=== PATIENT | female | born 1955 | race Caucasian/White ===

== ENCOUNTER 2018-05-06 01:22 | Emergency (ER) | payer OTHER ==
[~2018-05-06] VITALS: Ht 152.4 cm; Wt 68.0 kg
[~2018-05-06 01:22] MED LIST: AMOXICILLIN500 M2 PO
--- NOTE | 2018-05-06 01:34 | ED SKIN/ALLERGY COMPLAINT ---
History of Present Illness General Chief Complaint: Nausea, Vomiting, Diarrhea Stated Complaint: N/V/D Source: patient, family, old records, EMS Exam Limitations: no limitations Vital Signs & Intake/Output Vital Signs & Intake/Output Vital Signs Date Time Temp Pulse Resp B/P B/P Pulse O2 O2 Flow FiO2 Mean Ox Delivery Rate 05/06 0351 98.3 89 18 102/59 97 Room Air 05/06 0125 95 Room Air 05/06 0124 98.2 105 18 108/58 95 Room Air Allergies Coded Allergies: No Known Drug Allergies (Intermediate, NONE 02/01/18) Reconcile Medications Amoxicillin 500 MG CAPSULE 1 CAP PO TID INFECTION (Reported) Triage Note: PT TO ED BY AMBULANCE WITH C/O UPSET STOMACH AND "PROJECTILE DIARRHEA" X 1 AFTER EATING A "BAD BATCH OF SHRIMP TONIGHT." STATES ALSO DEVELOPED WHOLE BODY HIVES AFTER EATING THE SHRIMP. PT THEN TOOK HER TRAZODONE AND TRIED TO GO TO SLEEP. NO SOB OR AIRWAY COMPROMISE. PT ALSO REPORTS CHEST DISCOMFORT WHILE EN ROUTE TO ED. Triage Nurses Notes Reviewed? yes HPI: Patient H tonight which she has done in the past however she states that this patch did not taste well. Shortly thereafter she noticed that her eyes and her face started to swell up. Patient did have one episode of diarrhea. Patient denies any nausea or vomiting. She denies any shortness of breath or any involvement of her throat. Patient called 911 and came in for evaluation. Patient states that she feels itchy all over. Past History Travel History Traveled to [place] past 21 day No Medical History Any Pertinent Medical History? see below for history Endocrine: diabetes Surgical History Surgical History: non-contributory Psychosocial History What is your primary language Moroccan Tobacco Use: Quit >30 days ago ETOH Use: denies use Illicit Drug Use: denies illicit drug use Family History Hx Contributory? No Review of Systems Review of Systems Constitutional: Reports: no symptoms. EENTM: Reports: see HPI. Respiratory: Reports: no symptoms. Cardiovascular: Reports: no symptoms. GI: Reports: no symptoms. Genitourinary: Reports: no symptoms. Musculoskeletal: Reports: no symptoms. Skin: Reports: see HPI, rash. Neurological/Psychological: Reports: no symptoms. Hematologic/Endocrine: Reports: no symptoms. Immunologic/Allergic: Reports: no symptoms. All Other Systems: Reviewed and Negative Physical Exam Physical Exam General Appearance: well developed/nourished, alert, awake, anxious, mild distress Head: atraumatic Eyes: Bilateral: PERRL, EOMI, other (EDEMA). Ears, Nose, Throat: normal pharynx, hearing grossly normal, NO OROPHARYNGEAL EDEMA Neck: normal inspection, supple, NOSTRIDOR Respiratory: normal breath sounds, chest non-tender, no respiratory distress, lungs clear Cardiovascular: regular rate/rhythm, normal peripheral pulses Gastrointestinal: normal bowel sounds, soft, non-tender Back: normal inspection Extremities: normal inspection, normal range of motion, no edema Neurologic/Psych: awake, alert, oriented x 3, normal mood/affect Skin: rash Skin Problem Location: generalized Skin Problem Character: urticarial Lymphatic: no anterior cervical lorenzo Progress Differential Diagnosis: allergic reaction, anaphylaxis, angioedema Plan of Care: Orders Procedure Date/time Status COMPREHENSIVE METABOLIC PANEL 05/06 353 Complete CBC WITHOUT DIFFERENTIAL 05/06 353 Complete Laboratory Tests 05/06/18 0400: Anion Gap 13, Estimated GFR > 60, BUN/Creatinine Ratio 20.0, Glucose 339 H, Calcium 8.1 L, Total Bilirubin 0.6, AST 26, ALT 23, Alkaline Phosphatase 80, Total Protein 5.8 L, Albumin 3.3 L, Globulin 2.5, Albumin/Globulin Ratio 1.3, CBC w Diff MAN DIFF ORDERED, RBC 4.75, MCV 81.4, MCH 26.7 L, MCHC 32.8 L, RDW 15.1 H, MPV 10.5 H, Gran % 93.8 H, Lymphocytes % 3.8 L, Monocytes % 2.1, Eosinophils % 0.3, Basophils % 0, Absolute Granulocytes 7.1 H, Segmented Neutrophils 75, Band Neutrophils 17 H, Absolute Lymphocytes 0.3 L, Lymphocytes 6 L, Monocytes 2, Absolute Monocytes 0.2, Absolute Eosinophils 0, Absolute Basophils 0, Platelet Estimate ADEQUATE, Anisocytosis 1+, Fld Total RBCs Counted 100 Comments: Patient got up to go to the bathroom and she states her legs just gave out on her and she fell to the ground. Patient denies hitting her head and there was no loss consciousness. Patient states she did not injure herself in the fall. Patient was able to get back up with assistance and was able to ambulate. Patient is feeling much better. Patient has ambulated in the emergency department with supervision. Departure Departure Disposition: HOME OR SELF CARE Condition: Stable Clinical Impression Primary Impression: Allergic reaction Secondary Impressions: Diarrhea Referrals: Buddy MORGAN,John Holguin (PCP/Family) Additional Instructions: Drink plenty of fluids. Take Benadryl as needed for the itching. Take prednisone as prescribed. The prednisone will raise her blood sugar so make sure he followed closely. Return if symptoms worsen or for any concerns. Departure Forms: Customer Survey General Discharge Information Prescriptions: Current Visit Scripts Prednisone 1 TAB PO DAILY #18 TAB TAKE 3 TABS FOR 3 DAYS THEN TAKE 2 TABS FOR 3 DAYS THEN TAKE 1 TAB FOR 3 DAYS
[2018-05-06 04:17] LABS: ABSOLUTE BASOPHIL COUNT 0 /CUMM (0.0-0.2); ABSOLUTE EOSINOPHIL COUNT 0 /CUMM (0.0-0.7); ABSOLUTE GRANULOCYTE CT 7.1 /CUMM (1.4-6.5); ABSOLUTE LYMPH COUNT 0.3 /CUMM (1.2-3.4); ABSOLUTE MONOCYTE COUNT 0.2 /CUMM (0.10-0.60); BASOPHIL % 0 % (0.0-2.0); EOSINOPHIL % 0.3 % (0-5); HEMATOCRIT 38.7 % (37-47); MEAN CORPUSCULAR HGB 26.7 PG (27.0-31.0); MEAN CORPUSCULAR HGB CONC 32.8 G/DL (33.0-37.0); MEAN CORPUSCULAR VOLUME 81.4 FL (81.0-99.0); MEAN PLATELET VOLUME 10.5 FL (7.4-10.4); PLATELET COUNT 282 /CUMM (130-400); RBC DISTRIBUTION WIDTH 15.1 % (11.5-14.5); RED BLOOD CELL CT 4.75 /CUMM (4.20-5.40); WHITE BLOOD CELL COUNT 7.6 /CUMM (4.8-10.8)
[2018-05-06 04:39] LABS: GRANULOCYTE % 93.8 % (42.2-75.2)
[2018-05-06] MEDS ORDERED: PREDNISONE10 M2 PO (05:47)
[2018-05-06 09:25] VITALS: BP 118/64
== END 2018-05-06 09:42 ==
LOC: ERH 01:22
PROVIDERS: Emergency Medicine
DX: T78.1XXA Other adverse food reactions, not elsewhere classified, initial encounter (principal); R19.7 Diarrhea, unspecified; R07.89 Other chest pain
CPT/HCPCS: 96374; 96375; J1200; J2930

== ENCOUNTER 2018-05-09 16:31 | Inpatient (IN) | payer OTHER ==
[~2018-05-09] VITALS: Ht 165.1 cm; Wt 91.2 kg
[~2018-05-09 16:31] MED LIST changes: +PREDNISONE10 M2 PO
--- NOTE | 2018-05-09 16:58 | ED AMS/SEIZURE/WEAK/DIZZY ---
See Addendum History of Present Illness General Chief Complaint: General Adult Stated Complaint: BIBA LETHARGIC Source: patient, old records, EMS Exam Limitations: clinical condition Vital Signs & Intake/Output Vital Signs & Intake/Output Vital Signs Date Time Temp Pulse Resp B/P B/P Pulse O2 O2 Flow FiO2 Mean Ox Delivery Rate 05/09 1940 99.0 105 18 95/51 98 / 1930 99.6 05/09 1927 99.1 161 18 105/60 97 Room Air 05/09 1920 189 18 100/58 / 1915 124 18 109/51 / 1914 108 / 1914 145 / 1911 182 18 110/62 05/09 1907 182 18 100/58 96 Room Air 05/09 1819 100.6 172 18 90/58 97 Room Air 05/09 1806 100.6 182 18 111/58 05/09 1757 100.4 200 18 111/58 96 Room Air 05/09 1753 100.4 196 18 128/62 96 Room Air 05/09 1747 114/58 05/09 1744 100.4 181 18 96 Room Air / 1740 198 18 100/70 96 Room Air 05/09 1716 100.4 168 18 161/70 98 Room Air 05/09 1645 115/70 05/09 1644 163 /11 1638 200 18 108/62 96 Room Air Allergies Coded Allergies: No Known Drug Allergies (Intermediate, NONE 02/01/18) Reconcile Medications Amoxicillin 500 MG CAPSULE 1 CAP PO TID INFECTION (Reported) Bupropion HCl (Wellbutrin XL) 150 MG TAB.ER.24H 1 TAB PO DAILY UNKNOWN ( Reported) Carvedilol 3.125 MG TABLET 1 TAB PO DAILY HEART/BP (Reported) Ketoconazole 2 % CREAM..G. 1 EDWARD TOP DAILY AFFECTED AREA(S) (Reported) apply to affected area(s) Memantine HCl (Namenda XR) 28 MG CAP.SPR.24 1 CAP PO DAILY MEMORY (Reported) Metformin HCl (Metformin HCl ER) 500 MG TAB.ER.24H 1 TAB PO DAILY DM ( Reported) Oxycodone HCl 15 MG TABLET 1 TAB PO Q8H PAIN (Reported) Prednisone 10 MG TABLET 1 TAB PO DAILY Allergic Reaction TAKE 3 TABS FOR 3 DAYS THEN TAKE 2 TABS FOR 3 DAYS THEN TAKE 1 TAB FOR 3 DAYS Pregabalin (Lyrica) 150 MG CAPSULE 1 CAP PO BID UNKNOWN (Reported) Sertraline HCl (Zoloft) 100 MG TABLET 2 TAB PO DAILY MENTAL HEALTH (Reported) Trazodone HCl 100 MG TABLET 2 TAB PO QHS SLEEP/MENTAL HEALTH (Reported) Triage Note: PT COMING IN LETHARGIC SINCE MONDAY. WAS IN HOSPITAL MONDAY FOR FOOD POISONING. PT HAS NOT HAD URINE OUTPUT SINCE MONDAY. PT HAS NOT BEEN DRINKING AND HAS HAD DIARRHEA X1 WEEK. HR WAS OVER 200 B/P 105/60. NEG CINIC. ALERT BUT NOT SPEAKING. Triage Nurses Notes Reviewed? yes HPI: Patient presents for evaluation of lethargy and elevated heart rate. Patient is unable to provide history secondary to clinical condition. IV fluids were given prehospital (patient's heart rate peaked at 220 bpm). The paramedics feel the patient is likely septic. She was recently seen in the [facility] emergency department and diagnosed with food poisoning. She has had a very poor pedal intake since with decreased urine output. Past History Travel History Traveled to [place] past 21 day No Medical History Any Pertinent Medical History? see below for history Endocrine: diabetes Surgical History Surgical History: non-contributory Psychosocial History What is your primary language Cymraes Tobacco Use: Cognitive Impairment ETOH Use: 6 Family History Hx Contributory? No Review of Systems Review of Systems Constitutional: Reports: see HPI. EENTM: Reports: no symptoms. Respiratory: Reports: no symptoms. Cardiovascular: Reports: no symptoms. GI: Reports: no symptoms. Genitourinary: Reports: no symptoms. Musculoskeletal: Reports: no symptoms. Skin: Reports: no symptoms. Neurological/Psychological: Reports: see HPI. Hematologic/Endocrine: Reports: no symptoms. Immunologic/Allergic: Reports: no symptoms. All Other Systems: Reviewed and Negative Comments Given patient's overall clinical condition her review of systems was inconsistent Physical Exam Physical Exam General Appearance: SEE BELOW Comments: Gen.: Well-nourished, well-developed, no acute respiratory distress. Head: Normocephalic, atraumatic. Eyes: Normal inspection bilaterally Ears: Normal inspection bilaterally Nose: Normal inspection Throat/mouth : Dry mucosa, breathless voice Neck: Supple, full range of motion, no goiter Heart: Rapid irregular rate and rhythm Lungs: Clear to auscultation bilaterally with normal air entry Chest: Nontender Back: Normal range of motion Abdomen: Soft, nontender, nondistended, normal bowel sounds Extremities: Normal range of motion grossly, equal radial pulses, no cyanosis clubbing or edema Neurologic: Cranial nerves grossly intact, speech is clear Skin: warm and dry Psychiatric: Calm, cooperative, unable to assess further secondary to extremely dry mucosa and decreased ability to speak Core Measures ACS in differential dx? No CVA/TIA Diagnosis No Sepsis Present: Yes Sepsis Focused Exam Completed? Yes Progress Differential Diagnosis: SEE NOTES Plan of Care: Orders Procedure Date/time Status LACTIC ACID 05/09 1957 Active Patient Data 05/09 1927 Active Admit to inpatient 05/09 1918 Active LACTIC ACID 05/09 1839 Active Add-on Test (ER Only) 05/[address] CHEST W IV CONTRAST 05/09 181 Active Add-on Test (ER Only) 05/09 1750 Active BLOOD CULTURE 05/09 170 Active TSH REFLEX 05/09 1700 Complete SERUM OSMOLALITY 05/09 1700 Complete ACETONE 05/09 1700 Complete TROPONIN LEVEL 05/09 1657 Complete PROTHROMBIN TIME 05/09 1657 Complete MAGNESIUM 05/09 1657 Complete LACTIC ACID 05/09 1657 Complete ETHANOL 05/09 1657 Complete COMPREHENSIVE METABOLIC PANEL 05/09 1657 Complete CBC WITHOUT DIFFERENTIAL 05/09 1657 Complete URINALYSIS 05/09 1655 Complete EKG 05/09 1634 Active Current Medications Sig/Bayron Start time Last Medication Dose Stop Time Status Admin Ampicillin Sodium/ 1,500 MG Q6 05/09 2359 UNVr 05/09 Sulbactam Sodium 1941 (Unasyn) Sodium Chloride 250 ML (Normal Saline 0.9%) Diltiazem HCl 10 MG ONCE ONE 05/09 1930 UNVr 05/09 (Cardizem) 05/09 193 1920 Diltiazem HCl 125 MG Q12H 05/09 1730 UNVr 05/09 (Cardizem DRIP) 1756 Sodium Chloride 100 ML (Normal Saline 0.9%) Laboratory Tests 05/09/18 1746: Acetone Level Cancelled 05/09/18 1700: Anion Gap 19 H, Estimated GFR 56 L, BUN/Creatinine Ratio 41.0 H, Glucose 255 H, Serum Osmolality 294, Lactic Acid 4.0 H, Calcium 8.7, Magnesium 2.2, Total Bilirubin 1.7 H, AST 21, ALT 25, Alkaline Phosphatase 38, Troponin I 0.03, Total Protein 4.8 L, Albumin 2.4 L, Globulin 2.4, Albumin/Globulin Ratio 1.0 L, TSH &T3 &Free T4 Intrp 1.010, PT 16.1 H, INR 1.47 H, CBC w Diff MAN DIFF ORDERED, RBC 4.38, MCV 78.5 L, MCH 26.1 L, MCHC 33.3, RDW 15.8 H, MPV 10.1, Gran % 96.0 H, Lymphocytes % 2.3 L, Monocytes % 1.5 L, Eosinophils % 0.2, Basophils % 0, Absolute Granulocytes 10.3 H, Segmented Neutrophils 46, Band Neutrophils 20 H, Absolute Lymphocytes 0.2 L, Lymphocytes 6 L, Monocytes 24 H, Absolute Monocytes 0.2, Absolute Eosinophils 0, Absolute Basophils 0, Metamyelocytes 3 H, Myelocytes 1 H, Polychromasia 1+, Hypochromic-Microcytic 1 +, Anisocytosis 1+, Serum Alcohol < 10.0, Acetone Level POSITIVE AT 1:8 DIL 05/09/18 1651: Urinalysis MOD H, Urine Color YEL, Urine Clarity CLDY H, Urine pH 6.0, Ur Specific [place] >= 1.030, Urine Protein 100 H, Urine Ketones TRACE H, Urine Nitrite NEG, Urine Bilirubin NEG@ICTO, Urine Urobilinogen 2.0 H, Ur Leukocyte Esterase NEG, Ur Microscopic SEDIMENT EXAMINED, Urine RBC RARE, Urine WBC 3-5 H , Ur Epithelial Cells MOD H, Urine Bacteria MOD H, Hyaline Casts 3-5 H, Granular Casts 5-10 H, Urine Mucus FEW, Urine Hemoglobin MOD H, Urine Glucose 100 H Microbiology 05/09 1741 BLOOD: Blood Culture - RECD 05/09 1734 BLOOD: Blood Culture - RECD Initial ED EKG: RAPID IRREGULAR HEART RATE WITH NO ACUTE ISCHEMIC CHANGES Comments: 05/09/2018 6:06:20 PM I suspect this patient's presentation is due to profound volume depletion secondary to a combination of food poisoning, decreased oral intake and poorly controlled diabetes. She is improving clinically although her heart rate remains elevated and a monitor appears to be rapid atrial fibrillation (initially was unclear if this patient was in an SVT but her heart rate did respond to fluid boluses and appeared irregular). A Cardizem drip has been ordered for rapid atrial fibrillation. Patient is being bolused with fluids for dehydration. It is unclear if the patient is in DKA and this will be monitored for possible treatment (patient's blood glucose is only 255). 05/09/2018 6:15:10 PM Jeanie has improved considerably clinically and is much more awake and interactive. She is answering questions readily. She still appears to be confused at times. Her mucosa appears much more moist and her eyes brighter. Her daughter has brought to to our attention a complaint the patient had 1 week ago of a cyst in her left axilla that subsequently ruptured. Reevaluation reveals mild induration and erythema over the left chest consistent with cellulitis. Given this sepsis is now a good possibility it addition to the above. Hospitalist paged for admission. 05/09/2018 6:31:15 PM patient's case discussed with Dr. Payne. ED Sepsis Exam Date of Focused Sepsis Exam: 05/09/18 Time of Focused Sepsis Exam: 1814 Sepsis Cardiac Exam: Tachycardia Sepsis Resp Exam: CTA Sepsis Cap Refill Exam: <2 Sec Sepsis Peripheral Pulse Exam: Normal Sepsis Peripheral Pulse Location: Radial Sepsis Skin Color Exam: Normal for Ethnicity Skin Temp/Moisture Exam: Warm/Dry Departure Departure Disposition: STILL A PATIENT Condition: Stable Clinical Impression Primary Impression: Sepsis Qualifiers: Sepsis type: sepsis due to unspecified organism Qualified Code: A41.9 - Sepsis, unspecified organism Secondary Impressions: Cellulitis Qualifiers: Site of cellulitis: trunk Site of cellulitis of trunk: chest wall Qualified Code: L03.313 - Cellulitis of chest wall Rapid atrial fibrillation Referrals: John Goodwin MD (PCP/Family) Departure Forms: Customer Survey General Discharge Information Admission Note Spoke With: Kerry MORGANVer[facility] Centerem Documentation of Exam: Documentation of any treatments & extenuating circumstances including Concerns Regarding Discharge (functional status, medication knowledge or non-compliance, living conditions, etc.) that warrant an admission rather than observation: Patient presents with profound clinical dehydration altered mental status and rapid atrial fibrillation. This patient is critically ill inquires ICU level care with continuous cardiac monitoring and a Cardizem drip to control ventricular rate. In addition the patient requires aggressive management of the cellulitis with IV antibiotics to prevent worsening sepsis. This patient is at risk of mortality. If patient does not respond to initial management then cardiology consultation should be considered given the atrial fibrillation and infectious disease consultation considered given the cellulitis/sepsis. Given the patient's history of diabetes I suspect that her treatment and recovery will be prolonged and somewhat complicated. I feel she will require a multiple day hospitalization. Critical Care Note Critical Care Note Critical Care Time: 75-104 min
[2018-05-09 17:09] LABS: ABSOLUTE BASOPHIL COUNT 0 /CUMM (0.0-0.2); ABSOLUTE EOSINOPHIL COUNT 0 /CUMM (0.0-0.7); ABSOLUTE GRANULOCYTE CT 10.3 /CUMM (1.4-6.5); ABSOLUTE LYMPH COUNT 0.2 /CUMM (1.2-3.4); ABSOLUTE MONOCYTE COUNT 0.2 /CUMM (0.10-0.60); BASOPHIL % 0 % (0.0-2.0); EOSINOPHIL % 0.2 % (0-5); HEMATOCRIT 34.4 % (37-47); MEAN CORPUSCULAR HGB 26.1 PG (27.0-31.0); MEAN CORPUSCULAR HGB CONC 33.3 G/DL (33.0-37.0); MEAN CORPUSCULAR VOLUME 78.5 FL (81.0-99.0); MEAN PLATELET VOLUME 10.1 FL (7.4-10.4); PLATELET COUNT 278 /CUMM (130-400); RBC DISTRIBUTION WIDTH 15.8 % (11.5-14.5); RED BLOOD CELL CT 4.38 /CUMM (4.20-5.40); WHITE BLOOD CELL COUNT 10.8 /CUMM (4.8-10.8)
[2018-05-09 17:21] LABS: PT 16.1 SEC (9.4-12.5)
[2018-05-09] MEDS ORDERED: LYRICA150 M1 PO (17:38)
[2018-05-09] MEDS ORDERED: NAMENDA XR28 M1 PO (17:38)
[2018-05-09] MEDS ORDERED: TRAZODONE HCL100 M1 PO (17:39)
[2018-05-09] MEDS ORDERED: ZOLOFT100 M1 PO (17:39)
[2018-05-09] MEDS ORDERED: WELLBUTRIN XL150 M2 PO (17:41)
[2018-05-09] MEDS ORDERED: OXYCODONE HCL15 M1 PO (17:41)
[2018-05-09] MEDS ORDERED: KETOCONAZOLE15 GM TOP (17:41)
[2018-05-09] MEDS ORDERED: CARVEDILOL3.125 M1 PO (17:41)
[2018-05-09] MEDS ORDERED: METFORMIN HCL500 M4 PO (17:42)
--- NOTE | 2018-05-09 18:24 | RADIOLOGY REPORT ---
EXAMINATION: XR PORTABLE CHEST CLINICAL INFORMATION: Pneumonia. Tachycardia COMPARISON: None. TECHNIQUE: AP portable upright view of the chest FINDINGS: Sternal wires and surgical clips overlie the cardiac silhouette. Cardiac and mediastinal contours are otherwise normal. Blunting of the left lateral costophrenic sulcus is likely due to trace pleural effusion or pleural parenchymal scarring. The latter is favored. No focal consolidation. No pneumothorax. Degenerative disc disease is present in the thoracic spine. IMPRESSION: Subtle blunting of the left lateral costophrenic sulcus, likely due to pleural parenchymal scarring. Trace left pleural effusion is less likely. Otherwise, no acute pulmonary findings.
--- NOTE | 2018-05-09 19:33 | History & Physical ---
Anyi MORGAN,[facility] 05/09/181931: General Information and HPI MD Statement: I have seen and personally examined RUSSELL ZHAO and documented this H&P. The patient is a 62 year old F who presented with a patient stated chief complaint of [dehydration, lethargy]. Source of Information: family, ER data Exam Limitations: no limitations History of Present Illness: 62 yo F with PMH of diabetes, CHF and hepatitis C was brought to the ED for evaluation of increased lethargy, dehydration and confusion. Most of the history has been obtained from the daughter present at bedside. The patient was seen in the ED 3 days ago for an allergic reaction to shrimp. She was discharged on Prednisone and Benadryl at the time. The daughter states that since being discharged, the patient has been lethargic, mostly slept at home with poor oral intake and had urinary incontinence. She has not taken any of her medications since Monday. The patient lives with her brother and is fairly independent in ADLs at baseline. This afternoon, the daughter came back from work and had difficulty arousing her mother. She was barely coherent and was confused. Her lips and mouth were dry. This prompted the daughter to bring her mother to the ED for further evaluation. The daughter reports that last week the patient had a cyst in her left underarm which was painful. She did not see a doctor for that or received any treatment. Of note, the brother reports that on Monday the patient fell down and hit her head on the bed. She did not lose consciousness at the time though. At the time of interview, the patient was much more awake and able to make conversation. However, the daughter stated that her mother was 'still off' and not back to her baseline. Allergies/Medications Allergies: Coded Allergies: shrimp (Intermediate, HIVES AND DIARRHEA 05/09/18) Home Med list Bupropion HCl (Wellbutrin XL) 150 MG TAB.ER.24H 1 TAB PO DAILY UNKNOWN ( Reported) Carvedilol 3.125 MG TABLET 1 TAB PO DAILY HEART/BP (Reported) Ketoconazole 2 % CREAM..G. 1 EDWARD TOP DAILY AFFECTED AREA(S) (Reported) apply to affected area(s) Memantine HCl (Namenda XR) 28 MG CAP.SPR.24 1 CAP PO DAILY MEMORY (Reported) Metformin HCl (Metformin HCl ER) 500 MG TAB.ER.24H 1 TAB PO DAILY DM ( Reported) Oxycodone HCl 15 MG TABLET 1 TAB PO Q8H PAIN (Reported) Pregabalin (Lyrica) 150 MG CAPSULE 1 CAP PO BID UNKNOWN (Reported) Sertraline HCl (Zoloft) 100 MG TABLET 2 TAB PO DAILY MENTAL HEALTH (Reported) Trazodone HCl 100 MG TABLET 2 TAB PO QHS SLEEP/MENTAL HEALTH (Reported) Past History Travel History Traveled to [place] past 21 day No Medical History Cardiovascular: CHF Endocrine: diabetes Blood Disorders: Hepatitis C Surgical History Surgical History: CABG, cholecystectomy Past Family/Social History Psychosocial History ETOH Use: 6 Review of Systems Review of Systems Constitutional: Denies: chills, fever. EENTM: Reports: no symptoms. Cardiovascular: Reports: chest pain. Respiratory: Denies: short of breath. GI: Reports: no symptoms. Genitourinary: Reports: no symptoms. Musculoskeletal: Reports: no symptoms. Skin: Reports: cysts, change in skin color. Neurological/Psychological: Reports: no symptoms. Hematologic/Endocrine: Reports: no symptoms. Exam & Diagnostic Data Last 24 Hrs of Vital Signs/I&O Vital Signs Date Time Temp Pulse Resp B/P B/P Pulse O2 O2 Flow FiO2 Mean Ox Delivery Rate 05/09 2004 101 18 95/58 99 Room Air 05/09 2003 98.8 102 18 94/50 97 Room Air 05/09 1940 99.0 105 18 95/51 98 05/090 99.6 05/09 1927 99.1 161 18 105/60 97 Room Air 05/09 1920 189 18 100/58 05/09 1915 124 18 109/51 05/09 1914 108 05/09 1914 145 05/09 1911 182 18 110/62 05/09 1907 182 18 100/58 96 Room Air 05/09 1819 100.6 172 18 90/58 97 Room Air 05/09 1806 100.6 182 18 111/58 05/09 1757 100.4 200 18 111/58 96 Room Air 05/09 1753 100.4 196 18 128/62 96 Room Air 05/09 1747 114/58 05/09 1744 100.4 181 18 96 Room Air 05/09 1740 198 18 100/70 96 Room Air 05/09 1716 100.4 168 18 161/70 98 Room Air 07/11 1645 115/70 05/09 1644 163 05/09 1638 200 18 108/62 96 Room Air Physical Exam General Appearance Alert, Mild Distress, awake, oriented x 2 Skin erythema involving left anterior chest wall with mild edema Skin Temp/Moisture Exam: Warm/Dry Sepsis Skin Exam (color): Normal for Ethnicity HEENT Atraumatic Lymphatic cyst in axilla Cardiovascular Normal S1, Normal S2, No Murmurs, irregular Lungs Normal Air Movement Abdomen Soft, No Tenderness Neurological Normal Speech Extremities No Edema Last 24 Hrs of Labs/Ramón: Laboratory Tests 05/09/18 1746: Acetone Level Cancelled 05/09/18 1700: Anion Gap 19 H, Estimated GFR 56 L, BUN/Creatinine Ratio 41.0 H, Glucose 255 H, Serum Osmolality 294, Lactic Acid 4.0 H, Calcium 8.7, Magnesium 2.2, Total Bilirubin 1.7 H, AST 21, ALT 25, Alkaline Phosphatase 38, Troponin I 0.03, Total Protein 4.8 L, Albumin 2.4 L, Globulin 2.4, Albumin/Globulin Ratio 1.0 L, TSH &T3 &Free T4 Intrp 1.010, PT 16.1 H, INR 1.47 H, CBC w Diff MAN DIFF ORDERED, RBC 4.38, MCV 78.5 L, MCH 26.1 L, MCHC 33.3, RDW 15.8 H, MPV 10.1, Gran % 96.0 H, Lymphocytes % 2.3 L, Monocytes % 1.5 L, Eosinophils % 0.2, Basophils % 0, Absolute Granulocytes 10.3 H, Segmented Neutrophils 46, Band Neutrophils 20 H, Absolute Lymphocytes 0.2 L, Lymphocytes 6 L, Monocytes 24 H, Absolute Monocytes 0.2, Absolute Eosinophils 0, Absolute Basophils 0, Metamyelocytes 3 H, Myelocytes 1 H, Polychromasia 1+, Hypochromic-Microcytic 1 +, Anisocytosis 1+, Serum Alcohol < 10.0, Acetone Level POSITIVE AT 1:8 DIL 05/09/18 1651: Urinalysis MOD H, Urine Color YEL, Urine Clarity CLDY H, Urine pH 6.0, Ur Specific Qulin >= 1.030, Urine Protein 100 H, Urine Ketones TRACE H, Urine Nitrite NEG, Urine Bilirubin NEG@ICTO, Urine Urobilinogen 2.0 H, Ur Leukocyte Esterase NEG, Ur Microscopic SEDIMENT EXAMINED, Urine RBC RARE, Urine WBC 3-5 H , Ur Epithelial Cells MOD H, Urine Bacteria MOD H, Hyaline Casts 3-5 H, Granular Casts 5-10 H, Urine Mucus FEW, Urine Hemoglobin MOD H, Urine Glucose 100 H Microbiology 05/09 1741 BLOOD: Blood Culture - RECD 05/09 1734 BLOOD: Blood Culture - RECD 05/09 1651 URINE ROUT: Urine Culture - RECD Assessment/Plan Assessment: 62 yo F with PMH of diabetes, CHF and hepatitis C was brought to the ED for evaluation of increased lethargy, dehydration and confusion. On presentation to the ED the patient was found to have AMS and lethargic. Her heart rate was in 200 and in rapid atrial fibrilliation with RVR. She was hydrated with 5L of NS and started on IV Cardizem drip. Assessment: 1. Sepsis - Fever, tachycardia with left chest wall cellulitis 2. Left Chest Wall Cellulitis 3. New Onset Atrial Fibrilliation with RVR - converted back to NSR 4. Anion Gap Metabolic Acidosis likely secondary to lactic acidosis and starvation ketosis 5. Elevated total bilirubin 6. History of Diabetes 7. History of CHF Plan: * Admit patient to ICU * Her CT Chest showed extensive soft tissue infiltration and edema involving the left anterior and lateral chest wall in the left breast consistent with deep tissue space infection. * Start IV Unasyn 3g q6. * Follow blood and urine cultures * Trend Lactic Acid. * Her blood is positive for Acetone which is likely secondary to poor oral intake in the past 2-3 days. * Continue IV Cardizem for rate control for now. She can likely be transitioned to an oral agent in the morning. * Start IV Heparin for AC. She can be switched to an oral agent NOAC vs Coumadin after discussing with cardiology and family in am. * Cardiology consult. Patient follows Dr Jesus Thompson ([facility] * Would obtain CT head to r/o SDH. She did have a fall 3 days ago. * Insulin SS with Accucheks * Will hold her psych medications for now as the patient came in with AMS and lethargy. These can likely be restarted from tomorrow if the patient is more awake and alert. * Diet: Diabetic * DVT Prophylaxis: SC Lovenox * Code: Full Code As Ranked By This Provider Problem List: 1. Rapid atrial fibrillation 2. Cellulitis Qualifiers Site of cellulitis: trunk Site of cellulitis of trunk: chest wall Qualified Code: L03.313 - Cellulitis of chest wall Core Measures/Misc (07/16) Acute Coronary Syndrome ACS Diagnosis: No Congestive Heart Failure Congestive Heart Failure Diagnosis No Cerebrovascular Accident CVA/TIA Diagnosis: No VTE (View Protocol) VTE Risk Factors Age>40 No Mechanical VTE Prophylaxis d/t N/A MechProphylax Ordered No VTE Pharm Prophylaxis d/t NA PharmProphylax ordered Sepsis (View protocol) Sepsis Present: Yes If YES complete Sepsis Event Note If YES complete Sepsis Event Note Richelle Payne MD 05/09/18 2046: Core Measures/Misc (07/16) Sepsis (View protocol) If YES complete Sepsis Event Note If YES complete Sepsis Event Note Attending MD Review Statement Attending Statement Attending MD Statement: examined this patient, discuss w/resident/PA/SEXOLOGIST, agreed w/resident/PA/SEXOLOGIST, reviewed EMR data (avail) Attending Assessment/Plan: 62F PMH T2DM, HTN presenting with 3-4 days of nausea, vomiting, and diarrhea, for the past 2 days has been more lethargic, not eating, and febrile. She was lethargic and appeared ill and dehydrated in the ER, febrile 100.6, in new onset rapid atrial fibrillation initially with rate 200, normal BP. Her exam revealed erythema and tenderness of the left chest wall/axilla consistent with cellulitis , without any discharge or fluctuance. She was found to have a lactate of 4.0, WBC 10.8 with 20% bands, normal renal function. She received IV fluids in the ER and improved clinically, became more awake and alert. Fingerstick is 255, UA shows no infection but some ketosis. Received 5L NS in ER. 1. Sepsis secondary to left chest wall cellulitis 2. New onset rapid atrial fibrillation with RVR 3. Lactic acidosis 4. Dehydration 5. Starvation ketosis Plan - Admit to ICU - Unasyn for cellulitis - Blood cultures - Cardizem drip - Long and short acting insulin - Monitor fingersticks - Trend lactate to normal - Cardiology consult - DVT PPx - Cardiology consult - DVT PPx
--- NOTE | 2018-05-09 19:56 | CT SCAN REPORT ---
EXAMINATION: CT CHEST WITH CONTRAST CLINICAL INFORMATION: Erythema and induration. Fever, tachycardia. Presumptive diagnosis of deep tissue space infection of left chest laterally. COMPARISON: Portable chest x-ray dated 05/09/2018. TECHNIQUE: Multidetector volumetric CT imaging of the chest was obtained after the administration of 95 mL of intravenous Omnipaque 300. Sagittal and coronal reformations were obtained. DLP: 530.40 mGy-cm. FINDINGS: CHEST WALL: There is extensive soft tissue infiltration and edema seen involving the left anterior and lateral chest wall in the left breast, consistent with given history of deep tissue space infection. No evidence of subcutaneous emphysema is seen, and no focal drainable fluid collection is noted. There are several left axillary lymph nodes, predominantly all less than 1 cm in short axis. One enlarged left axillary lymph node measures up to 1.6 cm in short axis (series 2, image 12), but is morphologically normal. Findings are most likely related to reactive adenopathy. LUNGS: There is a 4 mm solid noncalcified nodule in the lingula (series 4, image 215). No other significant pulmonary nodule or mass is seen. There are dependent atelectatic changes seen in both lower lobes, left greater than right, as well as in the lingula. No dense consolidation is seen. Central airways remain patent. PLEURA: There is a trace left-sided pleural effusion. No right-sided pleural effusion. No pleural mass or thickening. LYMPHATIC STRUCTURES: Please refer to chest wall section as well. No mediastinal or hilar adenopathy or free fluid collection. CARDIOVASCULAR STRUCTURES: The main pulmonary artery is enlarged, measuring 3.4 cm transversely compared to 3.3 cm of the ascending aorta. Findings are suspicious for pulmonary arterial hypertension. Aortic size normal. Mild atherosclerotic calcifications of the aorta and branch vessels, including the coronary arteries is seen. No pericardial effusion. The left heart chambers are enlarged. UPPER ABDOMEN: Postcholecystectomy kizzy are seen in place. Included portions of pancreas are atrophic. There is a approximately 2.1 x 2.3 cm left adrenal mass with mean attenuation values of 45.2 Hounsfield units, indeterminate in etiology. There is also diffuse hypertrophy of the right adrenal gland. In the upper pole of the left kidney, a 1.0 cm diameter low-attenuation masses seen, too small to further characterize. Included portions of liver and spleen are unremarkable. OSSEOUS STRUCTURES: The patient is status post median sternotomy. Prominent vertebral spondylosis seen throughout the thoracic spine with relative sparing of the upper thoracic spine. Prominent posterior disc osteophyte complexes seen at the T6-T7 level projecting into the spinal canal and causing moderate spinal stenosis. There is also prominent posterior disc osteophyte complex seen at the C6-C7 level, projecting into the spinal canal and causing moderate spinal stenosis mild convex right thoracic scoliosis is seen. No suspicious focal findings. IMPRESSION: 1. Extensive soft tissue infiltration and edema is seen involving the left anterior lateral chest wall, consistent with clinical history of the patient space infection. No evidence of necrotizing fasciitis or focal drainable abscess collection is seen. 2. Trace left-sided pleural effusion and dependent atelectasis in the lungs bilaterally. No focal pneumonia. 3. Incidental finding of a 4 mm solid noncalcified nodule in the lingula. If the patient has no underlying risk factors, no routine follow-up is recommended as per the Fleischner criteria. If the patient is at high risk, optional CT scan follow-up at 12 months can be performed. 4. Enlarged pulmonary artery, suspicious for pulmonary arterial hypertension. Left heart chambers are also enlarged. 5. Indeterminate left adrenal mass. Further evaluation with dedicated adrenal CT scan is recommended. Right adrenal gland appears hypertrophied. 6. Incompletely characterized mass in the upper pole of the left kidney. This can also be reassessed at the time of the above suggested follow-up CT scan. 7. Multiple degenerative changes in the spine.
--- NOTE | 2018-05-09 20:47 | Admission Certification ---
Admission Certification Certification Statement - As attending physician, I certify that at the time of - admission, based on clinical presentation, severity of - symptoms, need for further diagnostic testing and - therapeutic interventions, and risk of adverse outcomes - without in-hospital treatment, in my clinical assessment, - this patient requires an acute hospital stay for a minimum - of two nights or longer. I have also considered psychsocial - factors such as support system, advanced age, financial - issues, cognitive issues, and failed out-patient treatments, - past re-admission history, safety of patient, and lack of - compliance as applicable. Specific rationale supporting this admission is: Sepsis secondary to cellulitis
--- NOTE | 2018-05-09 21:20 | Sepsis Event Note ---
Sepsis Event Note Severe Sepsis Severe Sepsis Present: No Septic Shock Septic Shock Present: No Event Note Event Note: On presentation to the ED the patient was found to have AMS and lethargic. Her heart rate was in 200 and in rapid atrial fibrilliation with RVR. She was hydrated with 5L of NS and started on IV Cardizem drip. Heart rate was improved after being started on CCB. Will trend Lactic acid until normalizes. Sepsis Focused Exam Sepsis Cardiac Exam: Tachycardia Sepsis Resp Exam: CTA Sepsis Cap Refill Exam: <2 Sec Sepsis Peripheral Pulse Exam: Normal Sepsis Peripheral Pulse Location: Dorsalis Pedis Sepsis Skin Exam (color): Normal for Ethnicity Skin Temp/Moisture Exam: Warm/Dry
--- NOTE | 2018-05-09 22:15 | CT SCAN REPORT ---
EXAMINATION: CT HEAD WITHOUT CONTRAST CLINICAL INFORMATION: Headache status post fall COMPARISON: None TECHNIQUE: Contiguous axial imaging was performed from the skull base to vertex without intravenous administration of contrast. DLP: 616 mGy-cm FINDINGS: There is no evidence of acute intracranial hemorrhage or territorial infarction. No abnormal mass effect or midline shift is seen. Mondragon to white matter differentiation is well preserved. No extra-axial fluid collections are identified. The ventricles are normal in size. Symmetrical white matter changes most consistent with terminal supply white matter chronic lacunar ischemic/infarct involving the claros radiata and centrum semiovale. The osseous structures and soft tissues are normal. The mastoid air cells and visualized portions of the paranasal sinuses are well aerated. IMPRESSION: No acute intracranial pathology.
[2018-05-09 22:55] VITALS: BP 110/54
[2018-05-10] VITALS: BP 99/56
[2018-05-10 01:02] LABS: PTT 28 SEC (25-37)
[2018-05-10 06:31] LABS: ABSOLUTE BASOPHIL COUNT 0 /CUMM (0.0-0.2); ABSOLUTE EOSINOPHIL COUNT 0.1 /CUMM (0.0-0.7); ABSOLUTE GRANULOCYTE CT 11.2 /CUMM (1.4-6.5); ABSOLUTE LYMPH COUNT 0.2 /CUMM (1.2-3.4); ABSOLUTE MONOCYTE COUNT 0 /CUMM (0.10-0.60); BASOPHIL % 0 % (0.0-2.0); EOSINOPHIL % 0.5 % (0-5); GRANULOCYTE % 97.1 % (42.2-75.2); MEAN CORPUSCULAR HGB 25.9 PG (27.0-31.0); MEAN CORPUSCULAR HGB CONC 32.3 G/DL (33.0-37.0); MEAN CORPUSCULAR VOLUME 80.2 FL (81.0-99.0); MEAN PLATELET VOLUME 9.8 FL (7.4-10.4); PLATELET COUNT 215 /CUMM (130-400); RBC DISTRIBUTION WIDTH 16.1 % (11.5-14.5); RED BLOOD CELL CT 3.59 /CUMM (4.20-5.40); WHITE BLOOD CELL COUNT 11.5 /CUMM (4.8-10.8)
[2018-05-10 06:48] LABS: PTT 36 SEC (25-37)
[2018-05-10 06:50] LABS: HEMATOCRIT 28.8 % (37-47)
--- NOTE | 2018-05-10 07:28 | Cons- CRCU ---
John Maurice MD 05/10/18 0727: General Information and HPI Consulting Request Date of Consult: 05/10/18 Requested By: Richelle Payne MD Reason for Consult: sepsis, afib with RVR Source of Information: patient, family, old records Exam Limitations: poor historian History of Present Illness: 62 year old female with PMH significant for DM on metformin, CAD s/p CABG, CHF and HCV was brought to the ED for evaluation of increased lethargy, dehydration and confusion. The patient is a poor historian and collateral information was obtained from her daughter. She was evaluated in the ED four days prior with complaints of diarrhea, lightheadedness and fall, she was treated for an allergic reaction to shrimp and was discharged on Prednisone and Benadryl at the time. After discharge, she had just been sleeping excessively, had urinary incontinence, poor appetite, worsening mental status, inability to perform her ADLs, and complained of pain when her daughter came home to help her get dressed. Last week, she told her daughter that she had a left axillary area cyst that recently ruptured. She had also been treated for dental infections twice this year. She had a fever at home although unmeasured, was hot and diaphoretic. She didn't have any other complaints to her daughter. The patient reports this morning that she had a negative mammogram about four months ago. In the ED, she was febrile to 100.4, afib with RVR HR > 200, her lowest blood pressure recorded was 90s systolic. She was given 5L of crystalloid resuscitation and started on heparin and cardizem gtts for her rapid atrial fibrillation. Labs were notable for left shift with 20 bands, lactic acid of 4, bicarbonate of 15, anion gap of 19, bun 41, creatinine 1.0, bilirubin 1.7, INR of 1.47, and positive acetone. She was started on Unasyn and blood cultures were drawn. CT Chest with IV contrast showed extensive soft tissue infiltration and edema is seen in the left anterior lateral chest wall without evidence of necrotizing fasciitis or focal drainable abscess. It also showed 4mm solid lingular nodule, enlarged PAs and left heart chambers, and left adrenal mass. She was admitted to critical care for further management. PCP: Dr. Lemon in [facility] Cardiology: Dr. Jesus Thompson in [facility] [place] PSH: CABG 22 years ago, Gastric bypass 3 years ago, Cholecystectomy PMH: HCV, DM, CAD s/p CABG (2007), AR s/p PCI (2006), HTN, HLD, morbid obesity and STERLING s/p reagan en y gastric bypass, Anxiety/Depression Therapist: Alysha in [place] Cath 04/2015 LVEF 65%, ramus 60% prox, LAD prox, distal, D1 moderate disease; LAD 100% mid, CX 50% prox, OM1 100% ostial, prior stent, CX mid, prox, OM2 mild disease; RCA prox, distal, mid mild disease; RPDA 100% prox Echo LVEF 60%, mild , mild LVH, AV peak 14mmhg, AV mean 7mmhg, AV area 1.7cm2 Stress 2013-LVEF 73%, small apical inferior wall defect, lexiscan Allergies/Medications Allergies: Coded Allergies: shrimp (Intermediate, HIVES AND DIARRHEA 05/09/18) Home Med List: Bupropion HCl (Wellbutrin XL) 150 MG TAB.ER.24H 1 TAB PO DAILY UNKNOWN ( Reported) Carvedilol 3.125 MG TABLET 1 TAB PO DAILY HEART/BP (Reported) Ketoconazole 2 % CREAM..G. 1 EDWARD TOP DAILY AFFECTED AREA(S) (Reported) apply to affected area(s) Memantine HCl (Namenda XR) 28 MG CAP.SPR.24 1 CAP PO DAILY MEMORY (Reported) Metformin HCl (Metformin HCl ER) 500 MG TAB.ER.24H 1 TAB PO DAILY DM ( Reported) Oxycodone HCl 15 MG TABLET 1 TAB PO Q8H PAIN (Reported) Pregabalin (Lyrica) 150 MG CAPSULE 1 CAP PO BID UNKNOWN (Reported) Sertraline HCl (Zoloft) 100 MG TABLET 2 TAB PO DAILY MENTAL HEALTH (Reported) Trazodone HCl 100 MG TABLET 2 TAB PO QHS SLEEP/MENTAL HEALTH (Reported) Current Medications: Current Medications Sig/Bayron Start time Last Medication Dose Route Stop Time Status Admin Acetaminophen 650 MG Q6P PRN 05/095 AC 05/10 PO 1158 Acetaminophen 1,000 MG ONCE ONE 05/09 1730 DC 05/09 N/A 1 UNIT IV 05/09 1744 1753 Acetaminophen 0 .STK-MED ONE 05/09 1729 DC IV Adenosine 0 .STK-MED ONE 07/11 1642 DC IV Ampicillin Sodium/ 1,500 MG Q6 05/09 2359 DC 05/09 Sulbactam Sodium IV 1941 Sodium Chloride 250 ML Ampicillin Sodium/ 3,000 MG Q6 05/09 2359 DC 05/10 Sulbactam Sodium IV 0119 Sodium Chloride 250 ML Ampicillin Sodium/ 3,000 MG Q6 05/09 2359 DC 05/10 Sulbactam Sodium IV 1118 Sodium Chloride 100 ML Ampicillin Sodium/ 0 .STK-MED ONE 05/09 1932 DC Sulbactam Sodium .ROUTE Carvedilol 3.125 MG DAILY 05/10 0900 AC 05/10 PO 0856 Ceftriaxone Sodium 1,000 MG DAILY 05/10 1330 UNVr IV Diltiazem HCl 125 MG Q24H 05/11 0630 CAN Sodium Chloride 100 ML IV Diltiazem HCl 125 MG Q12H 05/10 0815 DC 05/10 Sodium Chloride 100 ML IV 0813 Diltiazem HCl 10 MG ONCE ONE 05/09 1930 DC 05/09 IV PUSH 05/09 193 1920 Diltiazem HCl 0 .STK-MED ONE 05/09 1819 DC .ROUTE Diltiazem HCl 125 MG Q12H 05/09 1730 DC 05/10 Sodium Chloride 100 ML IV 0626 Enoxaparin Sodium 40 MG DAILY 05/10 0900 CAN SC Heparin Sodium 5,000 UNIT .STK-MED ONE 05/10 0008 DC (Porcine) IV 05/10 0009 Heparin Sodium 5,000 UNIT ONCE ONE 05/09 2345 DC 05/10 (Porcine) IV 05/09 2346 0045 Heparin Sodium 25,000 UNIT Q24H 05/09 2330 AC 05/10 (Porcine) IV 0020 Sodium Chloride 500 ML Insulin Aspart 0 TIDAC 05/10 0800 AC 05/10 SC 1152 Morphine Sulfate 2 MG ONCE ONE 05/10 0815 DC 05/10 IV 05/10 0816 0813 Nystatin 1 EDWARD BID 05/10 1202 AC TOP Oxycodone HCl 10 MG Q8 05/10 1400 AC 05/10 PO 1315 Phosphate 250 MG PC AND AT BEDTIME 05/10 1300 AC 07/ PO 05/11 0901 1152 Potassium Chloride 60 MEQ ONCE ONE 05/10 0930 DC 07/ PO 05/10 0931 1005 Potassium Chloride 10 MEQ ONCE ONE 07/12 0930 CAN IV 05/10 0931 Potassium Phosphate 15 mMol ONE ONE / 0930 AC 07/12 Sodium Chloride 250 ML IV 07/ 1334 1008 Sodium Chloride 1,000 ML ONCE ONE 05/10 0930 AC 07/12 IV 07/ 1609 1006 Sodium Chloride 1,000 ML Q6H / 0130 DC 07/12 IV 07/ 0729 0257 Sodium Chloride 1,000 ML BOLUS ONE / 1830 DC 07/ IV 07/ 1929 1908 Sodium Chloride 1,000 ML BOLUS ONE / 1700 DC 07/11 IV 07/11 1759 1722 Sodium Chloride 1,000 ML BOLUS ONE / 1700 DC 07/11 IV 07/ 1759 1700 Sodium Chloride 1,000 ML BOLUS ONE / 1700 DC 07/ IV 07/ 1759 1701 Sodium Chloride 1,000 ML BOLUS ONE / 1700 DC 07/ IV 07/ 1859 1700 Vancomycin HCl 1,250 MG 1400 / 1400 AC Sodium Chloride 250 ML IV Review of Systems Review of Systems Constitutional: Reports: chills, diaphoresis, fever, malaise, weakness. EENTM: Reports: no symptoms. Cardiovascular: Reports: chest pain, syncope. Denies: palpitations. Respiratory: Denies: cough, short of breath, sputum production. GI: Reports: diarrhea. Denies: abdominal pain, nausea, vomiting. Genitourinary: Denies: dysuria, frequency. Musculoskeletal: Reports: see HPI. Skin: Reports: cysts, erythema. Neurological/Psychological: Reports: depressed. Hematologic/Endocrine: Reports: no symptoms. Immunologic/Allergic: Reports: no symptoms. All Other Systems: Reviewed and Negative Past History Travel History Traveled to [place] past 21 day No Medical History Blood Transfusion Hx: No Neurological: peripheral neuropathy EENT: NONE Cardiovascular: AFIB, CAD, CHF, hypertension, myocardial infarction Respiratory: COPD Gastrointestinal: NONE Hepatic: hepatitis C Renal: NONE Musculoskeletal: falls, osteoarthritis Psychiatric: NONE Endocrine: diabetes Blood Disorders: NONE Cancer(s): NONE INVESTIGATIVE ANALYST/Reproductive: NONE Surgical History Surgical History: CABG, cholecystectomy, gastric bypass Psychosocial History Where Do You Live? Home Smoking Status: Former Smoker ETOH Use: 6 Functional Ability ADLs Independent: dressing, eating, toileting, bathing. Ambulation: independent IADLs Independent: shopping, housework, finances, food prep, telephone, transportation , medication admin. Exam & Diagnostic Data Last 24 Hrs of Vital Signs/I&O Vital Signs Date Time Temp Pulse Resp B/P B/P Pulse O2 O2 Flow FiO2 Mean Ox Delivery Rate 05/10 0856 87 108/64 07/12 0800 Room Air 05/10 0400 97 Room Air 05/10 0000 98 Room Air 05/10 0000 96 20 99/56 98 Room Air 05/09 2255 97.1 98 28 110/54 95 Room Air 05/09 2250 98 Room Air 05/09 2215 Room Air 05/09 2158 37.1 97 18 113/60 94 Room Air 05/09 2101 98.6 100 18 95/61 98 Room Air 05/09 2004 101 18 95/58 99 Room Air 05/09 2003 98.8 102 18 94/50 97 Room Air 05/09 1940 99.0 105 18 95/51 98 07/ 1930 99.6 07/ 1927 99.1 161 18 105/60 97 Room Air 07/ 1920 189 18 100/58 07/11 1915 124 18 109/51 07/11 1914 108 07/11 1914 145 07/11 1911 182 18 110/62 07/11 1907 182 18 100/58 96 Room Air 07/ 1830 Room Air / 1819 100.6 172 18 90/58 97 Room Air 07/11 1806 100.6 182 18 111/58 07/11 1757 100.4 200 18 111/58 96 Room Air / 1753 100.4 196 18 128/62 96 Room Air 05/09 1747 114/58 07/11 1744 100.4 181 18 96 Room Air 07/11 1740 198 18 100/70 96 Room Air 07/11 1716 100.4 168 18 161/70 98 Room Air 05/09 1645 115/70 07/11 1644 163 07/11 1638 200 18 108/62 96 Room Air Intake & Output 05/10 1600 07/12 0800 07/12 0000 Intake Total 2448 160 Output Total 252 325 Balance 2196 -165 Intake, IV 848 40 Intake, Oral 1600 120 Number 0 Bowel Movements Output, Urine 252 325 Patient 72.745 kg Weight Weight Bed scale Measurement Method Physical Exam General Appearance: well developed/nourished, no apparent distress, awake, mucous membranes dry, lips chapped swollen Neck: normal inspection, supple Respiratory: normal breath sounds, no respiratory distress, quiet respiration, lungs clear Cardiovascular: regular rate/rhythm, normal peripheral pulses Breasts left breast erythema and fluctuance laterally extending up to the axilla but axilla spared Gastrointestinal: normal bowel sounds, soft, tenderness, RUQ tenderness on palpation Extremities: normal inspection, normal capillary refill, normal range of motion, no edema Last 48 Hrs of Labs/Ramón: Laboratory Tests 05/10/18 0805: Lactic Acid 2.0 05/10/18 0615: Anion Gap 15, Estimated GFR 56 L, Glucose 223 H, Calcium 7.9 L, Phosphorus 2.3 L, Magnesium 1.9, Total Bilirubin 1.0, AST 18, ALT 29, Albumin 2.0 L, APTT 36, CBC w Diff MAN DIFF ORDERED, RBC 3.59 L, MCV 80.2 L, MCH 25.9 L, MCHC 32.3 L, RDW 16.1 H, MPV 9.8, Gran % 97.1 H, Lymphocytes % 2.0 L, Monocytes % 0.4 L, Eosinophils % 0.5, Basophils % 0, Absolute Granulocytes 11.2 H, Segmented Neutrophils 65, Band Neutrophils 19 H, Absolute Lymphocytes 0.2 L, Lymphocytes 6 L, Monocytes 5, Absolute Monocytes 0 L, Absolute Eosinophils 0.1 , Absolute Basophils 0, Metamyelocytes 3 H, Myelocytes 2 H, Platelet Estimate ADEQUATE, Hypochromic-Microcytic 1+, Anisocytosis 1+, Fld Total RBCs Counted 100 05/10/18 0431: Lactic Acid Cancelled 05/10/18 0415: Lactic Acid 2.5 H 05/10/18 0030: Lactic Acid 2.4 H, Troponin I 0.02, APTT 28 05/10/18 0023: APTT Cancelled 05/09/18 2128: Lactic Acid 2.1 05/09/18 1957: Lactic Acid Cancelled 05/09/18 1746: Acetone Level Cancelled 05/09/18 1700: Anion Gap 19 H, Estimated GFR 56 L, BUN/Creatinine Ratio 41.0 H, Glucose 255 H, Serum Osmolality 294, Lactic Acid 4.0 H, Calcium 8.7, Magnesium 2.2, Total Bilirubin 1.7 H, AST 21, ALT 25, Alkaline Phosphatase 38, Troponin I 0.03, Total Protein 4.8 L, Albumin 2.4 L, Globulin 2.4, Albumin/Globulin Ratio 1.0 L, TSH &T3 &Free T4 Intrp 1.010, PT 16.1 H, INR 1.47 H, CBC w Diff MAN DIFF ORDERED, RBC 4.38, MCV 78.5 L, MCH 26.1 L, MCHC 33.3, RDW 15.8 H, MPV 10.1, Gran % 96.0 H, Lymphocytes % 2.3 L, Monocytes % 1.5 L, Eosinophils % 0.2, Basophils % 0, Absolute Granulocytes 10.3 H, Segmented Neutrophils 46, Band Neutrophils 20 H, Absolute Lymphocytes 0.2 L, Lymphocytes 6 L, Monocytes 24 H, Absolute Monocytes 0.2, Absolute Eosinophils 0, Absolute Basophils 0, Metamyelocytes 3 H, Myelocytes 1 H, Polychromasia 1+, Hypochromic-Microcytic 1 +, Anisocytosis 1+, Serum Alcohol < 10.0, Acetone Level POSITIVE AT 1:8 DIL 05/09/18 1651: Urinalysis MOD H, Urine Color YEL, Urine Clarity CLDY H, Urine pH 6.0, Ur Specific [place] >= 1.030, Urine Protein 100 H, Urine Ketones TRACE H, Urine Nitrite NEG, Urine Bilirubin NEG@ICTO, Urine Urobilinogen 2.0 H, Ur Leukocyte Esterase NEG, Ur Microscopic SEDIMENT EXAMINED, Urine RBC RARE, Urine WBC 3-5 H , Ur Epithelial Cells MOD H, Urine Bacteria MOD H, Hyaline Casts 3-5 H, Granular Casts 5-10 H, Urine Mucus FEW, Urine Hemoglobin MOD H, Urine Glucose 100 H Diagnostic Data EKG Results sinus rhythm CXR Results Subtle blunting of the left lateral costophrenic sulcus, likely due to pleural parenchymal scarring. Trace left pleural effusion is less likely. Otherwise, no acute pulmonary findings. Other Results IMPRESSION: 1. Extensive soft tissue infiltration and edema is seen involving the left anterior lateral chest wall, consistent with clinical history of the patient space infection. No evidence of necrotizing fasciitis or focal drainable abscess collection is seen. 2. Trace left-sided pleural effusion and dependent atelectasis in the lungs bilaterally. No focal pneumonia. 3. Incidental finding of a 4 mm solid noncalcified nodule in the lingula. If the patient has no underlying risk factors, no routine follow-up is recommended as per the Fleischner criteria. If the patient is at high risk, optional CT scan follow-up at 12 months can be performed. 4. Enlarged pulmonary artery, suspicious for pulmonary arterial hypertension. Left heart chambers are also enlarged. 5. Indeterminate left adrenal mass. Further evaluation with dedicated adrenal CT scan is recommended. Right adrenal gland appears hypertrophied. 6. Incompletely characterized mass in the upper pole of the left kidney. This can also be reassessed at the time of the above suggested follow-up CT scan. 7. Multiple degenerative changes in the spine. Assessment/Plan CRCU Impression/Plan: 62 year old female with past medical history significant for morbid obesity, DM, STERLING s/p laparoscopic Reagan-en-Y gastric bypass (2015), HTN, CAD/AR s/p PCI and CABG presented with several days of poor oral intake, diarrhea, urinary incontinence, lethargy, and confusion. In the ED, she met sepsis criteria with fever to 100.6, tachycardia, bandemia, and lactic acidemia. She was found to be in new onset rapid atrial fibrillation, and a heart rate of 200. Her lethargy, confusion, and atrial fibrillation were likely precipitated by infection, from a left breast cellulitis. She has improved with aggressive crystalloid resuscitation and administration of Unasyn. Severe sepsis secondary to left chest wall cellulitis Fever, tachycardia, lactic acidemia, WBC 10.8 with 20 bands, and left breast cellulitis Received 5L NS Started on Unasyn for left breast cellulitis Blood cultures GNR/GPC, awaiting speciation and sensitivites Infectious disease consultation, appreciate recommendations CT shows extensive soft tissue infiltration and edema of the left anterior lateral chest wall No evidence of necrotizing fasciitis or focal drainable abscess collection Erythema and tenderness of the left chest wall/axilla Surgery consultation for possible debridement or drainage Awaiting left breast ultrasound New onset rapid atrial fibrillation with RVR Cardizem drip discontinued, currently in sinus rhythm Resumed home dose of carvedilol Heparin drip for anticoagulation Cardiology consulted Elevated anion gap metabolic acidosis Secondary to lactic acidemia, sepsis, dehydration, and starvation ketosis Bicarbonate 15 and anion gap of 19 on presentation, will trend on daily labs Given 5L of crystalloid Continue to trend lactic acid Expected to improve with intravascular volume resuscitation Hypokalemia/Hypophosphatemia: Repleting orally, will repeat on AM labs CAD/AR s/p PCI/CABG Obtain records from [facility], last visit 2014 Aspirin, statin, beta marlene DM: Accuchecks TIDAC, 240s-250s Novolog sliding scale insulin Diabetic diet DVT ppx-heparin gtt Full code Consult Acknowledgment - Thank you for your consult request. Zeke MORGAN,[place] [facility] 05/10/18 1005: Assessment/Plan CRCU Other Findings/Comments: Seen and examined independently History as above Examination as noted above Significant induration noted in the left upper arm and significant swelling of the arm and chest. Patient is alert awake and oriented 3 but at times lethargic Erythema in the left anterior chest wall Heart S1-S2 was heard Lungs clear No cyanosis clubbing Skin lesions noted around the mouth SIGNIFICANT DATA potassium low lactic acid initially 4 down to 2.5 electrolytes were abnormal as noted above white count 11.5 this morning with anemia with hemoglobin of 9.3 with significant left shift with 19% bands INR was elevated at 1.4. Cultures are positive for gram-negative rods and gram-positive cocci CT of the head reviewed which showed no significant intracranial pathology CT of the chest showed extensive soft tissue infiltration edema in the left anterior lateral chest wall trace left pleural effusion 4 mm lung nodule which needs follow-up clinical evidence suggestive of significant pulmonary hypertension with left heart enlargement and indeterminate adrenal nodule which needs follow-up as an outpatient. Patient also seems to have an incompletely characterized mass in the upper pole of the left kidney which needs follow-up IMPRESSION Pt with Diabetes, recent memory loss, on and off evaluation, previous history of ischemic heart disease CABG, previous hepatitis C infection or chart, came into the hospital with severe sepsis secondary to left upper extremity and chest wall cellulitis. No clinical evidence suggestive of significant necrotizing fasciitis but needs to be followed by infectious disease and the surgery New onset rapid A. fib with rapid ventricular response initially Lactic acidosis Recent lethargy and memory loss needs follow-up Starvation ketosis RECOMMENDATION Intravenous antibiotics to continue Infectious disease to evaluate patient may need to have change of antibiotics Surgery to see Doppler ultrasound of the left upper extremity and subclavian vein to rule out DVT Check HIV, hepatitis B antibody and hep C viral load Continue diltiazem drip Cardiology to see Continue heparin drip Gentle IV fluids with D5 normal saline Replace potassium aggressively Pt is critically ill tts 40 mins Consult Acknowledgment - Thank you for your consult request.
[2018-05-10 08:00] VITALS: BP 110/50
--- NOTE | 2018-05-10 12:35 | Cons- General Surgery ---
General Information and HPI Consulting Request Date of Consult: 05/10/18 Requested By: Zeke MORGAN,Igor Holguin Reason for Consult: CELLULITIS History of Present Illness: Patient admitted to medical service/ICU with sepsis. There was noted cellulitis to chest/breast. Patient confused but related 2 weeks of "cyst under arm" that drained purluence. Daughter unaware of anything but noted severe pain at site when she was brougt to ER. No prior infections. Allergies/Medications Allergies: Coded Allergies: shrimp (Intermediate, HIVES AND DIARRHEA 05/09/18) Home Med List: Amoxicillin 500 MG CAPSULE 1 CAP PO TID INFECTION (Reported) Bupropion HCl (Wellbutrin XL) 150 MG TAB.ER.24H 1 TAB PO DAILY UNKNOWN ( Reported) Carvedilol 3.125 MG TABLET 1 TAB PO DAILY HEART/BP (Reported) Ketoconazole 2 % CREAM..G. 1 EDWARD TOP DAILY AFFECTED AREA(S) (Reported) apply to affected area(s) Memantine HCl (Namenda XR) 28 MG CAP.SPR.24 1 CAP PO DAILY MEMORY (Reported) Metformin HCl (Metformin HCl ER) 500 MG TAB.ER.24H 1 TAB PO DAILY DM ( Reported) Oxycodone HCl 15 MG TABLET 1 TAB PO Q8H PAIN (Reported) Prednisone 10 MG TABLET 1 TAB PO DAILY Allergic Reaction TAKE 3 TABS FOR 3 DAYS THEN TAKE 2 TABS FOR 3 DAYS THEN TAKE 1 TAB FOR 3 DAYS Pregabalin (Lyrica) 150 MG CAPSULE 1 CAP PO BID UNKNOWN (Reported) Sertraline HCl (Zoloft) 100 MG TABLET 2 TAB PO DAILY MENTAL HEALTH (Reported) Trazodone HCl 100 MG TABLET 2 TAB PO QHS SLEEP/MENTAL HEALTH (Reported) Current Medications: Current Medications Sig/Bayron Start time Last Medication Dose Route Stop Time Status Admin Acetaminophen 650 MG Q6P PRN 05/09 2045 AC 05/10 PO 1158 Acetaminophen 1,000 MG ONCE ONE 05/09 1730 DC 05/09 N/A 1 UNIT IV 05/09 1744 1753 Acetaminophen 0 .STK-MED ONE 05/09 1729 DC IV Adenosine 0 .STK-MED ONE 05/09 1642 DC IV Ampicillin Sodium/ 1,500 MG Q6 05/09 2359 DC 05/09 Sulbactam Sodium IV 1941 Sodium Chloride 250 ML Ampicillin Sodium/ 3,000 MG Q6 05/09 2359 DC 05/10 Sulbactam Sodium IV 0119 Sodium Chloride 250 ML Ampicillin Sodium/ 3,000 MG Q6 05/09 2359 AC 05/10 Sulbactam Sodium IV 1118 Sodium Chloride 100 ML Ampicillin Sodium/ 0 .STK-MED ONE 05/09 1932 DC Sulbactam Sodium .ROUTE Carvedilol 3.125 MG DAILY 05/10 0900 AC 05/10 PO 0856 Diltiazem HCl 125 MG Q24H 05/11 0630 CAN Sodium Chloride 100 ML IV Diltiazem HCl 125 MG Q12H 05/10 0815 DC 05/10 Sodium Chloride 100 ML IV 0813 Diltiazem HCl 10 MG ONCE ONE 05/09 1930 DC 05/09 IV PUSH 05/09 193 1920 Diltiazem HCl 0 .STK-MED ONE 05/09 1819 DC .ROUTE Diltiazem HCl 125 MG Q12H 05/09 1730 DC 05/10 Sodium Chloride 100 ML IV 0626 Enoxaparin Sodium 40 MG DAILY 05/10 0900 CAN SC Heparin Sodium 5,000 UNIT .STK-MED ONE 05/10 0008 DC (Porcine) IV 05/10 0009 Heparin Sodium 5,000 UNIT ONCE ONE 05/09 2345 DC 05/10 (Porcine) IV 05/09 2346 0045 Heparin Sodium 25,000 UNIT Q24H 05/09 2330 AC 05/10 (Porcine) IV 0020 Sodium Chloride 500 ML Insulin Aspart 0 TIDAC 05/10 0800 AC 05/10 SC 1152 Morphine Sulfate 2 MG ONCE ONE 05/10 0815 DC 05/10 IV 05/10 0816 0813 Nystatin 1 EDWARD BID 05/10 1202 AC TOP Oxycodone HCl 10 MG Q8 05/10 1400 AC PO Phosphate 250 MG PC AND AT BEDTIME 05/10 1300 AC 05/10 PO 05/11 0901 1152 Potassium Chloride 60 MEQ ONCE ONE 05/10 0930 DC 05/10 PO 05/10 0931 1005 Potassium Chloride 10 MEQ ONCE ONE 05/10 0930 CAN IV 05/10 0931 Potassium Phosphate 15 mMol ONE ONE 05/10 0930 AC 05/10 Sodium Chloride 250 ML IV 07 1334 1008 Sodium Chloride 1,000 ML ONCE ONE 05/10 0930 AC 05/10 IV 05/10 1609 1006 Sodium Chloride 1,000 ML Q6H / 0130 DC 07/12 IV 07/12 0729 0257 Sodium Chloride 1,000 ML BOLUS ONE / 1830 DC 07/11 IV 07/ 1929 1908 Sodium Chloride 1,000 ML BOLUS ONE 07/11 1700 DC 07/11 IV 07/11 1759 1722 Sodium Chloride 1,000 ML BOLUS ONE 07/ 1700 DC 07/11 IV 07/ 1759 1700 Sodium Chloride 1,000 ML BOLUS ONE 07/ 1700 DC 07/11 IV 07/ 1759 1701 Sodium Chloride 1,000 ML BOLUS ONE 07/ 1700 DC 07/11 IV 07/ 1859 1700 Past History Medical History Blood Transfusion Hx: No Neurological: peripheral neuropathy EENT: NONE Cardiovascular: AFIB, CHF, hypertension, myocardial infarction Respiratory: COPD Gastrointestinal: NONE Hepatic: hepatitis C Renal: NONE Musculoskeletal: falls, osteoarthritis Psychiatric: NONE Endocrine: diabetes Blood Disorders: NONE Cancer(s): NONE [employer]/Reproductive: NONE Surgical History Pertinent Surgical History: CABG, cholecystectomy Psychosocial History Where Do You Live? Home Smoking Status: Former Smoker ETOH Use: 6 Review of Systems Review of Systems: unobtainable Exam & Diagnostic Data Vital Signs and I&O Vital Signs Date Time Temp Pulse Resp B/P B/P Pulse O2 O2 Flow FiO2 Mean Ox Delivery Rate 05/10 0856 87 108/64 05/10 0800 Room Air 05/10 0800 97.9 87 22 110/50 97 Room Air 05/10 0400 97 Room Air 05/10 0000 98 Room Air 05/10 0000 96 20 99/56 98 Room Air 05/09 2255 97.1 98 28 110/54 95 Room Air 05/09 2250 98 Room Air 05/09 2215 Room Air 05/09 2158 37.1 97 18 113/60 94 Room Air 05/09 2101 98.6 100 18 95/61 98 Room Air 05/09 2004 101 18 95/58 99 Room Air 05/09 2003 98.8 102 18 94/50 97 Room Air 05/09 1940 99.0 105 18 95/51 98 05/09 1930 99.6 05/09 1927 99.1 161 18 105/60 97 Room Air 05/09 1920 189 18 100/58 05/09 1915 124 18 109/51 05/09 1914 108 07/11 1914 145 / 1911 182 18 110/62 / 1907 182 18 100/58 96 Room Air 05/09 1830 Room Air 05/09 1819 100.6 172 18 90/58 97 Room Air 05/09 1806 100.6 182 18 111/58 / 1757 100.4 200 18 111/58 96 Room Air 05/09 1753 100.4 196 18 128/62 96 Room Air 05/09 1747 114/58 11 1744 100.4 181 18 96 Room Air 05/09 1740 198 18 100/70 96 Room Air 05/09 1716 100.4 168 18 161/70 98 Room Air 05/09 1645 115/70 05/09 1644 163 /11 1638 200 18 108/62 96 Room Air Intake & Output 05/10 1600 05/10 0800 05/10 0000 05/09 1600 05/09 0800 05/09 0000 Intake Total 2448 160 Output Total 252 325 Balance 2196 -165 Intake, IV 848 40 Intake, Oral 1600 120 Number 0 Bowel Movements Output, Urine 252 325 Patient 160 lb 160 lb Weight Weight Bed scale Measurement Method Physical Exam: Gen; obese, disheveled. nad, confused but alert. HEENT; anicteric, perrl. sores on face chest; induration left flank. axilla spared. uninflamed cyst in axillary crease. induration over lateral pectoralis major. breast. indurated and swollen. no mass. no nipple d/c Last 24 Hours of Labs: Laboratory Tests 05/10 05/10 05/10 0805 0615 0431 Chemistry Sodium (137 - 145 mmol/L) 131 L Potassium (3.5 - 5.1 mmol/L) 3.2 L Chloride (98 - 107 mmol/L) 99 Carbon Dioxide (22 - 30 mmol/L) 17 L Anion Gap (5 - 16) 15 BUN (7 - 17 mg/dL) 39 H Creatinine (0.5 - 1.0 mg/dL) 1.0 Estimated GFR (>60 ml/min) 56 L Glucose (65 - 99 mg/dL) 223 H Lactic Acid (0.7 - 2.1 mmol/L) 2.0 Cancelled Calcium (8.4 - 10.2 mg/dL) 7.9 L Phosphorus (2.5 - 4.5 mg/dL) 2.3 L Magnesium (1.6 - 2.3 mg/dL) 1.9 Total Bilirubin (0.2 - 1.3 mg/dL) 1.0 AST (14 - 36 U/L) 18 ALT (9 - 52 U/L) 29 Albumin (3.5 - 5.0 g/dL) 2.0 L Coagulation APTT (25 - 37 SEC) 36 Hematology CBC w Diff MAN DIFF ORDERED WBC (4.8 - 10.8 /CUMM) 11.5 H RBC (4.20 - 5.40 /CUMM) 3.59 L Hgb (12.0 - 16.0 G/DL) 9.3 L Hct (37 - 47 %) 28.8 L MCV (81.0 - 99.0 FL) 80.2 L MCH (27.0 - 31.0 PG) 25.9 L MCHC (33.0 - 37.0 G/DL) 32.3 L RDW (11.5 - 14.5 %) 16.1 H Plt Count (130 - 400 /CUMM) 215 MPV (7.4 - 10.4 FL) 9.8 Gran % (42.2 - 75.2 %) 97.1 H Lymphocytes % (20.5 - 51.1 %) 2.0 L Monocytes % (1.7 - 9.3 %) 0.4 L Eosinophils % (0 - 5 %) 0.5 Basophils % (0.0 - 2.0 %) 0 Absolute Granulocytes (1.4 - 6.5 /CUMM) 11.2 H Segmented Neutrophils (42.2 - 75.2 %) 65 Band Neutrophils (0.0 - 5.0 %) 19 H Absolute Lymphocytes (1.2 - 3.4 /CUMM) 0.2 L Lymphocytes (20.5 - 51.1 %) 6 L Monocytes (1.7 - 9.3 %) 5 Absolute Monocytes (0.10 - 0.60 /CUMM) 0 L Absolute Eosinophils (0.0 - 0.7 /CUMM) 0.1 Absolute Basophils (0.0 - 0.2 /CUMM) 0 Metamyelocytes (0.0 - 1.0 %) 3 H Myelocytes (0 - 0 %) 2 H Platelet Estimate (ADEQUATE) ADEQUATE Hypochromic-Microcytic 1+ Anisocytosis 1+ Other Body Source Fld Total RBCs Counted (%) 100 05/10 05/10 05/10 05/09 05/09 0415 0030 0023 6 1956 Chemistry Lactic Acid (0.7 - 2.1 mmol/L) 2.5 H 2.4 H 2.1 Cancelled Troponin I (< 0.11 ng/ml) 0.02 Coagulation APTT (25 - 37 SEC) 28 Cancelled 05/09 05/09 1746 1700 Chemistry Sodium (137 - 145 mmol/L) 132 L Potassium (3.5 - 5.1 mmol/L) 3.5 Chloride (98 - 107 mmol/L) 98 Carbon Dioxide (22 - 30 mmol/L) 15 L Anion Gap (5 - 16) 19 H BUN (7 - 17 mg/dL) 41 H Creatinine (0.5 - 1.0 mg/dL) 1.0 Estimated GFR (>60 ml/min) 56 L BUN/Creatinine Ratio (7 - 25 %) 41.0 H Glucose (65 - 99 mg/dL) 255 H Serum Osmolality (285 - 295 MOSM/KG) 294 Lactic Acid (0.7 - 2.1 mmol/L) 4.0 H Calcium (8.4 - 10.2 mg/dL) 8.7 Magnesium (1.6 - 2.3 mg/dL) 2.2 Total Bilirubin (0.2 - 1.3 mg/dL) 1.7 H AST (14 - 36 U/L) 21 ALT (9 - 52 U/L) 25 Alkaline Phosphatase (<127 U/L) 38 Troponin I (< 0.11 ng/ml) 0.03 Total Protein (6.3 - 8.2 g/dL) 4.8 L Albumin (3.5 - 5.0 g/dL) 2.4 L Globulin (1.9 - 4.2 gm/dL) 2.4 Albumin/Globulin Ratio (1.1 - 2.2 %) 1.0 L TSH &T3 &Free T4 Intrp (0.270 - 4.20 uIU/mL) 1.010 Coagulation PT (9.4 - 12.5 SEC) 16.1 H INR (0.90 - 1.19) 1.47 H Hematology CBC w Diff MAN DIFF ORDERED WBC (4.8 - 10.8 /CUMM) 10.8 RBC (4.20 - 5.40 /CUMM) 4.38 Hgb (12.0 - 16.0 G/DL) 11.4 L Hct (37 - 47 %) 34.4 L MCV (81.0 - 99.0 FL) 78.5 L MCH (27.0 - 31.0 PG) 26.1 L MCHC (33.0 - 37.0 G/DL) 33.3 RDW (11.5 - 14.5 %) 15.8 H Plt Count (130 - 400 /CUMM) 278 MPV (7.4 - 10.4 FL) 10.1 Gran % (42.2 - 75.2 %) 96.0 H Lymphocytes % (20.5 - 51.1 %) 2.3 L Monocytes % (1.7 - 9.3 %) 1.5 L Eosinophils % (0 - 5 %) 0.2 Basophils % (0.0 - 2.0 %) 0 Absolute Granulocytes (1.4 - 6.5 /CUMM) 10.3 H Segmented Neutrophils (42.2 - 75.2 %) 46 Band Neutrophils (0.0 - 5.0 %) 20 H Absolute Lymphocytes (1.2 - 3.4 /CUMM) 0.2 L Lymphocytes (20.5 - 51.1 %) 6 L Monocytes (1.7 - 9.3 %) 24 H Absolute Monocytes (0.10 - 0.60 /CUMM) 0.2 Absolute Eosinophils (0.0 - 0.7 /CUMM) 0 Absolute Basophils (0.0 - 0.2 /CUMM) 0 Metamyelocytes (0.0 - 1.0 %) 3 H Myelocytes (0 - 0 %) 1 H Polychromasia 1+ Hypochromic-Microcytic 1+ Anisocytosis 1+ Toxicology Serum Alcohol (<10 MG/DL) < 10.0 Acetone Level (NEGATIVE) Cancelled POSITIVE AT 1:8 DIL 05/09 1651 Urines Urinalysis MOD H Urine Color (YEL,AMB,STR) YEL Urine Clarity (CLEAR) CLDY H Urine pH (5.0 - 8.0) 6.0 Ur Specific [place] (1.001 - 1.035) >= 1.030 Urine Protein (NEG,<30 MG/DL) 100 H Urine Ketones (NEG) TRACE H Urine Nitrite (NEG) NEG Urine Bilirubin (NEG) NEG@ICTO Urine Urobilinogen (0.1 - 1.0 EU/dl) 2.0 H Ur Leukocyte Esterase (NEG) NEG Ur Microscopic SEDIMENT EXAMINED Urine RBC (0 - 5 /HPF) RARE Urine WBC (0 - 2 /HPF) 3-5 H Ur Epithelial Cells (NONE,FEW) MOD H Urine Bacteria (NEG/NONE) MOD H Hyaline Casts (0/LPF) 3-5 H Granular Casts (NONE /LPF) 5-10 H Urine Mucus (FEW,NONE) FEW Urine Hemoglobin (NEG) MOD H Urine Glucose (N MG/DL) 100 H Imaging Results: CT personally viewed. inflammation of soft tissued left chest. no abscess Assessment/Plan Assessment/Plan Unusual location for severe cellulits. Interestingly there is no skin defect, despite patient stating "cyst that drained". There is a small sebaceous cyst in axillary crease that is completely unaffected by inflammatory changes. I don't feel it is the source. By imaging (CT) no abscess. However there area of concern was incompletely evaluated due to the size of murphy breast and flank tissues. Recommend left breast ultrasound. Continue IV abx. F/U blood cultures (gram + cocci and gram -rods). Copies To: Buddy MORGAN,John Holguin Consult Acknowledgment - Thank you for your consult request.
--- NOTE | 2018-05-10 13:36 | Cons- Infect Disease ---
General Information and HPI Consulting Request Date of Consult: 05/10/18 Requested By: Zeke MORGAN,Igor Holguin Reason for Consult: Positive blood cultures for gram-positive cocci in clusters and gram-negative rods Source of Information: patient, old records Exam Limitations: clinical condition, poor historian History of Present Illness: This is a 62-year-old woman with a history of diabetes, coronary artery disease, status post CABG, CHF and Hepatitis C, seen in the emergency room 3 days prior to admission with vomiting, diarrhea and diffuse hives after eating shrimp, found to be afebrile with a normal white blood cell count but with a significant bandemia, discharged on prednisone with the diagnosis of food poisoning, admitted on May 09 with a 2 day history of increasing lethargy, confusion, decreased p.o. intake, persistent diarrhea and decreased urine output. There was also a history of a recent fall without loss of consciousness 3 days prior to admission and a painful "cyst" in her left axilla over the past 1-2 weeks. On admission she was febrile to 100.4, with a blood pressure of 108/62 and a heart rate of 200. Her EKG revealed atrial fibrillation. Laboratory data revealed a white blood cell count of 11,000, with 46 segs and 20 bands, BUN/ creatinine 41 and 1.0, lactic acid 4.0, bilirubin 1.7, INR 1.47. Urinalysis rare RBC/3-5 WBCs. Chest x-ray revealed subtle blunting of the left costophrenic angle. CT of the chest revealed extensive soft tissue infiltration and edema involving the left anterior lateral chest wall, with no evidence of necrotizing fasciitis or focal drainable abscess collection. CT of the head was negative for any acute process. She was given Cardizem and 5 L of fluid in the emergency room and was begun on Unasyn. This morning blood cultures were reported positive for gram-positive cocci in clusters and gram negative rods. She appears to have defervesced and her blood pressure has been stable. At present she complains of pain in her left side but is unable to provide a complete or reliable history. Allergies/Medications Allergies: Coded Allergies: shrimp (Intermediate, HIVES AND DIARRHEA 05/09/18) Home Med List: Amoxicillin 500 MG CAPSULE 1 CAP PO TID INFECTION (Reported) Bupropion HCl (Wellbutrin XL) 150 MG TAB.ER.24H 1 TAB PO DAILY UNKNOWN ( Reported) Carvedilol 3.125 MG TABLET 1 TAB PO DAILY HEART/BP (Reported) Ketoconazole 2 % CREAM..G. 1 EDWARD TOP DAILY AFFECTED AREA(S) (Reported) apply to affected area(s) Memantine HCl (Namenda XR) 28 MG CAP.SPR.24 1 CAP PO DAILY MEMORY (Reported) Metformin HCl (Metformin HCl ER) 500 MG TAB.ER.24H 1 TAB PO DAILY DM ( Reported) Oxycodone HCl 15 MG TABLET 1 TAB PO Q8H PAIN (Reported) Prednisone 10 MG TABLET 1 TAB PO DAILY Allergic Reaction TAKE 3 TABS FOR 3 DAYS THEN TAKE 2 TABS FOR 3 DAYS THEN TAKE 1 TAB FOR 3 DAYS Pregabalin (Lyrica) 150 MG CAPSULE 1 CAP PO BID UNKNOWN (Reported) Sertraline HCl (Zoloft) 100 MG TABLET 2 TAB PO DAILY MENTAL HEALTH (Reported) Trazodone HCl 100 MG TABLET 2 TAB PO QHS SLEEP/MENTAL HEALTH (Reported) Past History Travel History Traveled to [place] past 21 day No Medical History Blood Transfusion Hx: No Neurological: peripheral neuropathy EENT: NONE Cardiovascular: CHF, hypertension, myocardial infarction Respiratory: COPD Gastrointestinal: NONE Hepatic: hepatitis C Renal: NONE Musculoskeletal: osteoarthritis Psychiatric: NONE Endocrine: diabetes Blood Disorders: NONE Cancer(s): 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 Home Smoking Status: Former Smoker ETOH Use: 6 Review of Systems Comments Not obtainable Exam & Diagnostic Data Last 24 Hrs of Vital Signs/I&O Vital Signs Date Time Temp Pulse Resp B/P B/P Pulse O2 O2 Flow FiO2 Mean Ox Delivery Rate 05/10 1200 Room Air 05/10 0856 87 108/64 05/10 0800 Room Air 05/10 0800 97.9 87 22 110/50 97 Room Air 05/10 0400 97 Room Air 05/10 0000 98 Room Air 05/10 0000 96 20 99/56 98 Room Air 05/09 2255 97.1 98 28 110/54 95 Room Air 05/09 2250 98 Room Air 05/09 2215 Room Air 05/098 37.1 97 18 113/60 94 Room Air 05/09 2101 98.6 100 18 95/61 98 Room Air 05/09 2004 101 18 95/58 99 Room Air 05/09 2003 98.8 102 18 94/50 97 Room Air 05/09 1940 99.0 105 18 95/51 98 / 1930 99.6 /1926 99.1 161 18 105/60 97 Room Air / 1920 189 18 100/58 07/ 1915 124 18 109/51 /11 1914 108 / 1914 145 07/11 1911 182 18 110/62 07/11 1907 182 18 100/58 96 Room Air 07/ 1830 Room Air 07/ 1819 100.6 172 18 90/58 97 Room Air / 1806 100.6 182 18 111/58 07/11 1757 100.4 200 18 111/58 96 Room Air / 1753 100.4 196 18 128/62 96 Room Air 05/09 1747 114/58 07/11 1744 100.4 181 18 96 Room Air / 1740 198 18 100/70 96 Room Air 05/09 1716 100.4 168 18 161/70 98 Room Air 05/09 1645 115/70 /11 1644 163 07/11 1638 200 18 108/62 96 Room Air Intake & Output 05/10 1600 / 0800 05/10 0000 Intake Total 2448 160 Output Total 252 325 Balance 2196 -165 Intake, IV 848 40 Intake, Oral 1600 120 Number 0 Bowel Movements Output, Urine 252 325 Patient 160 lb 160 lb Weight Weight Bed scale Measurement Method Physical Exam Other Physical Findings: She is lethargic and somewhat confused, in no respiratory distress. T-max 100.6. Blood pressure is 108/64. Skin reveals excoriations over the posterior thighs. HEENT exam poor dentition. Neck is supple with no adenopathy. Chest marked induration, edema, erythema and tenderness over the left chest wall from the axilla extending to the left breast, with no open wounds or drainage. Lungs are clear. Heart irregular rhythm with no murmur. Abdomen is soft, nontender with positive bowel sounds. Back no CVA tenderness. Extremities no cyanosis, clubbing or edema. Neuro is without focality. Samaniego catheter is in place. Last 24 Hours of Lab Results: Laboratory Tests 05/10 05/10 05/10 0805 0615 0431 Chemistry Sodium (137 - 145 mmol/L) 131 L Potassium (3.5 - 5.1 mmol/L) 3.2 L Chloride (98 - 107 mmol/L) 99 Carbon Dioxide (22 - 30 mmol/L) 17 L Anion Gap (5 - 16) 15 BUN (7 - 17 mg/dL) 39 H Creatinine (0.5 - 1.0 mg/dL) 1.0 Estimated GFR (>60 ml/min) 56 L Glucose (65 - 99 mg/dL) 223 H Lactic Acid (0.7 - 2.1 mmol/L) 2.0 Cancelled Calcium (8.4 - 10.2 mg/dL) 7.9 L Phosphorus (2.5 - 4.5 mg/dL) 2.3 L Magnesium (1.6 - 2.3 mg/dL) 1.9 Total Bilirubin (0.2 - 1.3 mg/dL) 1.0 AST (14 - 36 U/L) 18 ALT (9 - 52 U/L) 29 Albumin (3.5 - 5.0 g/dL) 2.0 L Coagulation APTT (25 - 37 SEC) 36 Hematology CBC w Diff MAN DIFF ORDERED WBC (4.8 - 10.8 /CUMM) 11.5 H RBC (4.20 - 5.40 /CUMM) 3.59 L Hgb (12.0 - 16.0 G/DL) 9.3 L Hct (37 - 47 %) 28.8 L MCV (81.0 - 99.0 FL) 80.2 L MCH (27.0 - 31.0 PG) 25.9 L MCHC (33.0 - 37.0 G/DL) 32.3 L RDW (11.5 - 14.5 %) 16.1 H Plt Count (130 - 400 /CUMM) 215 MPV (7.4 - 10.4 FL) 9.8 Gran % (42.2 - 75.2 %) 97.1 H Lymphocytes % (20.5 - 51.1 %) 2.0 L Monocytes % (1.7 - 9.3 %) 0.4 L Eosinophils % (0 - 5 %) 0.5 Basophils % (0.0 - 2.0 %) 0 Absolute Granulocytes (1.4 - 6.5 /CUMM) 11.2 H Segmented Neutrophils (42.2 - 75.2 %) 65 Band Neutrophils (0.0 - 5.0 %) 19 H Absolute Lymphocytes (1.2 - 3.4 /CUMM) 0.2 L Lymphocytes (20.5 - 51.1 %) 6 L Monocytes (1.7 - 9.3 %) 5 Absolute Monocytes (0.10 - 0.60 /CUMM) 0 L Absolute Eosinophils (0.0 - 0.7 /CUMM) 0.1 Absolute Basophils (0.0 - 0.2 /CUMM) 0 Metamyelocytes (0.0 - 1.0 %) 3 H Myelocytes (0 - 0 %) 2 H Platelet Estimate (ADEQUATE) ADEQUATE Hypochromic-Microcytic 1+ Anisocytosis 1+ Other Body Source Fld Total RBCs Counted (%) 100 05/10 05/10 05/10 05/09 05/09 0415 0030 0023 8 1956 Chemistry Lactic Acid (0.7 - 2.1 mmol/L) 2.5 H 2.4 H 2.1 Cancelled Troponin I (< 0.11 ng/ml) 0.02 Coagulation APTT (25 - 37 SEC) 28 Cancelled 05/09 05/09 1746 1700 Chemistry Sodium (137 - 145 mmol/L) 132 L Potassium (3.5 - 5.1 mmol/L) 3.5 Chloride (98 - 107 mmol/L) 98 Carbon Dioxide (22 - 30 mmol/L) 15 L Anion Gap (5 - 16) 19 H BUN (7 - 17 mg/dL) 41 H Creatinine (0.5 - 1.0 mg/dL) 1.0 Estimated GFR (>60 ml/min) 56 L BUN/Creatinine Ratio (7 - 25 %) 41.0 H Glucose (65 - 99 mg/dL) 255 H Serum Osmolality (285 - 295 MOSM/KG) 294 Lactic Acid (0.7 - 2.1 mmol/L) 4.0 H Calcium (8.4 - 10.2 mg/dL) 8.7 Magnesium (1.6 - 2.3 mg/dL) 2.2 Total Bilirubin (0.2 - 1.3 mg/dL) 1.7 H AST (14 - 36 U/L) 21 ALT (9 - 52 U/L) 25 Alkaline Phosphatase (<127 U/L) 38 Troponin I (< 0.11 ng/ml) 0.03 Total Protein (6.3 - 8.2 g/dL) 4.8 L Albumin (3.5 - 5.0 g/dL) 2.4 L Globulin (1.9 - 4.2 gm/dL) 2.4 Albumin/Globulin Ratio (1.1 - 2.2 %) 1.0 L TSH &T3 &Free T4 Intrp (0.270 - 4.20 uIU/mL) 1.010 Coagulation PT (9.4 - 12.5 SEC) 16.1 H INR (0.90 - 1.19) 1.47 H Hematology CBC w Diff MAN DIFF ORDERED WBC (4.8 - 10.8 /CUMM) 10.8 RBC (4.20 - 5.40 /CUMM) 4.38 Hgb (12.0 - 16.0 G/DL) 11.4 L Hct (37 - 47 %) 34.4 L MCV (81.0 - 99.0 FL) 78.5 L MCH (27.0 - 31.0 PG) 26.1 L MCHC (33.0 - 37.0 G/DL) 33.3 RDW (11.5 - 14.5 %) 15.8 H Plt Count (130 - 400 /CUMM) 278 MPV (7.4 - 10.4 FL) 10.1 Gran % (42.2 - 75.2 %) 96.0 H Lymphocytes % (20.5 - 51.1 %) 2.3 L Monocytes % (1.7 - 9.3 %) 1.5 L Eosinophils % (0 - 5 %) 0.2 Basophils % (0.0 - 2.0 %) 0 Absolute Granulocytes (1.4 - 6.5 /CUMM) 10.3 H Segmented Neutrophils (42.2 - 75.2 %) 46 Band Neutrophils (0.0 - 5.0 %) 20 H Absolute Lymphocytes (1.2 - 3.4 /CUMM) 0.2 L Lymphocytes (20.5 - 51.1 %) 6 L Monocytes (1.7 - 9.3 %) 24 H Absolute Monocytes (0.10 - 0.60 /CUMM) 0.2 Absolute Eosinophils (0.0 - 0.7 /CUMM) 0 Absolute Basophils (0.0 - 0.2 /CUMM) 0 Metamyelocytes (0.0 - 1.0 %) 3 H Myelocytes (0 - 0 %) 1 H Polychromasia 1+ Hypochromic-Microcytic 1+ Anisocytosis 1+ Toxicology Serum Alcohol (<10 MG/DL) < 10.0 Acetone Level (NEGATIVE) Cancelled POSITIVE AT 1:8 DIL 05/09 1651 Urines Urinalysis MOD H Urine Color (YEL,AMB,STR) YEL Urine Clarity (CLEAR) CLDY H Urine pH (5.0 - 8.0) 6.0 Ur Specific [place] (1.001 - 1.035) >= 1.030 Urine Protein (NEG,<30 MG/DL) 100 H Urine Ketones (NEG) TRACE H Urine Nitrite (NEG) NEG Urine Bilirubin (NEG) NEG@ICTO Urine Urobilinogen (0.1 - 1.0 EU/dl) 2.0 H Ur Leukocyte Esterase (NEG) NEG Ur Microscopic SEDIMENT EXAMINED Urine RBC (0 - 5 /HPF) RARE Urine WBC (0 - 2 /HPF) 3-5 H Ur Epithelial Cells (NONE,FEW) MOD H Urine Bacteria (NEG/NONE) MOD H Hyaline Casts (0/LPF) 3-5 H Granular Casts (NONE /LPF) 5-10 H Urine Mucus (FEW,NONE) FEW Urine Hemoglobin (NEG) MOD H Urine Glucose (N MG/DL) 100 H Last 24 Hours of Ramón Results: Blood cultures May 09 1 bottle positive for gram-positive cocci in clusters and 1 bottle positive for gram negative rods Urine culture May 09 negative Diagnostic Data Recent Imaging Findings: Chest x-ray revealed subtle blunting of the left costophrenic angle. CT of the chest revealed extensive soft tissue infiltration and edema involving the left anterior lateral chest wall, with no evidence of necrotizing fasciitis or focal drainable abscess collection. CT of the head was negative for any acute process. Assessment/Plan Assessment/Plan Impression: This is a 62-year-old woman with a history of diabetes, seen in the emergency room 3 days prior to admission with vomiting, diarrhea and diffuse hives, found to be afebrile with a bandemia, and discharged home on prednisone with the diagnosis of food poisoning, admitted on May 09 with a 2 day history of increasing lethargy, confusion, decreased p.o. intake, persistent diarrhea and decreased urine output, with the additional history of a painful "cyst" in her left axilla over the past 1-2 weeks, found to be febrile, tachycardic and in atrial fibrillation, with bandemia, elevated lactic acid and with a CT of the chest revealing extensive soft tissue infiltration and edema involving the left anterior lateral chest wall, with blood cultures reported positive for gram- positive cocci and gram-negative rods. Her clinical picture is consistent with sepsis, with the source presumably the skin and soft tissues of the left chest wall, given the significant amount of inflammation noted. The etiology of this is unclear but suspect a skin source, beginning in the axilla, particularly with the gram-positive cocci in clusters, suggestive of Staph aureus, though the gram-negative rods are somewhat unusual. Though her CT scan does not reveal any discrete abscess suspect that she will ultimately require drainage, though this may need to be delayed until it coalesces into a drainable collection. The status of her Hepatitis C is unclear , but she does not have any stigmata of chronic liver disease to suggest cirrhosis or its complications (for example spontaneous bacterial peritonitis). Her recent episode of vomiting and diarrhea might suggest an intra-abdominal process, though her abdominal exam appears benign. The relation of this episode to her current infection is not clear, though she did have a significant bandemia on that ER visit. Suggestion: 1. Ultrasound of the left chest (and extend to the abdomen to rule out ascites) 2. Surgical evaluation regarding possible need for open drainage 3. Discontinue Unasyn 4. Begin Vancomycin 1 g IV every 24 hours and Ceftriaxone 1 g IV every 24 hours pending above Consult Acknowledgment - Thank you for your consult request.
--- NOTE | 2018-05-10 15:12 | ULTRASOUND REPORT ---
EXAMINATION: ULTRASOUND SOFT TISSUE LEFT BREAST/AXILLA CLINICAL INFORMATION: 62-year-old female with erythema and induration of the left anterior lateral chest wall. Concern for localized abscess. COMPARISON: CT chest 05/09/2018 TECHNIQUE: Grayscale and color Doppler imaging was obtained of the left breast and left axilla. FINDINGS: Diffuse edema is present throughout the subcutaneous tissues of the left breast and left axilla, most prominent superior and lateral to the left breast. 12 cm from the nipple at the 12/1:00 position of the left breast is a fairly localized fluid collection which measures approximately 4.7 x 1.3 x 2.4 cm. There are no well-defined borders or enhancing rim to suggest a true abscess, however, this fluid appears more localized than surrounding diffuse edema. IMPRESSION: 4.7 x 1.3 x 2.4 cm fairly localized fluid collection within the superior lateral left breast approximately 12 cm from the nipple. There is no ultrasound evidence to suggest a true abscess, however, this fluid appears more localized than the surrounding diffuse edema. This finding was discussed with Dr. Tiburcio Gold at 3:02 PM on 05/10/2018
[2018-05-10 16:00] VITALS: BP 100/50
[2018-05-10 16:42] LABS: PTT 43 SEC (25-37)
--- NOTE | 2018-05-10 17:38 | PN- General Surgery ---
See Addendum Surgical Brief Attending Note Brief Attending Note: Ultrasound findings reviewed. Recommend ultrasound guided aspiration/evacuation.
--- NOTE | 2018-05-10 17:41 | Cons- Cardiology ---
General Information and HPI Consulting Request Date of Consult: 05/10/18 Requested By: Zeke MORGAN,Igor Holguin Reason for Consult: Sepsis with blood cultures growing gram-positive cocci in clusters and gram- negative rods. Source of Information: patient, old records Exam Limitations: clinical condition, poor historian History of Present Illness: Mrs. Jeanie Alcocer is a 62 year old female with a history of former tobacco use, COPD, hepatitis C, hypertension, dyslipidemia diabetes mellitus with neuropathy, coronary artery disease/heart failure (myocardial infarction s/ p PCI ~2006; s/p CABG ~2007, s/p cardiac cath 04/27/2015 w/o PCI) who presented to the ED on 05/09/2018 with altered mental status, lethargy, poor by mouth intake, continued diarrhea, and decreased urine output after being seen in the ED on 05/06/2018 for "food poisoning" and an "allergic reaction" after eating shrimp with hives, nausea, vomiting, and diarrhea and was discharged on prednisone and Benadryl. Last week, she reportedly told her daughter that she had a "cyst" in her left axillary region that had "ruptured" with purulent appearing material observed. In the ED, she was found to be confused, febrile (100.6 degrees), transiently hypotensive (90/58 mmHg), mildly tachypneic (18 rpm) and in "new onset" atrial fibrillation with a rapid ventricular response (188 bpm) with improved hemodynamics following volume resuscitation (crystalloid), IV diltiazem, empiric IV antimicrobial therapy following blood cultures, etc. with spontaneous conversion back to sinus rhythm. Her chest CT with IV contrast revealed extensive soft tissue infiltration and edema in the left anterior lateral chest wall without evidence of necrotizing fasciitis or focal drainable abscess, and incidental finding of a 4 mm solid noncalcified nodule in the lingula, and enlarged pulmonary artery suspicious for pulmonary arterial hypertension, enlarged left heart chambers, and indeterminate left adrenal mass, a hypertrophied right adrenal gland, and an incompletely characterized mass in the left kidney. Allergies/Medications Allergies: Coded Allergies: shrimp (Intermediate, HIVES AND DIARRHEA 05/09/18) Home Med List: Bupropion HCl (Wellbutrin XL) 150 MG TAB.ER.24H 1 TAB PO DAILY UNKNOWN ( Reported) Carvedilol 3.125 MG TABLET 1 TAB PO BID HEART (Reported) Ketoconazole 2 % CREAM..G. 1 EDWARD TOP DAILY AFFECTED AREA(S) (Reported) apply to affected area(s) Memantine HCl (Namenda XR) 28 MG CAP.SPR.24 1 CAP PO DAILY MEMORY (Reported) Metformin HCl (Metformin HCl ER) 500 MG TAB.ER.24H 1 TAB PO DAILY DM ( Reported) Oxycodone HCl 15 MG TABLET 1 TAB PO Q8H PAIN (Reported) Pregabalin (Lyrica) 150 MG CAPSULE 1 CAP PO BID UNKNOWN (Reported) Sertraline HCl (Zoloft) 100 MG TABLET 2 TAB PO DAILY MENTAL HEALTH (Reported) Trazodone HCl 100 MG TABLET 2 TAB PO QHS SLEEP/MENTAL HEALTH (Reported) Past History Travel History Traveled to [place] past 21 day No Medical History Blood Transfusion Hx: No Neurological: peripheral neuropathy EENT: NONE Cardiovascular: AFIB, CAD, CHF, hypertension, myocardial infarction Respiratory: COPD Gastrointestinal: NONE Hepatic: hepatitis C Renal: NONE Musculoskeletal: osteoarthritis Psychiatric: NONE Endocrine: diabetes Blood Disorders: NONE Cancer(s): NONE 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 Home Smoking Status: Former Smoker ETOH Use: 6 Functional Ability ADLs Independent: dressing, eating, toileting, bathing. Ambulation: independent IADLs Independent: shopping, housework, finances, food prep, telephone, transportation , medication admin. Exam & Diagnostic Data Vital Signs and I&O Vital Signs Date Time Temp Pulse Resp B/P B/P Pulse O2 O2 Flow FiO2 Mean Ox Delivery Rate 05/10 1600 95 Room Air 05/10 1600 98.3 78 17 100/50 95 Nasal 2.0L Cannula 05/10 1200 Room Air 05/10 0856 87 108/64 05/10 0800 Room Air 05/10 0800 97.9 87 22 110/50 97 Room Air 05/10 0400 97 Room Air 05/10 0000 98 Room Air 05/10 0000 96 20 99/56 98 Room Air 05/09 2255 97.1 98 28 110/54 95 Room Air 05/09 2250 98 Room Air 05/09 2215 Room Air 05/09 2158 37.1 97 18 113/60 94 Room Air 05/09 2101 98.6 100 18 95/61 98 Room Air 05/09 2004 101 18 95/58 99 Room Air 05/09 2003 98.8 102 18 94/50 97 Room Air 05/09 1940 99.0 105 18 95/51 98 05/09 1930 99.6 05/09 1927 99.1 161 18 105/60 97 Room Air 05/09 1920 189 18 100/58 / 1915 124 18 109/51 05/09 1914 108 / 1914 145 /11 1911 182 18 110/62 / 1907 182 18 100/58 96 Room Air 05/09 1830 Room Air 05/09 1819 100.6 172 18 90/58 97 Room Air 05/09 1806 100.6 182 18 111/58 /11 1757 100.4 200 18 111/58 96 Room Air 05/09 1753 100.4 196 18 128/62 96 Room Air 05/09 1747 114/58 05/09 1744 100.4 181 18 96 Room Air 05/09 1740 198 18 100/70 96 Room Air 05/09 1716 100.4 168 18 161/70 98 Room Air Intake & Output 05/10 1600 05/10 0800 05/10 0000 05/09 1600 05/09 0800 05/09 0000 Intake Total 3023 2448 160 Output Total 320 252 325 Balance 2703 2196 -165 Intake, IV 1823 848 40 Intake, Oral 1200 1600 120 Number 0 Bowel Movements Output, Urine 320 252 325 Patient 160 lb 160 lb Weight Weight Bed scale Measurement Method Physical Exam: Well-developed, overweight female who is confused/ lethargic, but in no acute distress with oxygen in place. Vital signs: See above. HEENT: Normocephalic, atraumatic, EOMI, moist mucous membranes, poor dentition. Neck: No JVD, no bruits. Lungs: Clear to auscultation. Heart: S1, S2 (regular) with grade 1/6 systolic murmur. No gallop or rub. PMI not well felt. Abdomen: Soft, nontender, positive bowel sounds. Extremities: No LE edema. Diagnostic Data EKG Results 05/09/2018 at 23:13: Sinus rhythm, ventricular premature contraction, small inferior Q waves, cannot exclude an old inferior wall myocardial infarction, and nondiagnostic low amplitude lateral T waves. Slower rate and improved rhythm compared to previous tracing from 05/09/2018 at 16:42, which revealed atrial fibrillation with a rapid ventricular response, inferior Q waves, and nonspecific lateral T-wave abnormalities. CXR Results 05/09/2018: 1. Subtle blunting of the left lateral costophrenic sulcus, likely due to pleural parenchymal scarring. 2. Trace left pleural effusion is less likely. Other Results Ultrasound left breast 05/10/2018: 1. A 4.7 x 1.3 x 2.4 cm fairly localized fluid collection within the superior lateral left breast approximately 12 cm from the nipple. There is no ultrasound evidence to suggest a true abscess, however, this fluid appears more localized than the surrounding diffuse edema. Chest CT with IV contrast 05/09/2018: 1. Extensive soft tissue infiltration and edema is seen involving the left anterior lateral chest wall, consistent with clinical history of the patient space infection. No evidence of necrotizing fasciitis or focal drainable abscess collection is seen. 2. Trace left-sided pleural effusion and dependent atelectasis in the lungs bilaterally. No focal pneumonia. 3. Incidental finding of a 4 mm solid noncalcified nodule in the lingula. If the patient has no underlying risk factors, no routine follow-up is recommended as per the Fleischner criteria. If the patient is at high risk, optional CT scan follow-up at 12 months can be performed. 4. Enlarged pulmonary artery, suspicious for pulmonary arterial hypertension. Left heart chambers are also enlarged. 5. Indeterminate left adrenal mass. Further evaluation with dedicated adrenal CT scan is recommended. Right adrenal gland appears hypertrophied. 6. Incompletely characterized mass in the upper pole of the left kidney. This can also be reassessed at the time of the above suggested follow-up CT scan. 7. Multiple degenerative changes in the spine. Head CT 05/09/2018: No acute intracranial process. Assessment/Plan Assessment/Plan [id number] w/ hx fmr tob use, COPD, hep C, HTN, HLD, DM w/ neuropathy, CAD/HF ( vide supra) who presented on 05/09/2018 w/ AMS, lethargy, poor by mouth intake, continued diarrhea, & decreased urine output after evaluation/management on 05/2018 for "food poisoning" & an "allergic reaction" after eating shrimp w/ hives, N/V/D w/ d/c on prednisone & Benadryl who also described a "cyst" in her L axillary region that had "ruptured" w/ purulent drainage a week prior and who was found to be confused, febrile (100.6 degrees), transiently hypotensive (90/ 58 mmHg), mildly tachypneic (18 rpm) & in "new onset" AF w/ RVR (188 bpm) w/ improved hemodynamics following volume resuscitation (crystalloid), IV diltiazem , empiric IV Abx Rx, etc. w/ spontaneous conversion back to SR. The source for her septic shock is likely the skin/soft tissues of the left chest wall and, fortunately, she has hemodynamically improved with standard therapy and has been maintaining sinus rhythm. Her [id number] Score is 4 (female = 1, HF = 1, HTN = 1, DM = 1) giving her an unadjusted stroke rate of 4.8%/year, however, her potassium was also in the low normal range on admission at 3.5 mEq/L. Recommendations: * Continue ICU management with antimicrobial therapy and critical care, infectious disease follow-up. * Repeat ECG and follow-up troponins. * Echocardiogram to assess left ventricular systolic/diastolic function, right ventricular function, atrial size, estimated PA pressure, etc. * Replete potassium and aim to maintain between 4.0-4.5 mEq/L. * Replete magnesium and aim to maintain at or above 2.0 mg/dl. * Continue anticoagulation given high [id number] Score. * Continue statin and antiplatelet therapy. * Continue to reintroduce outpatient cardiac regimen as blood pressure tolerates. * DVT prophylaxis. Further recommendations will follow, Thank you. Consult Acknowledgment - Thank you for your consult request.
[2018-05-10 23:59] VITALS: BP 100/50
[2018-05-11 00:09] LABS: PTT 58 SEC (25-37)
[2018-05-11 02:29] LABS: PT 14.8 SEC (9.4-12.5)
[2018-05-11 04:19] LABS: ABSOLUTE BASOPHIL COUNT 0 /CUMM (0.0-0.2); ABSOLUTE EOSINOPHIL COUNT 0.1 /CUMM (0.0-0.7); ABSOLUTE GRANULOCYTE CT 14.5 /CUMM (1.4-6.5); ABSOLUTE LYMPH COUNT 0.3 /CUMM (1.2-3.4); ABSOLUTE MONOCYTE COUNT 0.1 /CUMM (0.10-0.60); BASOPHIL % 0 % (0.0-2.0); EOSINOPHIL % 0.6 % (0-5); GRANULOCYTE % 96.8 % (42.2-75.2); HEMATOCRIT 24.1 % (37-47); MEAN CORPUSCULAR HGB CONC 32.5 G/DL (33.0-37.0); MEAN CORPUSCULAR VOLUME 80.1 FL (81.0-99.0); MEAN PLATELET VOLUME 9.5 FL (7.4-10.4); PLATELET COUNT 183 /CUMM (130-400); RBC DISTRIBUTION WIDTH 16.5 % (11.5-14.5); RED BLOOD CELL CT 3.01 /CUMM (4.20-5.40)
[2018-05-11 04:20] LABS: PT 14.1 SEC (9.4-12.5)
[2018-05-11 06:26] LABS: PTT 58 SEC (25-37)
--- NOTE | 2018-05-11 07:31 | PN- Resident CRCU ---
Subjective HPI/CRCU Issues: severe sepsis afib with rvr hyponatremia hypokalemia 24 Hour Events: Patient has a 12 liter positive fluid balance from admission and is now requiring some supplement oxygen. Very lethargic. Beta blockade held because of persistent systolic blood pressure in the 90s. Her urine output has improved. NPO for possible abscess drainage with IR Objective Vital Signs & I&O Last 8 Hrs of Vitals and I&O: Intake & Output 05/11 0800 Intake Total 1127 Output Total 480 Balance 647 Intake, IV 1127 Intake, Oral 0 Output, Urine 480 Afebrile, HR 72 RR 22 BP 90/42 SpO2 94 on 2L NC Exam General Appearance: well developed/nourished, no apparent distress, alert, awake , 2L NC Cardiovascular: regular rate/rhythm, normal peripheral pulses Gastrointestinal: normal bowel sounds, soft, non-tender Extremities: upper extremity pitting edema L>R Current Medications: Current Medications Sig/Bayron Start time Last Medication Dose Route Stop Time Status Admin Acetaminophen 650 MG .STK-MED ONE 05/10 1155 DC PO 05/10 1156 Acetaminophen 650 MG Q6P PRN 05/09 2045 AC 05/10 PO 1158 Ampicillin Sodium/ 3,000 MG Q6 05/09 2359 DC 05/10 Sulbactam Sodium IV 1118 Sodium Chloride 100 ML Aspirin 81 MG DAILY 05/11 0900 CAN PO Atorvastatin Calcium 40 MG 1700 05/10 1700 AC 05/10 PO 1704 Bupropion HCl 150 MG DAILY 05/10 1403 AC 05/10 PO 1703 Carvedilol 3.125 MG BID 05/11 0900 AC PO Carvedilol 3.125 MG DAILY 05/10 0900 DC 05/10 PO 0856 Ceftriaxone Sodium 1,000 MG DAILY 05/10 1330 AC 05/10 IV 1443 Diltiazem HCl 125 MG Q24H 05/11 0630 CAN Sodium Chloride 100 ML IV Diltiazem HCl 125 MG Q12H 05/10 0815 DC 05/10 Sodium Chloride 100 ML IV 0813 Diltiazem HCl 125 MG Q12H 05/09 1730 DC 05/10 Sodium Chloride 100 ML IV 0626 Heparin Sodium 2,920 UNIT 0030 05/11 0030 DC 05/11 (Porcine) IV 05/11 0031 0045 Heparin Sodium 5,500 UNIT ONCE ONE 05/10 1715 DC 07 (Porcine) IV 07/ 1716 1715 Heparin Sodium 10,000 UNIT .STK-MED ONE 05/10 1701 DC (Porcine) IV 05/10 1702 Heparin Sodium 10,000 UNIT .STK-MED ONE 05/10 0748 DC (Porcine) IV 07/ 0749 Heparin Sodium 25,000 UNIT Q24H 07/ 2330 AC 07 (Porcine) IV 2100 Sodium Chloride 500 ML Insulin Aspart 0 TIDAC 07 0800 AC 07 SC 1725 Memantine 10 MG BID 05/10 2100 AC 05/10 PO 2050 Morphine Sulfate 2 MG ONCE ONE 05/10 0815 DC 07/ IV 05/10 0816 0813 Nystatin 1 EDWARD BID 05/10 1202 AC 05/10 TOP 2054 Oxycodone HCl 10 MG Q8P PRN 05/10 1750 AC PO Oxycodone HCl 10 MG Q8 / 1400 DC 07 PO 1315 Oxycodone HCl 10 MG .STK-MED ONE 05/10 1314 DC PO 05/10 1315 Phosphate 250 MG PC AND AT BEDTIME 05/10 1300 AC 07 PO 07 0901 2033 Potassium Chloride 40 MEQ ONCE ONE 05/11 0745 UNVr PO 05/11 0746 Potassium Chloride 60 MEQ ONCE ONE 05/10 0930 DC 07/ PO 05/10 0931 1005 Potassium Chloride 10 MEQ ONCE ONE 05/10 0930 CAN IV 05/10 0931 Potassium Phosphate 15 mMol ONE ONE 05/11 0745 UNVr Sodium Chloride 250 ML IV / 1149 Potassium Phosphate 15 mMol ONE ONE 05/10 0930 DC 05/10 Sodium Chloride 250 ML IV 05/10 1334 1008 Pregabalin 150 MG BID 05/10 2100 DC PO Pregabalin 150 MG BID 07/ 2100 AC 05/10 PO 2045 Sertraline HCl 200 MG AT BEDTIME 07 2100 AC 05/10 PO 2034 Sertraline HCl 200 MG DAILY 05/10 1402 DC PO Sodium Chloride 1,000 ML Q13H 05/11 0645 AC 07 IV 07 1944 0651 Sodium Chloride 1,000 ML ONCE ONE / 1800 DC 07/ IV 07 0359 1813 Sodium Chloride 1,000 ML ONCE ONE 05/10 0930 DC 07/ IV 05/10 1609 1006 Trazodone HCl 200 MG AT BEDTIME 05/10 2100 AC 05/10 PO 2043 Vancomycin HCl 1,250 MG 1400 05/10 1400 AC 05/10 Sodium Chloride 250 ML IV 1443 Impression/Plan Impression/Problem List Impression: 62 year old female with past medical history significant for morbid obesity, DM, STERLING s/p laparoscopic Bindu-en-Y gastric bypass (2015), HTN, CAD/VT s/p PCI and CABG presented with several days of poor oral intake, diarrhea, urinary incontinence, lethargy, and confusion. In the ED, she met sepsis criteria with fever to 100.6, tachycardia, bandemia, and lactic acidemia. She was found to be in new onset rapid atrial fibrillation, and a heart rate of 200. Her lethargy, confusion, and atrial fibrillation were likely precipitated by infection, from a left breast cellulitis. She has improved with aggressive crystalloid resuscitation and administration of Unasyn. Severe sepsis secondary to left chest wall cellulitis Fever, tachycardia, lactic acidemia, WBC 10.8 with 20 bands, and left breast cellulitis Aggressive fluid resuscitation with clearance of lactic acidemia Was started on Unasyn for left breast cellulitis Blood cultures GNR/GPC, awaiting speciation and sensitivites Changed antibiotics to vancomycin/ceftriaxone in consultation with infectious disease CT shows extensive soft tissue infiltration and edema of the left anterior lateral chest wall No evidence of necrotizing fasciitis or focal drainable abscess collection Surgery consultation for possible debridement or drainage Breast ultrasound showed 4.7 x 1.3 x 2.4 cm fairly localized fluid collection Plan for drainage today with IR Leukocytosis trending up from 11,000->15,000 with improved bandemia 20->7, on abx New onset rapid atrial fibrillation with RVR Cardizem drip discontinued, currently in sinus rhythm Resumed home dose of carvedilol Heparin drip for anticoagulation Cardiology consulted Elevated anion gap metabolic acidosis Secondary to lactic acidemia, sepsis, dehydration, and starvation ketosis Bicarbonate 15 and anion gap of 19 on presentation, will trend on daily labs +12L fluid balance from crystalloid resuscitation Anion gap closed, bicarbonate 18 on todays labs Hypokalemia/Hypophosphatemia: Repleting PO and IV, will repeat on AM labs Hyponatremia: Check urine osmoles/lytes, serum osmoles Off IVFs right now, +12L fluid balance CAD/VT s/p PCI/CABG Cath 04/2015 LVEF 65%, ramus 60% prox, LAD prox, distal, D1 moderate disease; LAD 100% mid, CX 50% prox, OM1 100% ostial, prior stent, CX mid, prox, OM2 mild disease; RCA prox, distal, mid mild disease; RPDA 100% prox Echo LVEF 60%, mild , mild LVH, AV peak 14mmhg, AV mean 7mmhg, AV area 1.7cm2 Stress 2013-LVEF 73%, small apical inferior wall defect, lexiscan Aspirin, statin, beta marlene Consider ACEi if she becomes hypertensive Chest x-ray DM: Accuchecks TIDAC, 220s-280s Novolog sliding scale insulin increased yesterday Will start high dose scale after procedure today Check hemoglobin a1c Microcytic anemia: Type and screen Guiaic stool Check iron studies Hemoglobin 11.4 on presentation, now 7.8, likely dilutional NPO for ultrasound guided abscess drainage then resume diabetic diet DVT ppx-heparin gtt Full code Problem List: 1. Rapid atrial fibrillation 2. Cellulitis 3. Sepsis Pain Ratin Pain Location: left breast/axilla Tomorrow's Labs & Rationales: cbc, icu Plan DVT/Prophylaxis: mechanical, pharmacological
[2018-05-11 08:00] VITALS: BP 108/56
--- NOTE | 2018-05-11 10:04 | PN- Infect Dx ---
Subjective Subjective: Afebrile. She still complains of pain in the left chest. Objective Last 24 Hrs of Vital Signs/I&O Vital Signs Date Time Temp Pulse Resp B/P B/P Pulse O2 O2 Flow FiO2 Mean Ox Delivery Rate 05/11 0835 72 30 90/42 05/11 0400 94 Nasal 2.0L Cannula 05/11 0000 92 Nasal 2.0L Cannula 05/10 2359 97.5 91 28 100/50 92 Nasal 2.0L Cannula 05/10 2000 98 Nasal 2.0L Cannula 05/10 1600 95 Room Air 05/10 1600 98.3 78 17 100/50 95 Nasal 2.0L Cannula 05/10 1200 Room Air Intake & Output 05/11 1600 05/11 0800 05/11 0000 Intake Total 1127 1619 Output Total 480 300 Balance 647 1319 Intake, IV 1127 1179 Intake, Oral 0 440 Output, Urine 480 300 Physical Exam Other Physical Findings: She is more alert and responsive, appearing in no acute distress HEENT moist mucosa Lungs are clear Chest continued erythema and induration over the left chest and left breast, though decreased from yesterday, [employer] to palpation, with a more localized area of induration in the left upper outer quadrant of the breast Heart regular rhythm with no murmur Abdomen is soft, nontender with positive bowel sounds Extremities edema, erythema and tenderness over the medial aspect of her left upper extremity Samaniego catheter remains in place Results Last 24 Hours of Lab Results: Laboratory Tests 05/11 05/11 05/10 05/10 0600 0400 2330 1450 Chemistry Sodium (137 - 145 mmol/L) 131 L Potassium (3.5 - 5.1 mmol/L) 3.3 L Chloride (98 - 107 mmol/L) 104 Carbon Dioxide (22 - 30 mmol/L) 18 L Anion Gap (5 - 16) 10 BUN (7 - 17 mg/dL) 40 H Creatinine (0.5 - 1.0 mg/dL) 0.8 Estimated GFR (>60 ml/min) > 60 Glucose (65 - 99 mg/dL) 198 H Hemoglobin A1c (4.2 - 5.8 %) 7.3 H Serum Osmolality (285 - 295 MOSM/KG) 287 Calcium (8.4 - 10.2 mg/dL) 7.5 L Phosphorus (2.5 - 4.5 mg/dL) 2.3 L Magnesium (1.6 - 2.3 mg/dL) 1.9 Iron (37 - 170 ug/dL) 15 L TIBC (265 - 497 ug/dL) 193 L Ferritin (11.1 - 264 ng/mL) Pending Total Bilirubin (0.2 - 1.3 mg/dL) 0.3 AST (14 - 36 U/L) 22 ALT (9 - 52 U/L) 33 Albumin (3.5 - 5.0 g/dL) 1.7 L Coagulation PT (9.4 - 12.5 SEC) 14.1 H 14.8 H INR (0.90 - 1.19) 1.29 H 1.35 H APTT (25 - 37 SEC) 58 H 58 H 43 H Hematology CBC w Diff MAN DIFF ORDERED WBC (4.8 - 10.8 /CUMM) 15.0 H RBC (4.20 - 5.40 /CUMM) 3.01 L Hgb (12.0 - 16.0 G/DL) 7.8 L Hct (37 - 47 %) 24.1 L MCV (81.0 - 99.0 FL) 80.1 L MCH (27.0 - 31.0 PG) 26.0 L MCHC (33.0 - 37.0 G/DL) 32.5 L RDW (11.5 - 14.5 %) 16.5 H Plt Count (130 - 400 /CUMM) 183 MPV (7.4 - 10.4 FL) 9.5 Gran % (42.2 - 75.2 %) 96.8 H Lymphocytes % (20.5 - 51.1 %) 1.8 L Monocytes % (1.7 - 9.3 %) 0.8 L Eosinophils % (0 - 5 %) 0.6 Basophils % (0.0 - 2.0 %) 0 Absolute Granulocytes (1.4 - 6.5 /CUMM) 14.5 H Segmented Neutrophils (42.2 - 75.2 %) 82 H Band Neutrophils (0.0 - 5.0 %) 7 H Absolute Lymphocytes (1.2 - 3.4 /CUMM) 0.3 L Lymphocytes (20.5 - 51.1 %) 2 L Monocytes (1.7 - 9.3 %) 6 Absolute Monocytes (0.10 - 0.60 /CUMM) 0.1 Eosinophils (0 - 5.0 %) 1 Absolute Eosinophils (0.0 - 0.7 /CUMM) 0.1 Absolute Basophils (0.0 - 0.2 /CUMM) 0 Metamyelocytes (0.0 - 1.0 %) 2 H Platelet Estimate (ADEQUATE) ADEQUATE Polychromasia 1+ Hypochromic-Microcytic 1+ Poikilocytosis 1+ Basophilic Stippling SLIGHT Anisocytosis 1+ Microcytic Cells 1+ Ovalocytes 1+ Other Body Source Fld Total RBCs Counted (%) 100 Serology Hepatitis A IgM Ab (NONREACTIVE) NONREACTIVE Hep Bs Antigen (NONREACTIVE) NONREACTIVE Hep B Core IgM Ab Conf (NONREACTIVE) NONREACTIVE Hepatitis C Antibody (NONREACTIVE) REACTIVE H HIV 1&2 Ab Western Blot (NONREACTIVE) NONREACTIVE Last 24 Hours of Ramón Results: Blood cultures May 09 positive for Staph aureus and a probable anaerobic gram variable michael Urine culture May 09 negative Recent Imaging Studies: Ultrasound of the left breast and chest wall reveals a 4.7 x 1.3 x 2.4 cm fairly localized fluid collection within the superior lateral left breast Assessment/Plan ID Impression: Somewhat improved, though her blood pressure remains borderline, remaining in normal sinus rhythm after a transient episode of atrial fibrillation, for which she remains on Heparin. She remains afebrile with her white blood cell count increased, though with decreased bands, on Vancomycin and Ceftriaxone for polymicrobial sepsis secondary to an infection of the left chest wall and breast , with the source unclear. Her blood cultures are growing Staph aureus and a gram variable michael, which appears to be anaerobic, possibly Clostridium, though this would be unusual in this area. Based on this preliminary culture her antibiotics will need to be adjusted. The ultrasound does reveal what appears to be a localized fluid collection, which is scheduled to be drained by IR later today, though suspect that she may ultimately require open drainage to resolve this process. The CT scan did not suggest necrotizing fasciitis and she has no crepitus to suggest this. Suggestion: 1. Await IR drainage of the localized fluid collection in her left breast later today 2. Follow-up final cultures 3. Add Flagyl 500 mg IV every 8 hours pending above 4. Continue Vancomycin and Ceftriaxone pending above
--- NOTE | 2018-05-11 10:13 | PN- Pulmonary ---
Subjective HPI/Critical Care Issues: Patient has a 12 liter positive fluid balance from admission and is now requiring some supplement oxygen. Very lethargic. Beta blockade held because of persistent systolic blood pressure in the 90s. Her urine output has improved. NPO for possible abscess drainage with IR Objective Current Medications: Current Medications Sig/Bayron Start time Last Medication Dose Route Stop Time Status Admin Acetaminophen 650 MG .STK-MED ONE 05/10 1155 DC PO 05/10 1156 Acetaminophen 650 MG Q6P PRN 05/09 2045 AC 05/10 PO 1158 Ampicillin Sodium/ 3,000 MG Q6 05/09 2359 DC 05/10 Sulbactam Sodium IV 1118 Sodium Chloride 100 ML Aspirin 81 MG DAILY 05/11 0900 CAN PO Aspirin Buffered 81 MG DAILY 05/12 0900 AC PO Atorvastatin Calcium 40 MG 1700 05/10 1700 AC 05/10 PO 1704 Bupropion HCl 150 MG DAILY 05/10 1403 AC 05/10 PO 1703 Carvedilol 3.125 MG BID 05/11 0900 AC PO Carvedilol 3.125 MG DAILY 05/10 0900 DC 05/10 PO 0856 Ceftriaxone Sodium 1,000 MG DAILY 05/10 1330 AC 05/11 IV 0814 Diltiazem HCl 125 MG Q24H 05/11 0630 CAN Sodium Chloride 100 ML IV Heparin Sodium 5,000 UNIT .STK-MED ONE 05/11 0046 DC (Porcine) IV 05/11 0047 Heparin Sodium 2,920 UNIT 0030 05/11 0030 DC 05/11 (Porcine) IV 05/11 0031 0045 Heparin Sodium 5,500 UNIT ONCE ONE 05/10 1715 DC 05/10 (Porcine) IV 05/10 1716 1715 Heparin Sodium 10,000 UNIT .STK-MED ONE 05/10 1701 DC (Porcine) IV 05/10 1702 Heparin Sodium 25,000 UNIT Q24H 05/09 2330 AC 05/10 (Porcine) IV 2100 Sodium Chloride 500 ML Insulin Aspart 0 TIDAC 05/10 0800 AC 05/11 SC 0813 Memantine 10 MG BID 05/10 2100 AC 05/10 PO 2050 Metronidazole 500 MG IQ8 05/11 1600 AC N/A 1 UNIT IV Nystatin 1 EDWARD BID 05/10 1202 AC 05/10 TOP 2054 Oxycodone HCl 10 MG Q8P PRN 05/10 1750 AC PO Oxycodone HCl 10 MG Q8 07 1400 DC 07 PO 1315 Oxycodone HCl 10 MG .STK-MED ONE 05/10 1314 DC PO 05/10 1315 Phosphate 250 MG PC AND AT BEDTIME 05/10 1300 DC 07/ PO 05/11 0901 2033 Potassium Chloride 40 MEQ ONCE ONE 05/11 0745 DC PO 05/11 0746 Potassium Phosphate 15 mMol ONE ONE 05/11 0745 AC 05/11 Sodium Chloride 250 ML IV 05/11 1149 0833 Potassium Phosphate 15 mMol ONE ONE 05/10 0930 DC 07/ Sodium Chloride 250 ML IV 07/ 1334 1008 Pregabalin 150 MG BID 05/10 2100 DC PO Pregabalin 150 MG BID 05/10 2100 AC 05/10 PO 2045 Sertraline HCl 200 MG AT BEDTIME 05/10 2100 AC 05/10 PO 2034 Sertraline HCl 200 MG DAILY 05/10 1402 DC PO Sodium Chloride 1,000 ML Q13H 05/11 0645 AC 05/11 IV 05/11 1944 0651 Sodium Chloride 1,000 ML ONCE ONE 05/10 1800 DC 07/ IV 05/11 0359 1813 Sodium Chloride 1,000 ML ONCE ONE 05/10 0930 DC 07/ IV 05/10 1609 1006 Trazodone HCl 200 MG AT BEDTIME 05/10 2100 AC 05/10 PO 2043 Vancomycin HCl 1,250 MG 1400 05/10 1400 AC 05/10 Sodium Chloride 250 ML IV 1443 Vital Signs & I&O Last 24 Hrs of Vitals and I&O: Vital Signs Date Time Temp Pulse Resp B/P B/P Pulse O2 O2 Flow FiO2 Mean Ox Delivery Rate 05/11 0835 72 30 90/42 05/11 0800 94 Nasal 2.0L Cannula 05/11 0800 99.0 92 26 108/56 94 Nasal 2.0L Cannula 05/11 0400 94 Nasal 2.0L Cannula 05/11 0000 92 Nasal 2.0L Cannula 05/10 2359 97.5 91 28 100/50 92 Nasal 2.0L Cannula 05/10 2000 98 Nasal 2.0L Cannula 05/10 1600 95 Room Air 05/10 1600 98.3 78 17 100/50 95 Nasal 2.0L Cannula 05/10 1200 Room Air Intake & Output 05/11 1600 05/11 0800 05/11 0000 Intake Total 1127 1619 Output Total 480 300 Balance 647 1319 Intake, IV 1127 1179 Intake, Oral 0 440 Output, Urine 480 300 Patient 178 lb Weight Impression/Plan Impression/Plan Impression/Plan: Awake and alert wants to eat Skin reveals excoriations over the posterior thighs. HEENT exam poor dentition. Neck is supple with no adenopathy. Chest marked induration, edema, erythema and tenderness over the left chest wall from the axilla extending to the left breast, with no open wounds or drainage. Lungs mild crackles. Heart irregular rhythm with no murmur. Abdomen is soft, nontender with positive bowel sounds. Back no CVA tenderness. Extremities no cyanosis, clubbing or edema. Neuro is without focality. Samaniego catheter is in place. IMPRESSION Pt with Diabetes, recent memory loss, on and off evaluation, previous history of ischemic heart disease CABG, previous hepatitis C infection per chart seen in the emergency room few days prior to admission with vomiting, diarrhea and diffuse hives, found to be afebrile with a bandemia, and discharged home on prednisone with the diagnosis of food poisoning, admitted on May 09 with a 2 day history of increasing lethargy, confusion, decreased p.o. intake, persistent diarrhea and decreased urine output, with the additional history of a painful "cyst" in her left axilla over the past 1-2 weeks, found to be febrile, tachycardic and in atrial fibrillation then converted to sinus, with bandemia, elevated lactic acid and with a CT of the chest revealing extensive soft tissue infiltration and edema involving the left anterior lateral chest wall, with blood cultures reported positive for gram-positive cocci and gram-negative rods. Issues * Sig sepsis due to skin and soft tissue infection of the skin and left chest wall, initial source not clear. No clinical evidence suggestive of significant necrotizing fasciitis followed by infectious disease and the surgery- may require drainage * Staph and gram neg sepsis with bacteremia * New onset rapid A. 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
--- NOTE | 2018-05-11 10:17 | RADIOLOGY REPORT ---
EXAMINATION: XR PORTABLE CHEST CLINICAL INFORMATION: Congestive heart failure. COMPARISON: Chest x-ray and CT scan of the chest 05/09/2018. TECHNIQUE: Portable frontal 80 degrees semiupright view of the chest was obtained. FINDINGS: The lung gale are hypoexpanded bilaterally. There is bronchovascular crowding in the lower zones bilaterally. There is no focal consolidation. The cardiac silhouette is at the upper limits of normal in size. The aortic arch is unfolded. There appears to be a small left-sided pleural effusion. The central pulmonary vasculature is slightly prominent. There are sequelae of median sternotomy and CABG. The hilar regions appear normal. There are no acute osseous findings. IMPRESSION: 1. The lung gale are hypoexpanded bilaterally. There is no focal consolidation. 2. The cardiac silhouette is at the upper limits of normal in size. There is a small left-sided pleural effusion.
--- NOTE | 2018-05-11 10:24 | PN- General Surgery ---
Subjective Subjective: Patient feels somewhat better. There is less pain. No fevers chills or sweats Objective Vital Signs and I&Os Vital Signs Date Time Temp Pulse Resp B/P B/P Pulse O2 O2 Flow FiO2 Mean Ox Delivery Rate 05/11 0835 72 30 90/42 05/11 0800 94 Nasal 2.0L Cannula 05/11 08 99.0 92 26 108/56 94 Nasal 2.0L Cannula 05/11 0400 94 Nasal 2.0L Cannula 05/11 0000 92 Nasal 2.0L Cannula 05/10 2359 97.5 91 28 100/50 92 Nasal 2.0L Cannula 05/10 2000 98 Nasal 2.0L Cannula 05/10 1600 95 Room Air 05/10 1600 98.3 78 17 100/50 95 Nasal 2.0L Cannula 05/10 1200 Room Air Intake & Output 05/11 1600 05/11 0800 05/11 0000 05/10 1600 05/10 0800 05/10 0000 Intake Total 1127 1619 3023 2448 160 Output Total 480 300 320 252 325 Balance 647 1319 2703 2196 -165 Intake, IV 1127 1179 1823 848 40 Intake, Oral 0 440 1200 1600 120 Number 0 Bowel Movements Output, Urine 480 300 320 252 325 Patient 178 lb 160 lb 160 lb Weight Weight Bed scale Measurement Method Physical Exam: General: She is tired obese no distress Chest: Right breast remains indurated but there is less erythema that seems to be more localized to the pectoralis margin. There is edema and induration of the low axillary region. No fluctuance. Current Medications: Current Medications Sig/Bayron Start time Last Medication Dose Route Stop Time Status Admin Acetaminophen 650 MG .STK-MED ONE 05/10 1155 DC PO 05/10 1156 Acetaminophen 650 MG Q6P PRN 05/09 2045 AC 05/10 PO 1158 Ampicillin Sodium/ 3,000 MG Q6 05/09 2359 DC 05/10 Sulbactam Sodium IV 1118 Sodium Chloride 100 ML Aspirin 81 MG DAILY 05/11 09 CAN PO Aspirin Buffered 81 MG DAILY 05/12 0900 AC PO Atorvastatin Calcium 40 MG 1700 05/10 1700 AC 05/10 PO 1704 Bupropion HCl 150 MG DAILY 05/10 1403 AC 05/10 PO 1703 Carvedilol 3.125 MG BID 05/11 09 AC PO Carvedilol 3.125 MG DAILY 05/10 0900 DC 07 PO 0856 Ceftriaxone Sodium 1,000 MG DAILY 05/10 1330 AC 05/11 IV 0814 Diltiazem HCl 125 MG Q24H 05/11 0630 CAN Sodium Chloride 100 ML IV Heparin Sodium 5,000 UNIT .STK-MED ONE 05/11 0046 DC (Porcine) IV 05/11 0047 Heparin Sodium 2,920 UNIT 0030 05/11 0030 DC 05/11 (Porcine) IV 05/11 0031 0045 Heparin Sodium 5,500 UNIT ONCE ONE 05/10 1715 DC 05/10 (Porcine) IV 05/10 1716 1715 Heparin Sodium 10,000 UNIT .STK-MED ONE 05/10 1701 DC (Porcine) IV 05/10 1702 Heparin Sodium 25,000 UNIT Q24H 05/09 2330 AC 05/10 (Porcine) IV 2100 Sodium Chloride 500 ML Insulin Aspart 0 TIDAC 05/10 0800 AC 05/11 SC 0813 Memantine 10 MG BID 05/10 2100 AC 05/10 PO 2050 Metronidazole 500 MG IQ8 05/11 1600 AC N/A 1 UNIT IV Nystatin 1 EDWARD BID 05/10 1202 AC 05/10 TOP 2054 Oxycodone HCl 10 MG Q8P PRN 05/10 1750 AC PO Oxycodone HCl 10 MG Q8 05/10 1400 DC 05/10 PO 1315 Oxycodone HCl 10 MG .STK-MED ONE 05/10 1314 DC PO 05/10 1315 Phosphate 250 MG PC AND AT BEDTIME 05/10 1300 DC 05/10 PO 05/11 0901 2033 Potassium Chloride 40 MEQ ONCE ONE 05/11 0745 DC PO 05/11 0746 Potassium Phosphate 15 mMol ONE ONE 05/11 0745 AC 05/11 Sodium Chloride 250 ML IV 05/11 1149 0833 Potassium Phosphate 15 mMol ONE ONE 05/10 0930 DC 07 Sodium Chloride 250 ML IV 05/10 1334 1008 Pregabalin 150 MG BID 05/10 2100 DC PO Pregabalin 150 MG BID 05/10 2100 DC 05/10 PO 2045 Sertraline HCl 200 MG AT BEDTIME 05/10 2100 AC 07 PO 2034 Sertraline HCl 200 MG DAILY 05/10 1402 DC PO Sodium Chloride 1,000 ML Q13H 07/13 0645 DC 05/11 IV 05/11 1944 0651 Sodium Chloride 1,000 ML ONCE ONE 05/10 1800 DC 05/10 IV 05/11 0359 1813 Sodium Chloride 1,000 ML ONCE ONE 05/10 0930 DC 05/10 IV 05/10 1609 1006 Trazodone HCl 50 MG AT BEDTIME 05/11 2100 AC PO Trazodone HCl 200 MG AT BEDTIME 05/10 2100 DC 05/10 PO 2043 Vancomycin HCl 1,250 MG 1400 05/10 1400 AC 05/10 Sodium Chloride 250 ML IV 1443 Results Last 48 Hours of Labs: Laboratory Tests 05/11 05/11 05/10 05/10 0600 0400 2330 1450 Chemistry Sodium (137 - 145 mmol/L) 131 L Potassium (3.5 - 5.1 mmol/L) 3.3 L Chloride (98 - 107 mmol/L) 104 Carbon Dioxide (22 - 30 mmol/L) 18 L Anion Gap (5 - 16) 10 BUN (7 - 17 mg/dL) 40 H Creatinine (0.5 - 1.0 mg/dL) 0.8 Estimated GFR (>60 ml/min) > 60 Glucose (65 - 99 mg/dL) 198 H Hemoglobin A1c (4.2 - 5.8 %) 7.3 H Serum Osmolality (285 - 295 MOSM/KG) 287 Calcium (8.4 - 10.2 mg/dL) 7.5 L Phosphorus (2.5 - 4.5 mg/dL) 2.3 L Magnesium (1.6 - 2.3 mg/dL) 1.9 Iron (37 - 170 ug/dL) 15 L TIBC (265 - 497 ug/dL) 193 L Ferritin (11.1 - 264 ng/mL) 438.0 H Total Bilirubin (0.2 - 1.3 mg/dL) 0.3 AST (14 - 36 U/L) 22 ALT (9 - 52 U/L) 33 Albumin (3.5 - 5.0 g/dL) 1.7 L Coagulation PT (9.4 - 12.5 SEC) 14.1 H 14.8 H INR (0.90 - 1.19) 1.29 H 1.35 H APTT (25 - 37 SEC) 58 H 58 H 43 H Hematology CBC w Diff MAN DIFF ORDERED WBC (4.8 - 10.8 /CUMM) 15.0 H RBC (4.20 - 5.40 /CUMM) 3.01 L Hgb (12.0 - 16.0 G/DL) 7.8 L Hct (37 - 47 %) 24.1 L MCV (81.0 - 99.0 FL) 80.1 L MCH (27.0 - 31.0 PG) 26.0 L MCHC (33.0 - 37.0 G/DL) 32.5 L RDW (11.5 - 14.5 %) 16.5 H Plt Count (130 - 400 /CUMM) 183 MPV (7.4 - 10.4 FL) 9.5 Gran % (42.2 - 75.2 %) 96.8 H Lymphocytes % (20.5 - 51.1 %) 1.8 L Monocytes % (1.7 - 9.3 %) 0.8 L Eosinophils % (0 - 5 %) 0.6 Basophils % (0.0 - 2.0 %) 0 Absolute Granulocytes (1.4 - 6.5 /CUMM) 14.5 H Segmented Neutrophils (42.2 - 75.2 %) 82 H Band Neutrophils (0.0 - 5.0 %) 7 H Absolute Lymphocytes (1.2 - 3.4 /CUMM) 0.3 L Lymphocytes (20.5 - 51.1 %) 2 L Monocytes (1.7 - 9.3 %) 6 Absolute Monocytes (0.10 - 0.60 /CUMM) 0.1 Eosinophils (0 - 5.0 %) 1 Absolute Eosinophils (0.0 - 0.7 /CUMM) 0.1 Absolute Basophils (0.0 - 0.2 /CUMM) 0 Metamyelocytes (0.0 - 1.0 %) 2 H Platelet Estimate (ADEQUATE) ADEQUATE Polychromasia 1+ Hypochromic-Microcytic 1+ Poikilocytosis 1+ Basophilic Stippling SLIGHT Anisocytosis 1+ Microcytic Cells 1+ Ovalocytes 1+ Other Body Source Fld Total RBCs Counted (%) 100 Serology Hepatitis A IgM Ab (NONREACTIVE) NONREACTIVE Hep Bs Antigen (NONREACTIVE) NONREACTIVE Hep B Core IgM Ab Conf (NONREACTIVE) NONREACTIVE Hepatitis C Antibody (NONREACTIVE) REACTIVE H HIV 1&2 Ab Western Blot (NONREACTIVE) NONREACTIVE 05/10 05/10 05/10 0805 0615 8551 Chemistry Sodium (137 - 145 mmol/L) 131 L Potassium (3.5 - 5.1 mmol/L) 3.2 L Chloride (98 - 107 mmol/L) 99 Carbon Dioxide (22 - 30 mmol/L) 17 L Anion Gap (5 - 16) 15 BUN (7 - 17 mg/dL) 39 H Creatinine (0.5 - 1.0 mg/dL) 1.0 Estimated GFR (>60 ml/min) 56 L Glucose (65 - 99 mg/dL) 223 H Lactic Acid (0.7 - 2.1 mmol/L) 2.0 Cancelled Calcium (8.4 - 10.2 mg/dL) 7.9 L Phosphorus (2.5 - 4.5 mg/dL) 2.3 L Magnesium (1.6 - 2.3 mg/dL) 1.9 Total Bilirubin (0.2 - 1.3 mg/dL) 1.0 AST (14 - 36 U/L) 18 ALT (9 - 52 U/L) 29 Albumin (3.5 - 5.0 g/dL) 2.0 L Coagulation APTT (25 - 37 SEC) 36 Hematology CBC w Diff MAN DIFF ORDERED WBC (4.8 - 10.8 /CUMM) 11.5 H RBC (4.20 - 5.40 /CUMM) 3.59 L Hgb (12.0 - 16.0 G/DL) 9.3 L Hct (37 - 47 %) 28.8 L MCV (81.0 - 99.0 FL) 80.2 L MCH (27.0 - 31.0 PG) 25.9 L MCHC (33.0 - 37.0 G/DL) 32.3 L RDW (11.5 - 14.5 %) 16.1 H Plt Count (130 - 400 /CUMM) 215 MPV (7.4 - 10.4 FL) 9.8 Gran % (42.2 - 75.2 %) 97.1 H Lymphocytes % (20.5 - 51.1 %) 2.0 L Monocytes % (1.7 - 9.3 %) 0.4 L Eosinophils % (0 - 5 %) 0.5 Basophils % (0.0 - 2.0 %) 0 Absolute Granulocytes (1.4 - 6.5 /CUMM) 11.2 H Segmented Neutrophils (42.2 - 75.2 %) 65 Band Neutrophils (0.0 - 5.0 %) 19 H Absolute Lymphocytes (1.2 - 3.4 /CUMM) 0.2 L Lymphocytes (20.5 - 51.1 %) 6 L Monocytes (1.7 - 9.3 %) 5 Absolute Monocytes (0.10 - 0.60 /CUMM) 0 L Absolute Eosinophils (0.0 - 0.7 /CUMM) 0.1 Absolute Basophils (0.0 - 0.2 /CUMM) 0 Metamyelocytes (0.0 - 1.0 %) 3 H Myelocytes (0 - 0 %) 2 H Platelet Estimate (ADEQUATE) ADEQUATE Hypochromic-Microcytic 1+ Anisocytosis 1+ Other Body Source Fld Total RBCs Counted (%) 100 Serology HCV RNA (PCR) IUs/ml Pending HCV RNA PCR log IUs/ml Pending 05/10 05/10 05/10 05/09 05/09 0415 0030 0023 8 7 Chemistry Lactic Acid (0.7 - 2.1 mmol/L) 2.5 H 2.4 H 2.1 Cancelled Troponin I (< 0.11 ng/ml) 0.02 Coagulation APTT (25 - 37 SEC) 28 Cancelled 05/09 05/09 1746 1700 Chemistry Sodium (137 - 145 mmol/L) 132 L Potassium (3.5 - 5.1 mmol/L) 3.5 Chloride (98 - 107 mmol/L) 98 Carbon Dioxide (22 - 30 mmol/L) 15 L Anion Gap (5 - 16) 19 H BUN (7 - 17 mg/dL) 41 H Creatinine (0.5 - 1.0 mg/dL) 1.0 Estimated GFR (>60 ml/min) 56 L BUN/Creatinine Ratio (7 - 25 %) 41.0 H Glucose (65 - 99 mg/dL) 255 H Serum Osmolality (285 - 295 MOSM/KG) 294 Lactic Acid (0.7 - 2.1 mmol/L) 4.0 H Calcium (8.4 - 10.2 mg/dL) 8.7 Magnesium (1.6 - 2.3 mg/dL) 2.2 Total Bilirubin (0.2 - 1.3 mg/dL) 1.7 H AST (14 - 36 U/L) 21 ALT (9 - 52 U/L) 25 Alkaline Phosphatase (<127 U/L) 38 Troponin I (< 0.11 ng/ml) 0.03 Total Protein (6.3 - 8.2 g/dL) 4.8 L Albumin (3.5 - 5.0 g/dL) 2.4 L Globulin (1.9 - 4.2 gm/dL) 2.4 Albumin/Globulin Ratio (1.1 - 2.2 %) 1.0 L TSH &T3 &Free T4 Intrp (0.270 - 4.20 uIU/mL) 1.010 Coagulation PT (9.4 - 12.5 SEC) 16.1 H INR (0.90 - 1.19) 1.47 H Hematology CBC w Diff MAN DIFF ORDERED WBC (4.8 - 10.8 /CUMM) 10.8 RBC (4.20 - 5.40 /CUMM) 4.38 Hgb (12.0 - 16.0 G/DL) 11.4 L Hct (37 - 47 %) 34.4 L MCV (81.0 - 99.0 FL) 78.5 L MCH (27.0 - 31.0 PG) 26.1 L MCHC (33.0 - 37.0 G/DL) 33.3 RDW (11.5 - 14.5 %) 15.8 H Plt Count (130 - 400 /CUMM) 278 MPV (7.4 - 10.4 FL) 10.1 Gran % (42.2 - 75.2 %) 96.0 H Lymphocytes % (20.5 - 51.1 %) 2.3 L Monocytes % (1.7 - 9.3 %) 1.5 L Eosinophils % (0 - 5 %) 0.2 Basophils % (0.0 - 2.0 %) 0 Absolute Granulocytes (1.4 - 6.5 /CUMM) 10.3 H Segmented Neutrophils (42.2 - 75.2 %) 46 Band Neutrophils (0.0 - 5.0 %) 20 H Absolute Lymphocytes (1.2 - 3.4 /CUMM) 0.2 L Lymphocytes (20.5 - 51.1 %) 6 L Monocytes (1.7 - 9.3 %) 24 H Absolute Monocytes (0.10 - 0.60 /CUMM) 0.2 Absolute Eosinophils (0.0 - 0.7 /CUMM) 0 Absolute Basophils (0.0 - 0.2 /CUMM) 0 Metamyelocytes (0.0 - 1.0 %) 3 H Myelocytes (0 - 0 %) 1 H Polychromasia 1+ Hypochromic-Microcytic 1+ Anisocytosis 1+ Toxicology Serum Alcohol (<10 MG/DL) < 10.0 Acetone Level (NEGATIVE) Cancelled POSITIVE AT 1:8 DIL 05/09 1651 Urines Urinalysis MOD H Urine Color (YEL,AMB,STR) YEL Urine Clarity (CLEAR) CLDY H Urine pH (5.0 - 8.0) 6.0 Ur Specific [place] (1.001 - 1.035) >= 1.030 Urine Protein (NEG,<30 MG/DL) 100 H Urine Ketones (NEG) TRACE H Urine Nitrite (NEG) NEG Urine Bilirubin (NEG) NEG@ICTO Urine Urobilinogen (0.1 - 1.0 EU/dl) 2.0 H Ur Leukocyte Esterase (NEG) NEG Ur Microscopic SEDIMENT EXAMINED Urine RBC (0 - 5 /HPF) RARE Urine WBC (0 - 2 /HPF) 3-5 H Ur Epithelial Cells (NONE,FEW) MOD H Urine Bacteria (NEG/NONE) MOD H Hyaline Casts (0/LPF) 3-5 H Granular Casts (NONE /LPF) 5-10 H Urine Mucus (FEW,NONE) FEW Urine Hemoglobin (NEG) MOD H Urine Glucose (N MG/DL) 100 H Assessment/Plan Assessment/Plan Cellulitis with soft tissue fluid collection. Unclear if this represents an abscess. There is also unclear by the ultrasound findings exactly where the cavity lies. Recommend ultrasound-guided aspiration of the breast abscess. Further surgical intervention will be made pending her clinical course.
--- NOTE | 2018-05-11 12:37 | ULTRASOUND REPORT ---
EXAMINATION: LEFT UPPER EXTREMITY VENOUS ULTRASOUND CLINICAL INFORMATION: Left arm pain and swelling COMPARISON: None. TECHNIQUE: Doppler spectral analysis and color flow Doppler imaging was performed of the left upper extremity. Compression and augmentation maneuvers were performed. FINDINGS: Occlusive thrombus is present in the upper brachial vein extending into the axillary vein and left subclavian vein. Thrombus is also present in the left basilic vein, with areas of occlusion. The cephalic vein is patent. IMPRESSION: 1. There is extensive left upper extremity deep vein thrombosis. 2. This critical result was discussed with John Maurice by telephone on 05/11/2018 at 12:30 PM and it was ascertained that the content and urgency of the report was understood at the time of direct communication.
[2018-05-11 16:00] VITALS: BP 120/66
--- NOTE | 2018-05-11 16:39 | ULTRASOUND REPORT ---
EXAMINATION: 1. Superficial ultrasound of left breast 2. Ultrasound-guided aspiration of small localized fluid collection within the superior lateral left breast. CLINICAL INFORMATION: 62-year-old female with erythema and induration of the left anterior lateral chest wall. The patient also has in the left upper history DVT. The patient has an approximately 4.7 x 1.3 x 2.4 cm fairly localized fluid collection present within the superior lateral left breast. After discussion with surgery and infectious disease, the decision was made for aspiration of the fluid collection. COMPARISON: Breast ultrasound 05/10/2018 INTERVENTIONAL RADIOLOGIST: Lawrence Gardner M.D. TECHNIQUE: Informed consent was obtained from the patient prior to the procedure. During this process, the procedure and potential alternatives were explained along with the intended outcome and benefits. The risks of the procedure including the possibility of an unsuccessful procedure, as well as the risk of not doing the procedure were discussed. The patient was given the opportunity to ask questions regarding the procedure and competent to make decisions. A signed consent form which documents this discussion was placed in the medical record. Following informed consent, the patient was placed supine on the procedure table. Diagnostic imaging was performed of the left breast which redemonstrated a small but fairly localized fluid collection within the superior lateral aspect of the left breast. The skin was marked and then prepped and draped in usual sterile fashion. Under direct sonographic guidance, an 18-gauge spinal needle was advanced into the collection. Approximately 10 mL of thin, serosanguineous, nonclotting fluid was aspirated. There was near complete collapse of this localized fluid region. The needle was removed and pressure held for approximately 5 minutes until hemostasis was achieved. A sterile dressing was placed. The specimen was sent for requested analysis. IMPRESSION: Successful ultrasound-guided aspiration of small localized fluid collection within the superior lateral aspect of the left breast.
--- NOTE | 2018-05-11 19:09 | PN- Cardiology ---
Subjective Subjective: More alert. Left upper extremity DVT discovered. Maintaining sinus rhythm. Objective Vital Signs and I&Os Vital Signs Date Time Temp Pulse Resp B/P B/P Pulse O2 O2 Flow FiO2 Mean Ox Delivery Rate 05/11 1600 95 Nasal 2.0L Cannula 05/11 1600 98.6 94 26 120/66 95 Nasal 2.0L Cannula 05/11 1200 98 Nasal 2.0L Cannula 05/11 0835 72 30 90/42 05/11 0800 94 Nasal 2.0L Cannula 05/11 0800 99.0 92 26 108/56 94 Nasal 2.0L Cannula 05/11 0400 94 Nasal 2.0L Cannula 05/11 0000 92 Nasal 2.0L Cannula 05/10 2359 97.5 91 28 100/50 92 Nasal 2.0L Cannula 05/10 2000 98 Nasal 2.0L Cannula Intake & Output 05/11 1600 05/11 0800 05/11 0000 05/10 1600 05/10 0800 05/10 0000 Intake Total 1647 1127 1619 3023 2448 160 Output Total 460 480 300 320 252 325 Balance 6073 249 8649 2703 2196 -165 Intake, IV 647 1127 1179 1823 848 40 Intake, Oral 1000 0 440 1200 1600 120 Number 0 Bowel Movements Output, Urine 460 480 300 320 252 325 Patient 178 lb 160 lb 160 lb Weight Weight Bed scale Measurement Method Physical Exam: Well-developed, overweight female who is confused/ lethargic, but in no acute distress with oxygen in place. Vital signs: See above. HEENT: Normocephalic, atraumatic, EOMI, moist mucous membranes, poor dentition. Neck: No JVD, no bruits. Lungs: Clear to auscultation. Heart: S1, S2 (regular) with grade 1/6 systolic murmur. No gallop or rub. PMI not well felt. Abdomen: Soft, nontender, positive bowel sounds. Extremities: No LE edema. Current Medications: Current Medications Sig/Bayron Start time Last Medication Dose Route Stop Time Status Admin Acetaminophen 650 MG Q6P PRN 05/09 2045 AC 05/10 PO 1158 Aspirin Buffered 81 MG DAILY 05/12 0900 AC PO Atorvastatin Calcium 40 MG 1700 05/10 1700 AC 05/11 PO 1653 Bupropion HCl 150 MG DAILY 05/10 1403 AC 07/12 PO 1703 Carvedilol 3.125 MG BID 05/11 0900 AC PO Carvedilol 3.125 MG DAILY 05/10 0900 DC 07 PO 0856 Ceftriaxone Sodium 1,000 MG DAILY 05/10 1330 AC 05/11 IV 0814 Heparin Sodium 5,000 UNIT .STK-MED ONE 05/11 0046 DC (Porcine) IV 05/11 0047 Heparin Sodium 2,920 UNIT 0030 05/11 0030 DC 05/11 (Porcine) IV 05/11 0031 0045 Heparin Sodium 25,000 UNIT Q24H 05/09 2330 AC 05/11 (Porcine) IV 1341 Sodium Chloride 500 ML Insulin Aspart 0 TIDAC 05/10 0800 AC 05/11 SC 1652 Lidocaine 1 ML .STK-MED ONE 05/11 1436 DC ID 05/11 1437 Memantine 10 MG BID 05/10 2100 AC 05/10 PO 2050 Metronidazole 500 MG IQ8 05/11 1600 AC 05/11 N/A 1 UNIT IV 1616 Nystatin 1 EDWARD BID 05/10 1202 AC 05/10 TOP 2054 Oxycodone HCl 10 MG Q8P PRN 05/10 1750 AC 05/11 PO 1550 Phosphate 250 MG PC AND AT BEDTIME 05/10 1300 DC 05/10 PO 05/11 0901 2033 Potassium Chloride 40 MEQ ONCE ONE 05/11 0745 DC PO 05/11 0746 Potassium Phosphate 15 mMol ONE ONE 05/11 0745 DC 05/11 Sodium Chloride 250 ML IV 05/11 1149 0833 Pregabalin 150 MG BID 05/10 2100 DC PO Pregabalin 150 MG BID 05/10 2100 DC 05/10 PO 2045 Sertraline HCl 200 MG AT BEDTIME 05/10 2100 AC 05/10 PO 2034 Sodium Chloride 1,000 ML Q13H 05/11 0645 DC 05/11 IV 05/11 1944 0651 Sodium Chloride 1,000 ML ONCE ONE 05/10 1800 DC 05/10 IV 05/11 0359 1813 Trazodone HCl 50 MG AT BEDTIME 05/11 2100 AC PO Trazodone HCl 200 MG AT BEDTIME /12 2100 DC 05/10 PO 2043 Vancomycin HCl 1,250 MG 1400 07/ 1400 AC 05/11 Sodium Chloride 250 ML IV 1426 Results Last 48 Hrs of Labs/Mics: Laboratory Tests 05/11/18 1000: Urinalysis MOD H, Urine Color YEL, Urine Clarity HAZY H, Urine pH 6.0, Ur Specific Preston 1.020, Urine Protein 30 H, Urine Ketones TRACE H, Urine Nitrite NEG, Urine Bilirubin NEG, Urine Urobilinogen 1.0, Ur Leukocyte Esterase NEG, Ur Microscopic SEDIMENT EXAMINED, Urine WBC RARE, Urine Bacteria RARE H, Hyaline Casts RARE H, Granular Casts 1-3 H, Urine Hemoglobin NEG, Urine Glucose NEG 05/11/18 1000: Urine Osmolality 550, Ur Random Creatinine 55.2, Ur Random Sodium < 5 L, Ur Random Potassium 15.9, Fraction Sodium Excret < 0.2 05/11/18 0600: APTT 58 H 05/11/18 0400: Anion Gap 10, Estimated GFR > 60, Glucose 198 H, Hemoglobin A1c 7.3 H, Serum Osmolality 287, Calcium 7.5 L, Phosphorus 2.3 L, Magnesium 1.9, Iron 15 L, TIBC 193 L, Ferritin 438.0 H, Total Bilirubin 0.3, AST 22, ALT 33, Albumin 1.7 L, Prealbumin < 3.0 L, PT 14.1 H, INR 1.29 H, CBC w Diff MAN DIFF ORDERED, RBC 3.01 L, MCV 80.1 L, MCH 26.0 L, MCHC 32.5 L, RDW 16.5 H, MPV 9.5, Gran % 96.8 H, Lymphocytes % 1.8 L, Monocytes % 0.8 L, Eosinophils % 0.6, Basophils % 0, Absolute Granulocytes 14.5 H, Segmented Neutrophils 82 H, Band Neutrophils 7 H, Absolute Lymphocytes 0.3 L, Lymphocytes 2 L, Monocytes 6, Absolute Monocytes 0.1, Eosinophils 1, Absolute Eosinophils 0.1, Absolute Basophils 0, Metamyelocytes 2 H, Platelet Estimate ADEQUATE, Polychromasia 1+, Hypochromic-Microcytic 1+, Poikilocytosis 1+, Basophilic Stippling SLIGHT, Anisocytosis 1+, Microcytic Cells 1+, Ovalocytes 1+, Fld Total RBCs Counted 100, Hepatitis A IgM Ab NONREACTIVE, Hep Bs Antigen NONREACTIVE, Hep B Core IgM Ab Conf NONREACTIVE, Hepatitis C Antibody REACTIVE H, HIV 1&2 Ab Western Blot NONREACTIVE 05/10/18 2330: PT 14.8 H, INR 1.35 H, APTT 58 H 05/10/18 1450: APTT 43 H 05/10/18 0805: Lactic Acid 2.0 05/10/18 0615: Anion Gap 15, Estimated GFR 56 L, Glucose 223 H, Calcium 7.9 L, Phosphorus 2.3 L, Magnesium 1.9, Total Bilirubin 1.0, AST 18, ALT 29, Albumin 2.0 L, APTT 36, CBC w Diff MAN DIFF ORDERED, RBC 3.59 L, MCV 80.2 L, MCH 25.9 L, MCHC 32.3 L, RDW 16.1 H, MPV 9.8, Gran % 97.1 H, Lymphocytes % 2.0 L, Monocytes % 0.4 L, Eosinophils % 0.5, Basophils % 0, Absolute Granulocytes 11.2 H, Segmented Neutrophils 65, Band Neutrophils 19 H, Absolute Lymphocytes 0.2 L, Lymphocytes 6 L, Monocytes 5, Absolute Monocytes 0 L, Absolute Eosinophils 0.1 , Absolute Basophils 0, Metamyelocytes 3 H, Myelocytes 2 H, Platelet Estimate ADEQUATE, Hypochromic-Microcytic 1+, Anisocytosis 1+, Fld Total RBCs Counted 100 , HCV RNA (PCR) IUs/ml Pending, HCV RNA PCR log IUs/ml Pending 05/10/18 0431: Lactic Acid Cancelled 05/10/18 0415: Lactic Acid 2.5 H 05/10/18 0030: Lactic Acid 2.4 H, Troponin I 0.02, APTT 28 05/10/18 0023: APTT Cancelled 05/09/18 2128: Lactic Acid 2.1 05/09/18 1957: Lactic Acid Cancelled Microbiology 05/09 2300 UPPER RESP: Surveillance Culture - COMP 05/09 2300 GI: Surveillance Culture - COMP Recent Imaging Studies: Left upper extremity ultrasound 05/11/2018: 1. There is extensive left upper extremity deep vein thrombosis. 2. This critical result was discussed with John Maurice by telephone on 05/11/2018 at 12:30 PM and it was ascertained that the content and urgency of the report was understood at the time of direct communication. Ultrasound-guided aspiration left breast 05/11/2018: 1. Successful ultrasound-guided aspiration of small localized fluid collection within the superior lateral aspect of the left breast. CXR 05/11/2018: 1. The lung gale are hypoexpanded bilaterally. There is no focal consolidation. 2. The cardiac silhouette is at the upper limits of normal in size. There is a small left-sided pleural effusion. Assessment/Plan Assessment/Plan [id number] w/ hx fmr tob use, COPD, hep C, HTN, HLD, DM w/ neuropathy, CAD/HF ( vide supra) who presented on 05/09/2018 w/ AMS, lethargy, poor by mouth intake, continued diarrhea, & decreased urine output after evaluation/management on 05/2018 for "food poisoning" & an "allergic reaction" after eating shrimp w/ hives, N/V/D w/ d/c on prednisone & Benadryl who also described a "cyst" in her L axillary region that had "ruptured" w/ purulent drainage a week prior and who was found to be confused, febrile (100.6 degrees), transiently hypotensive (90/ 58 mmHg), mildly tachypneic (18 rpm) & in "new onset" AF w/ RVR (188 bpm) w/ improved hemodynamics following volume resuscitation (crystalloid), IV diltiazem , empiric IV Abx Rx, etc. w/ spontaneous conversion back to SR. The source for her septic shock is likely the skin/soft tissues of the left chest wall and, fortunately, she has hemodynamically improved with standard therapy and has been maintaining sinus rhythm. Her [id number] Score is 4 (female = 1, HF = 1, HTN = 1, DM = 1) giving her an unadjusted stroke rate of 4.8%/year, however, her potassium was also in the low normal range on admission at 3.5 mEq/L. Additional indication for full anticoagulation is her left upper extremity DVT. Recommendations: * Continue ICU management with antimicrobial therapy and critical care, infectious disease recommendations. * Replete potassium and aim to maintain between 4.0-4.5 mEq/L. * Replete magnesium and maintain at or above 2.0 mg/dl. * Follow-up echocardiogram. * Continue anticoagulation given high [id number] Score and LUE DVT. * Continue statin and antiplatelet therapy. * Continue to reintroduce outpatient cardiac regimen as blood pressure tolerates. * DVT prophylaxis. Further recommendations will follow, Continue telemetry? Not applicable (In ICU.)
[2018-05-11 19:29] LABS: PTT 45 SEC (25-37)
[2018-05-12] VITALS: BP 110/56
[2018-05-12 03:43] LABS: ABSOLUTE BASOPHIL COUNT 0 /CUMM (0.0-0.2); ABSOLUTE EOSINOPHIL COUNT 0.1 /CUMM (0.0-0.7); ABSOLUTE GRANULOCYTE CT 21.9 /CUMM (1.4-6.5); ABSOLUTE LYMPH COUNT 0.4 /CUMM (1.2-3.4); ABSOLUTE MONOCYTE COUNT 0 /CUMM (0.10-0.60); BASOPHIL % 0 % (0.0-2.0); EOSINOPHIL % 0.4 % (0-5); GRANULOCYTE % 97.7 % (42.2-75.2); HEMATOCRIT 23.9 % (37-47); MEAN CORPUSCULAR HGB CONC 32.6 G/DL (33.0-37.0); MEAN CORPUSCULAR VOLUME 79.6 FL (81.0-99.0); MEAN PLATELET VOLUME 9.3 FL (7.4-10.4); PLATELET COUNT 163 /CUMM (130-400); RBC DISTRIBUTION WIDTH 16.1 % (11.5-14.5); RED BLOOD CELL CT 3.01 /CUMM (4.20-5.40); WHITE BLOOD CELL COUNT 22.4 /CUMM (4.8-10.8)
[2018-05-12 03:52] LABS: PTT 66 SEC (25-37)
--- NOTE | 2018-05-12 07:52 | PN- Pulmonary ---
Subjective HPI/Critical Care Issues: The patient is being seen and examined in the intensive care unit for which she is being monitored for septic shock. Is awake and alert. Is oriented 3. She is moving all extremities independently. She appears less toxic. She complains of ongoing discomfort in her left upper extremity and at the site of I&D. Her left upper extremity swelling has significantly improved over the past 24 hours per staff. She remains on a heparin drip. Her vital signs are stable. Her saturations are in the high 90s on 2 L nasal cannula. Overall she appears to be improving. Objective Current Medications: Current Medications Sig/Bayron Start time Last Medication Dose Route Stop Time Status Admin Acetaminophen 650 MG Q6P PRN 05/09 2045 AC 05/10 PO 1158 Aspirin Buffered 81 MG DAILY 05/12 0900 AC PO Atorvastatin Calcium 40 MG 1700 05/10 1700 AC 05/11 PO 1653 Bupropion HCl 150 MG DAILY 05/10 1403 AC 05/10 PO 1703 Carvedilol 3.125 MG BID 05/11 0900 AC 05/11 PO 2131 Ceftriaxone Sodium 1,000 MG DAILY 05/10 1330 AC 05/11 IV 0814 Heparin Sodium 2,920 UNIT ONE ONE 05/11 2030 DC 05/11 (Porcine) IV 05/11 2031 2030 Heparin Sodium 25,000 UNIT .STK-MED ONE 05/11 1337 DC (Porcine) IV 05/11 1338 Heparin Sodium 25,000 UNIT Q24H 05/09 2330 AC 05/12 (Porcine) IV 0258 Sodium Chloride 500 ML Insulin Aspart 0 TIDAC 05/10 0800 AC 05/11 SC 1652 Lidocaine 1 ML .STK-MED ONE 05/11 1436 DC ID 05/11 1437 Memantine 10 MG BID 05/10 2100 AC 05/11 PO 2134 Metronidazole 500 MG IQ8 05/11 1600 AC 05/12 N/A 1 UNIT IV 0048 Nystatin 1 EDWARD BID 05/10 1202 AC 05/11 TOP 2129 Oxycodone HCl 10 MG .STK-MED ONE 05/11 1546 DC PO 05/11 1547 Oxycodone HCl 10 MG Q8P PRN 05/10 1750 AC 05/12 PO 0542 Phosphate 250 MG PC AND AT BEDTIME 05/10 1300 DC 05/10 PO 05/11 0901 2033 Potassium Chloride 40 MEQ ONCE ONE 05/11 0745 DC PO 05/11 0746 Potassium Phosphate 15 mMol ONE ONE 05/11 0745 DC 05/11 Sodium Chloride 250 ML IV 05/11 1149 0833 Pregabalin 150 MG BID 05/10 2100 DC 05/10 PO 204 Sertraline HCl 200 MG AT BEDTIME 05/10 2100 AC 05/11 PO 213 Sodium Chloride 1,000 ML Q13H 05/11 0645 DC 05/11 IV 05/11 1944 0651 Trazodone HCl 50 MG AT BEDTIME 05/11 2100 AC 05/11 PO 2128 Trazodone HCl 200 MG AT BEDTIME 05/10 2100 DC 05/10 PO 204 Vancomycin HCl 1,250 MG 1400 05/10 1400 AC 05/11 Sodium Chloride 250 ML IV 1426 Vital Signs & I&O Last 24 Hrs of Vitals and I&O: Vital Signs Date Time Temp Pulse Resp B/P B/P Pulse O2 O2 Flow FiO2 Mean Ox Delivery Rate 05/12 0400 95 Nasal 2.0L Cannula 05/12 0000 98.6 88 24 110/56 95 Nasal 2.0L Cannula 05/12 0000 95 Nasal 2.0L Cannula 05/11 2131 98.0 95 24 116/60 05/11 2000 95 Nasal 2.0L Cannula 05/11 1600 95 Nasal 2.0L Cannula 05/11 1600 98.6 94 26 120/66 95 Nasal 2.0L Cannula 05/11 1200 98 Nasal 2.0L Cannula 05/11 0835 72 30 90/42 05/11 0800 94 Nasal 2.0L Cannula 05/11 0800 99.0 92 26 108/56 94 Nasal 2.0L Cannula Intake & Output 05/12 0800 05/12 0000 05/11 1600 Intake Total 548 1432 1647 Output Total 405 540 460 Balance 371 574 0185 Intake, IV 448 752 647 Intake, Oral 692 743 8654 Output, Urine 405 540 460 Patient 178 lb Weight Impression/Plan: Awake and alert Skin reveals excoriations over the posterior thighs. HEENT exam poor dentition. Neck is supple with no adenopathy. Chest marked induration, edema, erythema and tenderness over the left chest wall from the axilla extending to the left breast, with no open wounds or drainage. Lungs mild crackles. Heart irregular rhythm with no murmur. Abdomen is soft, nontender with positive bowel sounds. Back no CVA tenderness. Extremities no cyanosis, clubbing or edema. Neuro is without focality. Samaniego catheter is in place. Results Last 24 Hrs of Lab Results: Laboratory Tests 05/12/18 0300: Anion Gap 10, Estimated GFR > 60, Glucose 166 H, Calcium 7.4 L, Phosphorus 2.2 L, Magnesium 1.9, Total Bilirubin 0.3, AST 25, ALT 32, Albumin 1.8 L, APTT 66 H, CBC w Diff MAN DIFF ORDERED, RBC 3.01 L, MCV 79.6 L, MCH 26.0 L, MCHC 32.6 L, RDW 16.1 H, MPV 9.3, Gran % 97.7 H, Lymphocytes % 1.7 L, Monocytes % 0.2 L, Eosinophils % 0.4, Basophils % 0, Absolute Granulocytes 21.9 H, Segmented Neutrophils 83 H, Band Neutrophils 7 H, Absolute Lymphocytes 0.4 L, Lymphocytes 2 L, Monocytes 1 L, Absolute Monocytes 0 L, Absolute Eosinophils 0.1, Absolute Basophils 0, Metamyelocytes 5 H, Myelocytes 2 H, Platelet Estimate ADEQUATE, Basophilic Stippling 1+ 05/11/18 1810: APTT 45 H Impression/Plan Impression/Plan Impression/Plan: 1. Significant sepsis due to skin and soft tissue infection of the skin and left chest wall, s/p drainage. ID and surgery following. Leukocytosis is increased today noting the patient's white blood cell count is 22,000. 2. Staph aureus and clostridium sepsis. 3. New onset rapid A. fib with rapid ventricular response initially, rate now controlled. 4. Extensive left upper extremity DVT, on heparin. 5. Recent lethargy and memory loss, needs follow-up. 6. Resolving Starvation ketosis. 7. History of IHD with prior CABG with ischemic cardiomyopathy. 8. History of Hep c. 9. Prior gastric bypass with post op bleeding complication few yrs ago. 10. Hyperglycemia and history of diabetes. 11. Progressive anemia without evidence of bleeding. 12. Malnutrition. 13. Mild hyponatremia. Recommendations: * Intravenous antibiotics (vancomycin, ceftriaxone and Flagyl )to continue, will continue to follow ID recommendations. Will need to discuss increasing white blood cell count with ID. * Follow-up culture data. * Continue heparin drip for therapeutic PTT in the setting of DVT/atrial fibrillation. * Guaiac all stools. * Monitor for bleeding. * Check a repeat CBC this afternoon. * Will transfuse if the patient continues to drop her hemoglobin. * Replete potassium to a level of 4.0. * Replete phosphorus levels. * Continue to hold IV fluids. * Monitor blood sugar, insulin sliding scale. * Follow-up echocardiogram results. May need TERESA? * Low threshold for tlc cath and vasopressors if sepsis worsens. * DVT prophylaxis at all times. * Sepsis bundle followed. * Continue to monitor in the critical care unit. * I discussed the plan of care with the house staff and asked them to contact me if the patient's condition changes or if they have any questions. I discussed the case with the patient's family at the bedside.
[2018-05-12 08:00] VITALS: BP 112/60
--- NOTE | 2018-05-12 08:45 | PN- CRCU ---
Subjective HPI/Critical Care Issues: Seen and examined at bedside. She appears more engaging,clinically improved, and with no apparent distress, compared to previous days. She denies any o/n fever/ chills, shortnes of breath ,cp/palpitation. She remains in sinus rythm. Her White count is elevated, however she is afebrile. Objective Current Medications: Current Medications Sig/Bayron Start time Last Medication Dose Route Stop Time Status Admin Acetaminophen 650 MG Q6P PRN 05/09 2045 AC 05/10 PO 1158 Aspirin Buffered 81 MG DAILY 05/12 0900 AC 05/12 PO 0854 Atorvastatin Calcium 40 MG 1700 05/10 1700 AC 05/11 PO 1653 Bupropion HCl 150 MG DAILY 05/10 1403 AC 05/12 PO 0854 Carvedilol 3.125 MG BID 05/11 0900 AC 05/12 PO 0854 Ceftriaxone Sodium 1,000 MG DAILY 05/10 1330 AC 05/12 IV 0852 Heparin Sodium 2,920 UNIT ONE ONE 05/11 2030 DC 05/11 (Porcine) IV 05/11 2031 2030 Heparin Sodium 25,000 UNIT .STK-MED ONE 05/11 1337 DC (Porcine) IV 05/11 1338 Heparin Sodium 25,000 UNIT Q24H 05/09 2330 AC 05/12 (Porcine) IV 0258 Sodium Chloride 500 ML Insulin Aspart 0 TIDAC 05/10 0800 AC 05/12 SC 1157 Lidocaine 1 ML .STK-MED ONE 05/11 1436 DC ID 05/11 1437 Memantine 10 MG BID 05/10 2100 AC 05/12 PO 0854 Metronidazole 500 MG IQ8 05/11 1600 AC 05/12 N/A 1 UNIT IV 0803 Nystatin 1 EDWARD BID 05/10 1202 AC 05/12 TOP 0857 Oxycodone HCl 10 MG Q6 PRN 05/12 1145 AC 05/12 PO 1146 Oxycodone HCl 10 MG .STK-MED ONE 05/11 1546 DC PO 05/11 1547 Oxycodone HCl 10 MG Q8P PRN 05/10 1750 DC 05/12 PO 0542 Sertraline HCl 200 MG AT BEDTIME 05/10 2100 AC 05/11 PO 2134 Trazodone HCl 50 MG AT BEDTIME 05/11 2100 AC 05/11 PO 2129 Vancomycin HCl 1,250 MG 1400 05/10 1400 AC 05/11 Sodium Chloride 250 ML IV 1426 Vital Signs & I&O Last 24 Hrs of Vitals and I&O: Vital Signs Date Time Temp Pulse Resp B/P B/P Pulse O2 O2 Flow FiO2 Mean Ox Delivery Rate 05/12 0854 89 22 112/60 05/12 0800 95 Nasal 2.0L Cannula 05/12 0800 98.2 59 22 112/60 95 Nasal 2.0L Cannula 05/12 0400 95 Nasal 2.0L Cannula 05/12 0000 98.6 88 24 110/56 95 Nasal 2.0L Cannula 05/12 0000 95 Nasal 2.0L Cannula 05/11 2131 98.0 95 24 116/60 05/11 2000 95 Nasal 2.0L Cannula 05/11 1600 95 Nasal 2.0L Cannula 05/11 1600 98.6 94 26 120/66 95 Nasal 2.0L Cannula Intake & Output 05/12 1600 05/12 0800 05/12 0000 Intake Total 548 1432 Output Total 405 540 Balance 143 892 Intake, IV 448 752 Intake, Oral 100 680 Output, Urine 405 540 Patient 80.739 kg Weight Exam General Appearance: no apparent distress, alert, awake Other Physical Findings: Cardiovascular: regular rate/rhythm, normal peripheral pulses Gastrointestinal: normal bowel sounds, soft, non-tender Extremities: upper extremity pitting edema L>R Impression/Plan Impression/Plan Impression/Plan: 62 year old female with past medical history significant for morbid obesity, DM, STERLING s/p laparoscopic Bindu-en-Y gastric bypass (2016), HTN, CAD/NM s/p PCI and CABG presented with several days of poor oral intake, diarrhea, urinary incontinence, lethargy, and confusion. In the ED, she met sepsis criteria with fever to 100.6, tachycardia, bandemia, and lactic acidemia. She was found to be in new onset rapid atrial fibrillation, and a heart rate of 200. Her lethargy, confusion, and atrial fibrillation were likely precipitated by infection, from a left breast cellulitis. She has improved with aggressive crystalloid resuscitation and administration of Unasyn. Impression and Plan #Severe sepsis secondary to left chest wall cellulitis S/p IR drainage of serosanginous fluid, BC X2 positive for stap. aureus and one set clostridium(unusual?), IR culture is now positive for heavy growth of MRSA. Patient already on ceftriaxone,metro and vanc. WBC count elevated however afebrile and clinically appears much improved. For, now we will continue with current ABX regimen (day3 of ceftr and vanco, day 2 of metro), will consider stopping metro if no anerobes growing within 1-2 days, diabetic can have polymicrobial growth. #Extensive left upper Extremity DVT Occlusive thrombus i present in the upper brachial vein extending into theaxillary vein and left subclavian vein. Thrombus is also present in the left basilic vein, with areas of occlusion. Patient is already on heparin for afib, which is the same treatment as in DVT. Normally upper extremity DVT have a lower propensity to embolize, however her DVT is extensive. #Intermittent episodes of Altered Mental Status. Transient intermittent episodes, today patient stated "there are 2 dogs biting a man in the ICU". Differentials include acute encephalopathy from infection vs ICU delirium. However, there is concern that patient might have subacute changes prior to this hospitilazation. Will need to obtain B12, folic, TSH as workup for possible reversible causes in addition to avoiding delirium triggers like constipation, pain. Will also advise ICU nursing staff to cluster interventions. # New onset rapid atrial fibrillation with RVR Paroxysmal afib with conversion to sinus rythm within a few hours after being on cardizem drip. Pt has remained in sinus with controlled ratefor more than 48hrs. Will continue with heparin for now, we will need switch to NOAC eventually. #CAD/NM s/p PCI/CABG Cath 04/2015 LVEF 65%, ramus 60% prox, LAD prox, distal, D1 moderate disease; LAD 100% mid, CX 50% prox, OM1 100% ostial, prior stent, CX mid, prox, OM2 mild disease; RCA prox, distal, mid mild disease; RPDA 100% prox Echo LVEF 60%, mild , mild LVH, AV peak 14mmhg, AV mean 7mmhg, AV area 1.7cm2 Stress 2013-LVEF 73%, small apical inferior wall defect, lexiscan Aspirin, statin, beta marlene Consider ACEi if she becomes hypertensive #DM: Accuchecks TIDAC, Overnight levels average 170s-190s, which is an improvement from previous days (insulin dose was increased yesterday). CONTINUE CURRENT DOSING.Will target BGs of 140-180. Problem List: 1. Sepsis 2. Cellulitis 3. Rapid atrial fibrillation 4. Acute encephalopathy
--- NOTE | 2018-05-12 11:25 | PN- Cardiology ---
Subjective Subjective: The patient is feeling slightly better today. Awake and alert. No specific cardiac complaints. Rhythm stable. Objective Vital Signs and I&Os Vital Signs Date Time Temp Pulse Resp B/P B/P Pulse O2 O2 Flow FiO2 Mean Ox Delivery Rate 05/12 0854 89 22 112/60 05/12 0400 95 Nasal 2.0L Cannula 05/12 0000 98.6 88 24 110/56 95 Nasal 2.0L Cannula 05/12 0000 95 Nasal 2.0L Cannula 05/11 2131 98.0 95 24 116/60 05/11 2000 95 Nasal 2.0L Cannula 05/11 1600 95 Nasal 2.0L Cannula 05/11 1600 98.6 94 26 120/66 95 Nasal 2.0L Cannula 05/11 1200 98 Nasal 2.0L Cannula Intake & Output 05/12 1600 05/12 0800 05/12 0000 05/11 1600 05/11 0800 05/11 0000 Intake Total 548 1432 1647 1127 1619 Output Total 405 540 460 480 300 Balance 134 215 7250 647 1319 Intake, IV 448 922 179 4150 1179 Intake, Oral 074 861 8166 0 440 Output, Urine 405 540 460 480 300 Patient 178 lb Weight Physical Exam: General Appearance: well developed/nourished, alert, awake, oriented Head: normal HEENT: Normal Neck: supple, JVP normal, carotid upstrokes normal bilaterally, no masses or thyromegaly Respiratory: chest non-tender, clear to auscultation and percussion bilaterally Cardiovascular: regular rate/rhythm, normal S1, S2, no audible murmur Abdomen: normal bowel sounds, soft, non-tender Extremities: normal inspection, no edema Vascular: Pulses are 2+ and equal bilaterally Neurologic: Grossly normal/nonfocal Current Medications: Current Medications Sig/Bayron Start time Last Medication Dose Route Stop Time Status Admin Acetaminophen 650 MG Q6P PRN 05/09 2045 AC 05/10 PO 1158 Aspirin Buffered 81 MG DAILY 05/12 0900 AC 05/12 PO 0854 Atorvastatin Calcium 40 MG 1700 05/10 1700 AC 05/11 PO 1653 Bupropion HCl 150 MG DAILY 05/10 1403 AC 05/12 PO 0854 Carvedilol 3.125 MG BID 05/11 0900 AC 05/12 PO 0854 Ceftriaxone Sodium 1,000 MG DAILY 05/10 1330 AC 05/12 IV 0852 Heparin Sodium 2,920 UNIT ONE ONE 05/11 2030 DC 05/11 (Porcine) IV 05/11 Heparin Sodium 25,000 UNIT .STK-MED ONE 05/11 1337 DC (Porcine) IV 05/11 1338 Heparin Sodium 25,000 UNIT Q24H 05/09 2330 AC 05/12 (Porcine) IV 0258 Sodium Chloride 500 ML Insulin Aspart 0 TIDAC 05/10 0800 AC 05/12 SC 0811 Lidocaine 1 ML .STK-MED ONE 05/11 1436 DC ID 05/11 1437 Memantine 10 MG BID 05/10 2100 AC 05/12 PO 0854 Metronidazole 500 MG IQ8 05/11 1600 AC 05/12 N/A 1 UNIT IV 0803 Nystatin 1 EDWARD BID 05/10 1202 AC 05/12 TOP 0857 Oxycodone HCl 10 MG .STK-MED ONE 05/11 1546 DC PO 05/11 1547 Oxycodone HCl 10 MG Q8P PRN 05/10 1750 AC 05/12 PO 0542 Potassium Phosphate 15 mMol ONE ONE 05/11 0745 DC 05/11 Sodium Chloride 250 ML IV 05/11 1149 0833 Sertraline HCl 200 MG AT BEDTIME 05/10 2100 AC 05/11 PO 2134 Trazodone HCl 50 MG AT BEDTIME 05/11 2100 AC 05/11 PO 2129 Vancomycin HCl 1,250 MG 1400 05/10 1400 AC 05/11 Sodium Chloride 250 ML IV 1426 Results Last 48 Hrs of Labs/Mics: Laboratory Tests 05/12/18 0300: Anion Gap 10, Estimated GFR > 60, Glucose 166 H, Calcium 7.4 L, Phosphorus 2.2 L, Magnesium 1.9, Total Bilirubin 0.3, AST 25, ALT 32, Albumin 1.8 L, APTT 66 H, CBC w Diff MAN DIFF ORDERED, RBC 3.01 L, MCV 79.6 L, MCH 26.0 L, MCHC 32.6 L, RDW 16.1 H, MPV 9.3, Gran % 97.7 H, Lymphocytes % 1.7 L, Monocytes % 0.2 L, Eosinophils % 0.4, Basophils % 0, Absolute Granulocytes 21.9 H, Segmented Neutrophils 83 H, Band Neutrophils 7 H, Absolute Lymphocytes 0.4 L, Lymphocytes 2 L, Monocytes 1 L, Absolute Monocytes 0 L, Absolute Eosinophils 0.1, Absolute Basophils 0, Metamyelocytes 5 H, Myelocytes 2 H, Platelet Estimate ADEQUATE, Basophilic Stippling 1+ 05/11/18 1810: APTT 45 H 05/11/18 1000: Urinalysis MOD H, Urine Color YEL, Urine Clarity HAZY H, Urine pH 6.0, Ur Specific [place] 1.020, Urine Protein 30 H, Urine Ketones TRACE H, Urine Nitrite NEG, Urine Bilirubin NEG, Urine Urobilinogen 1.0, Ur Leukocyte Esterase NEG, Ur Microscopic SEDIMENT EXAMINED, Urine WBC RARE, Urine Bacteria RARE H, Hyaline Casts RARE H, Granular Casts 1-3 H, Urine Hemoglobin NEG, Urine Glucose NEG 05/11/18 1000: Urine Osmolality 550, Ur Random Creatinine 55.2, Ur Random Sodium < 5 L, Ur Random Potassium 15.9, Fraction Sodium Excret < 0.2 05/11/18 0600: APTT 58 H 05/11/18 0400: Anion Gap 10, Estimated GFR > 60, Glucose 198 H, Hemoglobin A1c 7.3 H, Serum Osmolality 287, Calcium 7.5 L, Phosphorus 2.3 L, Magnesium 1.9, Iron 15 L, TIBC 193 L, Ferritin 438.0 H, Total Bilirubin 0.3, AST 22, ALT 33, Albumin 1.7 L, Prealbumin < 3.0 L, PT 14.1 H, INR 1.29 H, CBC w Diff MAN DIFF ORDERED, RBC 3.01 L, MCV 80.1 L, MCH 26.0 L, MCHC 32.5 L, RDW 16.5 H, MPV 9.5, Gran % 96.8 H, Lymphocytes % 1.8 L, Monocytes % 0.8 L, Eosinophils % 0.6, Basophils % 0, Absolute Granulocytes 14.5 H, Segmented Neutrophils 82 H, Band Neutrophils 7 H, Absolute Lymphocytes 0.3 L, Lymphocytes 2 L, Monocytes 6, Absolute Monocytes 0.1, Eosinophils 1, Absolute Eosinophils 0.1, Absolute Basophils 0, Metamyelocytes 2 H, Platelet Estimate ADEQUATE, Polychromasia 1+, Hypochromic-Microcytic 1+, Poikilocytosis 1+, Basophilic Stippling SLIGHT, Anisocytosis 1+, Microcytic Cells 1+, Ovalocytes 1+, Fld Total RBCs Counted 100, Hepatitis A IgM Ab NONREACTIVE, Hep Bs Antigen NONREACTIVE, Hep B Core IgM Ab Conf NONREACTIVE, Hepatitis C Antibody REACTIVE H, HIV 1&2 Ab Western Blot NONREACTIVE 05/10/18 2330: PT 14.8 H, INR 1.35 H, APTT 58 H 05/10/18 1450: APTT 43 H Assessment/Plan Assessment/Plan Assessment: 1. Sepsis secondary to soft tissue infection-staph aureus/clostridium 2. Atrial fibrillation with elevated ventricular rate of new onset-currently in sinus rhythm 3. Left upper extremity DVT on IV heparin 4. Hypertension 5. Hyperlipidemia 6. Diabetes 7. COPD 8. History of coronary artery disease, CHF, prior bypass surgery, ischemic cardiomyopathy 9. Anemia 10. Malnutrition Recommendations: -For now, continue as per the ICU and infectious disease teams. -Continue cardiac medications as tolerated -Echocardiogram pending -Parameters and replete potassium, magnesium, etc. as necessary -Further recommend patients after echocardiogram available. Continue telemetry? Yes
[2018-05-12 16:00] VITALS: BP 116/70
[2018-05-12 18:03] LABS: PTT 61 SEC (25-37)
[2018-05-13] VITALS: BP 101/54
[2018-05-13 05:52] LABS: ABSOLUTE BASOPHIL COUNT 0 /CUMM (0.0-0.2); ABSOLUTE EOSINOPHIL COUNT 0.1 /CUMM (0.0-0.7); ABSOLUTE GRANULOCYTE CT 28.3 /CUMM (1.4-6.5); ABSOLUTE LYMPH COUNT 0.7 /CUMM (1.2-3.4); ABSOLUTE MONOCYTE COUNT 0.2 /CUMM (0.10-0.60); BASOPHIL % 0 % (0.0-2.0); EOSINOPHIL % 0.4 % (0-5); GRANULOCYTE % 96.7 % (42.2-75.2); HEMATOCRIT 25.5 % (37-47); MEAN CORPUSCULAR HGB 26.8 PG (27.0-31.0); MEAN CORPUSCULAR HGB CONC 33.7 G/DL (33.0-37.0); MEAN CORPUSCULAR VOLUME 79.4 FL (81.0-99.0); MEAN PLATELET VOLUME 9.8 FL (7.4-10.4); PLATELET COUNT 181 /CUMM (130-400); RBC DISTRIBUTION WIDTH 16.4 % (11.5-14.5); RED BLOOD CELL CT 3.21 /CUMM (4.20-5.40); WHITE BLOOD CELL COUNT 29.2 /CUMM (4.8-10.8)
[2018-05-13 05:56] LABS: PTT 69 SEC (25-37)
[2018-05-13 08:00] VITALS: BP 142/68
--- NOTE | 2018-05-13 08:05 | PN- Resident CRCU ---
Subjective HPI/CRCU Issues: severe sepsis left breast cellulitis LUE DVT afib with rvr hyponatremia hypokalemia 24 Hour Events: IR drainage culture positive for MSSA Afebrile on antibiotics (Vancomycin/Ceftriaxone/Flagyl) Increasing leukocytosis 29.2 and bandemia 17 Objective Vital Signs & I&O Last 8 Hrs of Vitals and I&O: Temp 98.0, HR 80, RR 20, BP 101/54, SpO2 96% on 2L O2 Exam General Appearance: well developed/nourished, no apparent distress, alert, awake , comfortable, some crusted lesions periorally and lower lip swelling (unchanged ) Cardiovascular: regular rate/rhythm, normal peripheral pulses Gastrointestinal: normal bowel sounds, soft, non-tender, no organomegaly Extremities: normal capillary refill, RUE swelling > left, with range of motion limited by pain, some serous drainage from left breast and worsening erythema Current Medications: Current Medications Sig/Bayron Start time Last Medication Dose Route Stop Time Status Admin Acetaminophen 650 MG .STK-MED ONE 05/13 0012 DC PO 05/13 0013 Acetaminophen 650 MG Q6P PRN 05/09 2045 AC 05/13 PO 0014 Ampicillin Sodium/ 3,000 MG Q6H 05/13 0800 AC Sulbactam Sodium IV Sodium Chloride 100 ML Aspirin Buffered 81 MG DAILY 05/12 0900 AC 05/12 PO 0854 Atorvastatin Calcium 40 MG 1700 05/10 1700 AC 05/12 PO 1733 Bupropion HCl 150 MG DAILY 05/10 1403 AC 05/12 PO 0854 Carvedilol 3.125 MG BID 05/11 0900 AC 05/12 PO 2049 Ceftriaxone Sodium 1,000 MG DAILY 05/10 1330 DC 05/12 IV 0852 Heparin Sodium 25,000 UNIT Q24H 05/09 2330 AC 05/12 (Porcine) IV 1515 Sodium Chloride 500 ML Insulin Aspart 0 TIDAC 05/10 0800 AC 05/13 SC 0813 Memantine 10 MG BID 05/10 2100 AC 05/12 PO 2048 Metronidazole 500 MG IQ8 05/11 1600 DC 05/12 N/A 1 UNIT IV 2313 Nystatin 1 EDWARD BID 05/10 1202 AC 05/12 TOP 2050 Oxycodone HCl 10 MG Q6 PRN 05/12 1145 AC 05/12 PO 1146 Oxycodone HCl 10 MG .STK-MED ONE 05/12 1142 DC PO 05/12 1143 Oxycodone HCl 10 MG Q8P PRN 05/10 1750 DC 05/12 PO 0542 Sertraline HCl 200 MG AT BEDTIME 05/10 2100 AC 05/12 PO 204 Trazodone HCl 50 MG AT BEDTIME 05/11 2100 AC 05/12 PO 204 Vancomycin HCl 1,250 MG 1400 05/10 1400 DC 05/12 Sodium Chloride 250 ML IV 1452 Impression/Plan Impression/Problem List Impression: 62 year old female with past medical history significant for morbid obesity, DM, STERLING s/p laparoscopic Bindu-en-Y gastric bypass (2016), HTN, CAD/NE s/p PCI and CABG presented with several days of poor oral intake, diarrhea, urinary incontinence, lethargy, and confusion. In the ED, she met sepsis criteria with fever to 100.6, tachycardia, bandemia, and lactic acidemia. She was found to be in new onset rapid atrial fibrillation, and a heart rate of 200. Her lethargy, confusion, and atrial fibrillation were likely precipitated by infection, from a left breast cellulitis. Atrial fibrillation rapidly resolved, rate control stopped but remains on heparin. Left upper extremity ultrasound revealed an extensive left upper extremity DVT. Her blood cultures were positive for staph and clostridium in addition to IR drainage +staph. Currently, she has an increasing white count, despite appropriate antibiotic therapy. Severe sepsis secondary to left chest wall cellulitis Fever, tachycardia, lactic acidemia, WBC 10.8 with 20 bands, and left breast cellulitis Aggressive fluid resuscitation with clearance of lactic acidemia Bacteremia with MSSA and clostridium, was on vancomycin/ceftriaxone/flagyl Changing antiobiotics to Unasyn this morning, in consultation with infectious disease No evidence of necrotizing fasciitis or focal drainable abscess collection on CT s/p ultrasound guided drainage with IR, culture positive for staph aureus Leukocytosis trending up from 11,000->28,000 with increasing bandemia, despite antibiotics Surgery reconsultation for possible repeat imaging and/or incision and drainage New onset rapid atrial fibrillation with RVR Cardizem drip discontinued, currently in sinus rhythm Resumed home dose of carvedilol Heparin drip for anticoagulation Cardiology consulted Echocardiogram pending for afib and staph bacteremia Elevated anion gap metabolic acidosis Secondary to lactic acidemia, sepsis, dehydration, and starvation ketosis Bicarbonate 15 and anion gap of 19 on presentation, will trend on daily labs Anion gap closed, bicarbonate 19, improved after resuscitation Hypokalemia/Hypophosphatemia: Repleting PO and IV, will repeat on AM labs Hyponatremia: Low FeNa Trending up 131->133, continue to monitor CAD/NE s/p PCI/CABG Cath 04/2015 LVEF 65%, ramus 60% prox, LAD prox, distal, D1 moderate disease; LAD 100% mid, CX 50% prox, OM1 100% ostial, prior stent, CX mid, prox, OM2 mild disease; RCA prox, distal, mid mild disease; RPDA 100% prox Echo LVEF 60%, mild , mild LVH, AV peak 14mmhg, AV mean 7mmhg, AV area 1.7cm2 Stress 2013-LVEF 73%, small apical inferior wall defect, lexiscan Aspirin, statin, beta marlene Consider ACEi if she becomes hypertensive DM: Accuchecks TIDAC, 190s-250s Novolog sliding scale insulin increased yesterday Hemoglobin a1c 7.3 Microcytic anemia: Type and screen Guiaic positive stool yesterday, on heparin gtt Check iron studies, ferritin high but in the setting of acute infection Hemoglobin stable currently, 8.6 today NPO for possible surgical intervention DVT ppx-heparin gtt Full code Problem List: 1. Rapid atrial fibrillation 2. Cellulitis 3. Sepsis Pain Ratin Tomorrow's Labs & Rationales: cbc, icu Plan DVT/Prophylaxis: mechanical, pharmacological
--- NOTE | 2018-05-13 08:36 | PN- Infect Dx ---
Subjective Subjective: Afebrile. She continues to complain of pain in the left chest. Objective Last 24 Hrs of Vital Signs/I&O Vital Signs Date Time Temp Pulse Resp B/P B/P Pulse O2 O2 Flow FiO2 Mean Ox Delivery Rate 05/13 0400 96 Nasal 2.0L Cannula 05/13 0000 98.0 80 20 101/54 95 Nasal 2.0L Cannula 05/13 0000 95 Nasal 2.0L Cannula 05/12 2049 71 120/70 05/12 2000 97 Nasal 2.0L Cannula 05/12 1600 96 Nasal 2.0L Cannula 05/12 1600 99.0 86 22 116/70 96 Nasal 2.0L Cannula 05/12 1200 96 Nasal 2.0L Cannula 05/12 0854 89 22 112/60 Intake & Output 05/13 1600 05/13 0800 05/13 0000 Intake Total 548 888 Output Total 240 320 Balance 308 568 Intake, IV 448 348 Intake, Oral 100 540 Output, Urine 240 320 Physical Exam Other Physical Findings: She is awake and alert in no acute distress HEENT perioral crusted lesions Chest marked induration, erythema and tenderness of the left chest and breast persist Lungs are clear Heart regular rhythm with no murmur Extremities trace edema both lower extremities; decreased left upper extremity edema, though with persistent tenderness; several crusted lesions on her fingertips Samaniego catheter remains in place Results Last 24 Hours of Lab Results: Laboratory Tests 05/13 05/12 0415 1640 Chemistry Sodium (137 - 145 mmol/L) 133 L Potassium (3.5 - 5.1 mmol/L) 3.6 Chloride (98 - 107 mmol/L) 105 Carbon Dioxide (22 - 30 mmol/L) 19 L Anion Gap (5 - 16) 9 BUN (7 - 17 mg/dL) 22 H Creatinine (0.5 - 1.0 mg/dL) 0.6 Estimated GFR (>60 ml/min) > 60 Glucose (65 - 99 mg/dL) 186 H Calcium (8.4 - 10.2 mg/dL) 7.6 L Phosphorus (2.5 - 4.5 mg/dL) 2.4 L Magnesium (1.6 - 2.3 mg/dL) 2.0 Total Bilirubin (0.2 - 1.3 mg/dL) 0.2 AST (14 - 36 U/L) 23 ALT (9 - 52 U/L) 29 Albumin (3.5 - 5.0 g/dL) 1.7 L Coagulation APTT (25 - 37 SEC) 69 H 61 H Hematology CBC w Diff MAN DIFF ORDERED WBC (4.8 - 10.8 /CUMM) 29.2 H RBC (4.20 - 5.40 /CUMM) 3.21 L Hgb (12.0 - 16.0 G/DL) 8.6 L Hct (37 - 47 %) 25.5 L MCV (81.0 - 99.0 FL) 79.4 L MCH (27.0 - 31.0 PG) 26.8 L MCHC (33.0 - 37.0 G/DL) 33.7 RDW (11.5 - 14.5 %) 16.4 H Plt Count (130 - 400 /CUMM) 181 MPV (7.4 - 10.4 FL) 9.8 Gran % (42.2 - 75.2 %) 96.7 H Lymphocytes % (20.5 - 51.1 %) 2.3 L Monocytes % (1.7 - 9.3 %) 0.6 L Eosinophils % (0 - 5 %) 0.4 Basophils % (0.0 - 2.0 %) 0 Absolute Granulocytes (1.4 - 6.5 /CUMM) 28.3 H Segmented Neutrophils (42.2 - 75.2 %) 78 H Band Neutrophils (0.0 - 5.0 %) 17 H Absolute Lymphocytes (1.2 - 3.4 /CUMM) 0.7 L Lymphocytes (20.5 - 51.1 %) 3 L Monocytes (1.7 - 9.3 %) 2 Absolute Monocytes (0.10 - 0.60 /CUMM) 0.2 Absolute Eosinophils (0.0 - 0.7 /CUMM) 0.1 Absolute Basophils (0.0 - 0.2 /CUMM) 0 Platelet Estimate (ADEQUATE) ADEQUATE Hypochromic-Microcytic 1+ Anisocytosis 1+ Microcytic Cells 1+ Last 24 Hours of Ramón Results: Blood cultures May 09 positive for Staph aureus sensitive to Oxacillin and Clostridium perfringens Blood cultures x 2 May 11 negative Left breast aspiration May 11 positive for Staph aureus Recent Imaging Studies: Chest x-ray May 11 small left pleural effusion Assessment/Plan ID Impression: Persistent inflammation in the left chest and breast, with her white blood cell count continuing to increase, with persistent bandemia, status post aspiration of 10 cc of thin, serosanguineous fluid from the localized fluid collection within the superior lateral aspect of the left breast 2 days ago. Given the persistent inflammation feel that she will require open drainage of this process. She remains afebrile on Vancomycin, Flagyl and Ceftriaxone but, based on her blood cultures, with MSSA and Clostridium, and the culture from the recent aspiration, with Staph aureus, her antibiotics can be adjusted. The lesions on her fingers raise concern for an embolic process and endocarditis will need to be ruled out. Her perioral lesions are suggestive of herpes simplex, likely indirectly secondary to her infection, and they can be treated symptomatically. Her course has been complicated by an extensive DVT of the left upper extremity, and she remains on Heparin, which she was already on for her transient episode of atrial fibrillation. Suggestion: 1. Surgical reevaluation regarding need for drainage 2. Could consider repeat CT of the chest if desired by Surgery prior to any intervention 3. Follow-up echocardiogram and pursue TERESA if negative 4. Discontinue Vancomycin, Flagyl and Ceftriaxone 5. Restart Unasyn 3 g IV every 6 hours
--- NOTE | 2018-05-13 09:49 | PN- CRCU ---
Subjective HPI/Critical Care Issues: The patient continues to complain of pain in the left chest. She feels weak and lethargic. She has no appetite. Her mouth is sore, noting she feels somewhat better with ice chips. She denies any shortness of breath, chest pain, abdominal pain or any other associated issues. Objective Current Medications: Current Medications Sig/Bayron Start time Last Medication Dose Route Stop Time Status Admin Acetaminophen 650 MG .STK-MED ONE 05/13 0012 DC PO 05/13 0013 Acetaminophen 650 MG Q6P PRN 05/09 2045 AC 05/13 PO 0014 Ampicillin Sodium/ 3,000 MG Q6H 05/13 0800 AC Sulbactam Sodium IV Sodium Chloride 100 ML Aspirin Buffered 81 MG DAILY 05/12 0900 DC 05/12 PO 0854 Atorvastatin Calcium 40 MG 1700 05/10 1700 AC 05/12 PO 1733 Bupropion HCl 150 MG DAILY 05/10 1403 AC 05/12 PO 0854 Carvedilol 3.125 MG BID 05/11 0900 AC 05/12 PO 2049 Ceftriaxone Sodium 1,000 MG DAILY 05/10 1330 DC 05/12 IV 0852 Heparin Sodium 25,000 UNIT Q24H 05/09 2330 AC 05/12 (Porcine) IV 1515 Sodium Chloride 500 ML Insulin Aspart 0 TIDAC 05/10 0800 AC 05/13 SC 0813 Memantine 10 MG BID 05/10 2100 AC 05/12 PO 2048 Metronidazole 500 MG IQ8 05/11 1600 DC 05/12 N/A 1 UNIT IV 2313 Nystatin 1 EDWARD BID 05/10 1202 AC 05/12 TOP 2050 Oxycodone HCl 10 MG Q6 PRN 05/12 1145 AC 05/12 PO 1146 Oxycodone HCl 10 MG .STK-MED ONE 05/12 1142 DC PO 05/12 1143 Oxycodone HCl 10 MG Q8P PRN 05/10 1750 DC 05/12 PO 0542 Phosphate 250 MG PC AND AT BEDTIME 05/13 1300 CAN PO Potassium Chloride 40 MEQ ONCE ONE 05/13 0915 CAN PO 05/13 0916 Potassium Phosphate 15 mMol ONE ONE 05/13 0915 AC Sodium Chloride 250 ML IV 05/13 1319 Sertraline HCl 200 MG AT BEDTIME 05/10 2100 AC 05/12 PO 204 Trazodone HCl 50 MG AT BEDTIME 05/11 2100 AC 05/12 PO 2048 Vancomycin HCl 1,250 MG 1400 05/10 1400 DC 05/12 Sodium Chloride 250 ML IV 1452 Vital Signs & I&O Last 24 Hrs of Vitals and I&O: Vital Signs Date Time Temp Pulse Resp B/P B/P Pulse O2 O2 Flow FiO2 Mean Ox Delivery Rate 05/13 0400 96 Nasal 2.0L Cannula 05/13 0000 98.0 80 20 101/54 95 Nasal 2.0L Cannula 05/13 0000 95 Nasal 2.0L Cannula 05/12 2049 71 120/70 05/12 2000 97 Nasal 2.0L Cannula 05/12 1600 96 Nasal 2.0L Cannula 05/12 1600 99.0 86 22 116/70 96 Nasal 2.0L Cannula 05/12 1200 96 Nasal 2.0L Cannula Intake & Output 05/13 1600 05/13 0800 05/13 0000 Intake Total 548 888 Output Total 240 320 Balance 308 568 Intake, IV 448 348 Intake, Oral 100 540 Output, Urine 240 320 Impression/Plan: Awake and alert Skin reveals excoriations over the posterior thighs. HEENT exam poor dentition. Neck is supple. Chestinduration, edema, erythema and tenderness over the left chest wall from the axilla extending to the left breast, with no open wounds or drainage. Lungs mild crackles. Heart irregular rhythm with no murmur. Abdomen is soft, nontender with positive bowel sounds. Back no CVA tenderness. Extremities no cyanosis, clubbing or edema. Results Last 24 Hrs of Lab Results: Laboratory Tests 05/13/18 0415: Anion Gap 9, Estimated GFR > 60, Glucose 186 H, Calcium 7.6 L, Phosphorus 2.4 L, Magnesium 2.0, Total Bilirubin 0.2, AST 23, ALT 29, Albumin 1.7 L, APTT 69 H, CBC w Diff MAN DIFF ORDERED, RBC 3.21 L, MCV 79.4 L, MCH 26.8 L, MCHC 33.7 , RDW 16.4 H, MPV 9.8, Gran % 96.7 H, Lymphocytes % 2.3 L, Monocytes % 0.6 L , Eosinophils % 0.4, Basophils % 0, Absolute Granulocytes 28.3 H, Segmented Neutrophils 78 H, Band Neutrophils 17 H, Absolute Lymphocytes 0.7 L, Lymphocytes 3 L, Monocytes 2, Absolute Monocytes 0.2, Absolute Eosinophils 0.1, Absolute Basophils 0, Platelet Estimate ADEQUATE, Hypochromic-Microcytic 1+, Anisocytosis 1+, Microcytic Cells 1+ 05/12/18 1640: APTT 61 H Impression/Plan Impression/Plan Impression/Plan: 1. Significant sepsis due to skin and soft tissue infection of the skin and left chest wall, s/p drainage. ID and surgery following. Leukocytosis is increased today noting the patient's white blood cell count is 29,000 with 17 bands. I discussed this with ID. Surgery will reevaluate the patient to determine if the patient would benefit from repeat imaging and/or surgical debridement. 2. Staph aureus and clostridium sepsis. 3. New onset rapid A. fib with rapid ventricular response, rate now controlled. 4. Extensive left upper extremity DVT, on heparin. 5. Recent lethargy and memory loss, needs follow-up. 6. Resolving Starvation ketosis. 7. History of IHD with prior CABG with ischemic cardiomyopathy. 8. History of Hep c. 9. Prior gastric bypass with post op bleeding complication few yrs ago. 10. Hyperglycemia and history of diabetes. 11. Progressive anemia without evidence of bleeding. 12. Malnutrition. 13. Mild hyponatremia. Recommendations: * Intravenous antibiotics (vancomycin, ceftriaxone and Flagyl )to continue, will continue to follow ID recommendations. * Continue heparin drip for therapeutic PTT in the setting of DVT/atrial fibrillation. * Guaiac all stools. * Monitor for bleeding. * Replete potassium to a level of 4.0. * Replete phosphorus levels. * Continue to hold IV fluids. * Monitor blood sugar, insulin sliding scale. * Follow-up echocardiogram results. May need TERESA? * Low threshold for tlc cath and vasopressors if sepsis worsens. * The patient is currently eating ice chips only, and she is otherwise n.p.o. in anticipation for possible intervention later today. If no plans to go to the OR , please advance the patient's diet. * DVT prophylaxis at all times.
--- NOTE | 2018-05-13 13:40 | CT SCAN REPORT ---
EXAMINATION: CT CHEST WITH CONTRAST CLINICAL INFORMATION: Increasing leukocytosis, fever, sepsis, bandemia. Presumptive diagnosis of left breast and axillary abscess. COMPARISON: CT scan of the chest dated 05/09/2018. TECHNIQUE: Multidetector volumetric CT imaging of the chest was obtained after the administration of 95 mL of intravenous Optiray 320. Sagittal and coronal reformations were obtained. DLP: 824.73 mGy-cm. FINDINGS: Chest wall: The left breast is not fully included in the [id number] of the exam. There is extensive skin thickening and edema measuring up to 1.3 cm in thickness in the entire left breast. There is also extensive edema and trabecular accentuation seen throughout the left breast. The edema extends from the breast into the left axilla and soft tissues of the left chest wall with marked asymmetry of the left breast and chest seen compared to the contralateral side. Compared to the prior CT scan from 05/09/2018, the degree of edema in the mid and lower chest wall has increased compared to the prior exam. There is still no definite definable focal drainable fluid collection. LUNGS: There is a new small left-sided pleural effusion and extensive volume loss and dense consolidation in the basal segments of the left lower lobe with only aeration in the superior segment of the left lower lobe remaining. The left upper lobe is expanded and clear, except for some minimal atelectatic changes along the left major fissure and in the inferior lingula. There is mild dependent atelectasis seen in the right lower lobe a few scattered nonspecific reticular nodular opacities is seen in the lung periphery. PLEURA: There is new small layering pleural effusion seen in the posterior left lung. No pleural mass or thickening. LYMPHATIC STRUCTURES: No mediastinal, hilar or axillary adenopathy or free fluid collection. CARDIOVASCULAR STRUCTURES: Enlargement of the left heart chambers is again seen. Aortic size normal. No pericardial effusion. Mild aortic and moderate coronary artery calcifications. Pulmonary arteries remain mildly enlarged. UPPER ABDOMEN: Postcholecystectomy kizzy are seen in the gallbladder fossa. There are changes related to prior gastric bypass surgery. Masslike enlargement of the left adrenal gland and mild enlargement of the right adrenal gland are again seen, unchanged. Included portions of the solid organs in the upper abdomen within normal limits. OSSEOUS STRUCTURES: The patient is status post median sternotomy. There is moderate vertebral spondylosis seen throughout the thoracic spine. IMPRESSION: 1. Interval slight progression in the extent of soft tissue edema and stranding seen involving the left chest wall and the left breast. However, no distinct peripherally rim-enhancing abscess collection or drainable collection is seen. No subcutaneous/soft tissue emphysema is seen. 2. Interval development of a small left-sided pleural effusion and dense consolidation in the basal segments of the left lower lobe. 3. Mild scattered atelectatic changes are also seen, primarily in the lingula and right lower lobe. 4. Enlargement of left heart chambers and moderate coronary artery calcifications noted. Central pulmonary arteries are mildly enlarged. 5. Status post cholecystectomy and gastric bypass surgery. 6. Enlargement of the right adrenal gland and masslike density in the left adrenal gland, unchanged. Findings discussed with Dr. Barbosa at the time of the exam.
--- NOTE | 2018-05-13 14:15 | PN- General Surgery ---
Subjective Subjective: Follow-up of left breast and chest wall Patient remains somewhat confused so history is gotten from so history is gotten from the staff and residents, it is spin tank tender but the redness has decreased, no fevers, no pressors. Concern is increasing WBC, bandemia Objective Vital Signs and I&Os I rev Vital Signs Date Time Temp Pulse Resp B/P B/P Pulse O2 O2 Flow FiO2 Mean Ox Delivery Rate 05/13 0935 82 18 119/70 05/13 0800 96 Nasal 2.0L Cannula 05/13 0800 98.2 82 22 142/68 96 Nasal 2.0L Cannula 05/13 0400 96 Nasal 2.0L Cannula 05/13 0000 98.0 80 20 101/54 95 Nasal 2.0L Cannula 05/13 0000 95 Nasal 2.0L Cannula 05/12 2049 71 120/70 05/12 2000 97 Nasal 2.0L Cannula 05/12 1600 96 Nasal 2.0L Cannula 05/12 1600 99.0 86 22 116/70 96 Nasal 2.0L Cannula I rev Intake & Output 05/13 1600 05/13 0800 05/13 0000 05/12 1600 05/12 0800 05/12 0000 Intake Total 548 888 629 551 7844 Output Total 240 320 440 405 540 Balance 308 568 399 143 892 Intake, IV 448 348 442 448 752 Intake, Oral 100 540 397 100 680 Output, Urine 240 320 440 405 540 Patient 178 lb 178 lb Weight Physical Exam: Constitutional: confused no acute distress Eyes: sclera anicteric ENMT: dry mucous membranes Cardiovascular: S1-S2 no murmurs, there is peripheral edema Respiratory: clear to auscultation with normal respiratory effort and no intercostal retractions GI: abdomen soft nontender nondistended Extremities / lymphatics: left flank and chest edematous, more dependent, posterolateraly, superficial bullae, erythema decreased per markings, no necrosis Skin: as above Psychiatric: confused, but aware of situation somewhat Current Medications: I rev Current Medications Sig/Bayron Start time Last Medication Dose Route Stop Time Status Admin Acetaminophen 650 MG .STK-MED ONE 05/13 001 DC PO 05/13 0013 Acetaminophen 650 MG Q6P PRN 05/09 2045 AC 05/13 PO 0014 Ampicillin Sodium/ 3,000 MG Q6H 05/13 08 AC 05/13 Sulbactam Sodium IV 0934 Sodium Chloride 100 ML Aspirin Buffered 81 MG DAILY 05/12 0900 DC 05/12 PO 0854 Atorvastatin Calcium 40 MG 1700 05/10 1700 AC 05/12 PO 1733 Bupropion HCl 150 MG DAILY 05/10 1403 AC 05/13 PO 0935 Carvedilol 3.125 MG BID 05/11 0900 AC 05/13 PO 0935 Ceftriaxone Sodium 1,000 MG DAILY 05/10 1330 DC 05/12 IV 0852 Heparin Sodium 25,000 UNIT Q24H 05/09 2330 AC 05/12 (Porcine) IV 1515 Sodium Chloride 500 ML Insulin Aspart 0 TIDAC 05/10 0800 AC 05/13 SC 1311 Lorazepam 1 MG ONCE ONE 05/13 1200 DC 05/13 IV 05/13 1201 1204 Memantine 10 MG BID 05/10 2100 AC 05/13 PO 0935 Metronidazole 500 MG IQ8 05/11 1600 DC 05/12 N/A 1 UNIT IV 2313 Nystatin 1 EDWARD BID 05/10 1202 AC 05/13 TOP 1103 Oxycodone HCl 10 MG Q6 PRN 05/12 1145 AC 05/13 PO 0935 Phosphate 250 MG PC AND AT BEDTIME 05/13 1300 CAN PO Potassium Chloride 40 MEQ ONCE ONE 05/13 0915 CAN PO 05/13 0916 Potassium Phosphate 15 mMol ONE ONE 05/13 0915 DC 05/13 Sodium Chloride 250 ML IV 05/13 1319 1103 Sertraline HCl 200 MG AT BEDTIME 05/10 2100 AC 05/12 PO 2047 Trazodone HCl 50 MG AT BEDTIME 05/11 2100 AC 05/12 PO 2049 Vancomycin HCl 1,250 MG 1400 05/10 1400 DC 05/12 Sodium Chloride 250 ML IV 1452 Results Last 48 Hours of Labs: I rev Laboratory Tests 05/13 05/12 0415 1640 Chemistry Sodium (137 - 145 mmol/L) 133 L Potassium (3.5 - 5.1 mmol/L) 3.6 Chloride (98 - 107 mmol/L) 105 Carbon Dioxide (22 - 30 mmol/L) 19 L Anion Gap (5 - 16) 9 BUN (7 - 17 mg/dL) 22 H Creatinine (0.5 - 1.0 mg/dL) 0.6 Estimated GFR (>60 ml/min) > 60 Glucose (65 - 99 mg/dL) 186 H Calcium (8.4 - 10.2 mg/dL) 7.6 L Phosphorus (2.5 - 4.5 mg/dL) 2.4 L Magnesium (1.6 - 2.3 mg/dL) 2.0 Total Bilirubin (0.2 - 1.3 mg/dL) 0.2 AST (14 - 36 U/L) 23 ALT (9 - 52 U/L) 29 Albumin (3.5 - 5.0 g/dL) 1.7 L Coagulation APTT (25 - 37 SEC) 69 H 61 H Hematology CBC w Diff MAN DIFF ORDERED WBC (4.8 - 10.8 /CUMM) 29.2 H RBC (4.20 - 5.40 /CUMM) 3.21 L Hgb (12.0 - 16.0 G/DL) 8.6 L Hct (37 - 47 %) 25.5 L MCV (81.0 - 99.0 FL) 79.4 L MCH (27.0 - 31.0 PG) 26.8 L MCHC (33.0 - 37.0 G/DL) 33.7 RDW (11.5 - 14.5 %) 16.4 H Plt Count (130 - 400 /CUMM) 181 MPV (7.4 - 10.4 FL) 9.8 Gran % (42.2 - 75.2 %) 96.7 H Lymphocytes % (20.5 - 51.1 %) 2.3 L Monocytes % (1.7 - 9.3 %) 0.6 L Eosinophils % (0 - 5 %) 0.4 Basophils % (0.0 - 2.0 %) 0 Absolute Granulocytes (1.4 - 6.5 /CUMM) 28.3 H Segmented Neutrophils (42.2 - 75.2 %) 78 H Band Neutrophils (0.0 - 5.0 %) 17 H Absolute Lymphocytes (1.2 - 3.4 /CUMM) 0.7 L Lymphocytes (20.5 - 51.1 %) 3 L Monocytes (1.7 - 9.3 %) 2 Absolute Monocytes (0.10 - 0.60 /CUMM) 0.2 Absolute Eosinophils (0.0 - 0.7 /CUMM) 0.1 Absolute Basophils (0.0 - 0.2 /CUMM) 0 Platelet Estimate (ADEQUATE) ADEQUATE Hypochromic-Microcytic 1+ Anisocytosis 1+ Microcytic Cells 1+ 05/12 05/11 0300 1810 Chemistry Sodium (137 - 145 mmol/L) 131 L Potassium (3.5 - 5.1 mmol/L) 3.3 L Chloride (98 - 107 mmol/L) 103 Carbon Dioxide (22 - 30 mmol/L) 18 L Anion Gap (5 - 16) 10 BUN (7 - 17 mg/dL) 25 H Creatinine (0.5 - 1.0 mg/dL) 0.6 Estimated GFR (>60 ml/min) > 60 Glucose (65 - 99 mg/dL) 166 H Calcium (8.4 - 10.2 mg/dL) 7.4 L Phosphorus (2.5 - 4.5 mg/dL) 2.2 L Magnesium (1.6 - 2.3 mg/dL) 1.9 Total Bilirubin (0.2 - 1.3 mg/dL) 0.3 AST (14 - 36 U/L) 25 ALT (9 - 52 U/L) 32 Albumin (3.5 - 5.0 g/dL) 1.8 L Vitamin B12 (239 - 931 pg/mL) > 1000 H Folate (2.76 - 20.0 ng/mL) 6.3 Coagulation APTT (25 - 37 SEC) 66 H 45 H Hematology CBC w Diff MAN DIFF ORDERED WBC (4.8 - 10.8 /CUMM) 22.4 H RBC (4.20 - 5.40 /CUMM) 3.01 L Hgb (12.0 - 16.0 G/DL) 7.8 L Hct (37 - 47 %) 23.9 L MCV (81.0 - 99.0 FL) 79.6 L MCH (27.0 - 31.0 PG) 26.0 L MCHC (33.0 - 37.0 G/DL) 32.6 L RDW (11.5 - 14.5 %) 16.1 H Plt Count (130 - 400 /CUMM) 163 MPV (7.4 - 10.4 FL) 9.3 Gran % (42.2 - 75.2 %) 97.7 H Lymphocytes % (20.5 - 51.1 %) 1.7 L Monocytes % (1.7 - 9.3 %) 0.2 L Eosinophils % (0 - 5 %) 0.4 Basophils % (0.0 - 2.0 %) 0 Absolute Granulocytes (1.4 - 6.5 /CUMM) 21.9 H Segmented Neutrophils (42.2 - 75.2 %) 83 H Band Neutrophils (0.0 - 5.0 %) 7 H Absolute Lymphocytes (1.2 - 3.4 /CUMM) 0.4 L Lymphocytes (20.5 - 51.1 %) 2 L Monocytes (1.7 - 9.3 %) 1 L Absolute Monocytes (0.10 - 0.60 /CUMM) 0 L Absolute Eosinophils (0.0 - 0.7 /CUMM) 0.1 Absolute Basophils (0.0 - 0.2 /CUMM) 0 Metamyelocytes (0.0 - 1.0 %) 5 H Myelocytes (0 - 0 %) 2 H Platelet Estimate (ADEQUATE) ADEQUATE Basophilic Stippling 1+ Assessment/Plan Assessment/Plan I rev CT chest on PACS myself and compared to earlier one, with radiologist, there is more edema but still diffuse process, no focal gas or fluid collection Impression severe cellulitis affecting breast and left lateral chest wall, despite WBC and bands, not worsening otherwise, hemodynamically stable, but given that initial volume resuscitation, this increased edema is expected, it's more dependent. The process is still evolving and a collection could theoretically coalesce but an exploratory incision right now is not worth the risk of spreading the infection within the breast glandular tissue, along with the morbidity of bleeding and an open wound. Will follow. Problem List: 1. Cellulitis Attending MD Review Statement Attending Statement Attending MD Statement: examined this patient
--- NOTE | 2018-05-13 14:39 | PN- Cardiology ---
Subjective Subjective: Clinically about the same. Continues to complain of left-sided chest discomfort. Rhythm remains stable in sinus rhythm. Objective Vital Signs and I&Os Vital Signs Date Time Temp Pulse Resp B/P B/P Pulse O2 O2 Flow FiO2 Mean Ox Delivery Rate 05/13 1200 96 Nasal 2.0L Cannula 05/13 0935 82 18 119/70 05/13 0800 96 Nasal 2.0L Cannula 05/13 0800 98.2 82 22 142/68 96 Nasal 2.0L Cannula 05/13 0400 96 Nasal 2.0L Cannula 05/13 0000 98.0 80 20 101/54 95 Nasal 2.0L Cannula 05/13 0000 95 Nasal 2.0L Cannula 05/12 2049 71 120/70 05/12 2000 97 Nasal 2.0L Cannula 05/12 1600 96 Nasal 2.0L Cannula 05/12 1600 99.0 86 22 116/70 96 Nasal 2.0L Cannula Intake & Output 05/13 1600 05/13 0800 05/13 0000 05/12 1600 05/12 0800 05/12 0000 Intake Total 793 548 888 167 374 1204 Output Total 270 240 320 440 405 540 Balance 523 308 568 399 143 892 Intake, IV 673 448 348 442 448 752 Intake, Oral 120 100 540 397 100 680 Output, Urine 270 240 320 440 405 540 Patient 178 lb 178 lb Weight Physical Exam: General Appearance: well developed/nourished, alert, awake, oriented Head: normal HEENT: Normal Neck: supple, JVP normal, carotid upstrokes normal bilaterally, no masses or thyromegaly Respiratory: chest non-tender, clear to auscultation and percussion bilaterally Cardiovascular: regular rate/rhythm, normal S1, S2, no audible murmur Abdomen: normal bowel sounds, soft, non-tender Extremities: normal inspection, no edema Vascular: Pulses are 2+ and equal bilaterally Neurologic: Grossly normal/nonfocal Current Medications: Current Medications Sig/Bayron Start time Last Medication Dose Route Stop Time Status Admin Acetaminophen 650 MG .STK-MED ONE 05/13 001 DC PO 05/13 001 Acetaminophen 650 MG Q6P PRN 05/09 2045 AC 05/13 PO 0014 Ampicillin Sodium/ 3,000 MG Q6H 05/13 08 AC 05/13 Sulbactam Sodium IV 0934 Sodium Chloride 100 ML Aspirin Buffered 81 MG DAILY 05/12 0900 DC 05/12 PO 0854 Atorvastatin Calcium 40 MG 1700 05/10 1700 AC 05/12 PO 1733 Bupropion HCl 150 MG DAILY 05/10 1403 AC 05/13 PO 0935 Carvedilol 3.125 MG BID 05/11 0900 AC 05/13 PO 0935 Ceftriaxone Sodium 1,000 MG DAILY 05/10 1330 DC 05/12 IV 0852 Heparin Sodium 25,000 UNIT Q24H 05/09 2330 AC 05/12 (Porcine) IV 1515 Sodium Chloride 500 ML Insulin Aspart 0 TIDAC 05/10 0800 AC 05/13 SC 1311 Lorazepam 1 MG ONCE ONE 05/13 1200 DC 05/13 IV 05/13 1201 1204 Memantine 10 MG BID 05/10 2100 AC 05/13 PO 0935 Metronidazole 500 MG IQ8 05/11 1600 DC 05/12 N/A 1 UNIT IV 2313 Nystatin 1 EDWARD BID 05/10 1202 AC 05/13 TOP 1103 Oxycodone HCl 10 MG Q6 PRN 05/12 1145 AC 05/13 PO 0935 Phosphate 250 MG PC AND AT BEDTIME 05/13 1300 CAN PO Potassium Chloride 40 MEQ ONCE ONE 05/13 0915 CAN PO 05/13 0916 Potassium Phosphate 15 mMol ONE ONE 05/13 0915 DC 05/13 Sodium Chloride 250 ML IV 05/13 1319 1103 Sertraline HCl 200 MG AT BEDTIME 05/10 2100 AC 05/12 PO 2047 Trazodone HCl 50 MG AT BEDTIME 05/11 2100 AC 05/12 PO 2049 Vancomycin HCl 1,250 MG 1400 05/10 1400 DC 05/12 Sodium Chloride 250 ML IV 1452 Results Last 48 Hrs of Labs/Mics: Laboratory Tests 05/13/18 0415: Anion Gap 9, Estimated GFR > 60, Glucose 186 H, Calcium 7.6 L, Phosphorus 2.4 L, Magnesium 2.0, Total Bilirubin 0.2, AST 23, ALT 29, Albumin 1.7 L, APTT 69 H, CBC w Diff MAN DIFF ORDERED, RBC 3.21 L, MCV 79.4 L, MCH 26.8 L, MCHC 33.7 , RDW 16.4 H, MPV 9.8, Gran % 96.7 H, Lymphocytes % 2.3 L, Monocytes % 0.6 L , Eosinophils % 0.4, Basophils % 0, Absolute Granulocytes 28.3 H, Segmented Neutrophils 78 H, Band Neutrophils 17 H, Absolute Lymphocytes 0.7 L, Lymphocytes 3 L, Monocytes 2, Absolute Monocytes 0.2, Absolute Eosinophils 0.1, Absolute Basophils 0, Platelet Estimate ADEQUATE, Hypochromic-Microcytic 1+, Anisocytosis 1+, Microcytic Cells 1+ 05/12/18 1640: APTT 61 H 05/12/18 0300: Anion Gap 10, Estimated GFR > 60, Glucose 166 H, Calcium 7.4 L, Phosphorus 2.2 L, Magnesium 1.9, Total Bilirubin 0.3, AST 25, ALT 32, Albumin 1.8 L, Vitamin B12 > 1000 H, Folate 6.3, APTT 66 H, CBC w Diff MAN DIFF ORDERED, RBC 3.01 L, MCV 79.6 L, MCH 26.0 L, MCHC 32.6 L, RDW 16.1 H, MPV 9.3, Gran % 97.7 H, Lymphocytes % 1.7 L, Monocytes % 0.2 L, Eosinophils % 0.4, Basophils % 0, Absolute Granulocytes 21.9 H, Segmented Neutrophils 83 H, Band Neutrophils 7 H, Absolute Lymphocytes 0.4 L, Lymphocytes 2 L, Monocytes 1 L, Absolute Monocytes 0 L, Absolute Eosinophils 0.1, Absolute Basophils 0, Metamyelocytes 5 H, Myelocytes 2 H, Platelet Estimate ADEQUATE, Basophilic Stippling 1+ 05/11/18 1810: APTT 45 H Assessment/Plan Assessment/Plan Assessment: 1. Sepsis secondary to soft tissue infection-staph aureus/clostridium 2. Atrial fibrillation with elevated ventricular rate of new onset-currently in sinus rhythm 3. Left upper extremity DVT on IV heparin 4. Hypertension 5. Hyperlipidemia 6. Diabetes 7. COPD 8. History of coronary artery disease, CHF, prior bypass surgery, ischemic cardiomyopathy 9. Anemia 10. Malnutrition Recommendations: -For now, continue as per the ICU and infectious disease teams. -Continue cardiac medications as tolerated -Echocardiogram pending -Continue to follow metabolic parameters and replete potassium, magnesium, etc. as necessary -Follow-up recommendations once the echocardiogram is available -Continue current cardiac medications otherwise. Continue telemetry? Yes
--- NOTE | 2018-05-13 14:40 | ECHOCARDIOGRAM REPORT ---
RUSSELL ZHAO Age: 62 : 1955 Gender: F Exam Date: 05/11/2018 09:09 Exam Location: [facility] Ht (in): 65 Wt (lb): 160 BSA: 1.84 BP: 100 / 50 Ordering Physician: Sung De Santiago MD Referring Physician: Sung De Santiago MD Technologist: Brandon De Leon DENISE Room Number: 111 Indications: AFIB/FLUTTER Rhythm: Sinus Technical Quality: Fair FINDINGS Left Ventricle Normal size left ventricle. Borderline concentric left ventricular hypertrophy. No obvious regional wall motion abnormalities. Normal left ventricular ejection fraction visually estimated at 60%. "pseudonormal" filling pattern of the left ventricle for age (stage 2 diastolic dysfunction). Right Ventricle Normal right ventricular size and function. Right Atrium Normal right atrial size. Left Atrium Normal left atrial size. Mitral Valve Mild mitral annular calcification. Mitral valve mildly thickened. Trace mitral regurgitation. Aortic Valve Trileaflet aortic valve. Diffuse mild thickening of the aortic valve cusps with mildly reduced excursion. Mild aortic stenosis. No aortic regurgitation. Tricuspid Valve Tricuspid valve not well visualized, grossly normal. Trace tricuspid regurgitation. Unable to estimate the right ventricular systolic pressure. Pulmonic Valve Pulmonic valve not well visualized. Pericardium No pericardial effusion. Great Vessels Normal size aortic root. Dilated inferior vena cava. CONCLUSIONS Normal size left ventricle. Borderline concentric left ventricular hypertrophy. Normal left ventricular ejection fraction visually estimated at 60%. "pseudonormal" filling pattern of the left ventricle for age (stage 2 diastolic dysfunction). Normal right ventricular size and function. Normal atrial size. Trace mitral regurgitation. Mild aortic stenosis. Trace tricuspid regurgitation. Unable to estimate the right ventricular systolic pressure. Dilated inferior vena cava. Arash Truong M.D. (Electronically Signed) Final Date: 13 May 2018 14:36 MEASUREMENTS (Male / Female) Normal Values 2D ECHO LV Diastolic Diameter PLAX 4.2 cm 4.2 - 5.9 / 3.9 - 5.3 cm LV Systolic Diameter PLAX 2.7 cm 2.1 - 4.0 cm LV Fractional Shortening PLAX 35.7 % 25 - 46 % LV Ejection Fraction 2D Teich 65.6 % IVS Diastolic Thickness 1.0 cm LVPW Diastolic Thickness 1.1 cm LV Relative Wall Thickness 0.5 RV Internal Dim ED PLAX 3.2 cm 1.9 - 3.8 cm LVOT Diameter 1.9 cm Aortic Root Diameter 2.9 cm LA Systolic Diameter LX 3.0 cm 3.0 - 4.0 / 2.7 - 3.8 cm Ascending Aorta Diameter 2.9 cm DOPPLER AV Peak Velocity 214.0 cm/s AV Peak Gradient 18.3 mmHg AV Mean Velocity 159.0 cm/s AV Mean Gradient 11.0 mmHg AV Velocity Time Integral 42.3 cm LVOT Peak Velocity 76.7 cm/s LVOT Peak Gradient 2.4 mmHg LVOT Mean Velocity 51.6 cm/s LVOT Mean Gradient 1.0 mmHg LVOT Velocity Time Integral 19.2 cm LVOT Stroke Volume 54.4 cm AV Area Cont Eq vti 1.3 cm AV Area Cont Eq pk 1.0 cm MV Peak Velocity 112.0 cm/s MV Peak Gradient 5.0 mmHg MV Mean Velocity 66.4 cm/s MV Mean Gradient 2.0 mmHg Mitral E Point Velocity 90.3 cm/s Mitral A Point Velocity 90.8 cm/s Mitral E to A Ratio 1.0 MV PHT Velocity 115.0 cm/s MV Deceleration Coles 661.0 cm/s MV Pressure Half Time 52.2 ms MV Area PHT 4.2 cm MV Deceleration Time 246.0 ms PV Peak Velocity 128.0 cm/s PV Peak Gradient 6.6 mmHg PV Mean Velocity 91.7 cm/s PV Mean Gradient 4.0 mmHg PV Velocity Time Integral 23.1 cm LV E' Lateral Velocity 8.6 cm/s Mitral E to LV E' Lateral Ratio 10.5 LV E' Septal Velocity 6.6 cm/s Mitral E to LV E' Septal Ratio 13.6
[2018-05-13 16:00] VITALS: BP 130/70
[2018-05-13 16:47] LABS: PTT 61 SEC (25-37)
[2018-05-14] VITALS: BP 114/66
[2018-05-14 06:03] LABS: ABSOLUTE BASOPHIL COUNT 0 /CUMM (0.0-0.2); BASOPHIL % 0 % (0.0-2.0)
[2018-05-14 06:04] LABS: PTT 70 SEC (25-37)
[2018-05-14 06:12] LABS: ABSOLUTE EOSINOPHIL COUNT 0.1 /CUMM (0.0-0.7); ABSOLUTE GRANULOCYTE CT 32.5 /CUMM (1.4-6.5); ABSOLUTE LYMPH COUNT 0.9 /CUMM (1.2-3.4); ABSOLUTE MONOCYTE COUNT 0.4 /CUMM (0.10-0.60); EOSINOPHIL % 0.4 % (0-5); GRANULOCYTE % 95.6 % (42.2-75.2); HEMATOCRIT 24.2 % (37-47); MEAN CORPUSCULAR HGB 26.5 PG (27.0-31.0); MEAN CORPUSCULAR HGB CONC 33.6 G/DL (33.0-37.0); MEAN CORPUSCULAR VOLUME 78.8 FL (81.0-99.0); PLATELET COUNT 195 /CUMM (130-400); RBC DISTRIBUTION WIDTH 16.4 % (11.5-14.5); RED BLOOD CELL CT 3.07 /CUMM (4.20-5.40)
--- NOTE | 2018-05-14 07:25 | PN- Resident CRCU ---
Ji MORGAN,Chandra 05/14/18 0725: Subjective HPI/CRCU Issues: severe sepsis left breast cellulitis LUE DVT afib with rvr hyponatremia 24 Hour Events: Appears in no apparent distress,seated comfortably. White count continue to increase, but still remians afebrile. Seen by surgery, plan is to take to OR today ro assess for drain placement Will keep NPO and stop Heparin at 10 am. Objective Vital Signs & I&O Last 8 Hrs of Vitals and I&O: Laboratory Tests 05/14/18 0445: Anion Gap 8, Estimated GFR > 60, Glucose 151 H, Calcium 7.2 L, Phosphorus 2.9, Magnesium 1.8, Total Bilirubin 0.4, AST 27, ALT 21, Albumin 1.6 L, PT 18.9 H, INR 1.72 H, APTT 70 H, CBC w Diff MAN DIFF ORDERED, RBC 3.07 L, MCV 78.8 L, MCH 26.5 L, MCHC 33.6, RDW 16.4 H, MPV 10.0, Gran % 95.6 H, Lymphocytes % 2.8 L, Monocytes % 1.2 L, Eosinophils % 0.4, Basophils % 0, Absolute Granulocytes 32.5 H, Segmented Neutrophils 81 H, Band Neutrophils 10 H, Absolute Lymphocytes 0.9 L, Lymphocytes 1 L, Monocytes 3, Absolute Monocytes 0.4, Eosinophils 1, Absolute Eosinophils 0.1, Absolute Basophils 0, Metamyelocytes 4 H, Platelet Estimate ADEQUATE, Polychromasia 1+, Hypochromic-Microcytic 1+, Poikilocytosis 1+ 05/13/18 1550: APTT 61 H Vital Signs Date Time Temp Pulse Resp B/P B/P Pulse O2 O2 Flow FiO2 Mean Ox Delivery Rate 05/14 0922 74 18 111/46 05/14 0800 97 Room Air 05/14 0800 97.8 74 22 110/46 97 Room Air 05/14 0416 Room Air 05/14 0011 94 Room Air 05/14 0000 98.5 61 20 114/66 94 Room Air 05/13 2101 81 109/62 05/13 2000 97 Nasal 2.0L Cannula 05/13 1600 98 Nasal 2.0L Cannula 05/13 1600 98.6 82 22 130/70 98 Nasal 2.0L Cannula Intake & Output 05/14 1600 07/16 0800 05/14 0000 Intake Total 668 928 Output Total 240 270 Balance 428 658 Intake, IV 448 348 Intake, Oral 220 580 Output, Urine 240 270 Patient 87.09 kg Weight Intake & Output 05/14 1600 Intake Total Output Total Balance Patient 87.09 kg Weight Exam General Appearance: alert, awake Other Physical Findings: General Appearance: well developed/nourished, no apparent distress, alert, awake , comfortable, some crusted lesions periorally and lower lip swelling (unchanged ) Cardiovascular: regular rate/rhythm, normal peripheral pulses Gastrointestinal: normal bowel sounds, soft, non-tender, no organomegaly Extremities: normal capillary refill, RUE swelling > left, with range of motion limited by pain, some serous drainage from left breast and worsening erythema Current Medications: Current Medications Sig/Bayron Start time Last Medication Dose Route Stop Time Status Admin Acetaminophen 650 MG .STK-MED ONE 05/14 0004 DC PO 05/14 0005 Acetaminophen 650 MG Q6P PRN 05/09 2045 AC 05/14 PO 0008 Albumin Human 25 GM ONCE ONE 05/14 0815 DC 05/14 IV 05/14 0816 0916 Ampicillin Sodium/ 3,000 MG Q6H 05/13 0800 AC 05/14 Sulbactam Sodium IV 1534 Sodium Chloride 100 ML Atorvastatin Calcium 40 MG 1700 05/10 1700 AC 05/13 PO 1638 Bupropion HCl 150 MG DAILY 05/10 1403 AC 05/14 PO 0923 Carvedilol 3.125 MG BID 05/11 0900 AC 05/14 PO 0922 Chlorhexidine 15 ML BID 05/14 2100 AC Gluconate PO Heparin Sodium 25,000 UNIT Q24H 05/09 2330 DC 05/13 (Porcine) IV 05/14 1000 1615 Sodium Chloride 500 ML Insulin Aspart 0 TIDAC 05/10 0800 AC 05/14 SC 1154 Insulin Detemir 5 UNITS BID 05/14 2100 AC SC Memantine 10 MG BID 05/10 2100 AC 05/14 PO 0922 Nystatin 1 EDWARD BID 05/10 1202 AC 05/14 TOP 0921 Oxycodone HCl 10 MG Q6 PRN 05/12 1145 AC 05/14 PO 1105 Sertraline HCl 200 MG AT BEDTIME 05/10 2100 AC 05/13 PO 2058 Trazodone HCl 50 MG AT BEDTIME 05/11 2100 AC 05/13 PO 2058 Impression/Plan Impression/Problem List Impression: 62 year old female with past medical history significant for morbid obesity, DM, STERLING s/p laparoscopic Binud-en-Y gastric bypass (2015), HTN, CAD/[place] s/p PCI and CABG presented with several days of poor oral intake, diarrhea, urinary incontinence, lethargy, and confusion. In the ED, she met sepsis criteria with fever to 100.6, tachycardia, bandemia, and lactic acidemia. She was found to be in new onset rapid atrial fibrillation, and a heart rate of 200. Her lethargy, confusion, and atrial fibrillation were likely precipitated by infection, from a left breast cellulitis. She is now s/p IR drainage and continous to be on ABX, but with persistent leukocytosis. Impression Persistent sepsis secondary to left chest wall skin and soft tissue infection ( WBC increasing despite IR drainage and ABX ) Staph aureus and clostridium perfringens bacteremia Left upper extremity DVT, extensive. New onset rapid A. fib (paroxysmal). Oral lesions Altered mental status. Transit episodes. History of chronic diseases; CAD status post CABG, ischemic cardiomyopathy,, hepatitis C, diabetes. Plan Keep patient nothing by mouth in anticipation of a possible drainage catheter placement at the affected left chest area. Stop heparin drip at 10 AM Continue Unasyn Obtain transesophageal echocardiogram to assess for vegetation a cystoscopy affected therapy course with antibiotics PICC line placement Accu-Chek 3 times a day and bedtime with strict controls targeting a rate of 140 /180 DVT prophylaxis; addressed by heparin CODE STATUS: Full code Problem List: 1. Sepsis 2. Cellulitis 3. Rapid atrial fibrillation 4. Acute encephalopathy Pain Ratin Pain Location: chest wall Tomorrow's Labs & Rationales: icu bundle cbc DIC panel Plan DVT/Prophylaxis: mechanical, pharmacological Zeke MORGAN,[facility] 05/14/18 1027: Attending MD Review Statement Attending Sign Off Attending Cosign Statement: I have: examined this patient, reviewed [facility] EMR data, personally reviewd images, discussd w/resident/PA/[employer] WORKER, discussed mgmt plan w/teri, discussed mgmt plan w/CM, discussed mgmt plan w/pt, agreed w/resident/PA/MIL[employer] PROCESSING WORKER, amended to note. Other Findings: Seen and examined She is awake and alert in no acute distress HEENT perioral crusted lesions Chest marked induration, erythema and tenderness of the left chest and breast persist Lungs are clear Heart regular rhythm with no murmur Extremities trace edema both lower extremities; decreased left upper extremity edema, though with persistent tenderness; several crusted lesions on her fingertips Samaniego catheter remains in place CT with ivc IMPRESSION: 1. Interval slight progression in the extent of soft tissue edema and stranding seen involving the left chest wall and the left breast. However, no distinct peripherally rim-enhancing abscess collection or drainable collection is seen. No subcutaneous/soft tissue emphysema is seen. 2. Interval development of a small left-sided pleural effusion and dense consolidation in the basal segments of the left lower lobe. 3. Mild scattered atelectatic changes are also seen, primarily in the lingula and right lower lobe. 4. Enlargement of left heart chambers and moderate coronary artery calcifications noted. Central pulmonary arteries are mildly enlarged. 5. Status post cholecystectomy and gastric bypass surgery. 6. Enlargement of the right adrenal gland and masslike density in the left adrenal gland, unchanged. Findings discussed with Dr. Barbosa at the time of the exam. DICTATED BY: Raji MORGAN,Radha Saleh Pt with Diabetes, recent memory loss, on and off evaluation, previous history of ischemic heart disease CABG, previous hepatitis C infection per chart seen in the emergency room few days prior to admission with vomiting, diarrhea and diffuse hives, found to be afebrile with a bandemia, and discharged home on prednisone with the diagnosis of food poisoning, admitted on May 09 with a 2 day history of increasing lethargy, confusion, decreased p.o. intake, persistent diarrhea and decreased urine output, with the additional history of a painful "cyst" in her left axilla over the past 1-2 weeks, found to be febrile, tachycardic and in atrial fibrillation then converted to sinus, with bandemia, elevated lactic acid and with a CT of the chest revealing extensive soft tissue infiltration and edema involving the left anterior lateral chest wall, with blood cultures reported positive for gram-positive cocci and gram-negative rods. Issues * Persistant sepsis due to skin and soft tissue infection of the skin and left chest wall, initial source not clear. No clinical evidence suggestive of significant necrotizing fasciitis followed by infectious disease and the surgery - may require drainage * Staph and gram neg sepsis with clostriduium perfrin bacteremia, rule out endocarditis * Sig DVT left upper ext * Small effusion and dense consolidation of left lower lobe due to atx vs pna ( less likely) * Herpes oralis * New onset rapid A. fib with rapid ventricular response initially * Resolving Lactic acidosis * Recent lethargy and memory loss needs follow-up * Resolving Starvation ketosis * History of IHD with prior CABG with ischemic cardiomyopathy * History of Hep c, prior gastric bypass with post op bleeding complication few yrs ago * Elevated sugar with dm * Electrolyte abnormality REC TO OR today COnt abx FOllow up echo and Prob TERESA IV abx ORal care with periodex Strict sugar control Pt is critically ill tts 40 mins
[2018-05-14 08:00] VITALS: BP 110/46
--- NOTE | 2018-05-14 08:54 | PN- General Surgery ---
Surgical Brief Attending Note Brief Attending Note: Leukocytosis worsening. Clinically unchanged, possibly worse edema today of breast and chest. Recommend incision/drainage later today. NPO now. Stop heparin gtt at 10am. Plan surgery at 4pm
--- NOTE | 2018-05-14 11:11 | PN- Infect Dx ---
Subjective Subjective: Afebrile. She continues to complain of pain in the left chest and breast area Objective Last 24 Hrs of Vital Signs/I&O Vital Signs Date Time Temp Pulse Resp B/P B/P Pulse O2 O2 Flow FiO2 Mean Ox Delivery Rate 05/14 0922 74 18 111/46 05/14 0416 Room Air 05/14 0011 94 Room Air 05/14 0000 98.5 61 20 114/66 94 Room Air 05/13 2101 81 109/62 05/13 2000 97 Nasal 2.0L Cannula 05/13 1600 98 Nasal 2.0L Cannula 05/13 1600 98.6 82 22 130/70 98 Nasal 2.0L Cannula 05/13 1200 96 Nasal 2.0L Cannula Intake & Output 05/14 1600 05/14 0800 05/14 0000 Intake Total 668 928 Output Total 240 270 Balance 428 658 Intake, IV 448 348 Intake, Oral 220 580 Output, Urine 240 270 Physical Exam Other Physical Findings: She appears mildly uncomfortable but in no acute distress HEENT perioral lesions mostly crusting Chest marked induration, erythema and tenderness persist in the left breast and axillary area Lungs are clear Heart regular rhythm with no murmur Extremities left upper extremity with mild edema, tender to palpation Samaniego catheter remains in place Results Last 24 Hours of Lab Results: Laboratory Tests 05/14 05/13 0445 1550 Chemistry Sodium (137 - 145 mmol/L) 133 L Potassium (3.5 - 5.1 mmol/L) 4.1 Chloride (98 - 107 mmol/L) 106 Carbon Dioxide (22 - 30 mmol/L) 19 L Anion Gap (5 - 16) 8 BUN (7 - 17 mg/dL) 23 H Creatinine (0.5 - 1.0 mg/dL) 0.5 Estimated GFR (>60 ml/min) > 60 Glucose (65 - 99 mg/dL) 151 H Calcium (8.4 - 10.2 mg/dL) 7.2 L Phosphorus (2.5 - 4.5 mg/dL) 2.9 Magnesium (1.6 - 2.3 mg/dL) 1.8 Total Bilirubin (0.2 - 1.3 mg/dL) 0.4 AST (14 - 36 U/L) 27 ALT (9 - 52 U/L) 21 Albumin (3.5 - 5.0 g/dL) 1.6 L Coagulation APTT (25 - 37 SEC) 70 H 61 H Hematology CBC w Diff MAN DIFF ORDERED WBC (4.8 - 10.8 /CUMM) 34.0 *H RBC (4.20 - 5.40 /CUMM) 3.07 L Hgb (12.0 - 16.0 G/DL) 8.1 L Hct (37 - 47 %) 24.2 L MCV (81.0 - 99.0 FL) 78.8 L MCH (27.0 - 31.0 PG) 26.5 L MCHC (33.0 - 37.0 G/DL) 33.6 RDW (11.5 - 14.5 %) 16.4 H Plt Count (130 - 400 /CUMM) 195 MPV (7.4 - 10.4 FL) 10.0 Gran % (42.2 - 75.2 %) 95.6 H Lymphocytes % (20.5 - 51.1 %) 2.8 L Monocytes % (1.7 - 9.3 %) 1.2 L Eosinophils % (0 - 5 %) 0.4 Basophils % (0.0 - 2.0 %) 0 Absolute Granulocytes (1.4 - 6.5 /CUMM) 32.5 H Segmented Neutrophils (42.2 - 75.2 %) 81 H Band Neutrophils (0.0 - 5.0 %) 10 H Absolute Lymphocytes (1.2 - 3.4 /CUMM) 0.9 L Lymphocytes (20.5 - 51.1 %) 1 L Monocytes (1.7 - 9.3 %) 3 Absolute Monocytes (0.10 - 0.60 /CUMM) 0.4 Eosinophils (0 - 5.0 %) 1 Absolute Eosinophils (0.0 - 0.7 /CUMM) 0.1 Absolute Basophils (0.0 - 0.2 /CUMM) 0 Metamyelocytes (0.0 - 1.0 %) 4 H Platelet Estimate (ADEQUATE) ADEQUATE Polychromasia 1+ Hypochromic-Microcytic 1+ Poikilocytosis 1+ Last 24 Hours of Ramón Results: Blood cultures x 2 May 11 negative Left breast aspiration May 11 positive for Staph aureus sensitive to Oxacillin Recent Imaging Studies: CT of the chest May 13 reveals interval progression in the extent of soft tissue edema and stranding involving the left chest wall and left breast, with no distinct peripherally rim-enhancing abscess collection or drainable collection noted; a small left pleural effusion has developed with dense consolidation in the basal segments of the left lower lobe Echocardiogram May 11 no vegetations reported Assessment/Plan ID Impression: Persistent inflammation in the left chest wall and breast, with her white blood cell count continuing to increase, with persistent bandemia, status post aspiration of 10 cc of thin, serosanguineous fluid from the localized fluid collection within the superior lateral aspect of the left breast 3 days ago, with plans for drainage in the OR later today. She remains afebrile now on Unasyn, Day 5 of treatment for MSSA and Clostridium perfringens bacteremia, with the culture from the recent aspiration also growing MSSA. Her perioral lesions are suggestive of herpes simplex, likely indirectly secondary to her infection, and they can be treated symptomatically. She remains on Heparin for an extensive DVT of the left upper extremity, status post a transient episode of atrial fibrillation. Suggestion: 1. Await open drainage in the OR later today 2. Would pursue TERESA 3. Would pursue placement of a PICC 4. Continue Unasyn
[2018-05-14 12:03] LABS: PT 18.9 SEC (9.4-12.5)
--- NOTE | 2018-05-14 15:52 | RADIOLOGY REPORT ---
EXAMINATION: XR PORTABLE CHEST CLINICAL INFORMATION: PICC line placement COMPARISON: Chest x-ray most recent prior dated 05/11/2018 TECHNIQUE: Portable frontal view of the chest was obtained. FINDINGS: Right-sided subclavian line with the tip in the distal right atrium. Retraction by 3 to 4 cm and follow-up chest x-ray recommended. Status post median sternotomy and CABG. Small left pleural effusion with associated left basilar infiltrate or atelectasis. Cardiomegaly. IMPRESSION: Right-sided PICC line is much inferior to the cavoatrial junction. It should be slightly retracted. Left-sided pleural effusion with associated left basilar infiltrate or atelectasis.
--- NOTE | 2018-05-14 17:15 | Operative Report ---
Operative/Inv Procedure Report Surgery Date: 05/14/18 Name of Procedure: Incision and drainage deep chest soft tissue infection Pre-Operative Diagnosis: Cellulitis of the chest and breast Post-Operative Diagnosis: Same Estimated Blood Loss: less than 50ml Surgeon/Communicable Disease Specialist: Jose Jefferson MD/Zeus PATE Anesthesia: general endotracheal tube Drains: [place] 2 Microbiology: Soft tissue fluid Operative Indication: 62-year-old woman with worsening leukocytosis presumed to be due to severe cellulitis of the left chest and breast. Operative/Procedure Note Note: After consent she was brought to the operating room laid supine. General anesthesia was obtained in her left chest and breast were then prepped and draped. Skin overlying the area of severe induration in the low axillary region was incised sharply. Subcu tissues were dissected with cautery. There is a large amount of edematous fluid some of which appeared slightly turbid but not overtly purulent. Specimen was taken for culture. We dissected through the clavipectoral fascia with blunt and cautery dissection. There is no abscess or other changes suggestive of necrotizing soft tissue infection. All the tissue was healthy but severely edematous. We probed into the breast through the same incision and again, there was edematous fluid without evidence of purulence. Hemostasis was achieved with cautery and direct pressure. Inez drains were then placed, one in the breast and one in the deep axilla. There anchored to the skin with 3-0 nylon sutures. Sterile dressings were applied. Sponge and counts were correct CC: Buddy MORGAN,John Holguin
--- NOTE | 2018-05-14 17:32 | PN- Cardiology ---
Subjective Subjective: More awake and alert. Sinus rhythm monitoring. Objective Vital Signs and I&Os Vital Signs Date Time Temp Pulse Resp B/P B/P Pulse O2 O2 Flow FiO2 Mean Ox Delivery Rate 05/15 08 97.6 75 22 150/0 95 Room Air 05/15 0400 93 Room Air 05/15 0000 98 Room Air 05/15 0000 98.7 80 29 138/00 98 Room Air 05/14 2115 83 27 138/58 05/14 2000 96 Nasal 2.0L Cannula Intake & Output 05/15 0805/15 0000 05/14 1600 05/14 0805/14 0000 Intake Total 494 400 521 668 928 Output Total 175 275 262 240 270 Balance 319 125 259 428 658 Intake, IV 494 150 281 448 348 Intake, Oral 0 250 240 220 580 Number 0 0 Bowel Movements Output, Urine 175 275 262 240 270 Patient 186 lb 192 lb Weight Weight Bed scale Measurement Method Physical Exam: Well-developed, overweight female who is confused/ lethargic, but in no acute distress with oxygen in place. Vital signs: See above. HEENT: Normocephalic, atraumatic, EOMI, moist mucous membranes, poor dentition. Neck: No JVD, no bruits. Lungs: Clear to auscultation. Heart: S1, S2 (regular) with grade 1/6 systolic murmur. No gallop or rub. PMI not well felt. Abdomen: Soft, nontender, positive bowel sounds. Extremities: No LE edema. Assessment/Plan Assessment/Plan [id number] w/ hx fmr tob use, COPD, hep C, HTN, HLD, DM w/ neuropathy, CAD/HF ( vide supra) who presented on 05/09/2018 w/ AMS, lethargy, poor by mouth intake, continued diarrhea, & decreased urine output after evaluation/management on 05/2018 for "food poisoning" & an "allergic reaction" after eating shrimp w/ hives, N/V/D w/ d/c on prednisone & Benadryl who also described a "cyst" in her L axillary region that had "ruptured" w/ purulent drainage a week prior and who was found to be confused, febrile (100.6 degrees), transiently hypotensive (90/ 58 mmHg), mildly tachypneic (18 rpm) & in "new onset" AF w/ RVR (188 bpm) w/ improved hemodynamics following volume resuscitation (crystalloid), IV diltiazem , empiric IV Abx Rx, etc. w/ spontaneous conversion back to SR. The source for her septic shock is likely the skin/soft tissues of the L chest wall. She improved hemodynamically, but increased WBC prompted surgical intervention, 05/14/2018. She has PAF, but has been maintaining sinus rhythm. Also discovered to have a left upper extremity DVT. ID concerned about the possibility of infective endocarditis (IE) and recommended TERESA, as TTE negative for valvular vegetations. Recommendations: * Continue ICU management. * Surgical intervention taking place. * [id number] Score of 4 & LUE DVT so continue AC. * Suspected IE w/ neg TTE so plan for TERESA in a.m. * DVT prophylaxis being addressed. Continue telemetry? Not applicable
--- NOTE | 2018-05-14 18:14 | PN- General Surgery ---
Subjective Subjective: 62 y/o female S/P I+D left breast early abscess and cellulitis patient comfortable, awake and alert, anwers quesions Objective Vital Signs and I&Os Vital Signs Date Time Temp Pulse Resp B/P B/P Pulse O2 O2 Flow FiO2 Mean Ox Delivery Rate 05/14 1200 97 Room Air 05/14 0922 74 18 111/46 05/14 0800 97 Room Air 05/14 0800 97.8 74 22 110/46 97 Room Air 05/14 0416 Room Air 05/14 0011 94 Room Air 05/14 0000 98.5 61 20 114/66 94 Room Air 05/13 2101 81 109/62 05/13 2000 97 Nasal 2.0L Cannula Intake & Output 05/14 1600 05/14 0800 05/14 0000 05/13 1600 05/13 0800 05/13 0000 Intake Total 521 668 928 793 548 888 Output Total 262 240 270 270 240 320 Balance 259 428 658 523 308 568 Intake, IV 281 448 348 673 448 348 Intake, Oral 240 220 580 120 100 540 Output, Urine 262 240 270 270 240 320 Patient 192 lb 178 lb Weight Physical Exam: left breast- dressings CDI without drainage 2 wen drains sutured in place left arm edema abdomen - soft nontender chest- CTA symmetric bilateral lower extremities +1 pitting edema soft, nontender Current Medications: Current Medications Sig/Bayron Start time Last Medication Dose Route Stop Time Status Admin Acetaminophen 650 MG .STK-MED ONE 05/14 0004 DC PO 05/14 0005 Acetaminophen 650 MG Q6P PRN 05/09 2045 AC 05/14 PO 0008 Albumin Human 25 GM ONCE ONE 05/14 0815 DC 05/14 IV 05/14 0816 0916 Ampicillin Sodium/ 3,000 MG Q6H 05/13 0800 AC 05/14 Sulbactam Sodium IV 1534 Sodium Chloride 100 ML Atorvastatin Calcium 40 MG 1700 05/10 1700 AC 05/13 PO 1638 Bupropion HCl 150 MG DAILY 05/10 1403 AC 05/14 PO 0923 Carvedilol 3.125 MG BID 05/11 0900 AC 05/14 PO 0922 Chlorhexidine 15 ML BID 05/14 2100 AC Gluconate PO Heparin Sodium 25,000 UNIT Q24H 05/09 2330 DC 05/13 (Porcine) IV 05/14 1000 1615 Sodium Chloride 500 ML Insulin Aspart 0 TIDAC 05/10 0800 AC 05/14 SC 1154 Insulin Detemir 5 UNITS BID 05/14 2100 AC SC Memantine 10 MG BID 05/10 2100 AC 05/14 PO 0922 Nystatin 1 EDWARD BID 05/10 1202 AC 05/14 TOP 0921 Oxycodone HCl 10 MG Q6 PRN 05/12 1145 AC 05/14 PO 1105 Sertraline HCl 200 MG AT BEDTIME 05/10 2100 AC 05/13 PO 2058 Trazodone HCl 50 MG AT BEDTIME 05/11 2100 AC 05/13 PO 2058 Results Last 48 Hours of Labs: Laboratory Tests 05/14 05/13 0445 1550 Chemistry Sodium (137 - 145 mmol/L) 133 L Potassium (3.5 - 5.1 mmol/L) 4.1 Chloride (98 - 107 mmol/L) 106 Carbon Dioxide (22 - 30 mmol/L) 19 L Anion Gap (5 - 16) 8 BUN (7 - 17 mg/dL) 23 H Creatinine (0.5 - 1.0 mg/dL) 0.5 Estimated GFR (>60 ml/min) > 60 Glucose (65 - 99 mg/dL) 151 H Calcium (8.4 - 10.2 mg/dL) 7.2 L Phosphorus (2.5 - 4.5 mg/dL) 2.9 Magnesium (1.6 - 2.3 mg/dL) 1.8 Total Bilirubin (0.2 - 1.3 mg/dL) 0.4 AST (14 - 36 U/L) 27 ALT (9 - 52 U/L) 21 Albumin (3.5 - 5.0 g/dL) 1.6 L Coagulation PT (9.4 - 12.5 SEC) 18.9 H INR (0.90 - 1.19) 1.72 H APTT (25 - 37 SEC) 70 H 61 H Hematology CBC w Diff MAN DIFF ORDERED WBC (4.8 - 10.8 /CUMM) 34.0 *H RBC (4.20 - 5.40 /CUMM) 3.07 L Hgb (12.0 - 16.0 G/DL) 8.1 L Hct (37 - 47 %) 24.2 L MCV (81.0 - 99.0 FL) 78.8 L MCH (27.0 - 31.0 PG) 26.5 L MCHC (33.0 - 37.0 G/DL) 33.6 RDW (11.5 - 14.5 %) 16.4 H Plt Count (130 - 400 /CUMM) 195 MPV (7.4 - 10.4 FL) 10.0 Gran % (42.2 - 75.2 %) 95.6 H Lymphocytes % (20.5 - 51.1 %) 2.8 L Monocytes % (1.7 - 9.3 %) 1.2 L Eosinophils % (0 - 5 %) 0.4 Basophils % (0.0 - 2.0 %) 0 Absolute Granulocytes (1.4 - 6.5 /CUMM) 32.5 H Segmented Neutrophils (42.2 - 75.2 %) 81 H Band Neutrophils (0.0 - 5.0 %) 10 H Absolute Lymphocytes (1.2 - 3.4 /CUMM) 0.9 L Lymphocytes (20.5 - 51.1 %) 1 L Monocytes (1.7 - 9.3 %) 3 Absolute Monocytes (0.10 - 0.60 /CUMM) 0.4 Eosinophils (0 - 5.0 %) 1 Absolute Eosinophils (0.0 - 0.7 /CUMM) 0.1 Absolute Basophils (0.0 - 0.2 /CUMM) 0 Metamyelocytes (0.0 - 1.0 %) 4 H Platelet Estimate (ADEQUATE) ADEQUATE Polychromasia 1+ Hypochromic-Microcytic 1+ Poikilocytosis 1+ 15 0415 Chemistry Sodium (137 - 145 mmol/L) 133 L Potassium (3.5 - 5.1 mmol/L) 3.6 Chloride (98 - 107 mmol/L) 105 Carbon Dioxide (22 - 30 mmol/L) 19 L Anion Gap (5 - 16) 9 BUN (7 - 17 mg/dL) 22 H Creatinine (0.5 - 1.0 mg/dL) 0.6 Estimated GFR (>60 ml/min) > 60 Glucose (65 - 99 mg/dL) 186 H Calcium (8.4 - 10.2 mg/dL) 7.6 L Phosphorus (2.5 - 4.5 mg/dL) 2.4 L Magnesium (1.6 - 2.3 mg/dL) 2.0 Total Bilirubin (0.2 - 1.3 mg/dL) 0.2 AST (14 - 36 U/L) 23 ALT (9 - 52 U/L) 29 Albumin (3.5 - 5.0 g/dL) 1.7 L Coagulation APTT (25 - 37 SEC) 69 H Hematology CBC w Diff MAN DIFF ORDERED WBC (4.8 - 10.8 /CUMM) 29.2 H RBC (4.20 - 5.40 /CUMM) 3.21 L Hgb (12.0 - 16.0 G/DL) 8.6 L Hct (37 - 47 %) 25.5 L MCV (81.0 - 99.0 FL) 79.4 L MCH (27.0 - 31.0 PG) 26.8 L MCHC (33.0 - 37.0 G/DL) 33.7 RDW (11.5 - 14.5 %) 16.4 H Plt Count (130 - 400 /CUMM) 181 MPV (7.4 - 10.4 FL) 9.8 Gran % (42.2 - 75.2 %) 96.7 H Lymphocytes % (20.5 - 51.1 %) 2.3 L Monocytes % (1.7 - 9.3 %) 0.6 L Eosinophils % (0 - 5 %) 0.4 Basophils % (0.0 - 2.0 %) 0 Absolute Granulocytes (1.4 - 6.5 /CUMM) 28.3 H Segmented Neutrophils (42.2 - 75.2 %) 78 H Band Neutrophils (0.0 - 5.0 %) 17 H Absolute Lymphocytes (1.2 - 3.4 /CUMM) 0.7 L Lymphocytes (20.5 - 51.1 %) 3 L Monocytes (1.7 - 9.3 %) 2 Absolute Monocytes (0.10 - 0.60 /CUMM) 0.2 Absolute Eosinophils (0.0 - 0.7 /CUMM) 0.1 Absolute Basophils (0.0 - 0.2 /CUMM) 0 Platelet Estimate (ADEQUATE) ADEQUATE Hypochromic-Microcytic 1+ Anisocytosis 1+ Microcytic Cells 1+ Assessment/Plan Assessment/Plan 62 y/o female S/P I+D left breast for cellulitis and early abscess formation with LUE DVT 2 drains placed -daily dressing changes intraop cx taken -await cx results hold heparin until tomorrow recommend AM labs and advance diet per medicine Core Measures Venous Thromboembolism VTE Risk Factors Age>40 No Mechanical VTE Prophylaxis d/t N/A MechProphylax Ordered No VTE Pharm Prophylaxis d/t NA PharmProphylax ordered
[2018-05-15] VITALS: BP 138/00
[2018-05-15 04:53] LABS: ABSOLUTE BASOPHIL COUNT 0 /CUMM (0.0-0.2); ABSOLUTE EOSINOPHIL COUNT 0.1 /CUMM (0.0-0.7); ABSOLUTE GRANULOCYTE CT 27.3 /CUMM (1.4-6.5); ABSOLUTE LYMPH COUNT 0.6 /CUMM (1.2-3.4); ABSOLUTE MONOCYTE COUNT 0.1 /CUMM (0.10-0.60); BASOPHIL % 0 % (0.0-2.0); EOSINOPHIL % 0.2 % (0-5); GRANULOCYTE % 97.2 % (42.2-75.2); HEMATOCRIT 22.5 % (37-47); MEAN CORPUSCULAR HGB 26.3 PG (27.0-31.0); MEAN CORPUSCULAR HGB CONC 33.6 G/DL (33.0-37.0); MEAN CORPUSCULAR VOLUME 78.2 FL (81.0-99.0); MEAN PLATELET VOLUME 8.9 FL (7.4-10.4); PLATELET COUNT 210 /CUMM (130-400); RBC DISTRIBUTION WIDTH 16.5 % (11.5-14.5); RED BLOOD CELL CT 2.88 /CUMM (4.20-5.40)
--- NOTE | 2018-05-15 07:28 | PN- Resident CRCU ---
Subjective HPI/CRCU Issues: severe sepsis left breast cellulitis LUE DVT afib with rvr hyponatremia 24 Hour Events: Awake and alert Afebrile overnight, WBC impoving s/p drainage NPO awaiting TERESA today Objective Vital Signs & I&O Last 8 Hrs of Vitals and I&O: Laboratory Tests 05/15 0418 Chemistry Sodium (137 - 145 mmol/L) 133 L Potassium (3.5 - 5.1 mmol/L) 3.9 Chloride (98 - 107 mmol/L) 106 Carbon Dioxide (22 - 30 mmol/L) 19 L Anion Gap (5 - 16) 8 BUN (7 - 17 mg/dL) 24 H Creatinine (0.5 - 1.0 mg/dL) 0.6 Estimated GFR (>60 ml/min) > 60 Glucose (65 - 99 mg/dL) 149 H Calcium (8.4 - 10.2 mg/dL) 7.0 L Phosphorus (2.5 - 4.5 mg/dL) 3.5 Magnesium (1.6 - 2.3 mg/dL) 1.8 Total Bilirubin (0.2 - 1.3 mg/dL) 0.2 AST (14 - 36 U/L) 19 ALT (9 - 52 U/L) 23 Albumin (3.5 - 5.0 g/dL) 1.6 L Hematology CBC w Diff MAN DIFF ORDERED WBC (4.8 - 10.8 /CUMM) 28.0 H RBC (4.20 - 5.40 /CUMM) 2.88 L Hgb (12.0 - 16.0 G/DL) 7.6 L Hct (37 - 47 %) 22.5 L MCV (81.0 - 99.0 FL) 78.2 L MCH (27.0 - 31.0 PG) 26.3 L MCHC (33.0 - 37.0 G/DL) 33.6 RDW (11.5 - 14.5 %) 16.5 H Plt Count (130 - 400 /CUMM) 210 MPV (7.4 - 10.4 FL) 8.9 Gran % (42.2 - 75.2 %) 97.2 H Lymphocytes % (20.5 - 51.1 %) 2.3 L Monocytes % (1.7 - 9.3 %) 0.3 L Eosinophils % (0 - 5 %) 0.2 Basophils % (0.0 - 2.0 %) 0 Absolute Granulocytes (1.4 - 6.5 /CUMM) 27.3 H Segmented Neutrophils (42.2 - 75.2 %) 92 H Band Neutrophils (0.0 - 5.0 %) 3 Absolute Lymphocytes (1.2 - 3.4 /CUMM) 0.6 L Lymphocytes (20.5 - 51.1 %) 2 L Monocytes (1.7 - 9.3 %) 1 L Absolute Monocytes (0.10 - 0.60 /CUMM) 0.1 Absolute Eosinophils (0.0 - 0.7 /CUMM) 0.1 Absolute Basophils (0.0 - 0.2 /CUMM) 0 Metamyelocytes (0.0 - 1.0 %) 2 H Platelet Estimate (ADEQUATE) ADEQUATE Polychromasia 1+ Vital Signs Date Time Temp Pulse Resp B/P B/P Pulse O2 O2 Flow FiO2 Mean Ox Delivery Rate 05/15 1600 98.6 73 16 138/0 94 Room Air 05/15 1334 140/60 05/15 0800 97.6 75 22 150/0 95 Room Air 05/15 0400 93 Room Air 05/15 0000 98 Room Air 05/15 0000 98.7 80 29 138/00 98 Room Air 05/14 2115 83 27 138/58 Intake & Output 05/15 1600 05/15 0800 05/15 0000 Intake Total 1550 494 400 Output Total 200 175 275 Balance 1350 319 125 Intake, Blood 400 Product Intake, IV 700 494 150 Intake, Oral 450 0 250 Number 0 0 0 Bowel Movements Output, Urine 200 175 275 Patient 84.397 kg Weight Weight Bed scale Measurement Method Intake & Output 05/15 1600 Intake Total 1550 Output Total 200 Balance 1350 Intake, Blood 400 Product Intake, IV 700 Intake, Oral 450 Number 0 Bowel Movements Output, Urine 200 Patient 84.397 kg Weight Weight Bed scale Measurement Method Exam General Appearance: well developed/nourished, no apparent distress Other Physical Findings: Cardiovascular: regular rate/rhythm, normal peripheral pulses Gastrointestinal: normal bowel sounds, soft, non-tender, no organomegaly Extremities: normal capillary refill, RUE swelling > left, with range of motion limited by pain, some serous drainage from left breast and worsening erythema Current Medications: Current Medications Sig/Bayron Start time Last Medication Dose Route Stop Time Status Admin Acetaminophen 650 MG Q6P PRN 05/09 2045 AC 05/14 PO 0008 Ampicillin Sodium/ 3,000 MG Q6H 05/13 0800 AC 05/15 Sulbactam Sodium IV 1430 Sodium Chloride 100 ML Atorvastatin Calcium 40 MG 1700 05/10 1700 AC 05/15 PO 1641 Bupropion HCl 150 MG DAILY 05/10 1403 05/15 PO 1336 Carvedilol 3.125 MG BID 05/11 0900 AC 05/15 PO 1334 Chlorhexidine 15 ML BID 05/14 2100 AC 05/15 Gluconate PO 0915 Dextrose/Sodium 1,000 ML Q20H 05/15 1945 AC Chloride IV 05/16 1544 Dextrose/Sodium 1,000 ML Q20H 05/14 2130 DC 05/14 Chloride IV 05/15 1729 2131 Ferric Sodium 125 MG DAILY 05/15 1130 AC 05/15 Gluconate Complex IV 05/17 0959 1217 Sodium Chloride 100 ML Ferric Sodium 125 MG DAILY 05/15 1115 CAN Gluconate Complex IV 05/17 0901 Heparin Sodium/ 25,000 UNIT Q24H 05/15 1300 05/15 Dextrose IV 1306 Dextrose/Water 500 ML Heparin Sodium/ 25,000 UNIT Q24H 05/14 1945 DC 05/14 Dextrose IV 2055 Dextrose/Water 500 ML Insulin Aspart 0 TIDAC 05/15 1700 05/15 SC 1703 Insulin Aspart 0 TIDAC 05/10 0800 IL 05/14 SC 1154 Insulin Detemir 5 UNITS BID 05/14 2100 05/15 SC 1335 Insulin Human Regular 4 UNITS .STK-MED ONE 05/15 0557 DC IV 05/15 0558 Insulin Human Regular 0 Q6 05/14 2359 IL 05/15 SC 1217 Memantine 10 MG DAILY 05/16 0900 PO Memantine 10 MG BID 05/10 2100 IL 05/14 PO 2116 Morphine Sulfate 2 MG ONCE ONE 05/15 0930 DC 05/15 IV 05/15 0931 0924 Morphine Sulfate 4 MG .STK-MED ONE 05/15 0922 DC IM 05/15 0923 Nystatin 1 EDWARD BID 05/10 1202 05/15 TOP 0915 Oxycodone HCl 10 MG Q6 PRN 05/12 1145 AC 05/15 PO 1336 Sertraline HCl 200 MG AT BEDTIME 05/10 2100 05/14 PO 2116 Trazodone HCl 50 MG AT BEDTIME 05/11 2100 AC 05/14 PO 2114 Impression/Plan Impression/Problem List Impression: 62 year old female with past medical history significant for morbid obesity, DM, STERLING s/p laparoscopic Bindu-en-Y gastric bypass (2015), HTN, CAD/DC s/p PCI and CABG presented with several days of poor oral intake, diarrhea, urinary incontinence, lethargy, and confusion. In the ED, she met sepsis criteria with fever to 100.6, tachycardia, bandemia, and lactic acidemia. She was found to be in new onset rapid atrial fibrillation, and a heart rate of 200. Her lethargy, confusion, and atrial fibrillation were likely precipitated by infection, from a left breast cellulitis. She is now s/p IR drainage and continous to be on ABX, but with persistent leukocytosis. Impression Persistent sepsis secondary to left chest wall skin and soft tissue infection, now s/p OR drainage insertion. WBC appears to be improving. Staph aureus and clostridium perfringens bacteremia upper extremity DVT, extensive. New onset rapid A. fib (paroxysmal). Oral lesions Altered mental status. Transit episodes. History of chronic diseases; CAD status post CABG, ischemic cardiomyopathy,, hepatitis C, diabetes. Plan Keep patient nothing by mouth in anticipation of a possible drainage catheter placement at the affected left chest area. Stop heparin drip at 10 AM Continue Unasyn Obtain transesophageal echocardiogram to assess for vegetation a cystoscopy affected therapy course with antibiotics PICC line placement Accu-Chek 3 times a day and bedtime with strict controls targeting a rate of 140 /180 DVT prophylaxis; addressed by heparin CODE STATUS: Full code Problem List: 1. Sepsis 2. Cellulitis 3. Rapid atrial fibrillation Pain Ratin Tomorrow's Labs & Rationales: icu cbc Plan DVT/Prophylaxis: mechanical, pharmacological
--- NOTE | 2018-05-15 07:49 | PN- Student ---
See Addendum Debbie Rosales 05/15/18 0743: Subjective Subjective: This morning when I went to see the pt she states that she is doing ok. Pt this morning complains of some nausea overnight w/o any episodes of vomiting. Pt is tender in her left anterior chest and left arm, denies pain elsewhere. Pt further denies any chest pain, tightness, palipations or SOB. Overnight the pt didn't have an fever,chills,body aches or sweats. Objective Objective: Vital Signs Date Time Temp Pulse Resp B/P B/P Pulse O2 O2 Flow FiO2 Mean Ox Delivery Rate 05/15 0400 93 Room Air 05/15 0000 98 Room Air 05/15 0000 98.7 80 29 138/00 98 Room Air 05/14 2115 83 27 138/58 05/14 2000 96 Nasal 2.0L Cannula 05/14 1200 97 Room Air 05/14 0922 74 18 111/46 05/14 0800 97 Room Air 05/14 0800 97.8 74 22 110/46 97 Room Air Intake & Output 05/15 0800 05/15 0000 05/14 1600 Intake Total 494 400 521 Output Total 175 275 262 Balance 319 125 259 Intake, IV 494 150 281 Intake, Oral 0 250 240 Number 0 0 Bowel Movements Output, Urine 175 275 262 Patient 192 lb Weight PE: General: O&Ax3 obese female laying down in bed, in no apparent respiratory or C/ v distress HEENT: PERRL, oral mucosa is dry with dried pustules and vesicles around chayito border of lip Chest: CTA throughout, tenderness to palpation around left anterior chest and left upper arm, dressing from surgery in place, and dry C/V: RRR, S1 and S2 normal, no murmurs noted Abdomen: normal bs, soft/nt, non-distended Extremities: ALPS in place, no edema noted Discharge Lab Results I reviewed the following labs: Laboratory Tests 05/15 05/14 0418 1600 Chemistry Sodium (137 - 145 mmol/L) 133 L Potassium (3.5 - 5.1 mmol/L) 3.9 Chloride (98 - 107 mmol/L) 106 Carbon Dioxide (22 - 30 mmol/L) 19 L Anion Gap (5 - 16) 8 BUN (7 - 17 mg/dL) 24 H Creatinine (0.5 - 1.0 mg/dL) 0.6 Estimated GFR (>60 ml/min) > 60 Glucose (65 - 99 mg/dL) 149 H Calcium (8.4 - 10.2 mg/dL) 7.0 L Phosphorus (2.5 - 4.5 mg/dL) 3.5 Magnesium (1.6 - 2.3 mg/dL) 1.8 Total Bilirubin (0.2 - 1.3 mg/dL) 0.2 AST (14 - 36 U/L) 19 ALT (9 - 52 U/L) 23 Albumin (3.5 - 5.0 g/dL) 1.6 L Coagulation APTT Cancelled Hematology CBC w Diff MAN DIFF ORDERED WBC (4.8 - 10.8 /CUMM) 28.0 H RBC (4.20 - 5.40 /CUMM) 2.88 L Hgb (12.0 - 16.0 G/DL) 7.6 L Hct (37 - 47 %) 22.5 L MCV (81.0 - 99.0 FL) 78.2 L MCH (27.0 - 31.0 PG) 26.3 L MCHC (33.0 - 37.0 G/DL) 33.6 RDW (11.5 - 14.5 %) 16.5 H Plt Count (130 - 400 /CUMM) 210 MPV (7.4 - 10.4 FL) 8.9 Gran % (42.2 - 75.2 %) 97.2 H Lymphocytes % (20.5 - 51.1 %) 2.3 L Monocytes % (1.7 - 9.3 %) 0.3 L Eosinophils % (0 - 5 %) 0.2 Basophils % (0.0 - 2.0 %) 0 Absolute Granulocytes (1.4 - 6.5 /CUMM) 27.3 H Segmented Neutrophils (42.2 - 75.2 %) 92 H Band Neutrophils (0.0 - 5.0 %) 3 Absolute Lymphocytes (1.2 - 3.4 /CUMM) 0.6 L Lymphocytes (20.5 - 51.1 %) 2 L Monocytes (1.7 - 9.3 %) 1 L Absolute Monocytes (0.10 - 0.60 /CUMM) 0.1 Absolute Eosinophils (0.0 - 0.7 /CUMM) 0.1 Absolute Basophils (0.0 - 0.2 /CUMM) 0 Metamyelocytes (0.0 - 1.0 %) 2 H Platelet Estimate (ADEQUATE) ADEQUATE Polychromasia 1+ Assessment/Plan Assessment: Pt is 62 F that is in the critical care unit with left chest wall cellutlitis ( initally meeting spesis criteria in ED), and a left arm DVT that is POD 1 s/p anterior left chest wall incision and drainage. Plan: -Fluid cultures from I&D are still pending, during procedure no denis pus was noted, only serosangious fluid -continue with unasyn and will adjust abx per culture -[address], per RN the dressing has been saturated throughout the night and has required multiple additional dressing placement on top, will need dressing change -Pt's araya is in place and can remain as pt may need to go for additonal surgical procedures -Pt should remain on ALPS for dvt ppx, heparin d/c'd at this time -For cellulitits apply warm compression to the site Ronny MORGAN,Jose Curry 05/15/18 1505: Attending MD Review Statement Attending Sign Off Other Findings: as above. see my note from today.
[2018-05-15 08:00] VITALS: BP 150/0
--- NOTE | 2018-05-15 08:57 | PN- General Surgery ---
Surgical Brief Attending Note Brief Attending Note: NO PURULENCE SEEN AT OR. SEVERITY OF CELLULITIS RELATED TO EDEMA FROM EXTENSIVE LUE DVT. OPEN WOUND WILL ASSIST WITH EFFLUX OF LYMPHEDEMA. NO WOUND CARE REQUIRED OTHER THAN DAILY REPLACEMENT OF OUTER WOUND GUAZE. DRAINS TO BE REMOVED IN ONE WEEK. ENDOCARDITIS W/U UNDERWAY.
--- NOTE | 2018-05-15 10:06 | PN- CRCU ---
Subjective HPI/Critical Care Issues: Doing ok S/p I and D This morning when I went to see the pt she states that she is doing ok. Pt this morning complains of some nausea overnight w/o any episodes of vomiting. Pt is tender in her left anterior chest and left arm, denies pain elsewhere. Pt further denies any chest pain, tightness, palipations or SOB. Overnight the pt didn't have an fever,chills,body aches or sweats. Objective Current Medications: Current Medications Sig/Bayron Start time Last Medication Dose Route Stop Time Status Admin Acetaminophen 650 MG Q6P PRN 05/09 2045 05/14 PO 0008 Ampicillin Sodium/ 3,000 MG Q6H 05/13 0800 05/15 Sulbactam Sodium IV 0809 Sodium Chloride 100 ML Atorvastatin Calcium 40 MG 1700 05/10 1700 05/13 PO 1638 Bupropion HCl 150 MG DAILY 05/10 1403 05/14 PO 0923 Carvedilol 3.125 MG BID 05/11 0900 05/14 PO 2115 Chlorhexidine 15 ML BID 05/14 2100 05/15 Gluconate PO 0915 Dextrose/Sodium 1,000 ML Q20H 05/14 2130 05/14 Chloride IV 05/15 1729 2131 Fentanyl Citrate 250 MCG .STK-MED ONE 05/14 1544 MO IM 05/14 1545 Heparin Sodium 25,000 UNIT Q24H 05/09 2330 MO 05/13 (Porcine) IV 05/14 1000 1615 Sodium Chloride 500 ML Heparin Sodium/ 25,000 UNIT Q24H 05/14 1945 MO 05/14 Dextrose IV 2055 Dextrose/Water 500 ML Hydromorphone HCl 2 MG .STK-MED ONE 05/14 1743 MO IM 05/14 1744 Hydromorphone HCl 2 MG .STK-MED ONE 05/14 1544 MO IM 05/14 1545 Insulin Aspart 0 TIDAC 05/10 0800 MO 05/14 SC 1154 Insulin Detemir 5 UNITS BID 05/14 2100 SC Insulin Human Regular 0 Q6 05/14 2359 05/15 SC 0559 Memantine 10 MG BID 05/10 2100 05/14 PO 2116 Midazolam HCl 2 MG .STK-MED ONE 05/14 1545 MO IM 05/14 1546 Morphine Sulfate 2 MG ONCE ONE 05/15 0930 DC 05/15 IV 05/15 0931 0924 Nystatin 1 EDWARD BID 05/10 1202 AC 05/15 TOP 0915 Oxycodone HCl 10 MG .STK-MED ONE 05/14 1102 DC PO 05/14 1103 Oxycodone HCl 10 MG Q6 PRN 05/12 1145 AC 05/15 PO 0447 Sertraline HCl 200 MG AT BEDTIME 05/10 2100 AC 05/14 PO 211 Trazodone HCl 50 MG AT BEDTIME 05/11 2100 AC 05/14 PO 211 Vital Signs & I&O Last 24 Hrs of Vitals and I&O: Vital Signs Date Time Temp Pulse Resp B/P B/P Pulse O2 O2 Flow FiO2 Mean Ox Delivery Rate 05/15 08 97.6 75 22 150/0 95 Room Air 05/15 0400 93 Room Air 05/15 0000 98 Room Air 05/15 0000 98.7 80 29 138/00 98 Room Air 05/14 2115 83 27 138/58 05/14 2000 96 Nasal 2.0L Cannula 05/14 1200 97 Room Air Intake & Output 05/15 1600 05/15 0800 05/15 0000 Intake Total 494 400 Output Total 175 275 Balance 319 125 Intake, IV 494 150 Intake, Oral 0 250 Number 0 0 Bowel Movements Output, Urine 175 275 Patient 186 lb Weight Weight Bed scale Measurement Method Laboratory Tests 05/15 05/14 0418 1600 Chemistry Sodium (137 - 145 mmol/L) 133 L Potassium (3.5 - 5.1 mmol/L) 3.9 Chloride (98 - 107 mmol/L) 106 Carbon Dioxide (22 - 30 mmol/L) 19 L Anion Gap (5 - 16) 8 BUN (7 - 17 mg/dL) 24 H Creatinine (0.5 - 1.0 mg/dL) 0.6 Estimated GFR (>60 ml/min) > 60 Glucose (65 - 99 mg/dL) 149 H Calcium (8.4 - 10.2 mg/dL) 7.0 L Phosphorus (2.5 - 4.5 mg/dL) 3.5 Magnesium (1.6 - 2.3 mg/dL) 1.8 Total Bilirubin (0.2 - 1.3 mg/dL) 0.2 AST (14 - 36 U/L) 19 ALT (9 - 52 U/L) 23 Albumin (3.5 - 5.0 g/dL) 1.6 L Coagulation APTT Cancelled Hematology CBC w Diff MAN DIFF ORDERED WBC (4.8 - 10.8 /CUMM) 28.0 H RBC (4.20 - 5.40 /CUMM) 2.88 L Hgb (12.0 - 16.0 G/DL) 7.6 L Hct (37 - 47 %) 22.5 L MCV (81.0 - 99.0 FL) 78.2 L MCH (27.0 - 31.0 PG) 26.3 L MCHC (33.0 - 37.0 G/DL) 33.6 RDW (11.5 - 14.5 %) 16.5 H Plt Count (130 - 400 /CUMM) 210 MPV (7.4 - 10.4 FL) 8.9 Gran % (42.2 - 75.2 %) 97.2 H Lymphocytes % (20.5 - 51.1 %) 2.3 L Monocytes % (1.7 - 9.3 %) 0.3 L Eosinophils % (0 - 5 %) 0.2 Basophils % (0.0 - 2.0 %) 0 Absolute Granulocytes (1.4 - 6.5 /CUMM) 27.3 H Segmented Neutrophils (42.2 - 75.2 %) 92 H Band Neutrophils (0.0 - 5.0 %) 3 Absolute Lymphocytes (1.2 - 3.4 /CUMM) 0.6 L Lymphocytes (20.5 - 51.1 %) 2 L Monocytes (1.7 - 9.3 %) 1 L Absolute Monocytes (0.10 - 0.60 /CUMM) 0.1 Absolute Eosinophils (0.0 - 0.7 /CUMM) 0.1 Absolute Basophils (0.0 - 0.2 /CUMM) 0 Metamyelocytes (0.0 - 1.0 %) 2 H Platelet Estimate (ADEQUATE) ADEQUATE Polychromasia + 05/14 05/13 0445 1550 Chemistry Sodium (137 - 145 mmol/L) 133 L Potassium (3.5 - 5.1 mmol/L) 4.1 Chloride (98 - 107 mmol/L) 106 Carbon Dioxide (22 - 30 mmol/L) 19 L Anion Gap (5 - 16) 8 BUN (7 - 17 mg/dL) 23 H Creatinine (0.5 - 1.0 mg/dL) 0.5 Estimated GFR (>60 ml/min) > 60 Glucose (65 - 99 mg/dL) 151 H Calcium (8.4 - 10.2 mg/dL) 7.2 L Phosphorus (2.5 - 4.5 mg/dL) 2.9 Magnesium (1.6 - 2.3 mg/dL) 1.8 Total Bilirubin (0.2 - 1.3 mg/dL) 0.4 AST (14 - 36 U/L) 27 ALT (9 - 52 U/L) 21 Albumin (3.5 - 5.0 g/dL) 1.6 L Coagulation PT (9.4 - 12.5 SEC) 18.9 H INR (0.90 - 1.19) 1.72 H APTT (25 - 37 SEC) 70 H 61 H Hematology CBC w Diff MAN DIFF ORDERED WBC (4.8 - 10.8 /CUMM) 34.0 *H RBC (4.20 - 5.40 /CUMM) 3.07 L Hgb (12.0 - 16.0 G/DL) 8.1 L Hct (37 - 47 %) 24.2 L MCV (81.0 - 99.0 FL) 78.8 L MCH (27.0 - 31.0 PG) 26.5 L MCHC (33.0 - 37.0 G/DL) 33.6 RDW (11.5 - 14.5 %) 16.4 H Plt Count (130 - 400 /CUMM) 195 MPV (7.4 - 10.4 FL) 10.0 Gran % (42.2 - 75.2 %) 95.6 H Lymphocytes % (20.5 - 51.1 %) 2.8 L Monocytes % (1.7 - 9.3 %) 1.2 L Eosinophils % (0 - 5 %) 0.4 Basophils % (0.0 - 2.0 %) 0 Absolute Granulocytes (1.4 - 6.5 /CUMM) 32.5 H Segmented Neutrophils (42.2 - 75.2 %) 81 H Band Neutrophils (0.0 - 5.0 %) 10 H Absolute Lymphocytes (1.2 - 3.4 /CUMM) 0.9 L Lymphocytes (20.5 - 51.1 %) 1 L Monocytes (1.7 - 9.3 %) 3 Absolute Monocytes (0.10 - 0.60 /CUMM) 0.4 Eosinophils (0 - 5.0 %) 1 Absolute Eosinophils (0.0 - 0.7 /CUMM) 0.1 Absolute Basophils (0.0 - 0.2 /CUMM) 0 Metamyelocytes (0.0 - 1.0 %) 4 H Platelet Estimate (ADEQUATE) ADEQUATE Polychromasia 1+ Hypochromic-Microcytic 1+ Poikilocytosis 1+ Microbiology Date/Time Procedure - Status Source Growth 05/14 1640 Culture & Sensitivity - RES TRUNK/O.R. STAPH AUREUS 05/14 1640 Gram Stain - RES TRUNK/O.R. Impression/Plan Impression/Plan Impression/Plan: Seen and examined She is awake and alert in no acute distress HEENT perioral crusted lesions Chest marked induration, erythema and tenderness of the left chest and breast persist Lungs are clear Heart regular rhythm with no murmur Extremities trace edema both lower extremities; decreased left upper extremity edema, though with persistent tenderness; several crusted lesions on her fingertips Samaniego catheter remains in place CT with ivc IMPRESSION: 1. Interval slight progression in the extent of soft tissue edema and stranding seen involving the left chest wall and the left breast. However, no distinct peripherally rim-enhancing abscess collection or drainable collection is seen. No subcutaneous/soft tissue emphysema is seen. 2. Interval development of a small left-sided pleural effusion and dense consolidation in the basal segments of the left lower lobe. 3. Mild scattered atelectatic changes are also seen, primarily in the lingula and right lower lobe. 4. Enlargement of left heart chambers and moderate coronary artery calcifications noted. Central pulmonary arteries are mildly enlarged. 5. Status post cholecystectomy and gastric bypass surgery. 6. Enlargement of the right adrenal gland and masslike density in the left adrenal gland, unchanged. Findings discussed with Dr. Barbosa at the time of the exam. DICTATED BY: Raji MORGAN,Radha Saleh Pt with Diabetes, recent memory loss, on and off evaluation, previous history of ischemic heart disease CABG, previous hepatitis C infection per chart seen in the emergency room few days prior to admission with vomiting, diarrhea and diffuse hives, found to be afebrile with a bandemia, and discharged home on prednisone with the diagnosis of food poisoning, admitted on May 09 with a 2 day history of increasing lethargy, confusion, decreased p.o. intake, persistent diarrhea and decreased urine output, with the additional history of a painful "cyst" in her left axilla over the past 1-2 weeks, found to be febrile, tachycardic and in atrial fibrillation then converted to sinus, with bandemia, elevated lactic acid and with a CT of the chest revealing extensive soft tissue infiltration and edema involving the left anterior lateral chest wall, with blood cultures reported positive for gram-positive cocci and gram-negative rods. Issues * Sepsis due to skin and soft tissue infection of the skin and left chest wall, s/p I and d * Staph and clostriduium perfrin bacteremia, rule out endocarditis * Sig DVT left upper ext * Small effusion and dense consolidation of left lower lobe due to atx vs pna ( less likely) * Herpes oralis * New onset rapid A. fib with rapid ventricular response initially in sinus * Recent lethargy and memory loss needs follow-up * History of IHD with prior CABG with ischemic cardiomyopathy * History of Hep c ( seems to have cleared the virus) prior gastric bypass with post op bleeding complication few yrs ago * Elevated sugar with dm * Electrolyte abnormality REC COnt abx TERESA IV abx ORal care with periodex Strict sugar control\\ Resume heparin Iv iron for doses Check stool for heme Pt is critically ill tts 33
--- NOTE | 2018-05-15 10:26 | RADIOLOGY REPORT ---
EXAMINATION: XR PORTABLE CHEST CLINICAL INFORMATION: Confirmation of PICC line. COMPARISON: Several prior chest x-rays, most recent of which is dated 05/14/2018. TECHNIQUE: Portable AP semierect view of the chest was obtained. FINDINGS: The right sided PICC line is in place with tip in the right atrium, similar to the previous exam. The patient is status post median sternotomy and CABG surgery. The cardiomediastinal silhouette is enlarged. Calcification and tortuosity of the aorta is seen. Low lung volumes are noted with hazy opacity throughout the left lung, likely due to patient rotation. There is also probable layering pleural effusion, dense consolidation/atelectasis in the left lung perihilar region extending into the left base and central vascular congestion. No pneumothorax. Multilevel degenerative changes are seen in the spine. IMPRESSION: 1. PICC line tip in right atrium. 2. Findings in the left lung are likely related to atelectasis or pneumonia with layering pleural effusion. 3. Central vascular congestion
--- NOTE | 2018-05-15 11:22 | PN- Infect Dx ---
Subjective Subjective: Afebrile. She feels somewhat better with some improvement in her left chest wall/breast discomfort Objective Last 24 Hrs of Vital Signs/I&O Vital Signs Date Time Temp Pulse Resp B/P B/P Pulse O2 O2 Flow FiO2 Mean Ox Delivery Rate 05/15 0800 97.6 75 22 150/0 95 Room Air 05/15 0400 93 Room Air 05/15 0000 98 Room Air 05/15 0000 98.7 80 29 138/00 98 Room Air 05/14 2115 83 27 138/58 05/14 2000 96 Nasal 2.0L Cannula 05/14 1200 97 Room Air Intake & Output 05/15 1600 05/15 0800 05/15 0000 Intake Total 494 400 Output Total 175 275 Balance 319 125 Intake, IV 494 150 Intake, Oral 0 250 Number 0 0 Bowel Movements Output, Urine 175 275 Patient 186 lb Weight Weight Bed scale Measurement Method Physical Exam Other Physical Findings: She appears more comfortable in no acute distress HEENT perioral lesions crusting Chest decreased induration over the left axilla and chest wall, though slasher tender helper to palpation; [address]; persistent erythema and edema of the left breast Lungs are clear Heart regular rhythm with no murmur Extremities persistent left upper extremity swelling and tenderness, particularly medially; trace edema both lower extremities; PICC in place in the right upper extremity Samaniego catheter remains in place Results Last 24 Hours of Lab Results: Laboratory Tests 05/15 05/14 0418 1600 Chemistry Sodium (137 - 145 mmol/L) 133 L Potassium (3.5 - 5.1 mmol/L) 3.9 Chloride (98 - 107 mmol/L) 106 Carbon Dioxide (22 - 30 mmol/L) 19 L Anion Gap (5 - 16) 8 BUN (7 - 17 mg/dL) 24 H Creatinine (0.5 - 1.0 mg/dL) 0.6 Estimated GFR (>60 ml/min) > 60 Glucose (65 - 99 mg/dL) 149 H Calcium (8.4 - 10.2 mg/dL) 7.0 L Phosphorus (2.5 - 4.5 mg/dL) 3.5 Magnesium (1.6 - 2.3 mg/dL) 1.8 Total Bilirubin (0.2 - 1.3 mg/dL) 0.2 AST (14 - 36 U/L) 19 ALT (9 - 52 U/L) 23 Albumin (3.5 - 5.0 g/dL) 1.6 L Coagulation APTT Cancelled Hematology CBC w Diff MAN DIFF ORDERED WBC (4.8 - 10.8 /CUMM) 28.0 H RBC (4.20 - 5.40 /CUMM) 2.88 L Hgb (12.0 - 16.0 G/DL) 7.6 L Hct (37 - 47 %) 22.5 L MCV (81.0 - 99.0 FL) 78.2 L MCH (27.0 - 31.0 PG) 26.3 L MCHC (33.0 - 37.0 G/DL) 33.6 RDW (11.5 - 14.5 %) 16.5 H Plt Count (130 - 400 /CUMM) 210 MPV (7.4 - 10.4 FL) 8.9 Gran % (42.2 - 75.2 %) 97.2 H Lymphocytes % (20.5 - 51.1 %) 2.3 L Monocytes % (1.7 - 9.3 %) 0.3 L Eosinophils % (0 - 5 %) 0.2 Basophils % (0.0 - 2.0 %) 0 Absolute Granulocytes (1.4 - 6.5 /CUMM) 27.3 H Segmented Neutrophils (42.2 - 75.2 %) 92 H Band Neutrophils (0.0 - 5.0 %) 3 Absolute Lymphocytes (1.2 - 3.4 /CUMM) 0.6 L Lymphocytes (20.5 - 51.1 %) 2 L Monocytes (1.7 - 9.3 %) 1 L Absolute Monocytes (0.10 - 0.60 /CUMM) 0.1 Absolute Eosinophils (0.0 - 0.7 /CUMM) 0.1 Absolute Basophils (0.0 - 0.2 /CUMM) 0 Metamyelocytes (0.0 - 1.0 %) 2 H Platelet Estimate (ADEQUATE) ADEQUATE Polychromasia 1+ Last 24 Hours of Ramón Results: OR culture labeled left axillary fluid May 14 positive for Staph aureus Blood cultures 2 May 11 negative Recent Imaging Studies: Chest x-ray May 15 hazy opacity throughout the left lung, felt secondary to patient rotation, with a probable layering pleural effusion, dense consolidation /atelectasis in left lung perihilar region, and central vascular congestion Assessment/Plan ID Impression: Somewhat improved, with a decrease in the induration and inflammation of the left axilla and chest wall and with a decrease in her white blood cell count today, status post exploration in the OR yesterday, with a large amount of edematous, slightly turbid fluid noted, with no evidence for an abscess or necrotizing soft tissue infection. She remains afebrile on Unasyn, Day 6 of treatment for MSSA and Clostridium perfringens sepsis, with the OR culture also growing Staph aureus. The possibility of endocarditis must be considered, given the isolation of Staph aureus from her blood, and she is scheduled for a TERESA later today. Her chest x-ray does reveal a left lung density, possibly secondary to pneumonia or atelectasis, with a small effusion also noted. This could represent an empyema and, if her white blood cell count remains elevated, may need to rule this out. Her perioral lesions persist and can be treated symptomatically. She remains on Heparin for an extensive DVT of the left upper extremity, status post a transient episode of atrial fibrillation. Suggestion: 1. Await TERESA 2. Consider ultrasound of the left chest to rule out a tappable effusion if her white blood cell count remains elevated 3. Further management of her left chest wall wound per Surgery 4. Continue Unasyn
--- NOTE | 2018-05-15 13:05 | PN- Cardiology ---
Subjective Subjective: More alert and no complaints. Maintaining sinus rhythm on monitoring. Objective Vital Signs and I&Os Vital Signs Date Time Temp Pulse Resp B/P B/P Pulse O2 O2 Flow FiO2 Mean Ox Delivery Rate 05/15 08 97.6 75 22 150/0 95 Room Air 05/15 0400 93 Room Air 05/15 0000 98 Room Air 05/15 0000 98.7 80 29 138/00 98 Room Air 05/14 2115 83 27 138/58 05/14 2000 96 Nasal 2.0L Cannula Intake & Output 05/15 0800 05/15 0000 05/14 1600 05/14 0800 05/14 0000 Intake Total 494 400 521 668 928 Output Total 175 275 262 240 270 Balance 319 125 259 428 658 Intake, IV 494 150 281 448 348 Intake, Oral 0 250 240 220 580 Number 0 0 Bowel Movements Output, Urine 175 275 262 240 270 Patient 186 lb 192 lb Weight Weight Bed scale Measurement Method Physical Exam: Well-developed, overweight female who is confused/ lethargic, but in no acute distress with oxygen in place. Vital signs: See above. HEENT: Normocephalic, atraumatic, EOMI, moist mucous membranes, poor dentition. Neck: No JVD, no bruits. Lungs: Clear to auscultation. Heart: S1, S2 (regular) with grade 1/6 systolic murmur. No gallop or rub. PMI not well felt. Abdomen: Soft, nontender, positive bowel sounds. Extremities: No LE edema. Assessment/Plan Assessment/Plan [id number] w/ hx fmr tob use, COPD, hep C, HTN, HLD, DM w/ neuropathy, CAD/HF ( vide supra) who presented on 05/09/2018 w/ AMS, lethargy, poor by mouth intake, continued diarrhea, & decreased urine output after evaluation/management on 05/2018 for "food poisoning" & an "allergic reaction" after eating shrimp w/ hives, N/V/D w/ d/c on prednisone & Benadryl who also described a "cyst" in her L axillary region that had "ruptured" w/ purulent drainage a week prior and who was found to be confused, febrile (100.6 degrees), transiently hypotensive (90/ 58 mmHg), mildly tachypneic (18 rpm) & in "new onset" AF w/ RVR (188 bpm) w/ improved hemodynamics following volume resuscitation (crystalloid), IV diltiazem , empiric IV Abx Rx, etc. w/ spontaneous conversion back to SR. The source for her septic shock is likely the skin/soft tissues of the L chest wall. She improved hemodynamically, but increased WBC prompted surgical intervention, 05/14/2018. She has PAF, but has been maintaining sinus rhythm. Also discovered to have a left upper extremity DVT. TEERSA performed 05/15/2018 and revealed evidence of small mobile vegetation on left coronary cusp of the aortic valve. No vegetations observed on the other aortic valve leaflets or the mitral, tricuspid, or pulmonic valves, as TTE negative for valvular vegetations. Recommendations: * Continue ICU management. * Long duration of antimicrobial therapy given findings of small mobile aortic valve vegetation. * [id number] Score of 4 & LUE DVT so continue AC. * DVT prophylaxis being addressed. Continue telemetry? Not applicable (In ICU.) * [id number] Score of 4 & LUE DVT so continue AC. * DVT prophylaxis being addressed. Continue telemetry? Not applicable (In ICU.)
--- NOTE | 2018-05-15 14:24 | RADIOLOGY REPORT ---
EXAMINATION: CHEST 1 VIEW CLINICAL INFORMATION: PICC line placement. COMPARISON: Same day chest radiograph. TECHNIQUE: An AP view of the chest is provided. FINDINGS: The cardiac silhouette is stable. Intact midline sternal wires are present. A right PICC line is in place. The tip terminates overlying the distal SVC. There is a retrocardiac infiltrate. The osseous structures are stable. IMPRESSION: Right-sided PICC line in place. Retrocardiac infiltrate.
[2018-05-15 16:00] VITALS: BP 138/0
--- NOTE | 2018-05-15 16:41 | ECHOCARDIOGRAM REPORT ---
RUSSELL ZHAO Age: 62 : Gender: F 1 Exam Date: 05/15/2018 12:18 Exam Location: [facility] Ht (in): 65 Wt (lb): 192 BSA: 2.03 BP: 111 / 46 Ordering Physician: Chandra Workman MD Referring Physician: Chandra Workman MD Technologist: Brandon De Leon [facility] Room Number: 111 Indications: INFECTIVE ENDOCARDITIS Rhythm: Sinus Technical Quality: Good Medications TIVA Ease of Transducer Insertion Minor Difficulty Complications None. Technical Difficulty None. FINDINGS Left Ventricle Normal size left ventricle. Borderline concentric left ventricular hypertrophy. No obvious regional wall motion abnormalities. Normal left ventricular ejection fraction. Right Ventricle Normal right ventricular size and function Right Atrium Normal right atrial size. Left Atrium Normal left atrial size. LA Appendage Normal left atrial appendage. IA Septum Interatrial septum not well visualized, grossly normal. Mitral Valve Mild mitral annular calcification. No evidence of vegetation on the mitral valve. Mitral valve mildly thickened. Trace mitral regurgitation. Aortic Valve Trileaflet aortic valve with diffuse mild thickening and mildly reduced excursion. Small mobile vegetation on the left coronary cusp of the aortic valve. Tricuspid Valve Structurally normal tricuspid valve. Trace tricuspid regurgitation. No evidence of tricuspid valve vegetation. Pulmonic Valve Grossly normal pulmonic valve. No pulmonic regurgitation. Pericardium No pericardial effusion. Great Vessels Normal size aortic root. CONCLUSIONS Small mobile vegetation on the left coronary cusp of the aortic valve. Arash Truong M.D. (Electronically Signed) Final Date: 15 May 2018 16:41 MEASUREMENTS (Male / Female) Normal Values
[2018-05-15 21:23] LABS: ABSOLUTE BASOPHIL COUNT 0 /CUMM (0.0-0.2); ABSOLUTE EOSINOPHIL COUNT 0.1 /CUMM (0.0-0.7); ABSOLUTE GRANULOCYTE CT 22.1 /CUMM (1.4-6.5); ABSOLUTE LYMPH COUNT 0.7 /CUMM (1.2-3.4); ABSOLUTE MONOCYTE COUNT 0 /CUMM (0.10-0.60); BASOPHIL % 0 % (0.0-2.0); EOSINOPHIL % 0.3 % (0-5); GRANULOCYTE % 96.7 % (42.2-75.2); MEAN CORPUSCULAR HGB 26.4 PG (27.0-31.0); MEAN CORPUSCULAR HGB CONC 32.9 G/DL (33.0-37.0); MEAN CORPUSCULAR VOLUME 80.1 FL (81.0-99.0); MEAN PLATELET VOLUME 9.2 FL (7.4-10.4); PLATELET COUNT 198 /CUMM (130-400); RBC DISTRIBUTION WIDTH 16.8 % (11.5-14.5); RED BLOOD CELL CT 3.24 /CUMM (4.20-5.40); WHITE BLOOD CELL COUNT 22.9 /CUMM (4.8-10.8)
[2018-05-15 21:31] LABS: PTT 31 SEC (25-37)
[2018-05-16] VITALS: BP 138/61
[2018-05-16 04:57] LABS: ABSOLUTE BASOPHIL COUNT 0 /CUMM (0.0-0.2); ABSOLUTE EOSINOPHIL COUNT 0.1 /CUMM (0.0-0.7); ABSOLUTE GRANULOCYTE CT 21.9 /CUMM (1.4-6.5); ABSOLUTE LYMPH COUNT 0.8 /CUMM (1.2-3.4); ABSOLUTE MONOCYTE COUNT 0.1 /CUMM (0.10-0.60); BASOPHIL % 0 % (0.0-2.0); EOSINOPHIL % 0.5 % (0-5); GRANULOCYTE % 95.6 % (42.2-75.2); HEMATOCRIT 25.1 % (37-47); MEAN CORPUSCULAR HGB 26.7 PG (27.0-31.0); MEAN CORPUSCULAR HGB CONC 33.5 G/DL (33.0-37.0); MEAN CORPUSCULAR VOLUME 79.6 FL (81.0-99.0); MEAN PLATELET VOLUME 8.8 FL (7.4-10.4); PLATELET COUNT 205 /CUMM (130-400); RBC DISTRIBUTION WIDTH 16.6 % (11.5-14.5); RED BLOOD CELL CT 3.15 /CUMM (4.20-5.40)
[2018-05-16 05:02] LABS: PTT 97 SEC (25-37)
--- NOTE | 2018-05-16 07:31 | PN- Resident CRCU ---
Subjective HPI/CRCU Issues: severe sepsis left breast cellulitis endocarditis LUE DVT afib with rvr 24 Hour Events: Awake, alert and oriented in no apparent distress. Remains afebrile with WBC improving Remains in sinus rythm Objective Vital Signs & I&O Last 8 Hrs of Vitals and I&O: Laboratory Tests 05/16 05/16 UNK 0440 Chemistry Sodium (137 - 145 mmol/L) 132 L Potassium (3.5 - 5.1 mmol/L) 4.2 Chloride (98 - 107 mmol/L) 106 Carbon Dioxide (22 - 30 mmol/L) 18 L Anion Gap (5 - 16) 8 BUN (7 - 17 mg/dL) 26 H Creatinine (0.5 - 1.0 mg/dL) 0.6 Estimated GFR (>60 ml/min) > 60 Glucose (65 - 99 mg/dL) 161 H Calcium (8.4 - 10.2 mg/dL) 7.2 L Phosphorus (2.5 - 4.5 mg/dL) 4.2 Magnesium (1.6 - 2.3 mg/dL) 1.9 Total Bilirubin (0.2 - 1.3 mg/dL) 0.1 L AST (14 - 36 U/L) 27 ALT (9 - 52 U/L) 25 Albumin (3.5 - 5.0 g/dL) 1.6 L Coagulation APTT (25 - 37 SEC) 30 97 H Hematology CBC w Diff MAN DIFF ORDERED WBC (4.8 - 10.8 /CUMM) 23.0 H RBC (4.20 - 5.40 /CUMM) 3.15 L Hgb (12.0 - 16.0 G/DL) 8.4 L Hct (37 - 47 %) 25.1 L MCV (81.0 - 99.0 FL) 79.6 L MCH (27.0 - 31.0 PG) 26.7 L MCHC (33.0 - 37.0 G/DL) 33.5 RDW (11.5 - 14.5 %) 16.6 H Plt Count (130 - 400 /CUMM) 205 MPV (7.4 - 10.4 FL) 8.8 Gran % (42.2 - 75.2 %) 95.6 H Lymphocytes % (20.5 - 51.1 %) 3.6 L Monocytes % (1.7 - 9.3 %) 0.3 L Eosinophils % (0 - 5 %) 0.5 Basophils % (0.0 - 2.0 %) 0 Absolute Granulocytes (1.4 - 6.5 /CUMM) 21.9 H Segmented Neutrophils (42.2 - 75.2 %) 70 Band Neutrophils (0.0 - 5.0 %) 17 H Absolute Lymphocytes (1.2 - 3.4 /CUMM) 0.8 L Lymphocytes (20.5 - 51.1 %) 4 L Monocytes (1.7 - 9.3 %) 3 Absolute Monocytes (0.10 - 0.60 /CUMM) 0.1 Eosinophils (0 - 5.0 %) 2 Absolute Eosinophils (0.0 - 0.7 /CUMM) 0.1 Absolute Basophils (0.0 - 0.2 /CUMM) 0 Metamyelocytes (0.0 - 1.0 %) 4 H Platelet Estimate (ADEQUATE) ADEQUATE Polychromasia 1+ Hypochromic-Microcytic 1+ 05/155 Coagulation APTT (25 - 37 SEC) 31 Hematology CBC w Diff MAN DIFF ORDERED WBC (4.8 - 10.8 /CUMM) 22.9 H RBC (4.20 - 5.40 /CUMM) 3.24 L Hgb (12.0 - 16.0 G/DL) 8.6 L Hct (37 - 47 %) 26.0 L MCV (81.0 - 99.0 FL) 80.1 L MCH (27.0 - 31.0 PG) 26.4 L MCHC (33.0 - 37.0 G/DL) 32.9 L RDW (11.5 - 14.5 %) 16.8 H Plt Count (130 - 400 /CUMM) 198 MPV (7.4 - 10.4 FL) 9.2 Gran % (42.2 - 75.2 %) 96.7 H Lymphocytes % (20.5 - 51.1 %) 2.9 L Monocytes % (1.7 - 9.3 %) 0.1 L Eosinophils % (0 - 5 %) 0.3 Basophils % (0.0 - 2.0 %) 0 Absolute Granulocytes (1.4 - 6.5 /CUMM) 22.1 H Segmented Neutrophils (42.2 - 75.2 %) 95 H Band Neutrophils (0.0 - 5.0 %) 3 Absolute Lymphocytes (1.2 - 3.4 /CUMM) 0.7 L Lymphocytes (20.5 - 51.1 %) 1 L Absolute Monocytes (0.10 - 0.60 /CUMM) 0 L Absolute Eosinophils (0.0 - 0.7 /CUMM) 0.1 Absolute Basophils (0.0 - 0.2 /CUMM) 0 Metamyelocytes (0.0 - 1.0 %) 1 Platelet Estimate (ADEQUATE) ADEQUATE Polychromasia 1+ Hypochromic-Microcytic 2+ Anisocytosis 1+ Intake & Output 05/16 1600 Intake Total 1388 Output Total 200 Balance 1188 Intake, IV 688 Intake, Oral 700 Number 0 Bowel Movements Output, Urine 200 Patient 85.899 kg Weight Weight Bed scale Measurement Method Exam General Appearance: alert, awake Other Physical Findings: Cardiovascular: Dressing/drainage intact at left chest wall area with no obvius acute active bleeeding. regular rate/rhythm, normal peripheral pulses Gastrointestinal: normal bowel sounds, soft, non-tender, no organomegaly Extremities: normal capillary refill, RUE swelling > left, with range of motion limited by pain, some serous drainage from left breast and worsening erythema Current Medications: Current Medications Sig/Bayron Start time Last Medication Dose Route Stop Time Status Admin Acetaminophen 650 MG Q6P PRN 05/09 2045 AC 05/14 PO 0008 Ampicillin Sodium/ 3,000 MG Q6H 05/13 0800 AC 05/16 Sulbactam Sodium IV 1423 Sodium Chloride 100 ML Atorvastatin Calcium 40 MG 1700 05/10 1700 AC 05/16 PO 1616 Bupropion HCl 150 MG DAILY 05/10 1403 AC 05/16 PO 0827 Carvedilol 3.125 MG BID 05/11 0900 AC 05/16 PO 0827 Chlorhexidine 15 ML BID 05/14 2100 AC 05/16 Gluconate PO 0615 Dextrose/Sodium 1,000 ML Q20H 05/15 1945 DC 05/15 Chloride IV 05/16 1544 1630 Enoxaparin Sodium 80 MG BID 05/16 1400 AC 05/16 SC 1505 Ferric Sodium 125 MG DAILY 05/15 1130 AC 05/16 Gluconate Complex IV 05/17 0959 1047 Sodium Chloride 100 ML Heparin Sodium 5,000 UNIT .STK-MED ONE 05/16 0016 DC (Porcine) IV 05/16 0017 Heparin Sodium 5,000 UNIT ONCE ONE 05/15 2200 DC 05/15 (Porcine) IV 05/15 220 2200 Heparin Sodium/ 25,000 UNIT Q24H 05/15 1300 DC 05/15 Dextrose IV 1306 Dextrose/Water 500 ML Insulin Aspart 0 TIDAC 05/15 1700 AC 05/16 SC 1204 Insulin Detemir 5 UNITS BID 05/14 2100 AC 05/16 SC 0826 Memantine 10 MG DAILY 05/16 0900 AC 05/16 PO 0827 Morphine Sulfate 2 MG ONCE ONE 05/16 1430 DC 05/16 IV 05/16 1431 1423 Nystatin 1 EDWARD BID 05/10 1202 AC 05/16 TOP 0827 Oxycodone HCl 10 MG Q4P PRN 05/16 0945 AC 05/16 PO 1616 Oxycodone HCl 10 MG .STK-MED ONE 05/16 0821 DC PO 05/16 0822 Oxycodone HCl 10 MG Q6 PRN 05/12 1145 DC 05/16 PO 0827 Sertraline HCl 200 MG AT BEDTIME 05/10 2100 AC 05/15 PO 2046 Trazodone HCl 50 MG AT BEDTIME 05/11 2100 AC 05/15 PO 2046 Impression/Plan Impression/Problem List Impression: 62 year old female with past medical history significant for morbid obesity, DM, STERLING s/p laparoscopic Bindu-en-Y gastric bypass (2015), HTN, CAD/NC s/p PCI and CABG presented with several days of poor oral intake, diarrhea, urinary incontinence, lethargy, and confusion. In the ED, she met sepsis criteria with fever to 100.6, tachycardia, bandemia, and lactic acidemia. She was found to be in new onset rapid atrial fibrillation, and a heart rate of 200. Her lethargy, confusion, and atrial fibrillation were likely precipitated by infection, from a left breast cellulitis. She is now s/p IR drainage and continous to be on ABX, but with persistent leukocytosis. Impression Persistent sepsis secondary to left chest wall skin and soft tissue infection, now s/p OR drainage insertion. WBC appears to be improving. Staph aureus and clostridium perfringens bacteremia upper extremity DVT, extensive. New onset rapid A. fib (paroxysmal). Oral lesions Altered mental status. Transit episodes. History of chronic diseases; CAD status post CABG, ischemic cardiomyopathy,, hepatitis C, diabetes. Plan Stop IV fluids and encourage liberal fluid oroenteric Stop heparin and start Lovenox 80 mg twice a day for A. fib and upper extremity DVT Continue Unasyn, she will need 4-6 weeks of antibiotic given the positive valvular vegetation, PICC line already in place Accu-Chek 3 times a day and bedtime with strict controls targeting a rate of 140 /180 Will increase oxycodone to every 4 hours and use intermittent IV morphine to fully address the pain DVT prophylaxis; addressed by Lovenox CODE STATUS: Full code Problem List: 1. Sepsis 2. Rapid atrial fibrillation Pain Ratin Pain Location: left chest wall Tomorrow's Labs & Rationales: icu bundle Plan DVT/Prophylaxis: mechanical, pharmacological
[2018-05-16 08:00] VITALS: BP 144/0
--- NOTE | 2018-05-16 09:44 | PN- Infect Dx ---
Subjective Subjective: Afebrile. She feels improved, with decreased pain in the left chest and breast. She has had several loose, guaiac positive stools. Objective Last 24 Hrs of Vital Signs/I&O Vital Signs Date Time Temp Pulse Resp B/P B/P Pulse O2 O2 Flow FiO2 Mean Ox Delivery Rate 05/16 0827 153/91 05/16 0800 99.5 72 18 144/0 94 Room Air 05/16 0400 96 Room Air 05/16 0000 Room Air 05/16 0000 98.6 72 22 138/61 92 Room Air 05/15 2045 77 148/66 05/15 2000 94 Room Air 05/15 1600 98.6 73 16 138/0 94 Room Air 05/15 1334 140/60 Intake & Output 05/16 1600 05/16 0800 05/16 0000 Intake Total 944 1120 Output Total 200 200 Balance 744 920 Intake, IV 704 640 Intake, Oral 240 480 Number 2 0 Bowel Movements Output, Urine 200 200 Physical Exam Other Physical Findings: She appears comfortable in no acute distress Chest persistent induration, erythema and tenderness over the left breast and chest wall Lungs are clear Heart regular rhythm with no murmur Abdomen is soft, nontender with positive bowel sounds Extremities trace edema both lower extremities; PICC in the right upper extremity with no inflammation at the site Samaniego catheter remains in place Results Last 24 Hours of Lab Results: Laboratory Tests 05/160 5 Chemistry Sodium (137 - 145 mmol/L) 132 L Potassium (3.5 - 5.1 mmol/L) 4.2 Chloride (98 - 107 mmol/L) 106 Carbon Dioxide (22 - 30 mmol/L) 18 L Anion Gap (5 - 16) 8 BUN (7 - 17 mg/dL) 26 H Creatinine (0.5 - 1.0 mg/dL) 0.6 Estimated GFR (>60 ml/min) > 60 Glucose (65 - 99 mg/dL) 161 H Calcium (8.4 - 10.2 mg/dL) 7.2 L Phosphorus (2.5 - 4.5 mg/dL) 4.2 Magnesium (1.6 - 2.3 mg/dL) 1.9 Total Bilirubin (0.2 - 1.3 mg/dL) 0.1 L AST (14 - 36 U/L) 27 ALT (9 - 52 U/L) 25 Albumin (3.5 - 5.0 g/dL) 1.6 L Coagulation APTT (25 - 37 SEC) 97 H 31 Hematology CBC w Diff MAN DIFF ORDERED MAN DIFF ORDERED WBC (4.8 - 10.8 /CUMM) 23.0 H 22.9 H RBC (4.20 - 5.40 /CUMM) 3.15 L 3.24 L Hgb (12.0 - 16.0 G/DL) 8.4 L 8.6 L Hct (37 - 47 %) 25.1 L 26.0 L MCV (81.0 - 99.0 FL) 79.6 L 80.1 L MCH (27.0 - 31.0 PG) 26.7 L 26.4 L MCHC (33.0 - 37.0 G/DL) 33.5 32.9 L RDW (11.5 - 14.5 %) 16.6 H 16.8 H Plt Count (130 - 400 /CUMM) 205 198 MPV (7.4 - 10.4 FL) 8.8 9.2 Gran % (42.2 - 75.2 %) 95.6 H 96.7 H Lymphocytes % (20.5 - 51.1 %) 3.6 L 2.9 L Monocytes % (1.7 - 9.3 %) 0.3 L 0.1 L Eosinophils % (0 - 5 %) 0.5 0.3 Basophils % (0.0 - 2.0 %) 0 0 Absolute Granulocytes (1.4 - 6.5 /CUMM) 21.9 H 22.1 H Segmented Neutrophils (42.2 - 75.2 %) 70 95 H Band Neutrophils (0.0 - 5.0 %) 17 H 3 Absolute Lymphocytes (1.2 - 3.4 /CUMM) 0.8 L 0.7 L Lymphocytes (20.5 - 51.1 %) 4 L 1 L Monocytes (1.7 - 9.3 %) 3 Absolute Monocytes (0.10 - 0.60 /CUMM) 0.1 0 L Eosinophils (0 - 5.0 %) 2 Absolute Eosinophils (0.0 - 0.7 /CUMM) 0.1 0.1 Absolute Basophils (0.0 - 0.2 /CUMM) 0 0 Metamyelocytes (0.0 - 1.0 %) 4 H 1 Platelet Estimate (ADEQUATE) ADEQUATE ADEQUATE Polychromasia 1+ 1+ Hypochromic-Microcytic 1+ 2+ Anisocytosis 1+ Last 24 Hours of Ramón Results: Blood cultures 2 May 11 negative OR culture May 14 labeled left axillary fluid positive for Staph aureus sensitive to Oxacillin Stool C. difficile May 16 pending Recent Imaging Studies: Chest x-ray May 15 retrocardiac infiltrate TERESA May 16 reveals a small mobile vegetation on the left coronary cusp of the aortic valve Assessment/Plan ID Impression: Continues to improve, with some decrease in the induration and inflammation of the left axilla and chest wall, temperatures remaining normal and white blood cell count continuing to decrease, status post exploration of the left axillary area in the OR 2 days ago, with a large amount of edematous, slightly turbid fluid noted, which is growing Staph aureus. She remains on Unasyn, Day 7 of treatment for MSSA and Clostridium perfringens sepsis, with the TERESA positive for a small vegetation on aortic valve confirming the diagnosis of endocarditis. Her chest x-ray does reveal a left lung density, possibly secondary to pneumonia or atelectasis, with a small effusion also noted. Empyema is possible and, if her white blood cell count does not continue to decrease, evaluation for this should be considered. She remains on Heparin for an extensive DVT of the left upper extremity, status post a transient episode of atrial fibrillation, now with guaiac positive stools reported. Suggestion: 1. Further evaluation/management of the guaiac positive stools per Medicine 2. Follow-up stool for C. difficile 3. Cardiothoracic surgery evaluation 4. Continue Unasyn
--- NOTE | 2018-05-16 10:06 | PN- CRCU ---
See Addendum Subjective HPI/Critical Care Issues: Awake, alert and oriented in no apparent distress. Remains afebrile with WBC improving Remains in sinus rythm TERESA CONCLUSIONS Small mobile vegetation on the left coronary cusp of the aortic valve. Arash Truong M.D. (Electronically Signed) Final Date: 15 May 2018 Laboratory Tests 05/16 05/15 0440 2035 Chemistry Sodium (137 - 145 mmol/L) 132 L Potassium (3.5 - 5.1 mmol/L) 4.2 Chloride (98 - 107 mmol/L) 106 Carbon Dioxide (22 - 30 mmol/L) 18 L Anion Gap (5 - 16) 8 BUN (7 - 17 mg/dL) 26 H Creatinine (0.5 - 1.0 mg/dL) 0.6 Estimated GFR (>60 ml/min) > 60 Glucose (65 - 99 mg/dL) 161 H Calcium (8.4 - 10.2 mg/dL) 7.2 L Phosphorus (2.5 - 4.5 mg/dL) 4.2 Magnesium (1.6 - 2.3 mg/dL) 1.9 Total Bilirubin (0.2 - 1.3 mg/dL) 0.1 L AST (14 - 36 U/L) 27 ALT (9 - 52 U/L) 25 Albumin (3.5 - 5.0 g/dL) 1.6 L Coagulation APTT (25 - 37 SEC) 97 H 31 Hematology CBC w Diff MAN DIFF ORDERED MAN DIFF ORDERED WBC (4.8 - 10.8 /CUMM) 23.0 H 22.9 H RBC (4.20 - 5.40 /CUMM) 3.15 L 3.24 L Hgb (12.0 - 16.0 G/DL) 8.4 L 8.6 L Hct (37 - 47 %) 25.1 L 26.0 L MCV (81.0 - 99.0 FL) 79.6 L 80.1 L MCH (27.0 - 31.0 PG) 26.7 L 26.4 L MCHC (33.0 - 37.0 G/DL) 33.5 32.9 L RDW (11.5 - 14.5 %) 16.6 H 16.8 H Plt Count (130 - 400 /CUMM) 205 198 MPV (7.4 - 10.4 FL) 8.8 9.2 Gran % (42.2 - 75.2 %) 95.6 H 96.7 H Lymphocytes % (20.5 - 51.1 %) 3.6 L 2.9 L Monocytes % (1.7 - 9.3 %) 0.3 L 0.1 L Eosinophils % (0 - 5 %) 0.5 0.3 Basophils % (0.0 - 2.0 %) 0 0 Absolute Granulocytes (1.4 - 6.5 /CUMM) 21.9 H 22.1 H Segmented Neutrophils (42.2 - 75.2 %) 70 95 H Band Neutrophils (0.0 - 5.0 %) 17 H 3 Absolute Lymphocytes (1.2 - 3.4 /CUMM) 0.8 L 0.7 L Lymphocytes (20.5 - 51.1 %) 4 L 1 L Monocytes (1.7 - 9.3 %) 3 Absolute Monocytes (0.10 - 0.60 /CUMM) 0.1 0 L Eosinophils (0 - 5.0 %) 2 Absolute Eosinophils (0.0 - 0.7 /CUMM) 0.1 0.1 Absolute Basophils (0.0 - 0.2 /CUMM) 0 0 Metamyelocytes (0.0 - 1.0 %) 4 H 1 Platelet Estimate (ADEQUATE) ADEQUATE ADEQUATE Polychromasia 1+ 1+ Hypochromic-Microcytic 1+ 2+ Anisocytosis 1+ 05/15 05/14 0418 1600 Chemistry Sodium (137 - 145 mmol/L) 133 L Potassium (3.5 - 5.1 mmol/L) 3.9 Chloride (98 - 107 mmol/L) 106 Carbon Dioxide (22 - 30 mmol/L) 19 L Anion Gap (5 - 16) 8 BUN (7 - 17 mg/dL) 24 H Creatinine (0.5 - 1.0 mg/dL) 0.6 Estimated GFR (>60 ml/min) > 60 Glucose (65 - 99 mg/dL) 149 H Calcium (8.4 - 10.2 mg/dL) 7.0 L Phosphorus (2.5 - 4.5 mg/dL) 3.5 Magnesium (1.6 - 2.3 mg/dL) 1.8 Total Bilirubin (0.2 - 1.3 mg/dL) 0.2 AST (14 - 36 U/L) 19 ALT (9 - 52 U/L) 23 Albumin (3.5 - 5.0 g/dL) 1.6 L Coagulation APTT Cancelled Hematology CBC w Diff MAN DIFF ORDERED WBC (4.8 - 10.8 /CUMM) 28.0 H RBC (4.20 - 5.40 /CUMM) 2.88 L Hgb (12.0 - 16.0 G/DL) 7.6 L Hct (37 - 47 %) 22.5 L MCV (81.0 - 99.0 FL) 78.2 L MCH (27.0 - 31.0 PG) 26.3 L MCHC (33.0 - 37.0 G/DL) 33.6 RDW (11.5 - 14.5 %) 16.5 H Plt Count (130 - 400 /CUMM) 210 MPV (7.4 - 10.4 FL) 8.9 Gran % (42.2 - 75.2 %) 97.2 H Lymphocytes % (20.5 - 51.1 %) 2.3 L Monocytes % (1.7 - 9.3 %) 0.3 L Eosinophils % (0 - 5 %) 0.2 Basophils % (0.0 - 2.0 %) 0 Absolute Granulocytes (1.4 - 6.5 /CUMM) 27.3 H Segmented Neutrophils (42.2 - 75.2 %) 92 H Band Neutrophils (0.0 - 5.0 %) 3 Absolute Lymphocytes (1.2 - 3.4 /CUMM) 0.6 L Lymphocytes (20.5 - 51.1 %) 2 L Monocytes (1.7 - 9.3 %) 1 L Absolute Monocytes (0.10 - 0.60 /CUMM) 0.1 Absolute Eosinophils (0.0 - 0.7 /CUMM) 0.1 Absolute Basophils (0.0 - 0.2 /CUMM) 0 Metamyelocytes (0.0 - 1.0 %) 2 H Platelet Estimate (ADEQUATE) ADEQUATE Polychromasia 1+ Microbiology Date/Time Procedure - Status Source Growth 05/16 0515 Clostridium difficile Toxin A & B - RECD STOOL 05/14 1640 Culture & Sensitivity - RES TRUNK/O.R. STAPH AUREUS 05/14 1640 Gram Stain - RES TRUNK/O.R. Objective Current Medications: Current Medications Sig/Bayron Start time Last Medication Dose Route Stop Time Status Admin Acetaminophen 650 MG Q6P PRN 05/09 2045 AC 05/14 PO 0008 Ampicillin Sodium/ 3,000 MG Q6H 05/13 0800 AC 05/16 Sulbactam Sodium IV 0825 Sodium Chloride 100 ML Atorvastatin Calcium 40 MG 1700 07 1700 AC 05/15 PO 1641 Bupropion HCl 150 MG DAILY 05/10 1403 AC 05/16 PO 0827 Carvedilol 3.125 MG BID 05/11 0900 AC 05/16 PO 0827 Chlorhexidine 15 ML BID 05/14 2100 AC 05/16 Gluconate PO 0615 Dextrose/Sodium 1,000 ML Q20H 05/15 1945 AC 05/15 Chloride IV 05/16 1544 1630 Dextrose/Sodium 1,000 ML Q20H 05/14 2130 DC 05/14 Chloride IV 05/15 1729 2131 Ferric Sodium 125 MG DAILY 05/15 1130 AC 05/15 Gluconate Complex IV 05/17 0959 1217 Sodium Chloride 100 ML Ferric Sodium 125 MG DAILY 05/15 1115 CAN Gluconate Complex IV 05/17 0901 Heparin Sodium 5,000 UNIT .STK-MED ONE 05/16 0016 DC (Porcine) IV 05/16 0017 Heparin Sodium 5,000 UNIT ONCE ONE 05/15 2200 DC 05/15 (Porcine) IV 05/15 2201 2200 Heparin Sodium/ 25,000 UNIT Q24H 05/15 1300 AC 05/15 Dextrose IV 1306 Dextrose/Water 500 ML Insulin Aspart 0 TIDAC 05/15 1700 AC 05/16 SC 0826 Insulin Detemir 5 UNITS BID 05/14 2100 AC 05/16 SC 0826 Insulin Human Regular 0 Q6 05/14 2359 DC 05/15 SC 1217 Memantine 10 MG DAILY 05/16 0900 AC 05/16 PO 0827 Memantine 10 MG BID 05/10 2100 DC 05/14 PO 2116 Nystatin 1 EDWARD BID 05/10 1202 AC 05/16 TOP 0827 Oxycodone HCl 10 MG Q4P PRN 05/16 0945 AC PO Oxycodone HCl 10 MG .STK-MED ONE 05/15 1332 DC PO 05/15 1333 Oxycodone HCl 10 MG Q6 PRN 05/12 1145 DC 05/16 PO 0827 Sertraline HCl 200 MG AT BEDTIME 05/10 2100 AC 05/15 PO 2046 Trazodone HCl 50 MG AT BEDTIME 05/11 2100 AC 05/15 PO 2045 Vital Signs & I&O Last 24 Hrs of Vitals and I&O: Vital Signs Date Time Temp Pulse Resp B/P B/P Pulse O2 O2 Flow FiO2 Mean Ox Delivery Rate 05/16 0827 153/91 05/16 0800 99.5 72 18 144/0 94 Room Air 05/16 0400 96 Room Air 05/16 0000 Room Air 05/16 0000 98.6 72 22 138/61 92 Room Air 05/15 2045 77 148/66 05/15 2000 94 Room Air 05/15 1600 98.6 73 16 138/0 94 Room Air 05/15 1334 140/60 Intake & Output 05/16 1600 05/16 0800 05/16 0000 Intake Total 944 1120 Output Total 200 200 Balance 744 920 Intake, IV 704 640 Intake, Oral 240 480 Number 2 0 Bowel Movements Output, Urine 200 200 Impression/Plan Impression/Plan Impression/Plan: TERESA CONCLUSIONS Small mobile vegetation on the left coronary cusp of the aortic valve. Arash Truong M.D. (Electronically Signed) Final Date: 15 May 2018 She is awake and alert in no acute distress HEENT perioral crusted lesions Chest marked induration, erythema and tenderness of the left chest and breast persist Lungs are clear Heart regular rhythm with no murmur Extremities trace edema both lower extremities; decreased left upper extremity edema, though with persistent tenderness; several crusted lesions on her fingertips Samaniego catheter remains in place CT with ivc IMPRESSION: 1. Interval slight progression in the extent of soft tissue edema and stranding seen involving the left chest wall and the left breast. However, no distinct peripherally rim-enhancing abscess collection or drainable collection is seen. No subcutaneous/soft tissue emphysema is seen. 2. Interval development of a small left-sided pleural effusion and dense consolidation in the basal segments of the left lower lobe. 3. Mild scattered atelectatic changes are also seen, primarily in the lingula and right lower lobe. 4. Enlargement of left heart chambers and moderate coronary artery calcifications noted. Central pulmonary arteries are mildly enlarged. 5. Status post cholecystectomy and gastric bypass surgery. 6. Enlargement of the right adrenal gland and masslike density in the left adrenal gland, unchanged. Findings discussed with Dr. Barbosa at the time of the exam. DICTATED BY: Raji MORGAN,Radha Saleh Pt with Diabetes, recent memory loss, on and off evaluation, previous history of ischemic heart disease CABG, previous hepatitis C infection per chart seen in the emergency room few days prior to admission with vomiting, diarrhea and diffuse hives, found to be afebrile with a bandemia, and discharged home on prednisone with the diagnosis of food poisoning, admitted on May 09 with a 2 day history of increasing lethargy, confusion, decreased p.o. intake, persistent diarrhea and decreased urine output, with the additional history of a painful "cyst" in her left axilla over the past 1-2 weeks prior to admission, and upon admission was found to be febrile, tachycardic and in atrial fibrillation then converted to sinus, with bandemia, elevated lactic acid and with a CT of the chest revealing extensive soft tissue infiltration and edema involving the left anterior lateral chest wall, with blood cultures reported positive for gram- positive cocci and gram-negative rods. Issues * Sepsis due to skin and soft tissue infection of the left chest wall,s/p I and d, with aortic valve endocarditis * Staph and clostriduium perfrin bacteremia, now with endocarditis * Sig DVT left upper ext * Small effusion and dense consolidation of left lower lobe due to atx vs pna ( less likely) * Herpes oralis * Pafib * Recent lethargy and memory loss needs follow-up * History of IHD with prior CABG with ischemic cardiomyopathy * History of Hep c ( seems to have cleared the virus) prior gastric bypass with post op bleeding complication few yrs ago * Elevated sugar with dm * Electrolyte abnormality REC COnt abx per ID DC A line ORal care with periodex Strict sugar control Change anticoag to lovenox 1 mg sub cut bid and will decide on further oral anticoag depending on the course Iv iron for 3 doses Check stool for heme OOB to chair a must today
--- NOTE | 2018-05-16 11:49 | PN- Cardiology ---
Subjective Subjective: No complaints this a.m. Maintaining sinus rhythm. Objective Vital Signs and I&Os Vital Signs Date Time Temp Pulse Resp B/P B/P Pulse O2 O2 Flow FiO2 Mean Ox Delivery Rate 05/16 0827 153/91 05/16 0800 99.5 72 18 144/0 94 Room Air 05/16 0400 96 Room Air 05/16 0000 Room Air 05/16 0000 98.6 72 22 138/61 92 Room Air 05/15 2045 77 148/66 05/15 2000 94 Room Air 05/15 1600 98.6 73 16 138/0 94 Room Air 05/15 1334 140/60 Intake & Output 05/16 1600 05/16 0800 05/16 0000 05/15 1600 05/15 0800 05/15 0000 Intake Total 944 1120 1550 494 400 Output Total 200 200 200 175 275 Balance 469 658 1678 319 125 Intake, Blood 400 Product Intake, IV 704 640 700 494 150 Intake, Oral 240 480 450 0 250 Number 2 0 0 0 0 Bowel Movements Output, Urine 200 200 200 175 275 Patient 189 lb 186 lb Weight Weight Bed scale Bed scale Measurement Method Physical Exam: Well-developed, overweight female who is confused/ lethargic, but in no acute distress with oxygen in place. Vital signs: See above. HEENT: Normocephalic, atraumatic, EOMI, moist mucous membranes, poor dentition. Neck: No JVD, no bruits. Lungs: Clear to auscultation. Heart: S1, S2 (regular) with grade 1/6 systolic murmur. No gallop or rub. PMI not well felt. Abdomen: Soft, nontender, positive bowel sounds. Extremities: No LE edema. Current Medications: Current Medications Sig/Bayron Start time Last Medication Dose Route Stop Time Status Admin Acetaminophen 650 MG Q6P PRN 05/09 2045 AC 05/14 PO 0008 Ampicillin Sodium/ 3,000 MG Q6H 05/13 0800 AC 05/16 Sulbactam Sodium IV 0825 Sodium Chloride 100 ML Atorvastatin Calcium 40 MG 1700 05/10 1700 AC 05/15 PO 1641 Bupropion HCl 150 MG DAILY 05/10 1403 AC 05/16 PO 0827 Carvedilol 3.125 MG BID 05/11 0900 AC 05/16 PO 0827 Chlorhexidine 15 ML BID 05/14 2100 AC 05/16 Gluconate PO 0615 Dextrose/Sodium 1,000 ML Q20H 05/15 1945 05/15 Chloride IV 05/16 1544 1630 Dextrose/Sodium 1,000 ML Q20H 05/14 2130 MD 05/14 Chloride IV 05/15 1729 2131 Ferric Sodium 125 MG DAILY 05/15 1130 05/16 Gluconate Complex IV 05/17 0959 1047 Sodium Chloride 100 ML Heparin Sodium 5,000 UNIT .STK-MED ONE 05/16 0016 DC (Porcine) IV 05/16 0017 Heparin Sodium 5,000 UNIT ONCE ONE 05/15 2200 MD 05/15 (Porcine) IV 05/15 2201 2200 Heparin Sodium/ 25,000 UNIT Q24H 05/15 1300 AC 05/15 Dextrose IV 1306 Dextrose/Water 500 ML Insulin Aspart 0 TIDAC 05/15 1700 05/16 SC 0826 Insulin Detemir 5 UNITS BID 05/14 2100 05/16 SC 0826 Insulin Human Regular 0 Q6 05/14 2359 MD 05/15 SC 1217 Memantine 10 MG DAILY 05/16 0900 05/16 PO 0827 Nystatin 1 EDWARD BID 05/10 1202 05/16 TOP 0827 Oxycodone HCl 10 MG Q4P PRN 05/16 0945 PO Oxycodone HCl 10 MG .STK-MED ONE 05/15 1332 DC PO 05/15 1333 Oxycodone HCl 10 MG Q6 PRN 05/12 1145 MD 05/16 PO 0827 Sertraline HCl 200 MG AT BEDTIME 05/10 2100 05/15 PO 2046 Trazodone HCl 50 MG AT BEDTIME 05/11 2100 05/15 PO 2046 Results Last 48 Hrs of Labs/Mics: Laboratory Tests 05/16/18 0440: Anion Gap 8, Estimated GFR > 60, Glucose 161 H, Calcium 7.2 L, Phosphorus 4.2, Magnesium 1.9, Total Bilirubin 0.1 L, AST 27, ALT 25, Albumin 1.6 L, APTT 97 H, CBC w Diff MAN DIFF ORDERED, RBC 3.15 L, MCV 79.6 L, MCH 26.7 L, MCHC 33.5 , RDW 16.6 H, MPV 8.8, Gran % 95.6 H, Lymphocytes % 3.6 L, Monocytes % 0.3 L , Eosinophils % 0.5, Basophils % 0, Absolute Granulocytes 21.9 H, Segmented Neutrophils 70, Band Neutrophils 17 H, Absolute Lymphocytes 0.8 L, Lymphocytes 4 L, Monocytes 3, Absolute Monocytes 0.1, Eosinophils 2, Absolute Eosinophils 0.1, Absolute Basophils 0, Metamyelocytes 4 H, Platelet Estimate ADEQUATE, Polychromasia 1+, Hypochromic-Microcytic 1+ 05/15/18 2035: APTT 31, CBC w Diff MAN DIFF ORDERED, RBC 3.24 L, MCV 80.1 L, MCH 26.4 L, MCHC 32.9 L, RDW 16.8 H, MPV 9.2, Gran % 96.7 H, Lymphocytes % 2.9 L, Monocytes % 0.1 L, Eosinophils % 0.3, Basophils % 0, Absolute Granulocytes 22.1 H, Segmented Neutrophils 95 H, Band Neutrophils 3, Absolute Lymphocytes 0.7 L , Lymphocytes 1 L, Absolute Monocytes 0 L, Absolute Eosinophils 0.1, Absolute Basophils 0, Metamyelocytes 1, Platelet Estimate ADEQUATE, Polychromasia 1+, Hypochromic-Microcytic 2+, Anisocytosis 1+ 05/15/18 0418: Anion Gap 8, Estimated GFR > 60, Glucose 149 H, Calcium 7.0 L, Phosphorus 3.5, Magnesium 1.8, Total Bilirubin 0.2, AST 19, ALT 23, Albumin 1.6 L, CBC w Diff MAN DIFF ORDERED, RBC 2.88 L, MCV 78.2 L, MCH 26.3 L, MCHC 33.6, RDW 16.5 H, MPV 8.9, Gran % 97.2 H, Lymphocytes % 2.3 L, Monocytes % 0.3 L, Eosinophils % 0.2, Basophils % 0, Absolute Granulocytes 27.3 H, Segmented Neutrophils 92 H, Band Neutrophils 3, Absolute Lymphocytes 0.6 L, Lymphocytes 2 L, Monocytes 1 L, Absolute Monocytes 0.1, Absolute Eosinophils 0.1, Absolute Basophils 0, Metamyelocytes 2 H, Platelet Estimate ADEQUATE, Polychromasia 1+ 05/14/18 1600: APTT Cancelled Assessment/Plan Assessment/Plan 62-[id number]-o-w-f w/ hx fmr tob use, COPD, hep C, HTN, HLD, DM w/ neuropathy, CAD/HF ( vide supra) who presented on 05/09/2018 w/ AMS, lethargy, poor by mouth intake, continued diarrhea, & decreased urine output after evaluation/management on 05/2018 for "food poisoning" & an "allergic reaction" after eating shrimp w/ hives, N/V/D w/ d/c on prednisone & Benadryl who also described a "cyst" in her L axillary region that had "ruptured" w/ purulent drainage a week prior and who was found to be confused, febrile (100.6 degrees), transiently hypotensive (90/ 58 mmHg), mildly tachypneic (18 rpm) & in "new onset" AF w/ RVR (188 bpm) w/ improved hemodynamics following volume resuscitation (crystalloid), IV diltiazem , empiric IV Abx Rx, etc. w/ spontaneous conversion back to SR. The source for her septic shock is likely the skin/soft tissues of the L chest wall. She improved hemodynamically, but increased WBC prompted surgical intervention, 05/14/2018. She has PAF, but has been maintaining sinus rhythm. Also discovered to have a left upper extremity DVT. TTE negative for valvular vegetations, but TERESA performed 05/15/2018 revealed evidence of small mobile vegetation on L coronary cusp of the aortic valve. No other vegetations observed. Recommendations: * Continue ICU management. * Long duration of antimicrobial therapy, given findings of AV vegetation. * [id number] Score of 4 & LUE DVT so continue AC. * Aim to maintain magnesium at or above 2.0 md/dl. * DVT prophylaxis addressed. Continue telemetry? Not applicable (In ICU.)
[2018-05-16 12:59] LABS: PTT 30 SEC (25-37)
--- NOTE | 2018-05-16 13:05 | PN- General Surgery ---
Surgical Brief Attending Note Brief Attending Note: Slow improvement of cellulitis breast and edema. Dressing changed. Daily guaze to cover and absorb drainage around Inez drains. Drains to be removed next week pending clinical course.
[2018-05-16 16:00] VITALS: BP 148/0
[2018-05-17] VITALS: BP 158/62
[2018-05-17 05:42] LABS: ABSOLUTE BASOPHIL COUNT 0 /CUMM (0.0-0.2); ABSOLUTE EOSINOPHIL COUNT 0.1 /CUMM (0.0-0.7); ABSOLUTE GRANULOCYTE CT 16.2 /CUMM (1.4-6.5); ABSOLUTE LYMPH COUNT 0.8 /CUMM (1.2-3.4); ABSOLUTE MONOCYTE COUNT 0.1 /CUMM (0.10-0.60); BASOPHIL % 0 % (0.0-2.0); EOSINOPHIL % 0.6 % (0-5); GRANULOCYTE % 94.3 % (42.2-75.2); HEMATOCRIT 25.4 % (37-47); MEAN CORPUSCULAR HGB 27.2 PG (27.0-31.0); MEAN CORPUSCULAR HGB CONC 33.7 G/DL (33.0-37.0); MEAN CORPUSCULAR VOLUME 80.5 FL (81.0-99.0); MEAN PLATELET VOLUME 8.8 FL (7.4-10.4); PLATELET COUNT 239 /CUMM (130-400); RBC DISTRIBUTION WIDTH 16.5 % (11.5-14.5); RED BLOOD CELL CT 3.15 /CUMM (4.20-5.40); WHITE BLOOD CELL COUNT 17.2 /CUMM (4.8-10.8)
[2018-05-17 08:00] VITALS: BP 146/00
--- NOTE | 2018-05-17 09:22 | PN- Resident CRCU ---
Ji MORGAN,Chandra 05/17/18 0922: Subjective HPI/CRCU Issues: severe sepsis left breast cellulitis endocarditis LUE DVT afib with rvr Heme occult stools 24 Hour Events: Awake, alert and oriented, does intermittently complain of pain around the drainage area Remains afebrile with WBC dramatically improving Remains in sinus rythm Heparin drip off, started on Lovenox Objective Vital Signs & I&O Last 8 Hrs of Vitals and I&O: Intake & Output 05/17 1600 05/17 0800 05/17 0000 Intake Total 340 460 Output Total 250 200 Balance 90 260 Intake, IV 100 100 Intake, Oral 240 360 Number 0 0 Bowel Movements Output, Urine 250 200 Laboratory Tests 05/17 0410 Chemistry Sodium (137 - 145 mmol/L) 132 L Potassium (3.5 - 5.1 mmol/L) 4.2 Chloride (98 - 107 mmol/L) 104 Carbon Dioxide (22 - 30 mmol/L) 20 L Anion Gap (5 - 16) 8 BUN (7 - 17 mg/dL) 24 H Creatinine (0.5 - 1.0 mg/dL) 0.6 Estimated GFR (>60 ml/min) > 60 Glucose (65 - 99 mg/dL) 94 Calcium (8.4 - 10.2 mg/dL) 6.9 L Phosphorus (2.5 - 4.5 mg/dL) 4.5 Magnesium (1.6 - 2.3 mg/dL) 1.9 Total Bilirubin (0.2 - 1.3 mg/dL) 0.2 AST (14 - 36 U/L) 23 ALT (9 - 52 U/L) 25 Albumin (3.5 - 5.0 g/dL) 1.7 L Hematology CBC w Diff NO MAN DIFF REQ WBC (4.8 - 10.8 /CUMM) 17.2 H RBC (4.20 - 5.40 /CUMM) 3.15 L Hgb (12.0 - 16.0 G/DL) 8.6 L Hct (37 - 47 %) 25.4 L MCV (81.0 - 99.0 FL) 80.5 L MCH (27.0 - 31.0 PG) 27.2 MCHC (33.0 - 37.0 G/DL) 33.7 RDW (11.5 - 14.5 %) 16.5 H Plt Count (130 - 400 /CUMM) 239 MPV (7.4 - 10.4 FL) 8.8 Gran % (42.2 - 75.2 %) 94.3 H Lymphocytes % (20.5 - 51.1 %) 4.4 L Monocytes % (1.7 - 9.3 %) 0.7 L Eosinophils % (0 - 5 %) 0.6 Basophils % (0.0 - 2.0 %) 0 Absolute Granulocytes (1.4 - 6.5 /CUMM) 16.2 H Absolute Lymphocytes (1.2 - 3.4 /CUMM) 0.8 L Absolute Monocytes (0.10 - 0.60 /CUMM) 0.1 Absolute Eosinophils (0.0 - 0.7 /CUMM) 0.1 Absolute Basophils (0.0 - 0.2 /CUMM) 0 Exam General Appearance: alert, awake Other Physical Findings: Cardiovascular: Dressing/drainage intact at left chest wall area with no obvius acute active bleeeding. regular rate/rhythm, normal peripheral pulses Gastrointestinal: normal bowel sounds, soft, non-tender, no organomegaly Extremities: normal capillary refill, RUE swelling > left, with range of motion limited by pain, some serous drainage from left breast and worsening erythema Current Medications: Current Medications Sig/Bayron Start time Last Medication Dose Route Stop Time Status Admin Acetaminophen 650 MG Q6P PRN 05/09 2045 AC 05/17 PO 0859 Ampicillin Sodium/ 3,000 MG Q6H 05/13 0800 AC 05/17 Sulbactam Sodium IV 1321 Sodium Chloride 100 ML Atorvastatin Calcium 40 MG 1700 05/10 1700 AC 05/16 PO 1616 Bupropion HCl 150 MG DAILY 05/10 1403 AC 05/17 PO 0854 Carvedilol 3.125 MG BID 05/11 0900 AC 05/17 PO 0854 Chlorhexidine 15 ML BID 05/14 2100 AC 05/17 Gluconate PO 1320 Dextrose/Sodium 1,000 ML Q20H 05/15 1945 DC 05/15 Chloride IV 05/16 1544 1630 Enoxaparin Sodium 80 MG BID 05/16 1400 AC 05/17 SC 0854 Ferric Sodium 125 MG DAILY 05/15 1130 DC 05/17 Gluconate Complex IV 05/17 0959 0941 Sodium Chloride 100 ML Insulin Aspart 0 TIDAC 07/17 1700 AC 05/16 SC 1204 Insulin Detemir 5 UNITS BID 05/14 2100 AC 05/17 SC 0900 Memantine 10 MG DAILY 05/16 0900 AC 05/17 PO 0854 Morphine Sulfate 4 MG .STK-MED ONE 05/17 1037 DC IV 05/17 1038 Morphine Sulfate 2 MG ONCE ONE 05/17 0715 DC 05/17 IV 05/17 0716 0742 Morphine Sulfate 2 MG ONCE ONE 05/17 0145 DC 05/17 IV 05/17 0146 0137 Nystatin 1 EDWARD BID 05/10 1202 DC 05/17 TOP 0854 Oxycodone HCl 10 MG Q4P PRN 05/16 0945 AC 05/17 PO 1321 Pantoprazole Sodium 40 MG BID 05/17 1232 AC 05/17 IV 1321 Sertraline HCl 200 MG AT BEDTIME 05/10 2100 AC 05/16 PO 2040 Trazodone HCl 50 MG AT BEDTIME 05/11 2100 AC 05/16 PO 203 Impression/Plan Impression/Problem List Impression: 62 year old female with past medical history significant for morbid obesity, DM, STERLING s/p laparoscopic Bindu-en-Y gastric bypass (2015), HTN, CAD/IL s/p PCI and CABG presented with several days of poor oral intake, diarrhea, urinary incontinence, lethargy, and confusion. In the ED, she met sepsis criteria with fever to 100.6, tachycardia, bandemia, and lactic acidemia. She was found to be in new onset rapid atrial fibrillation, and a heart rate of 200. Her lethargy, confusion, and atrial fibrillation were likely precipitated by infection, from a left breast cellulitis. She is now s/p IR drainage and continous to be on ABX, but with persistent leukocytosis. Impression Persistent sepsis secondary to left chest wall skin and soft tissue infection, now s/p OR drainage insertion. WBC appears to be improving significantly. Staph aureus and clostridium perfringens bacteremia upper extremity DVT, extensive. New onset rapid A. fib (paroxysmal). Oral lesions Altered mental status. Transit episodes. History of chronic diseases; CAD status post CABG, ischemic cardiomyopathy,, hepatitis C, diabetes. Plan Stop IV fluids and encourage liberal fluid intake Continue Lovenox 80 mg twice a day for A. fib and upper extremity DVT Continue Unasyn, she will need 4-6 weeks of antibiotic given the positive valvular vegetation, PICC line already in place Accu-Chek 3 times a day and bedtime with strict controls targeting a rate of 140 /180 Will increase oxycodone to every 4 hours and use intermittent IV morphine to fully address the pain Will obtain GI eval for heme occult stools DVT prophylaxis; addressed by Carlos CODE STATUS: Full code Problem List: 1. Cellulitis 2. Sepsis 3. Rapid atrial fibrillation Pain Ratin Tomorrow's Labs & Rationales: icu bundle cbc Plan DVT/Prophylaxis: mechanical, pharmacological Zeke MORGAN,[facility] 05/17/18 1010: Attending MD Review Statement Attending Sign Off Attending Cosign Statement: I have: examined this patient, reviewed avalbl EMR data, personally reviewd images, discussd w/resident/PA/MATERIALS SPECIALIST, discussed mgmt plan w/teri, discussed mgmt plan w/CM, discussed mgmt plan w/pt, agreed w/resident/PA/MATERIALS SPECIALIST, amended to note. Other Findings: Afebrile. She reports nausea but notes improvement in her left chest wall pain. One episode of guiac positive stool yesterday She is awake and alert in no acute distress HEENT perioral crusted lesions Chest marked induration, erythema and tenderness of the left chest and breast persist Lungs are clear Heart regular rhythm with no murmur Extremities trace edema both lower extremities; decreased left upper extremity edema, though with persistent tenderness; several crusted lesions on her fingertips Araya catheter remains in place Pt with Diabetes, recent memory loss, on and off evaluation, previous history of ischemic heart disease CABG, previous hepatitis C infection per chart seen in the emergency room few days prior to admission with vomiting, diarrhea and diffuse hives, found to be afebrile with a bandemia, and discharged home on prednisone with the diagnosis of food poisoning, admitted on May 09 with a 2 day history of increasing lethargy, confusion, decreased p.o. intake, persistent diarrhea and decreased urine output, with the additional history of a painful "cyst" in her left axilla over the past 1-2 weeks prior to admission, and upon admission was found to be febrile, tachycardic and in atrial fibrillation then converted to sinus, with bandemia, elevated lactic acid and with a CT of the chest revealing extensive soft tissue infiltration and edema involving the left anterior lateral chest wall, with positive blood cultures Current issues * Resolving Sepsis due to skin and soft tissue infection of the left chest wall ,s/p I and d, with aortic valve endocarditis * Staph and clostriduium perfrin bacteremia, now with endocarditis * Sig DVT left upper ext on systemic anticoag * Small effusion and dense consolidation of left lower lobe due to atx vs pna ( less likely) * Herpes oralis * Pafib * Recent lethargy and memory loss needs follow-up * History of IHD with prior CABG with ischemic cardiomyopathy * History of Hep c ( seems to have cleared the virus) prior gastric bypass with post op bleeding complication few yrs ago * Elevated sugar with dm * Electrolyte abnormality * Guaiac positive stool with iron def anemia, on iV iron REC COnt abx per ID DC araya Start IV ppi bid Ask GI to see ORal care with periodex Strict sugar control COnt anticoag OOB to chair
--- NOTE | 2018-05-17 10:03 | PN- Infect Dx ---
Subjective Subjective: Afebrile. She reports nausea but notes improvement in her left chest wall pain. Objective Last 24 Hrs of Vital Signs/I&O Vital Signs Date Time Temp Pulse Resp B/P B/P Pulse O2 O2 Flow FiO2 Mean Ox Delivery Rate 05/17 0400 94 Room Air 05/17 0000 97.9 78 17 158/62 94 Room Air 05/17 0000 94 Room Air 05/16 2037 78 148/56 05/16 2000 94 Room Air 05/16 1600 98.1 76 20 148/0 94 Room Air Intake & Output 05/17 1600 05/17 0800 05/17 0000 Intake Total 340 460 Output Total 250 200 Balance 90 260 Intake, IV 100 100 Intake, Oral 240 360 Number 0 0 Bowel Movements Output, Urine 250 200 Physical Exam Other Physical Findings: She appears comfortable in no acute distress Chest persistent induration, erythema and tenderness of the left breast and chest wall Lungs are clear Heart regular rhythm with no murmur Abdomen is soft, nontender with positive bowel sounds Extremities trace edema both lower extremities; PICC in the right upper extremity with no inflammation at the site Samaniego catheter remains in place Results Last 24 Hours of Lab Results: Laboratory Tests 05/17 05/16 0410 UNK Chemistry Sodium (137 - 145 mmol/L) 132 L Potassium (3.5 - 5.1 mmol/L) 4.2 Chloride (98 - 107 mmol/L) 104 Carbon Dioxide (22 - 30 mmol/L) 20 L Anion Gap (5 - 16) 8 BUN (7 - 17 mg/dL) 24 H Creatinine (0.5 - 1.0 mg/dL) 0.6 Estimated GFR (>60 ml/min) > 60 Glucose (65 - 99 mg/dL) 94 Calcium (8.4 - 10.2 mg/dL) 6.9 L Phosphorus (2.5 - 4.5 mg/dL) 4.5 Magnesium (1.6 - 2.3 mg/dL) 1.9 Total Bilirubin (0.2 - 1.3 mg/dL) 0.2 AST (14 - 36 U/L) 23 ALT (9 - 52 U/L) 25 Albumin (3.5 - 5.0 g/dL) 1.7 L Coagulation APTT (25 - 37 SEC) 30 Hematology CBC w Diff NO MAN DIFF REQ WBC (4.8 - 10.8 /CUMM) 17.2 H RBC (4.20 - 5.40 /CUMM) 3.15 L Hgb (12.0 - 16.0 G/DL) 8.6 L Hct (37 - 47 %) 25.4 L MCV (81.0 - 99.0 FL) 80.5 L MCH (27.0 - 31.0 PG) 27.2 MCHC (33.0 - 37.0 G/DL) 33.7 RDW (11.5 - 14.5 %) 16.5 H Plt Count (130 - 400 /CUMM) 239 MPV (7.4 - 10.4 FL) 8.8 Gran % (42.2 - 75.2 %) 94.3 H Lymphocytes % (20.5 - 51.1 %) 4.4 L Monocytes % (1.7 - 9.3 %) 0.7 L Eosinophils % (0 - 5 %) 0.6 Basophils % (0.0 - 2.0 %) 0 Absolute Granulocytes (1.4 - 6.5 /CUMM) 16.2 H Absolute Lymphocytes (1.2 - 3.4 /CUMM) 0.8 L Absolute Monocytes (0.10 - 0.60 /CUMM) 0.1 Absolute Eosinophils (0.0 - 0.7 /CUMM) 0.1 Absolute Basophils (0.0 - 0.2 /CUMM) 0 Last 24 Hours of Ramón Results: Stool C. difficile May 16 negative Assessment/Plan ID Impression: Overall improved, with decreased discomfort in the left axilla and chest wall, temperatures remaining normal and white blood cell count continuing to decrease, status post exploration of the left axillary area in the OR 3 days ago, with a large amount of edematous, slightly turbid fluid noted, which is growing Staph aureus. She remains on Unasyn, Day 8 of treatment for MSSA and Clostridium perfringens sepsis, with the TERESA positive for a small vegetation on the aortic valve confirming the diagnosis of endocarditis. She remains on Heparin for an extensive DVT of the left upper extremity, status post a transient episode of atrial fibrillation, with one guaiac positive stools reported yesterday. Suggestion: 1. Further monitoring and management for guaiac stools per Medicine 2. Cardiothoracic surgery evaluation 3. Remove Samaniego catheter 4. Continue Unasyn Maia Preciado MD is covering until May 21
--- NOTE | 2018-05-17 15:37 | PN- Cardiology ---
Subjective Subjective: No complaints. Maintaining sinus rhythm. Objective Physical Exam: Well-developed, overweight female who is confused/ lethargic, but in no acute distress with oxygen in place. Vital signs: See above. HEENT: Normocephalic, atraumatic, EOMI, moist mucous membranes, poor dentition. Neck: No JVD, no bruits. Lungs: Clear to auscultation. Heart: S1, S2 (regular) with grade 1/6 systolic murmur. No gallop or rub. PMI not well felt. Abdomen: Soft, nontender, positive bowel sounds. Extremities: No LE edema. Assessment/Plan Assessment/Plan 62-y-o-w-f w/ hx fmr tob use, COPD, hep C, HTN, HLD, DM w/ neuropathy, CAD/HF who presented on 05/09/2018 w/ AMS, lethargy, poor by mouth intake, diarrhea, & decreased urine output after [facility] ED evaluation/management on 05/06/2018 for "food poisoning" & an "allergic reaction" after eating shrimp w/ hives, N/V/D w/ d/c on prednisone & Benadryl who also described a "cyst" in her L axillary region that had "ruptured" w/ purulent drainage a week prior and who was found to be confused, febrile (100.6 degrees), transiently hypotensive (90/58 mmHg), mildly tachypneic (18 rpm) & in "new onset" AF w/ RVR (188 bpm) w/ improved hemodynamics following volume resuscitation (crystalloid), IV diltiazem, empiric IV Abx Rx, etc. w/ spontaneous conversion back to SR. The source for her septic shock is likely the skin/soft tissues of the L chest wall. She improved hemodynamically, but increased WBC prompted surgical intervention, 05/14/2018. She has PAF, but has been maintaining SR. Also discovered to have a LUE DVT. TERESA performed 05/15/2018 revealed a small mobile vegetation on the left coronary cusp of the aortic valve. No other vegetations observed. Recommendations: * Continue ICU management. * Long duration of antimicrobial therapy, given findings of AV vegetation. * [id number] Score of 4 & LUE DVT so continue AC. * Aim to maintain magnesium at or above 2.0 md/dl. * DVT prophylaxis addressed. Continue telemetry? Not applicable (In ICU.)
[2018-05-17 16:00] VITALS: BP 156/60
--- NOTE | 2018-05-17 19:00 | Cons- Gastroenterology ---
General Information and HPI Consulting Request Date of Consult: 05/17/18 Requested By: Zeke MORGAN,Igor Holguin Reason for Consult: I was called by the ICU team midday today, to assess brown, OB+ stool, in a patient with innumerable comorbidities, HD#9. Extensive records reviewed. Source of Information: patient, old records Exam Limitations: fair historian History of Present Illness: 62 y/o female, with complex medical/surgical hx, including DM, HTN, HLD, STERLING, ASHD, [place] post PCI 2006, CABG 2007, CHF, past hx Hep C (remote IVDA x 1 as teenager-> not actively replicating w/o tx; no hx cirrhosis), CCKY, GJ Bindu-en-Y bypass 2014, anxiety, depression, hx periph neuropathy, in [facility] ER 05/06/18 with shrimp allergy (n/v/d/hives)-> D/C from ER on Prednisone, admitted to [facility] 05/09/18 with 2 days of lethargy, confusion, decreased p.o. intake, diarrhea & decreased urine output. 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 She had low normal BP on admission, with Tm 100.4 and heart rate of 200, with EKG revealing atrial fibrillation. 05/09/18: Admission WBC 11K (46S/20B), H/H 11.4/34.4, MCV 78.5, RDW 15.8, PLT 278, PT 16.1, INR 1.47, glu 255, BUN/Cr 41/1.0, GFR 56, Na 132, K 3.5, HCO3 15, AG 19, S osm 294, acetone +1 :8 dilution, + lactate 4.0-> 2.1, Mg 2.2, ca 8.7, alb 2.4, glob 2.4, TBil 1.7 (w /o fracs), alk phos 38, AST 21, ALT 25, trop .03, TSHR 1.01, [EtOH] < 10, U/A- rare RBC/3-5 WBC (abnl sediment per medical team). She had numerous imaging studies that are well described in the computer. Admission chest x-ray revealed subtle blunting of the left CPA. CT of chest revealed extensive soft tissue infiltration and edema involving the left anterior lateral chest wall, with no evidence of necrotizing fasciitis or focal drainable abscess. CT of the head was negative for any acute process. She was treated with IV Cardizem and IV NS in the ER and rx Unasyn. She initially was felt to be in septic shock, probably from a skin source, beginning in the left axilla. Her heart rate stabilized and she converted to NSR. 05/09/18: Blood cultures were subsequently positive for Staph Aureus (MSSA; pansens xc R- Azithromycin & Erythromycin) & Clostridium Perfringens. Her trunk ultimately grew out Staph Aureus as well, with similar sensitivities. IV Unasyn was switched to IV Vancomycin & Ceftriaxone on , per ID & she was seen by surgery for open drainage. Ultrasound of the left breast and chest wall revealed a 4.7 x 1.3 x 2.4 cm fairly localized fluid collection within the superior lateral left breast. IV Flagyl was added on 05/11. Fluid collection in the left breast was drained by IR on 05/11/18. There was suspicion for endocarditis, as there were lesions in her fingers raising concern for emboli. Hospital course was complicated by extensive 05/11/18: DVT of the LUE (verified by Doppler), for which she was started on IV Heparin. : Antibiotics were switched to Unasyn 3g IV Q6h. 05/13/18: Subsequent CT of chest revealed interval progression of soft tissue edema involving the left chest wall and left breast, without any distinct abscess. There is a small left pleural effusion with LLL consolidation. 05/11/18: Echocardiogram- without vegetation, LVEF 60%. A cardiothoracic surgery evaluation was advised. : I&D of left chest & left breast soft tissue infx. 05/14/18: TERESA- *small mobile vegetation of the left coronary cusp of the aortic valve, nl LVEF. A PICC line was placed in the RUE. 05/11/18: Subsequent BC x 2- neg. *The patient was found to have brown, OB positive stool on 05/16/18, prompting the GI consult. She received 1u PRBC on 05/15/18, for *alonzo H/H 7.6/22.5. 05/16/18: stool C. diff- negative. *The patient's IV heparin was switched to Lovenox 80 mg SC BID on , for treatment of extensive DVT of LUE, post transient episode of A. fib. Her IV Unasyn was continued. *She was given IV Fe on 05/15/18. *IV Protonix 40 mg BID was rxd on 05/17/18. The pt was not on NSAIDS. Ex-20 pk yr smoker, D/C 1987. 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 Denies illicit drugs except for 1 instance of IVDA at age 16, after which, she "turned yellow". Had + Hep C Ab, never txd, without active repliaction. No tattoos or body piercings, aside from earrings. 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 No FHx GI Ca, GI disease, or inherited liver disease, but limited hx on paternal side, as F- unknown. The patient claimed she never had a baseline colonoscopy, as she previously "wasn't interested". She claimed she never had an EGD prior to her GJ bypass, which is extremely unusual. Her GJ bypass was done at [facility], [place] [address] Tommie Weber. She previously was on bariatric supplements. She denied any hx dumping syndrome postop. She is 5'0". She claimed her maximum weight was 300+ lbs & that she lost 137 lbs postop, "keeping most of it off". She was started on Carb-3 diet a couple of days ago. Aside from mild nausea without vomiting, she denied any acute GI sx. She admitted to chronic early satiety, which is to be expected post GJ bypass. She denied any hematemesis, abdominal pain, odynophagia, dysphagia, melena, diarrhea, constipation, obstipation, tenesmus, change in stool caliber, or rectal bleeding. She denied any fevers, chills, jaundice, dark urine, light stools, pruritus, confusion, CP (aside from the left CW cellulitis), palpitations, or SOB. 05/09/18: Admission labs- as above. 05/09/18: alk phos 38 05/10/18: *QHCV RNA- *not detected (HC RNA RT IU/ML < 15, HC RNA LOG IU/ML < 1.18) 05/10/18: lactate 2.0 05/11/18: *PAB < 3.0 05/11/18: Hep A Ab, Hep Bs Ag, Hep B core Ab- all neg; +Hep C Ab IgG; HIV- neg. 05/11/18: low Fe 15, low TIBC 193 (*c/w anemia of chronic disease), ferritin 438 (prob acute phase rx), HgbA1C 7.3 05/12/18: B12 > 1000, folate 6.3 05/14/18: PT 18.9, INR 1.72 05/16/18: PTT 30 05/17/18: WBC 17.2 (70S/17B), H/H 8.6/25.4, MCV 80.5, RDW 16.5, PLT 239, glu 94, BUN/Cr 24/0.6, GFR > 60, Na 132, K 4.2, HCO3 20, AG- 8, Mg 1.9, Ca 6.9, PO4 4.5, * albumin 1.7, TBil 0.2, AST 23, ALT 25. Allergies/Medications Allergies: Coded Allergies: shrimp (Intermediate, HIVES AND DIARRHEA 05/09/18) Home Med List: Bupropion HCl (Wellbutrin XL) 150 MG TAB.ER.24H 1 TAB PO DAILY UNKNOWN ( Reported) Carvedilol 3.125 MG TABLET 1 TAB PO BID HEART (Reported) Ketoconazole 2 % CREAM..G. 1 EDWARD TOP DAILY AFFECTED AREA(S) (Reported) apply to affected area(s) Memantine HCl (Namenda XR) 28 MG CAP.SPR.24 1 CAP PO DAILY MEMORY (Reported) Metformin HCl (Metformin HCl ER) 500 MG TAB.ER.24H 1 TAB PO DAILY DM ( Reported) Oxycodone HCl 15 MG TABLET 1 TAB PO Q8H PAIN (Reported) Pregabalin (Lyrica) 150 MG CAPSULE 1 CAP PO BID UNKNOWN (Reported) Sertraline HCl (Zoloft) 100 MG TABLET 2 TAB PO DAILY MENTAL HEALTH (Reported) Trazodone HCl 100 MG TABLET 2 TAB PO QHS SLEEP/MENTAL HEALTH (Reported) Current Medications: Current Medications Sig/Bayron Start time Last Medication Dose Route Stop Time Status Admin Acetaminophen 650 MG .STK-MED ONE 05/17 858 DC PO 07/19 0859 Acetaminophen 650 MG Q6P PRN 05/09 2045 AC 05/17 PO 1631 Ampicillin Sodium/ 3,000 MG Q6H 05/13 0800 AC 05/17 Sulbactam Sodium IV 2017 Sodium Chloride 100 ML Atorvastatin Calcium 40 MG 1700 05/10 1700 AC 05/17 PO 1630 Bupropion HCl 150 MG DAILY 05/10 1403 AC 05/17 PO 0854 Carvedilol 3.125 MG BID 05/11 0900 AC 05/17 PO 2007 Chlorhexidine 15 ML BID 05/14 2100 AC 05/17 Gluconate PO 2008 Enoxaparin Sodium 80 MG BID 05/16 1400 AC 05/17 SC 2008 Ferric Sodium 125 MG DAILY 05/15 1130 DC 05/17 Gluconate Complex IV 05/17 0959 0941 Sodium Chloride 100 ML Insulin Aspart 0 TIDAC 05/15 1700 AC 05/16 SC 1204 Insulin Detemir 5 UNITS BID 05/14 2100 AC 05/17 SC 2017 Memantine 10 MG DAILY 05/16 0900 AC 05/17 PO 0854 Morphine Sulfate 4 MG .STK-MED ONE 05/17 1037 DC IV 05/17 1038 Morphine Sulfate 2 MG ONCE ONE 05/17 0715 DC 05/17 IV 05/17 0716 0742 Morphine Sulfate 2 MG ONCE ONE 05/17 0145 DC 05/17 IV 05/17 0146 0137 Nystatin 1 EDWARD BID 05/10 1202 DC 05/17 TOP 0854 Oxycodone HCl 10 MG Q4P PRN 05/16 0945 AC 05/17 PO 2006 Pantoprazole Sodium 40 MG BID 05/17 1232 AC 05/17 IV 2007 Sertraline HCl 200 MG AT BEDTIME 05/10 2100 AC 05/17 PO 2008 Trazodone HCl 50 MG AT BEDTIME 05/11 2100 AC 05/17 PO 2007 Past History Travel History Traveled to [place] past 21 day No Medical History Blood Transfusion Hx: No (not prior to 05/15/18) Neurological: peripheral neuropathy EENT: NONE Cardiovascular: AFIB, CAD, CHF, hypertension, myocardial infarction Respiratory: COPD Gastrointestinal: NONE Hepatic: NONE (not actively replicating), hepatitis C Renal: NONE Musculoskeletal: osteoarthritis Psychiatric: anxiety, depression, IV drug abuse (remotely x 1, at age 16) Endocrine: diabetes, obesity Blood Disorders: anemia Cancer(s): 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 Tommie Weber at [facility] Family History Relations & Conditions If Any: MOTHER, , Age 70; Cause: Diabetes. FATHER (Pt didn't know her father). ; Cause: Unknown cause of morbidity or mortality. Psychosocial History Where Do You Live? Home Who Do You Live With? self Services at Home: None Primary Language: Romanian Smoking Status: Former Smoker ETOH Use: rare beer, remotely drank more Illicit Drug Use: denies illicit drug use (IVDA x 1 at age 16) Living Will? no Power of Section Plotter Operator/HCP? no Other Social History: . Lives alone. Rl-[id number]-fkly-year cigarette smoker, D/C 1987. Rare beer. 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 No illicit drugs. Remote IVDA x 1 at age 16. No tattoos. Unemployed, as "disabled' from back issues. Functional Ability ADLs Independent: dressing, eating, toileting, bathing. Ambulation: independent IADLs Independent: shopping, housework, finances, food prep, telephone, transportation , medication admin. Employment History Employment: Disability ECHO Results (as available) Date of last Echo 05/14/18 EF% 60 (veg on left coronary cusp AV) Review of Systems Review of Systems: Full 14 point ROS otherwise noncontributory, and as above. Review of Systems Constitutional: Denies: chills, diaphoresis, fever, malaise, weakness, unexplained weight loss. EENTM: Denies: blurred vision, double vision, visual changes, eye pain, eye drainage, eye tearing, icterus, ear discharge, ear pain, ear redness, hearing changes, nasal congestion, epistaxis, nasal pain, throat pain, throat swelling, mouth pain, tooth pain. Cardiovascular: Reports: edema, peripheral edema. Denies: chest pain, orthopena, palpitations, syncope. Respiratory: Denies: cough, hemoptysis, orthopnea, short of breath, sputum production, stridor, wheezing. GI: Reports: nausea. Denies: abdominal pain, bloating, constipation, diarrhea, distention, bowel incontinence, melena, bloody stool, changes in stool, vomiting , steatorrhea. Genitourinary: Denies: discharge, dysuria, frequency, hematuria, hesitation, nocturia, pain, urgency. Musculoskeletal: Reports: back pain (chronic). Denies: gout, joint pain, joint swelling, muscle pain, muscle stiffness, neck pain. Skin: Reports: change in skin color (cellulitis L CW/L breast). Denies: cysts, change in hair/nails, dryness, erythema, jaundice, lesions, lymphangitis, lumps, moles, rash. Neurological/Psychological: Reports: anxiety, depressed, emotional problems. Denies: ataxia, cognitive dysfunction, confusion, dementia, headache, numbness, paresthesia, pre-existing deficit, petit mal seizures, tingling, tremors, tonic-clonic seizures, unable to move lower ext, unable to move upper ext, weakness, other. Hematologic/Endocrine: Denies: bruising, bleeding, polyuria, polydipsia. Immunologic/Allergic: Denies: splenectomy, HIV/AIDS, lymphadenopathy. All Other Systems: Reviewed and Negative Exam & Diagnostic Data Vital Signs and I&O Vital Signs Date Time Temp Pulse Resp B/P B/P Pulse O2 O2 Flow FiO2 Mean Ox Delivery Rate 05/17 2008 76 154/63 05/17 1600 98.3 73 24 156/60 93 Room Air 05/17 1548 Room Air 2.0L 05/17 0800 97.5 74 26 146/00 95 Room Air 05/17 0400 94 Room Air 05/17 0000 97.9 78 17 158/62 94 Room Air 05/17 0000 94 Room Air 05/16 2037 78 148/56 Intake & Output 05/17 1600 05/17 0400 05/16 1600 05/16 0400 05/15 1600 05/15 0400 Intake Total 1308 927 0500 1120 2044 400 Output Total 475 200 400 200 375 275 Balance 3653 693 9608 920 1669 125 Intake, Blood 400 Product Intake, IV 662 708 7060 640 1194 150 Intake, Oral 1120 360 940 480 450 250 Number 0 0 2 0 0 0 Bowel Movements Output, Urine 475 200 400 200 375 275 Patient 189 lb 186 lb Weight Weight Bed scale Bed scale Measurement Method Physical Exam: Well-developed, chronically ill-appearing, malnourished, obese female, in no apparent distress. Non-toxic appearing. Sclera anicteric. Conjunctiva pink. Oropharynx clear. Poor dentition. No oral thrush. No aphthous ulcers. Dry mucous membranes. Zoster left lower lip. There is no adenopathy, thyromegaly, or JVD. No peripheral stigmata of inflammatory bowel disease or chronic liver disease on exam. No spiders on the anterior chest wall. Breast exam: as per surgery, with cellulitis of left breast & left CW/left axilla, with induration, erythema, & slight tenderness. No CVA tenderness. No spine tenderness. Lungs: clear to A&P, with slight decreased breath sounds at the left base. No wheezing, rales, or rhonchi. Heart exam: currently, regular rate rhythm, S1 and S2, with I / systolic murmur. Abdominal exam: normal bowel sounds, soft obese belly, nontender, doughy abdominal wall with anasarca, without guarding or rebound. Old scars. No definite mass or organomegaly, within the limits of the body habitus. No fluid shift. No pulsatile mass. Digital rectal exam: deferred by patient on 05/17/18 (brown, OB+ stool on 05/15/18, API). Extremities: without cyanosis or clubbing. 3+ edema LUE, post DVT (radial pulse intact). 2+ edema of LE B/L. No palpable cords. Mild DJD. ? septic emboli to right pinky. PICC line RUE: clean. No palmar erythema. No Dupuytren's contractures. Distal pulses 2+ bilaterally. DTRs 2+ bilaterally. Right handed. Motor 5/5 B/L (except LUE, due to swelling from DVT). CN II-XII intact. Alert & oriented x 3. No tremor. No asterixis. A detailed exam for peripheral neuropathy was deferred. Results Pertinent Lab Results: Laboratory Tests 05/17 05/16 0410 UNK Chemistry Sodium (137 - 145 mmol/L) 132 L Potassium (3.5 - 5.1 mmol/L) 4.2 Chloride (98 - 107 mmol/L) 104 Carbon Dioxide (22 - 30 mmol/L) 20 L Anion Gap (5 - 16) 8 BUN (7 - 17 mg/dL) 24 H Creatinine (0.5 - 1.0 mg/dL) 0.6 Estimated GFR (>60 ml/min) > 60 Glucose (65 - 99 mg/dL) 94 Calcium (8.4 - 10.2 mg/dL) 6.9 L Phosphorus (2.5 - 4.5 mg/dL) 4.5 Magnesium (1.6 - 2.3 mg/dL) 1.9 Total Bilirubin (0.2 - 1.3 mg/dL) 0.2 AST (14 - 36 U/L) 23 ALT (9 - 52 U/L) 25 Albumin (3.5 - 5.0 g/dL) 1.7 L Coagulation APTT (25 - 37 SEC) 30 Hematology CBC w Diff NO MAN DIFF REQ WBC (4.8 - 10.8 /CUMM) 17.2 H RBC (4.20 - 5.40 /CUMM) 3.15 L Hgb (12.0 - 16.0 G/DL) 8.6 L Hct (37 - 47 %) 25.4 L MCV (81.0 - 99.0 FL) 80.5 L MCH (27.0 - 31.0 PG) 27.2 MCHC (33.0 - 37.0 G/DL) 33.7 RDW (11.5 - 14.5 %) 16.5 H Plt Count (130 - 400 /CUMM) 239 MPV (7.4 - 10.4 FL) 8.8 Gran % (42.2 - 75.2 %) 94.3 H Lymphocytes % (20.5 - 51.1 %) 4.4 L Monocytes % (1.7 - 9.3 %) 0.7 L Eosinophils % (0 - 5 %) 0.6 Basophils % (0.0 - 2.0 %) 0 Absolute Granulocytes (1.4 - 6.5 /CUMM) 16.2 H Absolute Lymphocytes (1.2 - 3.4 /CUMM) 0.8 L Absolute Monocytes (0.10 - 0.60 /CUMM) 0.1 Absolute Eosinophils (0.0 - 0.7 /CUMM) 0.1 Absolute Basophils (0.0 - 0.2 /CUMM) 0 05/16 05/15 0440 2035 Chemistry Sodium (137 - 145 mmol/L) 132 L Potassium (3.5 - 5.1 mmol/L) 4.2 Chloride (98 - 107 mmol/L) 106 Carbon Dioxide (22 - 30 mmol/L) 18 L Anion Gap (5 - 16) 8 BUN (7 - 17 mg/dL) 26 H Creatinine (0.5 - 1.0 mg/dL) 0.6 Estimated GFR (>60 ml/min) > 60 Glucose (65 - 99 mg/dL) 161 H Calcium (8.4 - 10.2 mg/dL) 7.2 L Phosphorus (2.5 - 4.5 mg/dL) 4.2 Magnesium (1.6 - 2.3 mg/dL) 1.9 Total Bilirubin (0.2 - 1.3 mg/dL) 0.1 L AST (14 - 36 U/L) 27 ALT (9 - 52 U/L) 25 Albumin (3.5 - 5.0 g/dL) 1.6 L Coagulation APTT (25 - 37 SEC) 97 H 31 Hematology CBC w Diff MAN DIFF ORDERED MAN DIFF ORDERED WBC (4.8 - 10.8 /CUMM) 23.0 H 22.9 H RBC (4.20 - 5.40 /CUMM) 3.15 L 3.24 L Hgb (12.0 - 16.0 G/DL) 8.4 L 8.6 L Hct (37 - 47 %) 25.1 L 26.0 L MCV (81.0 - 99.0 FL) 79.6 L 80.1 L MCH (27.0 - 31.0 PG) 26.7 L 26.4 L MCHC (33.0 - 37.0 G/DL) 33.5 32.9 L RDW (11.5 - 14.5 %) 16.6 H 16.8 H Plt Count (130 - 400 /CUMM) 205 198 MPV (7.4 - 10.4 FL) 8.8 9.2 Gran % (42.2 - 75.2 %) 95.6 H 96.7 H Lymphocytes % (20.5 - 51.1 %) 3.6 L 2.9 L Monocytes % (1.7 - 9.3 %) 0.3 L 0.1 L Eosinophils % (0 - 5 %) 0.5 0.3 Basophils % (0.0 - 2.0 %) 0 0 Absolute Granulocytes (1.4 - 6.5 /CUMM) 21.9 H 22.1 H Segmented Neutrophils (42.2 - 75.2 %) 70 95 H Band Neutrophils (0.0 - 5.0 %) 17 H 3 Absolute Lymphocytes (1.2 - 3.4 /CUMM) 0.8 L 0.7 L Lymphocytes (20.5 - 51.1 %) 4 L 1 L Monocytes (1.7 - 9.3 %) 3 Absolute Monocytes (0.10 - 0.60 /CUMM) 0.1 0 L Eosinophils (0 - 5.0 %) 2 Absolute Eosinophils (0.0 - 0.7 /CUMM) 0.1 0.1 Absolute Basophils (0.0 - 0.2 /CUMM) 0 0 Metamyelocytes (0.0 - 1.0 %) 4 H 1 Platelet Estimate (ADEQUATE) ADEQUATE ADEQUATE Polychromasia 1+ 1+ Hypochromic-Microcytic 1+ 2+ Anisocytosis 1+ 05/15 0418 Chemistry Sodium (137 - 145 mmol/L) 133 L Potassium (3.5 - 5.1 mmol/L) 3.9 Chloride (98 - 107 mmol/L) 106 Carbon Dioxide (22 - 30 mmol/L) 19 L Anion Gap (5 - 16) 8 BUN (7 - 17 mg/dL) 24 H Creatinine (0.5 - 1.0 mg/dL) 0.6 Estimated GFR (>60 ml/min) > 60 Glucose (65 - 99 mg/dL) 149 H Calcium (8.4 - 10.2 mg/dL) 7.0 L Phosphorus (2.5 - 4.5 mg/dL) 3.5 Magnesium (1.6 - 2.3 mg/dL) 1.8 Total Bilirubin (0.2 - 1.3 mg/dL) 0.2 AST (14 - 36 U/L) 19 ALT (9 - 52 U/L) 23 Albumin (3.5 - 5.0 g/dL) 1.6 L Hematology CBC w Diff MAN DIFF ORDERED WBC (4.8 - 10.8 /CUMM) 28.0 H RBC (4.20 - 5.40 /CUMM) 2.88 L Hgb (12.0 - 16.0 G/DL) 7.6 L Hct (37 - 47 %) 22.5 L MCV (81.0 - 99.0 FL) 78.2 L MCH (27.0 - 31.0 PG) 26.3 L MCHC (33.0 - 37.0 G/DL) 33.6 RDW (11.5 - 14.5 %) 16.5 H Plt Count (130 - 400 /CUMM) 210 MPV (7.4 - 10.4 FL) 8.9 Gran % (42.2 - 75.2 %) 97.2 H Lymphocytes % (20.5 - 51.1 %) 2.3 L Monocytes % (1.7 - 9.3 %) 0.3 L Eosinophils % (0 - 5 %) 0.2 Basophils % (0.0 - 2.0 %) 0 Absolute Granulocytes (1.4 - 6.5 /CUMM) 27.3 H Segmented Neutrophils (42.2 - 75.2 %) 92 H Band Neutrophils (0.0 - 5.0 %) 3 Absolute Lymphocytes (1.2 - 3.4 /CUMM) 0.6 L Lymphocytes (20.5 - 51.1 %) 2 L Monocytes (1.7 - 9.3 %) 1 L Absolute Monocytes (0.10 - 0.60 /CUMM) 0.1 Absolute Eosinophils (0.0 - 0.7 /CUMM) 0.1 Absolute Basophils (0.0 - 0.2 /CUMM) 0 Metamyelocytes (0.0 - 1.0 %) 2 H Platelet Estimate (ADEQUATE) ADEQUATE Polychromasia 1+ Imaging/Other Studies: (*Other extensive imaging studies from earlier this admission, as per [facility] & Marty computer) 05/09/18: EKG- afib @ 188, nl axis, q in III, NSST lat, baseline wander. 05/15/18: EKG- NSR @ 79, nl axis, nl int, q in III, NSST lat, PRWP. 05/15/18: XRY-PORTABLE CHEST XRAY- Right-sided PICC line in place. Retrocardiac infiltrate. Midline sternal wires, post CABG. Assessment/Plan Assessment/Recommendations: 62 y/o female, with complex medical/surgical hx, including DM, HTN, HLD, STERLING, ASHD, [place] post PCI 2006, CABG 2007, CHF, past hx Hep C (remote IVDA x 1 as teenager-> not actively replicating w/o tx; no hx cirrhosis), CCKY, GJ Bindu-en-Y bypass 2014, anxiety, depression, hx periph neuropathy, in [facility] ER 05/06/18 with shrimp allergy (n/v/d/hives)-> D/C from ER on Prednisone, admitted to [facility] 05/09/18 with 2 days of lethargy, confusion, decreased p.o. intake, diarrhea & decreased urine output. 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 She had low normal BP on admission, with Tm 100.4 and heart rate of 200, with EKG revealing atrial fibrillation. 05/09/18: Admission WBC 11K (46S/20B), H/H 11.4/34.4, MCV 78.5, RDW 15.8, PLT 278, PT 16.1, INR 1.47, glu 255, BUN/Cr 41/1.0, GFR 56, Na 132, K 3.5, HCO3 15, AG 19, S osm 294, acetone +1 :8 dilution, + lactate 4.0-> 2.1, Mg 2.2, ca 8.7, alb 2.4, glob 2.4, TBil 1.7 (w /o fracs), alk phos 38, AST 21, ALT 25, trop .03, TSHR 1.01, [EtOH] < 10, U/A- rare RBC/3-5 WBC (abnl sediment per medical team). She had numerous imaging studies that are well described in the computer. Admission chest x-ray revealed subtle blunting of the left CPA. CT of chest revealed extensive soft tissue infiltration and edema involving the left anterior lateral chest wall, with no evidence of necrotizing fasciitis or focal drainable abscess. CT of the head was negative for any acute process. She was treated with IV Cardizem and IV NS in the ER and rx Unasyn. She initially was felt to be in septic shock, probably from a skin source, beginning in the left axilla. Her heart rate stabilized and she converted to NSR. 05/09/18: Blood cultures were subsequently positive for Staph Aureus (MSSA; pansens xc R- Azithromycin & Erythromycin) & Clostridium Perfringens. Her trunk ultimately grew out Staph Aureus as well, with similar sensitivities. IV Unasyn was switched to IV Vancomycin & Ceftriaxone on , per ID & she was seen by surgery for open drainage. Ultrasound of the left breast and chest wall revealed a 4.7 x 1.3 x 2.4 cm fairly localized fluid collection within the superior lateral left breast. IV Flagyl was added on 05/11. Fluid collection in the left breast was drained by IR on 05/11/18. There was suspicion for endocarditis, as there were lesions in her fingers raising concern for emboli. Hospital course was complicated by extensive 05/11/18: DVT of the LUE (verified by Doppler), for which she was started on IV Heparin. : Antibiotics were switched to Unasyn 3g IV Q6h. 05/13/18: Subsequent CT of chest revealed interval progression of soft tissue edema involving the left chest wall and left breast, without any distinct abscess. There is a small left pleural effusion with LLL consolidation. 05/11/18: Echocardiogram- without vegetation, LVEF 60%. A cardiothoracic surgery evaluation was advised. : I&D of left chest & left breast soft tissue infx. 05/14/18: TERESA- *small mobile vegetation of the left coronary cusp of the aortic valve, nl LVEF. A PICC line was placed in the RUE. 05/11/18: Subsequent BC x 2- neg. *The patient was found to have brown, OB positive stool on 05/16/18, prompting the GI consult. She received 1u PRBC on 05/15/18, for *alonzo H/H 7.6/22.5. 05/16/18: stool C. diff- negative. *The patient's IV heparin was switched to Lovenox 80 mg SC BID on , for treatment of extensive DVT of LUE, post transient episode of A. fib. Her IV Unasyn was continued. *She was given IV Fe on 05/15/18. *IV Protonix 40 mg BID was rxd on 05/17/18. The pt was not on NSAIDS. Ex-20 pk yr smoker, D/C 1987. 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 Denies illicit drugs except for 1 instance of IVDA at age 16, after which, she "turned yellow". Had + Hep C Ab, never txd, without active repliaction. No tattoos or body piercings, aside from earrings. 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 No FHx GI Ca, GI disease, or inherited liver disease, but limited hx on paternal side, as F- unknown. The patient claimed she never had a baseline colonoscopy, as she previously "wasn't interested". She claimed she never had an EGD prior to her GJ bypass, which is extremely unusual. Her GJ bypass was done at [facility], [place] [address] Tommie Alvarez. She previously was on bariatric supplements. She denied any hx dumping syndrome postop. She is 5'0". She claimed her maximum weight was 300+ lbs & that she lost 137 lbs postop, "keeping most of it off". She was started on Carb-3 diet a couple of days ago. Aside from mild nausea without vomiting, she denied any acute GI sx. She admitted to chronic early satiety, which is to be expected post GJ bypass. She denied any hematemesis, abdominal pain, odynophagia, dysphagia, melena, diarrhea, constipation, obstipation, tenesmus, change in stool caliber, or rectal bleeding. She denied any fevers, chills, jaundice, dark urine, light stools, pruritus, confusion, CP (aside from the left CW cellulitis), palpitations, or SOB. 05/09/18: Admission labs- as above. 05/09/18: alk phos 38 05/10/18: *QHCV RNA- *not detected (HC RNA RT IU/ML < 15, HC RNA LOG IU/ML < 1.18) 05/10/18: lactate 2.0 05/11/18: *PAB < 3.0 05/11/18: Hep A Ab, Hep Bs Ag, Hep B core Ab- all neg; +Hep C Ab IgG; HIV- neg. 05/11/18: low Fe 15, low TIBC 193 (*c/w anemia of chronic disease), ferritin 438 (prob acute phase rx), HgbA1C 7.3 05/12/18: B12 > 1000, folate 6.3 05/14/18: PT 18.9, INR 1.72 05/16/18: PTT 30 05/17/18: WBC 17.2 (70S/17B), H/H 8.6/25.4, MCV 80.5, RDW 16.5, PLT 239, glu 94, BUN/Cr 24/0.6, GFR > 60, Na 132, K 4.2, HCO3 20, AG- 8, Mg 1.9, Ca 6.9, PO4 4.5, * albumin 1.7, TBil 0.2, AST 23, ALT 25. *As of 05/17/18, the patient's H/H were at acceptable levels, despite the brown, OB+ stool. She was overall improving, post exploration of left axillary/left chest wall cellulitis, with +IE & vegetation on her aortic valve. She had never had a colonoscopy, and denied ever having had an EGD, despite undergoing GJ Bindu -en-Y bypass for treatment of morbid obesity at [facility], by Dr. Tommie Weber, in 2014. Aside from mild nausea, she denied any acute GI symptoms. She had mild chronic early satiety, as expected, post GJ bypass. She remained on IV Unasyn, day #8 of treatment for MSSA & Clostridium perfringens bacteremia. Her IV heparin was switched to Lovenox 80 mg SC BID on 05/16/18, for treatment of extensive DVT of LUE, post transient episode of A. fib. She was very malnourished, manifested by low PAB, low albumin, & anasarca. She was tolerating a Carb-3 diet. Despite the + Hep C Ab, she was not actively replicating, with Q HCV RNA- negative, despite never being txd. *As of 05/17/18, I feel that the risk:benefit ratio warrants continuing A/C therapy, unless the patient actively GI bleeds. Furthermore, in view of the + IE & vegetation on the aortic valve, I would defer EGD & colonoscopy for now, unless the patient were actively GI bleeding, so as not to cause any further bacteremia. This was discussed with the patient in detail, and she is in agreement. She was made aware, however, that EGD/colonoscopy may have to be done as an inpatient, if she actively bleeds. Regarding her IE with vegetation on the AV, this does not appear to be laboratory evidence of hemolysis, with : TBil 0.2. *SUGGEST- *Continue IV PPI BID for now. *Zofran as needed. Continue Carb 3 diet. *Advise Nutrition consult for supplements (i.e.- Glucerna). *The patient should be on iron, folate, B12, thiamine 100 mg daily, Ca2+ & Vitamin D, post GJ bypass. Check CBC daily. T&C 2u PRBC. *Keep Hgb > 8 with hx ASHD. O2 prn. *Continue IV Unasyn 3g Q6h, per ID. *Cardiothoracic surgery evaluation. *Continue Lovenox, per ICU team. *Please contact the GI service if the patient develops any signs or symptoms of significant active GI bleeding. *Otherwise, the patient was given my office number to arrange for outpt EGD & baseline colonoscopy, after stabilization & treatment of her IE. The above was discussed with the ICU medical house staff, Dr. Alanis, & Dr. Gold. Problem List: 1. Anemia 2. Occult blood positive stool 3. Malnutrition 4. History of bypass gastrojejunostomy 5. Infective endocarditis of aortic valve 6. Cellulitis 7. Deep vein thrombosis (DVT) of left upper extremity 8. Hepatitis C antibody test positive 9. Nausea Copies To: Zeke MORGAN,Igor Menchaca.; Alexi MORGAN,Arash S.; Asif MORGAN,Tiburcio Martinez; Ronny MORGAN,Jose Curry; Buddy MORGAN,John S. Consult Acknowledgment - Thank you for your consult request.
[2018-05-18] VITALS: BP 162/00
[2018-05-18 05:18] LABS: ABSOLUTE BASOPHIL COUNT 0 /CUMM (0.0-0.2); ABSOLUTE EOSINOPHIL COUNT 0 /CUMM (0.0-0.7); ABSOLUTE GRANULOCYTE CT 12.5 /CUMM (1.4-6.5); ABSOLUTE LYMPH COUNT 0.8 /CUMM (1.2-3.4); ABSOLUTE MONOCYTE COUNT 0.4 /CUMM (0.10-0.60); BASOPHIL % 0 % (0.0-2.0); EOSINOPHIL % 0.3 % (0-5); GRANULOCYTE % 91.1 % (42.2-75.2); HEMATOCRIT 25.6 % (37-47); MEAN CORPUSCULAR HGB 26.8 PG (27.0-31.0); MEAN CORPUSCULAR HGB CONC 33.4 G/DL (33.0-37.0); MEAN CORPUSCULAR VOLUME 80.4 FL (81.0-99.0); MEAN PLATELET VOLUME 8.7 FL (7.4-10.4); PLATELET COUNT 285 /CUMM (130-400); RED BLOOD CELL CT 3.18 /CUMM (4.20-5.40); WHITE BLOOD CELL COUNT 13.8 /CUMM (4.8-10.8)
--- NOTE | 2018-05-18 07:11 | PN- Resident CRCU ---
Ji MORGAN,Chandra 05/18/18 0710: Subjective HPI/CRCU Issues: severe sepsis left breast cellulitis endocarditis LUE DVT afib with rvr Heme occult stools 24 Hour Events: Clinically she looks signficantly better compared to previous days White count significantly improved, remains afebrile. Remains in sinus rythm. Pain now better controlled. Last positive stool guiac was last night. Objective Vital Signs & I&O Last 8 Hrs of Vitals and I&O: Intake & Output 05/18 1600 05/18 0800 05/18 0000 Intake Total 370 670 Output Total 340 270 Balance 30 400 Intake, IV 130 130 Intake, Oral 240 540 Number 2 0 Bowel Movements Output, Urine 340 270 Patient 86.75 kg Weight Weight Bed scale Measurement Method Laboratory Tests 05/18 0425 Chemistry Sodium (137 - 145 mmol/L) 132 L Potassium (3.5 - 5.1 mmol/L) 4.3 Chloride (98 - 107 mmol/L) 105 Carbon Dioxide (22 - 30 mmol/L) 21 L Anion Gap (5 - 16) 6 BUN (7 - 17 mg/dL) 23 H Creatinine (0.5 - 1.0 mg/dL) 0.7 Estimated GFR (>60 ml/min) > 60 Glucose (65 - 99 mg/dL) 80 Calcium (8.4 - 10.2 mg/dL) 7.0 L Phosphorus (2.5 - 4.5 mg/dL) 4.3 Magnesium (1.6 - 2.3 mg/dL) 1.9 Total Bilirubin (0.2 - 1.3 mg/dL) 0.2 AST (14 - 36 U/L) 23 ALT (9 - 52 U/L) 30 Albumin (3.5 - 5.0 g/dL) 1.8 L Hematology CBC w Diff MAN DIFF ORDERED WBC (4.8 - 10.8 /CUMM) 13.8 H RBC (4.20 - 5.40 /CUMM) 3.18 L Hgb (12.0 - 16.0 G/DL) 8.5 L Hct (37 - 47 %) 25.6 L MCV (81.0 - 99.0 FL) 80.4 L MCH (27.0 - 31.0 PG) 26.8 L MCHC (33.0 - 37.0 G/DL) 33.4 RDW (11.5 - 14.5 %) 17.0 H Plt Count (130 - 400 /CUMM) 285 MPV (7.4 - 10.4 FL) 8.7 Gran % (42.2 - 75.2 %) 91.1 H Lymphocytes % (20.5 - 51.1 %) 5.6 L Monocytes % (1.7 - 9.3 %) 3.0 Eosinophils % (0 - 5 %) 0.3 Basophils % (0.0 - 2.0 %) 0 Absolute Granulocytes (1.4 - 6.5 /CUMM) 12.5 H Segmented Neutrophils (42.2 - 75.2 %) 93 H Absolute Lymphocytes (1.2 - 3.4 /CUMM) 0.8 L Lymphocytes (20.5 - 51.1 %) 6 L Monocytes (1.7 - 9.3 %) 1 L Absolute Monocytes (0.10 - 0.60 /CUMM) 0.4 Absolute Eosinophils (0.0 - 0.7 /CUMM) 0 Absolute Basophils (0.0 - 0.2 /CUMM) 0 Platelet Estimate (ADEQUATE) ADEQUATE Polychromasia 1+ Poikilocytosis 1+ Ovalocytes 1+ Elliptocytes FEW Other Body Source Fld Total RBCs Counted (%) 100 Exam General Appearance: no apparent distress, alert, awake Respiratory: no respiratory distress, lungs clear Cardiovascular: regular rate/rhythm Gastrointestinal: soft, non-tender Extremities: normal capillary refill, no edema Current Medications: Current Medications Sig/Bayron Start time Last Medication Dose Route Stop Time Status Admin Acetaminophen 650 MG .STK-MED ONE 05/18 0925 IA PO 05/18 0926 Acetaminophen 650 MG .STK-MED ONE 05/18 0409 IA PO 05/18 0410 Acetaminophen 650 MG Q6P PRN 05/09 2045 AC 05/18 PO 1611 Ampicillin Sodium/ 3,000 MG Q6H 05/13 0800 AC 05/18 Sulbactam Sodium IV 1958 Sodium Chloride 100 ML Atorvastatin Calcium 40 MG 1700 05/10 1700 AC 05/18 PO 1613 Bupropion HCl 150 MG DAILY 05/10 1403 AC 05/18 PO 0919 Calcium 600 MG BID 05/18 0900 AC 05/18 PO 1439 Carvedilol 3.125 MG BID 05/11 0900 AC 05/18 PO 0919 Chlorhexidine 15 ML BID 05/14 2100 AC 05/18 Gluconate PO 0926 Cyanocobalamin 1,000 MCG DAILY 05/18 0900 AC 05/18 PO 1439 Docusate Sodium 100 MG BID 05/18 1158 AC PO Enoxaparin Sodium 80 MG BID 05/16 1400 AC 05/18 SC 0919 Ferrous Sulfate 325 MG TID 05/18 1400 AC 05/18 PO 1438 Folic Acid 1 MG DAILY 05/18 0900 AC 05/18 PO 1439 Insulin Aspart 0 TIDAC 05/15 1700 AC 05/16 SC 1204 Insulin Detemir 5 UNITS BID 05/14 2100 AC 05/18 SC 0920 Memantine 10 MG DAILY 05/16 0900 AC 05/18 PO 0919 Oxycodone HCl 10 MG Q4P PRN 05/16 0945 AC 05/18 PO 1958 Pantoprazole Sodium 40 MG BID 05/17 1232 AC 05/18 IV 0919 Polyethylene Glycol 17 GM DAILY 05/18 1158 AC PO Sertraline HCl 200 MG AT BEDTIME 05/10 2100 AC 05/17 PO 2007 Thiamine HCl 100 MG DAILY 05/18 0900 AC 05/18 PO 1439 Trazodone HCl 50 MG AT BEDTIME 05/11 2100 AC 05/17 PO 2007 Impression/Plan Impression/Problem List Impression: 62 year old female with past medical history significant for morbid obesity, DM, STERLING s/p laparoscopic Bindu-en-Y gastric bypass (2015), HTN, CAD/AK s/p PCI and CABG presented with several days of poor oral intake, diarrhea, urinary incontinence, lethargy, and confusion. In the ED, she met sepsis criteria with fever to 100.6, tachycardia, bandemia, and lactic acidemia. She was found to be in new onset rapid atrial fibrillation, and a heart rate of 200. Her lethargy, confusion, and atrial fibrillation were likely precipitated by infection, from a left breast cellulitis. She is now s/p IR drainage and continous to be on ABX, but with persistent leukocytosis. Impression sepsis secondary to left chest wall skin and soft tissue infection, now s/p OR drainage insertion. WBC appears to be improving significantly. Staph aureus and clostridium perfringens bacteremia Infective endocarditis upper extremity DVT, extensive. New onset rapid A. fib (paroxysmal). Oral lesions Altered mental status. Transit episodes. History of chronic diseases; CAD status post CABG, ischemic cardiomyopathy,, hepatitis C, diabetes. Plan Continueto encourage liberal fluid intake Continue Lovenox 80 mg twice a day for A. fib and upper extremity DVT Continue Unasyn, she will need 4-6 weeks of antibiotic given the positive valvular vegetation, PICC line already in place Accu-Chek 3 times a day and bedtime with strict controls targeting a rate of 140 /180 Pain control with [id number] q 4 hours and use intermittent IV morphine to fully address the pain Thiamine,foilic,b12 per GI DVT prophylaxis; addressed by Lovenox Problem List: 1. Infective endocarditis of aortic valve 2. Occult blood positive stool 3. Cellulitis Pain Ratin Pain Location: chest wall area Tomorrow's Labs & Rationales: icu bundle-icu pt Plan DVT/Prophylaxis: mechanical, pharmacological Zeke MORGAN,[facility] 05/18/18 0854: Attending MD Review Statement Attending Sign Off Attending Cosign Statement: I have: examined this patient, reviewed [employer] EMR data, personally reviewd images, discussd w/resident/PA/SOCIAL WORKER ASSISTANT, discussed mgmt plan w/teri, discussed mgmt plan w/CM, discussed mgmt plan w/pt, agreed w/resident/PA/SOCIAL WORKER ASSISTANT, amended to note. Other Findings: Improving Seen and examined Hemoglobin stable She is awake and alert in no acute distress HEENT perioral crusted lesions Chest marked induration, erythema and tenderness of the left chest and breast persist Lungs are clear Heart regular rhythm with no murmur Extremities trace edema both lower extremities; decreased left upper extremity edema, though with persistent tenderness; several crusted lesions on her fingertips Samaniego catheter remains in place Pt with Diabetes, recent memory loss, on and off evaluation, previous history of ischemic heart disease CABG, previous hepatitis C infection per chart seen in the emergency room few days prior to admission with vomiting, diarrhea and diffuse hives, found to be afebrile with a bandemia, and discharged home on prednisone with the diagnosis of food poisoning, admitted on May 09 with a 2 day history of increasing lethargy, confusion, decreased p.o. intake, persistent diarrhea and decreased urine output, with the additional history of a painful "cyst" in her left axilla over the past 1-2 weeks prior to admission, and upon admission was found to be febrile, tachycardic and in atrial fibrillation then converted to sinus, with bandemia, elevated lactic acid and with a CT of the chest revealing extensive soft tissue infiltration and edema involving the left anterior lateral chest wall, with positive blood cultures upon admission Current issues * Resolving Sepsis due to skin and soft tissue infection of the left chest wall ,s/p I and d, with aortic valve endocarditis * Staph and clostriduium perfrin bacteremia, now with endocarditis * Sig DVT left upper ext on systemic anticoag * Small effusion and dense consolidation of left lower lobe due to atx vs pna ( less likely) * Herpes oralis * Pafib * Recent lethargy and memory loss needs follow-up * History of IHD with prior CABG with ischemic cardiomyopathy * History of Hep c ( seems to have cleared the virus) prior gastric bypass with post op bleeding complication few yrs ago * Elevated sugar with dm * Electrolyte abnormality * Guaiac positive stool with iron def anemia, on iV iron REC COnt abx per ID PPI ORal care with periodex Strict sugar control COnt anticoag OOB to chair Prob ok to the floor
[2018-05-18 08:00] VITALS: BP 159/74
--- NOTE | 2018-05-18 12:18 | PN- Cardiology ---
Subjective Subjective: Complaining of some stomach upset. Denies any chest discomfort, palpitations, shortness of breath, etc. Remains in sinus rhythm. Objective Vital Signs and I&Os Vital Signs Date Time Temp Pulse Resp B/P B/P Pulse O2 O2 Flow FiO2 Mean Ox Delivery Rate 05/18 0800 98.4 76 20 159/74 96 Room Air 05/18 0000 98.5 66 16 162/00 94 Room Air Room Air 05/17 2008 76 154/63 05/17 1600 98.3 73 24 156/60 93 Room Air 05/17 1548 Room Air 2.0L Intake & Output 05/18 1600 05/18 0800 05/18 0000 05/17 1600 05/17 0800 05/17 0000 Intake Total 787 104 7493 340 460 Output Total 340 270 225 250 200 Balance 30 400 1015 90 260 Intake, IV 130 130 360 100 100 Intake, Oral 240 540 880 240 360 Number 2 0 0 0 0 Bowel Movements Output, Urine 340 270 225 250 200 Patient 191 lb Weight Weight Bed scale Measurement Method Physical Exam: Well-developed, overweight female who is confused/ lethargic, but in no acute distress with oxygen in place. Vital signs: See above. HEENT: Normocephalic, atraumatic, EOMI, moist mucous membranes, poor dentition. Neck: No JVD, no bruits. Lungs: Clear to auscultation. Heart: S1, S2 (regular) with grade 1/6 systolic murmur. No gallop or rub. PMI not well felt. Abdomen: Soft, nontender, positive bowel sounds. Extremities: No LE edema. Current Medications: Current Medications Sig/Bayron Start time Last Medication Dose Route Stop Time Status Admin Acetaminophen 650 MG .STK-MED ONE 05/18 0409 DC PO 05/18 0410 Acetaminophen 650 MG .STK-MED ONE 05/17 203 DC PO 05/17 2032 Acetaminophen 650 MG .STK-MED ONE 05/17 1534 DC PO 05/17 153 Acetaminophen 650 MG Q6P PRN 05/09 2045 AC 05/18 PO 0411 Ampicillin Sodium/ 3,000 MG Q6H 05/13 0800 AC 05/18 Sulbactam Sodium IV 0800 Sodium Chloride 100 ML Atorvastatin Calcium 40 MG 1700 05/10 1700 AC 05/17 PO 1630 Bupropion HCl 150 MG DAILY 05/10 1403 AC 05/18 PO 0919 Calcium 600 MG BID 05/18 0900 AC PO Carvedilol 3.125 MG BID 05/11 0900 AC 05/18 PO 0919 Chlorhexidine 15 ML BID 05/14 2100 AC 05/18 Gluconate PO 09 Cyanocobalamin 1,000 MCG DAILY 05/18 0900 AC PO Docusate Sodium 100 MG BID 05/18 1158 AC PO Enoxaparin Sodium 80 MG BID 05/16 1400 AC 05/18 SC 0919 Ferrous Sulfate 325 MG TID 05/18 1400 AC PO Folic Acid 1 MG DAILY 05/18 0900 AC PO Insulin Aspart 0 TIDAC 05/15 1700 AC 05/16 SC 1204 Insulin Detemir 5 UNITS BID 05/14 2100 AC 05/18 SC 0920 Memantine 10 MG DAILY 05/16 0900 AC 05/18 PO 0919 Nystatin 1 EDWARD BID 05/10 1202 DC 05/17 TOP 0854 Oxycodone HCl 10 MG Q4P PRN 05/16 0945 AC 05/18 PO 919 Pantoprazole Sodium 40 MG BID 05/17 1232 AC 05/18 IV 0919 Polyethylene Glycol 17 GM DAILY 05/18 1158 AC PO Sertraline HCl 200 MG AT BEDTIME 05/10 2100 AC 05/17 PO 2007 Thiamine HCl 100 MG DAILY 05/18 09 AC PO Trazodone HCl 50 MG AT BEDTIME 05/11 2100 AC 05/17 PO 2007 Results Last 48 Hrs of Labs/Mics: Laboratory Tests 05/18/18 0425: Anion Gap 6, Estimated GFR > 60, Glucose 80, Calcium 7.0 L, Phosphorus 4.3, Magnesium 1.9, Total Bilirubin 0.2, AST 23, ALT 30, Albumin 1.8 L, CBC w Diff MAN DIFF ORDERED, RBC 3.18 L, MCV 80.4 L, MCH 26.8 L, MCHC 33.4, RDW 17.0 H, MPV 8.7, Gran % 91.1 H, Lymphocytes % 5.6 L, Monocytes % 3.0, Eosinophils % 0.3, Basophils % 0, Absolute Granulocytes 12.5 H, Segmented Neutrophils 93 H, Absolute Lymphocytes 0.8 L, Lymphocytes 6 L, Monocytes 1 L, Absolute Monocytes 0.4, Absolute Eosinophils 0, Absolute Basophils 0, Platelet Estimate ADEQUATE, Polychromasia 1+, Poikilocytosis 1+, Ovalocytes 1+, Elliptocytes FEW, Fld Total RBCs Counted 100 05/17/18 0410: Anion Gap 8, Estimated GFR > 60, Glucose 94, Calcium 6.9 L, Phosphorus 4.5, Magnesium 1.9, Total Bilirubin 0.2, AST 23, ALT 25, Albumin 1.7 L, CBC w Diff NO MAN DIFF REQ, RBC 3.15 L, MCV 80.5 L, MCH 27.2, MCHC 33.7, RDW 16.5 H, MPV 8.8, Gran % 94.3 H, Lymphocytes % 4.4 L, Monocytes % 0.7 L, Eosinophils % 0.6 , Basophils % 0, Absolute Granulocytes 16.2 H, Absolute Lymphocytes 0.8 L, Absolute Monocytes 0.1, Absolute Eosinophils 0.1, Absolute Basophils 0 Assessment/Plan Assessment/Plan [id number] w/ hx fmr tob use, COPD, hep C, HTN, HLD, DM w/ neuropathy, CAD/HF who presented on 05/09/2018 w/ AMS, lethargy, poor by mouth intake, diarrhea, & decreased urine output after ED evaluation/management on 05/06/2018 for "food poisoning" & an "allergic reaction" after eating shrimp w/ hives, N/V/D w/ d/c on prednisone & Benadryl who also described a "cyst" in her L axillary region that had "ruptured" w/ purulent drainage a week prior and who was found to be confused, febrile (100.6 degrees), transiently hypotensive (90/58 mmHg), mildly tachypneic (18 rpm) & in "new onset" AF w/ RVR (188 bpm) w/ improved hemodynamics following volume resuscitation, IV diltiazem, empiric IV Abx Rx, etc. w/ spontaneous conversion back to SR. The source for her septic shock is likely the skin/soft tissues of the L chest wall. She improved hemodynamically, but increased WBC prompted surgical intervention, 05/14/2018. She has PAF, but has been maintaining SR. Also discovered to have a LUE DVT. TERESA performed 05/15/2018 revealed a small mobile vegetation on the aortic valve. Recommendations: * Continue present cardiac medications (beta marlene, statin, anticoagulant). * Continue antimicrobial for IE.). * DVT prophylaxis. Continue telemetry? Not applicable (In ICU.)
--- NOTE | 2018-05-18 12:56 | PN- Infect Dx ---
Subjective Subjective: No fever; not fdeeling well; appears anxious. Review of Systems Comments: 12 points reviewed as noted, otherwise negative. Objective Last 24 Hrs of Vital Signs/I&O Vital Signs Date Time Temp Pulse Resp B/P B/P Pulse O2 O2 Flow FiO2 Mean Ox Delivery Rate 05/18 0800 98.4 76 20 159/74 96 Room Air 05/18 0000 98.5 66 16 162/00 94 Room Air Room Air 05/17 2008 76 154/63 05/17 1600 98.3 73 24 156/60 93 Room Air 05/17 1548 Room Air 2.0L Intake & Output 05/18 1600 05/18 0800 05/18 0000 Intake Total 370 670 Output Total 340 270 Balance 30 400 Intake, IV 130 130 Intake, Oral 240 540 Number 2 0 Bowel Movements Output, Urine 340 270 Patient 191 lb Weight Weight Bed scale Measurement Method Physical Exam Other Physical Findings: GenL; elevated BMI skin: pale; Cchest persistent induration, erythema and tenderness of the left breast and chest wall Lungs BS do\iminished bases Heart regular rhythm with no murmur Abdomen is soft, nontender with positive bowel sounds Extremities trace edema both lower extremities; PICC in the right upper extremity with no inflammation at the site Neuro: awake, answering questions appropriately Results Last 24 Hours of Lab Results: Laboratory Tests 05/18 0425 Chemistry Sodium (137 - 145 mmol/L) 132 L Potassium (3.5 - 5.1 mmol/L) 4.3 Chloride (98 - 107 mmol/L) 105 Carbon Dioxide (22 - 30 mmol/L) 21 L Anion Gap (5 - 16) 6 BUN (7 - 17 mg/dL) 23 H Creatinine (0.5 - 1.0 mg/dL) 0.7 Estimated GFR (>60 ml/min) > 60 Glucose (65 - 99 mg/dL) 80 Calcium (8.4 - 10.2 mg/dL) 7.0 L Phosphorus (2.5 - 4.5 mg/dL) 4.3 Magnesium (1.6 - 2.3 mg/dL) 1.9 Total Bilirubin (0.2 - 1.3 mg/dL) 0.2 AST (14 - 36 U/L) 23 ALT (9 - 52 U/L) 30 Albumin (3.5 - 5.0 g/dL) 1.8 L Hematology CBC w Diff MAN DIFF ORDERED WBC (4.8 - 10.8 /CUMM) 13.8 H RBC (4.20 - 5.40 /CUMM) 3.18 L Hgb (12.0 - 16.0 G/DL) 8.5 L Hct (37 - 47 %) 25.6 L MCV (81.0 - 99.0 FL) 80.4 L MCH (27.0 - 31.0 PG) 26.8 L MCHC (33.0 - 37.0 G/DL) 33.4 RDW (11.5 - 14.5 %) 17.0 H Plt Count (130 - 400 /CUMM) 285 MPV (7.4 - 10.4 FL) 8.7 Gran % (42.2 - 75.2 %) 91.1 H Lymphocytes % (20.5 - 51.1 %) 5.6 L Monocytes % (1.7 - 9.3 %) 3.0 Eosinophils % (0 - 5 %) 0.3 Basophils % (0.0 - 2.0 %) 0 Absolute Granulocytes (1.4 - 6.5 /CUMM) 12.5 H Segmented Neutrophils (42.2 - 75.2 %) 93 H Absolute Lymphocytes (1.2 - 3.4 /CUMM) 0.8 L Lymphocytes (20.5 - 51.1 %) 6 L Monocytes (1.7 - 9.3 %) 1 L Absolute Monocytes (0.10 - 0.60 /CUMM) 0.4 Absolute Eosinophils (0.0 - 0.7 /CUMM) 0 Absolute Basophils (0.0 - 0.2 /CUMM) 0 Platelet Estimate (ADEQUATE) ADEQUATE Polychromasia 1+ Poikilocytosis 1+ Ovalocytes 1+ Elliptocytes FEW Other Body Source Fld Total RBCs Counted (%) 100 Last 24 Hours of Ramón Results: BC 05/09 MSSA 2 out of 2 bottles Patient : RUSSELL ZHAO Acct: [id number] DR: Igor Alanis MD Birthdate: [birth year] Age/Sex: 62/F Unit: [id number] Loc: [facility] 111- [id number] Status : ADM IN SPEC #: [id number] MARK: 05/14/18 STATUS: COMP RECD: 05/14/[address] [facility] [address]: Jefferson MD,[place] J SOURCE: TRUNK/O.R. ENTR: 05/14/18-1700 [facility] DR: Kerry MORGAN[facility]Richelle [facility] Sue MEJIA MD,Igor Goodwin MD,John Holguin ORDERED: TRUNK OR CULT COMMENT: ADDITIONAL INFORMATION: LEFT AXILLARY FLUID FOR CULTURE RECEIVED ~2CC CLOTTED BLOODY FLUID IN STERILE CUP Procedure Result > GRAM STAIN Final 05/15/18-0932 WHITE BLOOD CELLS RARE GRAM POSITIVE COCCI FEW > TRUNK AREA OR CULTURE Final 05/16/18-1157 Moderate growth of: ST[employer]US Called to/Readback by ANDI by LAB.GEOK 05/16/18 1154 1. STAPH AUREUS RX ABN ------ --- 1. ST[employer] [facility] RX AB ------ -- CEFAZOLIN S AMOXICILLIN/CLAVULINIC ACID S AMPICILLIN/SULBACTAM S TETRACYCLINE S TRIMETHOPRIM/SULFAMETHOXAZOLE S AZITHROMYCIN R CLINDAMYCIN S ERYTHROMYCIN R OXACILLIN S VANCOMYCIN S Recent Imaging Studies: CXR 05/15 retrocard infiltrate TERESA 05/14CONCLUSIONS Small mobile vegetation on the left coronary cusp of the aortic valve. Arash Truong M.D. (Electronically Signed) Final Date: 15 May 2018 16:41 MEASUREMENTS (Male / Female) Normal Values DICTATED BY: Alexi MORGAN,Arash Holguin DATE/TIME DICTATED:05/15/181640 [employer] SUPERVISOR:PATRICIA DATE/TIME TRANSCRIBED:05/15/181640 Assessment/Plan ID Impression: Severe sepsis Left breast cellulitis Endocarditis LUE DVT Afib with rvr Decreased discomfort in the left axilla and chest wall, temperatures remaining normal and white blood cell count continuing to decrease, status post exploration of the left axillary area in the OR 4 days ago, with a large amount of edematous, slightly turbid fluid noted, which is growing Staph aureus (MSSA). She remains on Unasyn, Day 9 of treatment for MSSA and Clostridium perfringens sepsis, with the TERESA positive for a small vegetation on the aortic valve confirming the diagnosis of endocarditis. She remains on Heparin for an extensive DVT of the left upper extremity, status post a transient episode of atrial fibrillation, with one guaiac positive stools reported 05/16. Suggestion: 1. Further monitoring and management for guaiac stools per Medicine 2. F/U Cardiothoracic surgery recom 3. Continue Unasyn 3 gm q 6 h started 05/13.
[2018-05-18 15:33] VITALS: BP 136/00; BP 148/00
[2018-05-18 23:20] VITALS: BP 120/60
[2018-05-19 07:03] VITALS: BP 178/78
[2018-05-19 07:47] VITALS: BP 13/00; BP 138/00
[2018-05-19 08:38] LABS: ABSOLUTE BASOPHIL COUNT 0 /CUMM (0.0-0.2); ABSOLUTE EOSINOPHIL COUNT 0 /CUMM (0.0-0.7); ABSOLUTE GRANULOCYTE CT 8.5 /CUMM (1.4-6.5); ABSOLUTE LYMPH COUNT 0.7 /CUMM (1.2-3.4); ABSOLUTE MONOCYTE COUNT 0.3 /CUMM (0.10-0.60); BASOPHIL % 0 % (0.0-2.0); EOSINOPHIL % 0.4 % (0-5); GRANULOCYTE % 89.4 % (42.2-75.2); HEMATOCRIT 23.7 % (37-47); MEAN CORPUSCULAR HGB 27.2 PG (27.0-31.0); MEAN CORPUSCULAR HGB CONC 33.9 G/DL (33.0-37.0); MEAN CORPUSCULAR VOLUME 80.1 FL (81.0-99.0); MEAN PLATELET VOLUME 8.7 FL (7.4-10.4); PLATELET COUNT 304 /CUMM (130-400); RBC DISTRIBUTION WIDTH 16.8 % (11.5-14.5); RED BLOOD CELL CT 2.96 /CUMM (4.20-5.40); WHITE BLOOD CELL COUNT 9.5 /CUMM (4.8-10.8)
--- NOTE | 2018-05-19 09:08 | PN- Housestaff ---
Subjective Follow-up For: Sepsis secondary to left chest wall cellulitis complicated by bacteremia and infective endocarditis, new onset atrial fibrillation status post conversion to normal sinus rhythm, left upper extremity DVT, herpes labialis, guaiac positive stool Subjective: No overnight events. The patient was transferred from ICU to general medicine last evening. This morning, she is doing well and slept well as well. She does not have any chest pain, shortness of breath, abdominal pain, or other issues. Review of Systems Constitutional: Reports: no symptoms. EENTM: Reports: no symptoms. Cardiovascular: Reports: no symptoms. Respiratory: Reports: no symptoms. Gastrointestinal: Reports: no symptoms. Genitourinary: Reports: no symptoms. Musculoskeletal: Reports: no symptoms. Skin: Reports: no symptoms. Neurological/Psychological: Reports: no symptoms. Hematologic/Endocrine: Reports: no symptoms. Immunologic/Allergic: Reports: no symptoms. Objective Last 24 Hrs of Vital Signs/I&O Vital Signs Date Time Temp Pulse Resp B/P B/P Pulse O2 O2 Flow FiO2 Mean Ox Delivery Rate 05/19 0747 138/00 05/19 0703 98.2 77 20 178/78 94 05/19 0000 Room Air 05/18 2320 98.3 80 24 120/60 94 05/18 1533 98.3 94 20 148/00 95 Room Air Intake & Output 05/19 1600 05/19 0800 05/19 0000 Intake Total 500 480 Output Total Balance 500 480 Intake, IV 100 Intake, Oral 400 480 Number 2 Bowel Movements Patient 94.035 kg Weight Weight Bed scale Measurement Method Physical Exam General Appearance: Alert, Oriented X3, Cooperative, No Acute Distress HEENT: CRUSTED LESIONS PERIORALLY Cardiovascular: Regular Rate, Normal S1, Normal S2, CHEST WALL WITH INDURATION AND MILD ERYTHEMA BUT NO FLUTUANCE Lungs: Clear to Auscultation Abdomen: Normal Bowel Sounds, Soft, No Tenderness Extremities: No Edema Current Medications: Current Medications Sig/Bayron Start time Last Medication Dose Route Stop Time Status Admin Acetaminophen 650 MG .STK-MED ONE 05/18 1609 DC PO 05/18 1610 Acetaminophen 650 MG .STK-MED ONE 05/18 0925 DC PO 05/18 0926 Acetaminophen 650 MG Q6P PRN 05/09 2045 AC 05/18 PO 1611 Acyclovir 1 EDWARD 5 TIMES A DAY 05/19 09 AC TOP Ampicillin Sodium/ 3,000 MG Q6H 05/13 0800 AC 05/19 Sulbactam Sodium IV 0820 Sodium Chloride 100 ML Atorvastatin Calcium 40 MG 1700 05/10 1700 AC 05/18 PO 1613 Bupropion HCl 150 MG DAILY 05/10 1403 AC 05/18 PO 0919 Calcium 600 MG BID 05/18 0900 AC 05/18 PO 2136 Carvedilol 3.125 MG BID 05/11 0900 AC 05/18 PO 2135 Chlorhexidine 15 ML BID 05/14 2100 AC 05/18 Gluconate PO 2137 Cyanocobalamin 1,000 MCG DAILY 05/18 0900 AC 05/18 PO 1439 Docusate Sodium 100 MG BID 05/18 1158 AC PO Enoxaparin Sodium 80 MG BID 05/16 1400 AC 05/18 SC 2136 Ferrous Sulfate 325 MG TID 05/18 1400 AC 05/18 PO 2136 Folic Acid 1 MG DAILY 05/18 0900 AC 05/18 PO 1439 Insulin Aspart 0 TIDAC 05/15 1700 AC 05/16 SC 1204 Insulin Detemir 5 UNITS BID 05/14 2100 AC 05/18 SC 2136 Memantine 10 MG DAILY 05/16 0900 AC 05/18 PO 0919 Oxycodone HCl 5 MG ONCE ONE 05/18 2245 DC 05/18 PO 05/18 2246 2256 Oxycodone HCl 10 MG Q4P PRN 05/16 0945 AC 05/19 PO 0305 Pantoprazole Sodium 40 MG BID 05/17 1232 AC 05/19 IV 0819 Polyethylene Glycol 17 GM DAILY 05/18 1158 AC PO Sertraline HCl 200 MG AT BEDTIME 05/10 2100 AC 05/18 PO 2136 Thiamine HCl 100 MG DAILY 05/18 0900 AC 05/18 PO 1439 Trazodone HCl 50 MG AT BEDTIME 05/11 2100 AC 05/18 PO 2138 Last 24 Hrs of Lab/Ramón Results Last 24 Hrs of Labs/Mics: Laboratory Tests 05/19/18 0620: Sodium Pending, Potassium Pending, Chloride Pending, Carbon Dioxide Pending, Anion Gap Pending, BUN Pending, Creatinine Pending, BUN/Creatinine Ratio Pending , Magnesium Pending, CBC w Diff Pending, WBC Pending, RBC Pending, Hgb Pending, Hct Pending, MCV Pending, MCH Pending, MCHC Pending, RDW Pending, Plt Count Pending, MPV Pending Assessment/Plan Assessment: Ms. Alcocer is a 62 year old female with past medical history significant for morbid obesity, DM, STERLING, s/p laparoscopic Bindu-en-Y gastric bypass (2015), HTN, CAD/GA s/p PCI and CABG who presented with sepsis secondary to left chest wall cellulitis complicated by MSSA and clostridium perfringens bacteremia and infective endocarditis status post surgical incision and drainage, a single episode of atrial fibrillation with RVR status post conversion to normal sinus rhythm, a left upper extremity DVT, and guaiac positive stool now day 10 of treatment with ampicillin/sulbactam. She is doing well now. Problem List: 1. Sepsis secondary to left chest wall cellulitis 2. MSSA and clostridium perfringens bacteremia 3. Infective endocarditis 4. LUE DVT 5. New onset rapid A. fib with RVR s/p conversion to SR 6. Herpes labalis 7. Guiaic postive stool 8. Mild hyponatremia Plan Fluid restrict for hyponatremia - 1200mL/day. Likely secondary to sertraline. Continue enoxaparin 80 mg twice a day for A. fib and upper extremity DVT with possible eventual conversion to NOAC or warfarin Continue ampicillin/sulbactam day 10, she will need 4-6 weeks of antibiotics Appreciate infectious disease and cardiology recommendations Pain control as appropriate Gastric bypass vitamins Outpatient GI follow-up for guaiac positive stool Topical acyclovir 5 times a day DVT prophylaxis with enoxaparin Consistent carbohydrate two diet Full code Problem List: 1. Sepsis Pain Ratin Pain Location: no Pain Goal: Remain pain free Pain Plan: see a/p Tomorrow's Labs & Rationales: cbc, bep
--- NOTE | 2018-05-19 09:21 | Transfer of Care Summary ---
Hospital Course Course Hospital Course: Reason for ICU: Severe sepsis with new onset afib with RVR (rates up to 200). HPI: 62-year-old woman with a history of diabetes, coronary artery disease, status post CABG, CHF and Hepatitis C, gastric bypass, presented in a fulminant sepsis picture in the setting of a left chest wall cellulitis/soft tissue infection. She also developed new onset afib with RVR that required Cardizem drip and subsequently converted to sinus rhythm within hours of admission and remained in sinus rythm throughout ICU stay. Interval events at the ICU: Intially empirically covered with Ceftriaxone/Vanc/ Unasyn. BCx2(05/09) grew MSSA, and one bottle grew clostridium perfrigens( significance unclear?), her abx regimen was then narrowed to Unasyn on 05/13. TERESA performed was remarkable for aortic valve endocarditis. Pt underwent IR drainage of left chest wall cellulitic area and was followed up by I&D at OR by surgery on 05/14 which led to improvement of the previously persistent WBC, she however remained afebrile throughout her ICU stay. Both her IR and OR cultures grew MSSA. Pt was also found to have an extensive Left upper extremity DVT after a doppler was ordered to assess for arm swelling (see Doppler results), her anticoagulation tx for afib adequately addressed this issue. On day 10, pt was downgraded to General medicine after her clinical status had improved. Mechanical Ventilation: No. NIPPV: No Catheters/lines: PICC line inserted on 05/15. ABX: Unasyn (started on 05/13). Issued to be followed up in the floor: * Pt on Lovenox for afib, will need to discuss with cardiology on transitioning to either a NOAC or oral VKA. * Last positive BC was on 05/09, discuss with ID on duration of Tx for Endocarditis (4-6 weeks from last positive BC). * Heme positive stools and siginifcant WIL (rvcd 3 days of IV iron in addition to 1 PRBC). Pt will need to follow with GI on outpatient for the heme occult stools and schedule initial colonoscopy. Nutrition: Crabohydate diet 2 Code status: FC. Assessment/Plan: See above.
--- NOTE | 2018-05-19 11:32 | PN- Infect Dx ---
Subjective Subjective: Feeling much better; able to eat; decreased discomfort L upper chest. Herpetic oral lesions crusting; less local discomfort. Review of Systems Comments: 12 points reviewed as noted, otherwise negative. Objective Last 24 Hrs of Vital Signs/I&O Vital Signs Date Time Temp Pulse Resp B/P B/P Pulse O2 O2 Flow FiO2 Mean Ox Delivery Rate 05/19 0943 77 138/00 05/19 0747 138/00 05/19 0703 98.2 77 20 178/78 94 05/19 0000 Room Air 05/18 2320 98.3 80 24 120/60 94 05/18 1533 98.3 94 20 148/00 95 Room Air Intake & Output 05/19 1600 05/19 0800 05/19 0000 Intake Total 500 480 Output Total Balance 500 480 Intake, IV 100 Intake, Oral 400 480 Number 2 Bowel Movements Patient 207 lb Weight Weight Bed scale Measurement Method Physical Exam Other Physical Findings: GenL; elevated BMI Skin: pale; Cchest persistent induration, erythema and tenderness of the left breast and chest wall HEENT: AT, no thrush; crusted perioral herpetic lesions Neck: No JVD Lungs BS diminished bases, no rales or rhonchi Heart regular rhythm with no murmur Abdomen is soft, nontender with positive bowel sounds Extremities trace edema both lower extremities; PICC in the right upper extremity with no inflammation at the site Neuro: A&O x3, answering questions appropriately Results Last 24 Hours of Lab Results: Laboratory Tests 05/19 0620 Chemistry Sodium (137 - 145 mmol/L) 132 L Potassium (3.5 - 5.1 mmol/L) 4.6 Chloride (98 - 107 mmol/L) 104 Carbon Dioxide (22 - 30 mmol/L) 22 Anion Gap (5 - 16) 6 BUN (7 - 17 mg/dL) 19 H Creatinine (0.5 - 1.0 mg/dL) 0.6 Estimated GFR (>60 ml/min) > 60 BUN/Creatinine Ratio (7 - 25 %) 31.7 H Magnesium (1.6 - 2.3 mg/dL) 1.9 Hematology CBC w Diff NO MAN DIFF REQ WBC (4.8 - 10.8 /CUMM) 9.5 RBC (4.20 - 5.40 /CUMM) 2.96 L Hgb (12.0 - 16.0 G/DL) 8.0 L Hct (37 - 47 %) 23.7 L MCV (81.0 - 99.0 FL) 80.1 L MCH (27.0 - 31.0 PG) 27.2 MCHC (33.0 - 37.0 G/DL) 33.9 RDW (11.5 - 14.5 %) 16.8 H Plt Count (130 - 400 /CUMM) 304 MPV (7.4 - 10.4 FL) 8.7 Gran % (42.2 - 75.2 %) 89.4 H Lymphocytes % (20.5 - 51.1 %) 7.3 L Monocytes % (1.7 - 9.3 %) 2.9 Eosinophils % (0 - 5 %) 0.4 Basophils % (0.0 - 2.0 %) 0 Absolute Granulocytes (1.4 - 6.5 /CUMM) 8.5 H Absolute Lymphocytes (1.2 - 3.4 /CUMM) 0.7 L Absolute Monocytes (0.10 - 0.60 /CUMM) 0.3 Absolute Eosinophils (0.0 - 0.7 /CUMM) 0 Absolute Basophils (0.0 - 0.2 /CUMM) 0 Last 24 Hours of Ramón Results: SPEC #: [id number] MARK: 05/14/18 STATUS: COMP RECD: 05/14/[address]: Ronny MORGAN,Jose Curry SOURCE: TRUNK/O.R. ENTR: 05/14/[address] [facility] [address]: Richelle Payne MD SPDESC: Sue MEJIA MD,Igor Goodwin MD,John Holguin ORDERED: TRUNK OR CULT COMMENT: ADDITIONAL INFORMATION: LEFT AXILLARY FLUID FOR CULTURE RECEIVED ~2CC CLOTTED BLOODY FLUID IN STERILE CUP Procedure Result > GRAM STAIN Final 05/15/18-0932 WHITE BLOOD CELLS RARE GRAM POSITIVE COCCI FEW > TRUNK AREA OR CULTURE Final 05/16/18-1156 Moderate growth of: [employer] Called to/Readback by ANDI by LAB.GEOK 05/16/18 1860 1. STAPH AUREUS RX ABN ------ --- 1. STAPH [employer] RX AB ------ -- CEFAZOLIN S AMOXICILLIN/CLAVULINIC ACID S AMPICILLIN/SULBACTAM S TETRACYCLINE S TRIMETHOPRIM/SULFAMETHOXAZOLE S AZITHROMYCIN R CLINDAMYCIN S ERYTHROMYCIN R OXACILLIN S VANCOMYCIN S Recent Imaging Studies: CT chest: IMPRESSION: 1. Interval slight progression in the extent of soft tissue edema and stranding seen involving the left chest wall and the left breast. However, no distinct peripherally rim-enhancing abscess collection or drainable collection is seen. No subcutaneous/soft tissue emphysema is seen. 2. Interval development of a small left-sided pleural effusion and dense consolidation in the basal segments of the left lower lobe. 3. Mild scattered atelectatic changes are also seen, primarily in the lingula and right lower lobe. 4. Enlargement of left heart chambers and moderate coronary artery calcifications noted. Central pulmonary arteries are mildly enlarged. 5. Status post cholecystectomy and gastric bypass surgery. 6. Enlargement of the right adrenal gland and masslike density in the left adrenal gland, unchanged. Findings discussed with Dr. Barbosa at the time of the exam. DICTATED BY: Raji MORGAN,Radha Saleh DATE/TIME DICTATED:05/13/181317 RELIEF OPERATOR:PATRICIA DATE/TIME TRANSCRIBED:05/13/181317 Assessment/Plan ID Impression: Left breast cellulitis Leukocytosis/resolved Endocarditis; sepsis (resolved) Herpetic gingivostomatitis/improved LUE DVT Afib with rvr Decreased discomfort in the left axilla and chest wall, temperatures and white blood cell count normal, status post exploration of the left axillary area in the OR 5 days ago, with local fluid growing Staph aureus (MSSA). She remains on Unasyn, Day 10 of treatment for MSSA and Clostridium perfringens sepsis, with the TERESA positive for a small vegetation on the aortic valve confirming the diagnosis of endocarditis. Suggestion: 1. Monitor BMP, CBC; supportiver care per team; oral acyclovir x 5 d; encourage po fluid intake. Observe aspiration precautions. 2. F/U Cardiothoracic surgery recom 3. Continue Unasyn 3 gm q 6 h started 05/13.
--- NOTE | 2018-05-19 11:58 | PN- Pulmonary ---
Subjective HPI/Critical Care Issues: Feeling much better; able to eat; decreased discomfort L upper chest. Herpetic oral lesions crusting; less local discomfort. Review of Systems Comments: 12 points reviewed as noted, otherwise negative. Objective Current Medications: Current Medications Sig/Bayron Start time Last Medication Dose Route Stop Time Status Admin Acetaminophen 650 MG .STK-MED ONE 05/18 1609 DC PO 05/18 1610 Acetaminophen 650 MG Q6P PRN 05/09 2045 AC 05/18 PO 1611 Acyclovir 1 EDWARD 5 TIMES A DAY 05/19 0905 05/19 TOP 1100 Alteplase, 2 MG ONE ONE 05/19 1045 DC Recombinant IV 05/19 1046 Ampicillin Sodium/ 3,000 MG Q6H 05/13 08 AC 05/19 Sulbactam Sodium IV 0820 Sodium Chloride 100 ML Atorvastatin Calcium 40 MG 1700 05/10 1700 AC 05/18 PO 1613 Bupropion HCl 150 MG DAILY 05/10 1403 AC 05/19 PO 0944 Calcium 600 MG BID 05/18 0900 AC 05/19 PO 0944 Carvedilol 3.125 MG BID 05/11 0900 AC 05/19 PO 0943 Chlorhexidine 15 ML BID 05/14 2100 AC 05/19 Gluconate PO 0947 Cyanocobalamin 1,000 MCG DAILY 05/18 0900 AC 05/19 PO 0944 Docusate Sodium 100 MG BID 05/18 1158 AC PO Enoxaparin Sodium 80 MG BID 05/16 1400 AC 05/19 SC 0943 Ferrous Sulfate 325 MG TID 05/18 1400 AC 05/19 PO 0944 Folic Acid 1 MG DAILY 05/18 0900 AC 05/19 PO 0943 Insulin Aspart 0 TIDAC 05/15 1700 AC 05/16 SC 1204 Insulin Detemir 5 UNITS BID 05/14 2100 05/19 SC 0942 Memantine 10 MG DAILY 05/16 0900 05/19 PO 0943 Oxycodone HCl 5 MG ONCE ONE 05/18 2245 DC 05/18 PO 05/18 2246 2256 Oxycodone HCl 10 MG Q4P PRN 05/16 0945 05/19 PO 0952 Pantoprazole Sodium 40 MG BID 05/17 1232 AC 05/19 IV 0819 Polyethylene Glycol 17 GM DAILY 05/18 1158 PO Sertraline HCl 200 MG AT BEDTIME 05/10 2100 AC 05/18 PO 2135 Thiamine HCl 100 MG DAILY 05/18 09 AC 05/19 PO 09 Trazodone HCl 50 MG AT BEDTIME 05/11 2100 AC 05/18 PO 2137 Vital Signs & I&O Last 24 Hrs of Vitals and I&O: Vital Signs Date Time Temp Pulse Resp B/P B/P Pulse O2 O2 Flow FiO2 Mean Ox Delivery Rate 05/19 0943 77 138/00 05/19 0800 94 Room Air 05/19 0747 138/00 05/19 0703 98.2 77 20 178/78 94 05/19 0000 Room Air 05/18 2320 98.3 80 24 120/60 94 05/18 1533 98.3 94 20 148/00 95 Room Air Intake & Output 05/19 1600 05/19 0800 05/19 0000 Intake Total 500 480 Output Total Balance 500 480 Intake, IV 100 Intake, Oral 400 480 Number 2 Bowel Movements Patient 207 lb Weight Weight Bed scale Measurement Method Laboratory Tests 05/19 05/18 0620 0425 Chemistry Sodium (137 - 145 mmol/L) 132 L 132 L Potassium (3.5 - 5.1 mmol/L) 4.6 4.3 Chloride (98 - 107 mmol/L) 104 105 Carbon Dioxide (22 - 30 mmol/L) 22 21 L Anion Gap (5 - 16) 6 6 BUN (7 - 17 mg/dL) 19 H 23 H Creatinine (0.5 - 1.0 mg/dL) 0.6 0.7 Estimated GFR (>60 ml/min) > 60 > 60 BUN/Creatinine Ratio (7 - 25 %) 31.7 H Glucose (65 - 99 mg/dL) 80 Calcium (8.4 - 10.2 mg/dL) 7.0 L Phosphorus (2.5 - 4.5 mg/dL) 4.3 Magnesium (1.6 - 2.3 mg/dL) 1.9 1.9 Total Bilirubin (0.2 - 1.3 mg/dL) 0.2 AST (14 - 36 U/L) 23 ALT (9 - 52 U/L) 30 Albumin (3.5 - 5.0 g/dL) 1.8 L Hematology CBC w Diff NO MAN DIFF REQ MAN DIFF ORDERED WBC (4.8 - 10.8 /CUMM) 9.5 13.8 H RBC (4.20 - 5.40 /CUMM) 2.96 L 3.18 L Hgb (12.0 - 16.0 G/DL) 8.0 L 8.5 L Hct (37 - 47 %) 23.7 L 25.6 L MCV (81.0 - 99.0 FL) 80.1 L 80.4 L MCH (27.0 - 31.0 PG) 27.2 26.8 L MCHC (33.0 - 37.0 G/DL) 33.9 33.4 RDW (11.5 - 14.5 %) 16.8 H 17.0 H Plt Count (130 - 400 /CUMM) 304 285 MPV (7.4 - 10.4 FL) 8.7 8.7 Gran % (42.2 - 75.2 %) 89.4 H 91.1 H Lymphocytes % (20.5 - 51.1 %) 7.3 L 5.6 L Monocytes % (1.7 - 9.3 %) 2.9 3.0 Eosinophils % (0 - 5 %) 0.4 0.3 Basophils % (0.0 - 2.0 %) 0 0 Absolute Granulocytes (1.4 - 6.5 /CUMM) 8.5 H 12.5 H Segmented Neutrophils (42.2 - 75.2 %) 93 H Absolute Lymphocytes (1.2 - 3.4 /CUMM) 0.7 L 0.8 L Lymphocytes (20.5 - 51.1 %) 6 L Monocytes (1.7 - 9.3 %) 1 L Absolute Monocytes (0.10 - 0.60 /CUMM) 0.3 0.4 Absolute Eosinophils (0.0 - 0.7 /CUMM) 0 0 Absolute Basophils (0.0 - 0.2 /CUMM) 0 0 Platelet Estimate (ADEQUATE) ADEQUATE Polychromasia 1+ Poikilocytosis 1+ Ovalocytes 1+ Elliptocytes FEW Other Body Source Fld Total RBCs Counted (%) 100 Impression/Plan Impression/Plan Impression/Plan: GenL; elevated BMI Skin: pale; Cchest persistent induration, erythema and tenderness of the left breast and chest wall HEENT: AT, no thrush; crusted perioral herpetic lesions Neck: No JVD Lungs BS diminished bases, no rales or rhonchi Heart regular rhythm with no murmur Abdomen is soft, nontender with positive bowel sounds Extremities trace edema both lower extremities; PICC in the right upper extremity with no inflammation at the site Neuro: A&O x3, answering questions appropriately Pt with Diabetes, recent memory loss, on and off evaluation, previous history of ischemic heart disease CABG, previous hepatitis C infection per chart seen in the emergency room few days prior to admission with vomiting, diarrhea and diffuse hives, found to be afebrile with a bandemia, and discharged home on prednisone with the diagnosis of food poisoning, admitted on May 09 with a 2 day history of increasing lethargy, confusion, decreased p.o. intake, persistent diarrhea and decreased urine output, with the additional history of a painful "cyst" in her left axilla over the past 1-2 weeks prior to admission, and upon admission was found to be febrile, tachycardic and in atrial fibrillation then converted to sinus, with bandemia, elevated lactic acid and with a CT of the chest revealing extensive soft tissue infiltration and edema involving the left anterior lateral chest wall, with positive blood cultures upon admission Current issues * Resolving Sepsis due to skin and soft tissue infection of the left chest wall ,s/p I and d, with aortic valve endocarditis * MSSA and clostriduium perfrin bacteremia upon admission, now with AV endocarditis * Sig DVT left upper ext on systemic anticoag * Small effusion and dense consolidation of left lower lobe due to atx vs pna ( less likely) * Herpes oralis * Pafib * History of IHD with prior CABG with ischemic cardiomyopathy, with pafib now in sinus * History of Hep c ( seems to have cleared the virus) prior gastric bypass with post op bleeding complication few yrs ago * Elevated sugar with dm * Electrolyte abnormality * Guaiac positive stool with iron def anemia, s/p IV iron ( pt with previous gastric bypass surg) REC COnt abx per ID PPI ORal care with periodex Strict sugar control Fluid restriction COnt anticoag and watch hemoglobin OOB to chair Will follow
--- NOTE | 2018-05-19 13:53 | PN- General Surgery ---
Surgical Brief Attending Note Brief Attending Note: BREAST STILL RED. DRAIN IN PLACE. NO CHANGES.
[2018-05-19 14:29] VITALS: BP 152/82
[2018-05-19 20:00] VITALS: BP 152/64
[2018-05-20 05:40] LABS: ABSOLUTE BASOPHIL COUNT 0.1 /CUMM (0.0-0.2); ABSOLUTE EOSINOPHIL COUNT 0 /CUMM (0.0-0.7); ABSOLUTE GRANULOCYTE CT 6.1 /CUMM (1.4-6.5); ABSOLUTE LYMPH COUNT 0.6 /CUMM (1.2-3.4); ABSOLUTE MONOCYTE COUNT 0.6 /CUMM (0.10-0.60); BASOPHIL % 0.9 % (0.0-2.0); EOSINOPHIL % 0.7 % (0-5); GRANULOCYTE % 82.5 % (42.2-75.2); HEMATOCRIT 24.6 % (37-47); MEAN CORPUSCULAR HGB 26.7 PG (27.0-31.0); MEAN CORPUSCULAR HGB CONC 33.1 G/DL (33.0-37.0); MEAN CORPUSCULAR VOLUME 80.7 FL (81.0-99.0); MEAN PLATELET VOLUME 7.8 FL (7.4-10.4); PLATELET COUNT 354 /CUMM (130-400); RBC DISTRIBUTION WIDTH 17.2 % (11.5-14.5); RED BLOOD CELL CT 3.05 /CUMM (4.20-5.40); WHITE BLOOD CELL COUNT 7.4 /CUMM (4.8-10.8)
[2018-05-20 06:20] VITALS: BP 130/62
[2018-05-20 06:34] VITALS: BP 146/94
--- NOTE | 2018-05-20 09:28 | PN- General Surgery ---
Margarita Sanchez 05/20/18921: Subjective Subjective: Patient alert and oriented asking questions appears comfortable. Her left chest wall cellulitis with some overall improvement however she still has moderate discomfort Objective Vital Signs and I&Os Vital Signs Date Time Temp Pulse Resp B/P B/P Pulse O2 O2 Flow FiO2 Mean Ox Delivery Rate 05/20 0838 66 146/94 05/20 0634 98.4 66 20 146/94 92 05/20 0620 97.6 69 20 130/62 95 05/19 2027 79 152/64 05/19 2000 98.9 79 20 152/64 94 Room Air 05/19 1600 97 Room Air 05/19 1429 98.0 74 20 152/82 97 Room Air 05/19 0943 77 138/00 Intake & Output 05/20 1600 05/20 0800 05/20 0000 05/19 1600 05/19 0800 05/19 0000 Intake Total 160 250 900 500 480 Output Total 300 300 Balance 160 -50 600 500 480 Intake, IV 100 100 300 100 Intake, Oral 60 150 600 400 480 Number 1 1 2 Bowel Movements Output, Urine 300 300 Patient 198 lb 207 lb Weight Weight Bed scale Bed scale Measurement Method Physical Exam: Left breast- [place] drains in place with minimal drainage this morning Breast tissue with moderate induration Moderate edema to the right arm and forearm Sensory motor intact radial pulses intact Assessment/Plan Assessment/Plan Assessment: 62 year old female with sepsis secondary to left chest wall cellulitis complicated by MSSA and clostridium perfringens bacteremia and infective endocarditis status post surgical incision and drainage Continue with daily dressing changes. Please place an ABD pad under her breasts with dressing change. [place] to be taken out tomorrow. Would consider compressive type of stocking for her left arm. Will continue to follow Core Measures Venous Thromboembolism VTE Risk Factors Age>40 No Mechanical VTE Prophylaxis d/t N/A MechProphylax Ordered No VTE Pharm Prophylaxis d/t NA PharmProphylax ordered
--- NOTE | 2018-05-20 10:55 | PN- Housestaff ---
See Addendum Subjective Follow-up For: Sepsis secondary to left chest wall cellulitis complicated by bacteremia and infective endocarditis, new onset atrial fibrillation status post conversion to normal sinus rhythm, left upper extremity DVT, herpes labialis, guaiac positive stool Subjective: Patient seen and examined at bedside. Pt states that she does have some left chest wall tenderness. Patient states that she is very cold. Patient states that the oral lesions have improved, less painful. Denies fevers/chills/night sweats/chest pain/palpitations/abdominal pain/urinary symptoms/lower extremity edema Review of Systems Constitutional: Reports: see HPI. Objective Last 24 Hrs of Vital Signs/I&O Vital Signs Date Time Temp Pulse Resp B/P B/P Pulse O2 O2 Flow FiO2 Mean Ox Delivery Rate 05/20 0838 66 146/94 05/20 0634 98.4 66 20 146/94 92 05/20 0620 97.6 69 20 130/62 95 05/19 2027 79 152/64 05/19 2000 98.9 79 20 152/64 94 Room Air 05/19 1600 97 Room Air 05/19 1429 98.0 74 20 152/82 97 Room Air Intake & Output 05/20 1600 05/20 0800 05/20 0000 Intake Total 160 250 Output Total 300 Balance 160 -50 Intake, IV 100 100 Intake, Oral 60 150 Number 1 Bowel Movements Output, Urine 300 Patient 198 lb Weight Weight Bed scale Measurement Method Physical Exam General Appearance: Alert, Oriented X3, Cooperative, No Acute Distress Skin: herpetic lesions crusted over periorally ; erythematous stiff skin on L chest wall/axilla w/o fluctuance wall/axilla mild drainage noted Skin Temp/Moisture Exam: Warm/Dry Cardiovascular: Regular Rate, Normal S1, Normal S2, No Murmurs Lungs: Normal Air Movement, mild wheeze rll Abdomen: Soft, No Tenderness Neurological: Normal Speech, Sensation Intact Extremities: L arm edema s/p DVT; no LE edema Vascular: Normal Pulses Current Medications: Current Medications Sig/Bayron Start time Last Medication Dose Route Stop Time Status Admin Acetaminophen 650 MG Q6P PRN 05/09 2045 AC 05/18 PO 1611 Acyclovir 1 EDWARD 5 TIMES A DAY 05/19 0905 AC 05/20 TOP 0853 Alteplase, 2 MG ONE ONE 05/19 1045 DC 05/19 Recombinant IV 05/19 1046 1235 Ampicillin Sodium/ 3,000 MG Q6H 05/13 0800 AC 05/20 Sulbactam Sodium IV 0839 Sodium Chloride 100 ML Atorvastatin Calcium 40 MG 1700 05/10 1700 AC 05/19 PO 1625 Bupropion HCl 150 MG DAILY 05/10 1403 AC 05/20 PO 0838 Calcium 600 MG BID 05/18 0900 AC 05/20 PO 0838 Carvedilol 3.125 MG BID 05/11 0900 AC 05/20 PO 0838 Chlorhexidine 15 ML BID 05/14 2100 AC 05/19 Gluconate PO 0947 Cyanocobalamin 1,000 MCG DAILY 05/18 0900 AC 05/20 PO 0838 Docusate Sodium 100 MG BID 05/18 1158 AC 05/20 PO 0838 Enoxaparin Sodium 80 MG BID 05/16 1400 AC 05/20 SC 0838 Ferrous Sulfate 325 MG TID 05/18 1400 AC 05/20 PO 0838 Folic Acid 1 MG DAILY 05/18 0900 AC 05/20 PO 0838 Insulin Aspart 0 TIDAC 05/15 1700 AC 05/19 SC 1247 Insulin Detemir 5 UNITS BID 05/14 2100 05/20 SC 0839 Memantine 10 MG DAILY 05/16 0900 AC 05/20 PO 0838 Oxycodone HCl 10 MG Q4P PRN 05/16 0945 05/20 PO 0933 Pantoprazole Sodium 40 MG BID 05/17 1232 AC 05/20 IV 0838 Polyethylene Glycol 17 GM DAILY 05/18 1158 AC PO Sertraline HCl 200 MG AT BEDTIME 05/10 2100 AC 05/19 PO 202 Thiamine HCl 100 MG DAILY 05/18 0900 AC 05/20 PO 0838 Trazodone HCl 50 MG AT BEDTIME 05/11 2100 05/19 PO 2026 Last 24 Hrs of Lab/Ramón Results Last 24 Hrs of Labs/Mics: Laboratory Tests 05/20/18 0525: Anion Gap 7, Estimated GFR > 60, BUN/Creatinine Ratio 25.0, CBC w Diff NO MAN DIFF REQ, RBC 3.05 L, MCV 80.7 L, MCH 26.7 L, MCHC 33.1, RDW 17.2 H, MPV 7.8 , Gran % 82.5 H, Lymphocytes % 8.4 L, Monocytes % 7.5, Eosinophils % 0.7, Basophils % 0.9, Absolute Granulocytes 6.1, Absolute Lymphocytes 0.6 L, Absolute Monocytes 0.6, Absolute Eosinophils 0, Absolute Basophils 0.1 Assessment/Plan Assessment: Ms. Alcocer is a 62 year old female with past medical history significant for morbid obesity, DM, STERLING, s/p laparoscopic Bindu-en-Y gastric bypass (2015), HTN, CAD/NE s/p PCI and CABG who presented with sepsis secondary to left chest wall cellulitis complicated by MSSA and clostridium perfringens bacteremia and infective endocarditis status post surgical incision and drainage, a single episode of atrial fibrillation with RVR status post conversion to normal sinus rhythm, a left upper extremity DVT, and guaiac positive stool now day 11 of treatment with ampicillin/sulbactam. She is doing well now. Problem List: 1. Sepsis secondary to left chest wall cellulitis 2. MSSA and clostridium perfringens bacteremia 3. Infective endocarditis 4. LUE DVT 5. New onset rapid A. fib with RVR s/p conversion to SR 6. Herpes labalis 7. Guiaic postive stool 8. Mild hyponatremia #Sepsis secondary to left chest wall cellulitis -On IV Unasyn, day 11. Will need to complete a 4-6 week course -ID input on this case appreciated - will continue to follow recs -Surgery input on this case appreciated. Spoke with HERLINDA this morning who stated wen drain to be removed tomorrow, ABD pad placed under L axilla. (?) re compression on LUE DVT - will follow up -S/p I+D -CBC this am - 7.4 WBC, down from 9.5 yesterday. Will continue to trend. #MSSA and Clostridium perfringens bacteremia -Will require 4-6 weeks of IV ABX #Infective Endocarditis -Cardiology input in this case appreciated. On IV Unasyn, no leukocytosis/fevers at this time #LUE DVT -Will order compress -Continue Enoxaparin 80mg BID #Afib with RVR -No episodes of tachycardia overnight, pt denies palpitations -Appreciate cardio reccs -Continue Enoxaparin 80mg BID #Herpes labialis -On oral acyclovir, day 1/5 -Appreciate ID input #Guaic positive stool -CBC today shows hemoglobin of 8.1, up from 8.0 yesterday. Will trend CBCs -Outpatient GI follow-up for guaiac positive stool #Hyponatremia -Fluid restriction 1200mL/day. -Current BEP 133, up from 132 yesterday. Will trend BEP Fluid restrict for hyponatremia - 1200mL/day. Likely secondary to sertraline. Pain control as appropriate Gastric bypass vitamins DVT prophylaxis with enoxaparin Consistent carbohydrate two diet Full code Problem List: 1. Deep vein thrombosis (DVT) of left upper extremity 2. Infective endocarditis of aortic valve 3. Cellulitis Pain Ratin Pain Location: L chest wall Pain Goal: Pain 7 or less Pain Plan: per pathway Tomorrow's Labs & Rationales: CBC, BEP
--- NOTE | 2018-05-20 13:00 | PN- Pulmonary ---
Subjective HPI/Critical Care Issues: Patient seen and examined at bedside. Pt states that she does have some left chest wall tenderness. Patient states that she is very cold. Patient states that the oral lesions have improved, less painful. Denies fevers/chills/night sweats/chest pain/palpitations/abdominal pain/urinary symptoms/lower extremity edema Review of Systems Constitutional: Reports: see HPI. Objective Current Medications: Current Medications Sig/Bayron Start time Last Medication Dose Route Stop Time Status Admin Acetaminophen 650 MG Q6P PRN 05/09 2045 AC 05/18 PO 1611 Acyclovir 200 MG 5 TIMES A DAY 05/20 1030 AC 05/20 PO 05/24 1000 1254 Acyclovir 1 EDWARD 5 TIMES A DAY 05/19 0905 DC 05/20 TOP 0853 Ampicillin Sodium/ 3,000 MG Q6H 05/13 0800 AC 05/20 Sulbactam Sodium IV 0839 Sodium Chloride 100 ML Atorvastatin Calcium 40 MG 1700 05/10 1700 AC 05/19 PO 1625 Bupropion HCl 150 MG DAILY 05/10 1403 AC 05/20 PO 0838 Calcium 600 MG BID 05/18 0900 AC 05/20 PO 0838 Carvedilol 3.125 MG BID 05/11 0900 AC 05/20 PO 0838 Chlorhexidine 15 ML BID 05/14 2100 AC 05/19 Gluconate PO 0947 Cyanocobalamin 1,000 MCG DAILY 05/18 0900 AC 05/20 PO 0838 Docusate Sodium 100 MG BID 05/18 1158 AC 05/20 PO 0838 Enoxaparin Sodium 80 MG BID 05/16 1400 AC 05/20 SC 0838 Ferrous Sulfate 325 MG TID 05/18 1400 AC 05/20 PO 0838 Folic Acid 1 MG DAILY 05/18 0900 AC 05/20 PO 0838 Insulin Aspart 0 TIDAC 05/15 1700 AC 05/19 SC 1247 Insulin Detemir 5 UNITS BID 05/14 2100 AC 05/20 SC 0839 Memantine 10 MG DAILY 05/16 0900 AC 05/20 PO 0838 Oxycodone HCl 10 MG Q4P PRN 05/16 0945 AC 05/20 PO 0933 Pantoprazole Sodium 40 MG BID 05/17 1232 AC 05/20 IV 0838 Polyethylene Glycol 17 GM DAILY 05/18 1158 AC PO Sertraline HCl 200 MG AT BEDTIME 05/10 2100 AC 05/19 PO 2025 Thiamine HCl 100 MG DAILY 05/18 09 AC 05/20 PO 837 Trazodone HCl 50 MG AT BEDTIME 05/11 2100 AC 05/19 PO 2026 Vital Signs & I&O Last 24 Hrs of Vitals and I&O: Vital Signs Date Time Temp Pulse Resp B/P B/P Pulse O2 O2 Flow FiO2 Mean Ox Delivery Rate 05/20 838 66 146/94 05/20 0800 Room Air 05/20 0634 98.4 66 20 146/94 92 05/20 0620 97.6 69 20 130/62 95 05/19 2027 79 152/64 05/19 2000 98.9 79 20 152/64 94 Room Air 05/19 1600 97 Room Air 05/19 1429 98.0 74 20 152/82 97 Room Air Intake & Output 05/20 1600 05/20 0800 05/20 0000 Intake Total 160 250 Output Total 300 Balance 160 -50 Intake, IV 100 100 Intake, Oral 60 150 Number 1 Bowel Movements Output, Urine 300 Patient 198 lb Weight Weight Bed scale Measurement Method Laboratory Tests 05/20 05/19 0525 0620 Chemistry Sodium (137 - 145 mmol/L) 133 L 132 L Potassium (3.5 - 5.1 mmol/L) 4.3 4.6 Chloride (98 - 107 mmol/L) 105 104 Carbon Dioxide (22 - 30 mmol/L) 21 L 22 Anion Gap (5 - 16) 7 6 BUN (7 - 17 mg/dL) 15 19 H Creatinine (0.5 - 1.0 mg/dL) 0.6 0.6 Estimated GFR (>60 ml/min) > 60 > 60 BUN/Creatinine Ratio (7 - 25 %) 25.0 31.7 H Magnesium (1.6 - 2.3 mg/dL) 1.9 Hematology CBC w Diff NO MAN DIFF REQ NO MAN DIFF REQ WBC (4.8 - 10.8 /CUMM) 7.4 9.5 RBC (4.20 - 5.40 /CUMM) 3.05 L 2.96 L Hgb (12.0 - 16.0 G/DL) 8.1 L 8.0 L Hct (37 - 47 %) 24.6 L 23.7 L MCV (81.0 - 99.0 FL) 80.7 L 80.1 L MCH (27.0 - 31.0 PG) 26.7 L 27.2 MCHC (33.0 - 37.0 G/DL) 33.1 33.9 RDW (11.5 - 14.5 %) 17.2 H 16.8 H Plt Count (130 - 400 /CUMM) 354 304 MPV (7.4 - 10.4 FL) 7.8 8.7 Gran % (42.2 - 75.2 %) 82.5 H 89.4 H Lymphocytes % (20.5 - 51.1 %) 8.4 L 7.3 L Monocytes % (1.7 - 9.3 %) 7.5 2.9 Eosinophils % (0 - 5 %) 0.7 0.4 Basophils % (0.0 - 2.0 %) 0.9 0 Absolute Granulocytes (1.4 - 6.5 /CUMM) 6.1 8.5 H Absolute Lymphocytes (1.2 - 3.4 /CUMM) 0.6 L 0.7 L Absolute Monocytes (0.10 - 0.60 /CUMM) 0.6 0.3 Absolute Eosinophils (0.0 - 0.7 /CUMM) 0 0 Absolute Basophils (0.0 - 0.2 /CUMM) 0.1 0 Impression/Plan Impression/Plan Impression/Plan: GenL; elevated BMI Skin: pale; Cchest persistent induration, erythema and tenderness of the left breast and chest wall HEENT: AT, no thrush; crusted perioral herpetic lesions Neck: No JVD Lungs BS diminished bases, no rales or rhonchi Heart regular rhythm with no murmur Abdomen is soft, nontender with positive bowel sounds Extremities trace edema both lower extremities; PICC in the right upper extremity with no inflammation at the site Neuro: A&O x3, answering questions appropriately Pt with Diabetes, recent memory loss, on and off evaluation, previous history of ischemic heart disease CABG, previous hepatitis C infection per chart seen in the emergency room few days prior to admission with vomiting, diarrhea and diffuse hives, found to be afebrile with a bandemia, and discharged home on prednisone with the diagnosis of food poisoning, admitted on May 09 with a 2 day history of increasing lethargy, confusion, decreased p.o. intake, persistent diarrhea and decreased urine output, with the additional history of a painful "cyst" in her left axilla over the past 1-2 weeks prior to admission, and upon admission was found to be febrile, tachycardic and in atrial fibrillation then converted to sinus, with bandemia, elevated lactic acid and with a CT of the chest revealing extensive soft tissue infiltration and edema involving the left anterior lateral chest wall, with positive blood cultures upon admission Current issues * Resolving Sepsis due to skin and soft tissue infection of the left chest wall ,s/p I and d, with aortic valve endocarditis * MSSA and clostriduium perfrin bacteremia upon admission, now with AV endocarditis * Sig DVT left upper ext on systemic anticoag * Small effusion and dense consolidation of left lower lobe due to atx vs pna ( less likely) * Herpes oralis * Pafib * History of IHD with prior CABG with ischemic cardiomyopathy, with pafib now in sinus * History of Hep c ( seems to have cleared the virus) prior gastric bypass with post op bleeding complication few yrs ago * Elevated sugar with dm * Electrolyte abnormality * Guaiac positive stool with iron def anemia, s/p IV iron ( pt with previous gastric bypass surg) GI has seen REC COnt abx per ID PPI and follow crit to eval gi bleed Rpt cxr ORal care with periodex Strict sugar control Fluid restriction COnt anticoag and watch hemoglobin When stable pt can be transitioned to xeralto 20 mg or eloquis 5 bid (depending on insurance coverage) Touch base with gi prior to dc regarding heme positive stool and anticoag etc OOB to chair Will follow
[2018-05-20 15:02] VITALS: BP 152/78
--- NOTE | 2018-05-20 16:04 | PN- Infect Dx ---
Subjective Subjective: Has L CW tenderness. No fever. Denies night sweats/chest pain/palpitations/ abdominal pain/urinary symptoms/lower extremity edema Review of Systems Comments: 12 points reviewed as noted, otherwise negative. Objective Last 24 Hrs of Vital Signs/I&O Vital Signs Date Time Temp Pulse Resp B/P B/P Pulse O2 O2 Flow FiO2 Mean Ox Delivery Rate 05/20 1502 98.4 73 20 152/78 96 Room Air 05/20 0838 66 146/94 05/20 0800 Room Air 05/20 0634 98.4 66 20 146/94 92 05/20 0620 97.6 69 20 130/62 95 05/19 202 79 152/64 05/19 2000 98.9 79 20 152/64 94 Room Air Intake & Output 05/20 1600 05/20 0800 05/20 0000 Intake Total 740 160 250 Output Total 300 Balance 740 160 -50 Intake, IV 260 100 100 Intake, Oral 480 60 150 Number 4 1 Bowel Movements Output, Urine 300 Patient 198 lb Weight Weight Bed scale Measurement Method Physical Exam Other Physical Findings: Gen: elevated BMI Skin: pale; Cchest persistent induration, erythema and tenderness of the left breast and chest wall HEENT: AT, no thrush; crusted perioral herpetic lesions Neck: No JVD Lungs BS diminished bases, no rales or rhonchi Heart regular rhythm with no murmur Abdomen is soft, nontender with positive bowel sounds Extremities trace edema both lower extremities; PICC in the right upper extremity with no inflammation at the site Neuro: A&O x3, answering questions appropriately Results Last 24 Hours of Lab Results: Laboratory Tests 05/20 0525 Chemistry Sodium (137 - 145 mmol/L) 133 L Potassium (3.5 - 5.1 mmol/L) 4.3 Chloride (98 - 107 mmol/L) 105 Carbon Dioxide (22 - 30 mmol/L) 21 L Anion Gap (5 - 16) 7 BUN (7 - 17 mg/dL) 15 Creatinine (0.5 - 1.0 mg/dL) 0.6 Estimated GFR (>60 ml/min) > 60 BUN/Creatinine Ratio (7 - 25 %) 25.0 Hematology CBC w Diff NO MAN DIFF REQ WBC (4.8 - 10.8 /CUMM) 7.4 RBC (4.20 - 5.40 /CUMM) 3.05 L Hgb (12.0 - 16.0 G/DL) 8.1 L Hct (37 - 47 %) 24.6 L MCV (81.0 - 99.0 FL) 80.7 L MCH (27.0 - 31.0 PG) 26.7 L MCHC (33.0 - 37.0 G/DL) 33.1 RDW (11.5 - 14.5 %) 17.2 H Plt Count (130 - 400 /CUMM) 354 MPV (7.4 - 10.4 FL) 7.8 Gran % (42.2 - 75.2 %) 82.5 H Lymphocytes % (20.5 - 51.1 %) 8.4 L Monocytes % (1.7 - 9.3 %) 7.5 Eosinophils % (0 - 5 %) 0.7 Basophils % (0.0 - 2.0 %) 0.9 Absolute Granulocytes (1.4 - 6.5 /CUMM) 6.1 Absolute Lymphocytes (1.2 - 3.4 /CUMM) 0.6 L Absolute Monocytes (0.10 - 0.60 /CUMM) 0.6 Absolute Eosinophils (0.0 - 0.7 /CUMM) 0 Absolute Basophils (0.0 - 0.2 /CUMM) 0.1 Last 24 Hours of Ramón Results: SPEC #: [id number] MARK: 05/14/18 STATUS: COMP RECD: 05/14/[address]: Ronny MORGAN,Jose Curry SOURCE: TRUNK/O.R. ENTR: 05/14/[address]: Richelle Payne MD SPDESC: Sue MEJIA MD,Igor Goodwin MD,John Holguin ORDERED: TRUNK OR CULT COMMENT: ADDITIONAL INFORMATION: LEFT AXILLARY FLUID FOR CULTURE RECEIVED ~2CC CLOTTED BLOODY FLUID IN STERILE CUP Procedure Result > GRAM STAIN Final 05/15/18-32 WHITE BLOOD CELLS RARE GRAM POSITIVE COCCI FEW > TRUNK AREA OR CULTURE Final 05/16/18-1156 Moderate growth of: ST[facility]UREUS Called to/Readback by ANDI by LAB.GEOK 05/16/18 9622 1. ST[facility]US RX ABN ------ --- 1. [facility] RX AB ------ -- CEFAZOLIN S AMOXICILLIN/CLAVULINIC ACID S AMPICILLIN/SULBACTAM S TETRACYCLINE S TRIMETHOPRIM/SULFAMETHOXAZOLE S AZITHROMYCIN R CLINDAMYCIN S ERYTHROMYCIN R OXACILLIN S VANCOMYCIN S C. diif test neg on 05/16/18 Recent Imaging Studies: CXR 05/15 IMPRESSION: Right-sided PICC line in place. Retrocardiac infiltrate. DICTATED BY: Osiel Almazan MD DATE/TIME DICTATED:05/15/181418 RACETRACK STEWARD:PATRICIA DATE/TIME TRANSCRIBED:05/15/181418 CONFIDENTIAL, DO NOT COPY WITHOUT APPROPRIATE AUTHORIZATION. Assessment/Plan ID Impression: Left breast cellulitis Leukocytosis/resolved Endocarditis; sepsis (resolved) Herpetic gingivostomatitis/improved LUE DVT Afib with rvr Decreased discomfort in the left axilla and chest wall, temperatures and white blood cell count normal, status post exploration of the left axillary area in the OR 6 days ago, with local fluid growing Staph aureus (MSSA). She remains on Unasyn, Day 11 of treatment for MSSA and Clostridium perfringens sepsis, with the TERESA positive for a small vegetation on the aortic valve confirming the diagnosis of endocarditis (abx tx for 4 to 6 weeks). Suggestion: 1. Monitor BMP, CBC; supportive care per team; oral acyclovir x 4 more days; encourage po fluid intake. Aspiration precautions. 2. F/U Cardiothoracic surgery recom 3. Continue Unasyn 3 gm q 6 h started 05/13.
[2018-05-20 20:52] VITALS: BP 150/63
[2018-05-21 06:28] VITALS: BP 165/72
[2018-05-21 07:47] LABS: ABSOLUTE BASOPHIL COUNT 0 /CUMM (0.0-0.2); ABSOLUTE EOSINOPHIL COUNT 0.1 /CUMM (0.0-0.7); ABSOLUTE GRANULOCYTE CT 4.7 /CUMM (1.4-6.5); ABSOLUTE LYMPH COUNT 0.8 /CUMM (1.2-3.4); ABSOLUTE MONOCYTE COUNT 0.6 /CUMM (0.10-0.60); BASOPHIL % 0.7 % (0.0-2.0); GRANULOCYTE % 76.6 % (42.2-75.2); HEMATOCRIT 23.8 % (37-47); MEAN CORPUSCULAR HGB 26.9 PG (27.0-31.0); MEAN CORPUSCULAR HGB CONC 33.2 G/DL (33.0-37.0); MEAN PLATELET VOLUME 7.6 FL (7.4-10.4); PLATELET COUNT 393 /CUMM (130-400); RBC DISTRIBUTION WIDTH 17.5 % (11.5-14.5); RED BLOOD CELL CT 2.94 /CUMM (4.20-5.40); WHITE BLOOD CELL COUNT 6.1 /CUMM (4.8-10.8)
--- NOTE | 2018-05-21 08:16 | PN- Housestaff ---
See Addendum Subjective Follow-up For: Sepsis secondary to left chest wall cellulitis complicated by bacteremia and infective endocarditis, new onset atrial fibrillation status post conversion to normal sinus rhythm, left upper extremity DVT, herpes labialis, guaiac positive stool Subjective: Patient seen and examined at bedside. Pt states that she does have some left chest wall tenderness. Patient states that she is very cold. Patient states that the oral lesions have improved, less painful. Denies fevers/chills/night sweats/chest pain/palpitations/abdominal pain/urinary symptoms/lower extremity edema Review of Systems Constitutional: Reports: see HPI. Objective Last 24 Hrs of Vital Signs/I&O Vital Signs Date Time Temp Pulse Resp B/P B/P Pulse O2 O2 Flow FiO2 Mean Ox Delivery Rate 05/21 0918 72 158/70 05/21 0628 98.4 72 20 165/72 93 05/20 2215 81 150/63 05/20 2052 81 18 150/63 94 Room Air 05/20 1502 98.4 73 20 152/78 96 Room Air Intake & Output 05/21 1600 05/21 0800 05/21 0000 Intake Total 200 100 Output Total Balance 200 100 Intake, IV 100 Intake, Oral 200 Patient 204 lb Weight Weight Bed scale Measurement Method Physical Exam General Appearance: Alert, Oriented X3, Cooperative, No Acute Distress Skin: L chest wall cellulitis, regressing compared to yesterday, L chest wall tender Skin Temp/Moisture Exam: Warm/Dry HEENT: Mucous Membr. moist/pink, perioral crusted over skin lesions Cardiovascular: Regular Rate, Normal S1, Normal S2 Lungs: Clear to Auscultation, Normal Air Movement Abdomen: Soft, No Tenderness Neurological: Normal Speech Extremities: No Edema Current Medications: Current Medications Sig/Bayron Start time Last Medication Dose Route Stop Time Status Admin Acetaminophen 1,000 MG ONCE ONE 05/21 0415 DC 05/21 N/A 1 UNIT IV 05/21 Acetaminophen 1,000 MG ONCE ONE 05/20 1930 DC 05/20 N/A 1 UNIT IV 05/20 Acetaminophen 650 MG Q6P PRN 05/09 2045 AC 05/18 PO 1611 Acyclovir 200 MG 5 TIMES A DAY 05/20 1030 AC 05/21 PO 05/24 2300 1214 Ampicillin Sodium/ 3,000 MG Q6H 05/13 0800 AC 05/21 Sulbactam Sodium IV 1326 Sodium Chloride 100 ML Atorvastatin Calcium 40 MG 1700 05/10 1700 AC 05/20 PO 1712 Bupropion HCl 150 MG DAILY 05/10 1403 AC 05/21 PO 0918 Calcium 600 MG BID 05/18 0900 AC 05/21 PO 0918 Carvedilol 3.125 MG BID 05/11 0900 AC 05/21 PO 0918 Chlorhexidine 15 ML BID 05/14 2100 AC 05/19 Gluconate PO 0947 Cyanocobalamin 1,000 MCG DAILY 05/18 0900 AC 05/21 PO 0918 Docusate Sodium 100 MG BID 05/18 1158 AC 05/21 PO 0918 Enoxaparin Sodium 80 MG BID 05/16 1400 AC 05/21 SC 0917 Ferrous Sulfate 325 MG TID 05/18 1400 AC 05/21 PO 1326 Folic Acid 1 MG DAILY 05/18 0900 AC 05/21 PO 0918 Insulin Aspart 0 TIDAC 05/15 1700 AC 05/19 SC 1247 Insulin Detemir 5 UNITS BID 05/14 2100 AC 05/21 SC 0927 Memantine 10 MG DAILY 05/16 0900 AC 05/21 PO 0918 Ondansetron HCl 4 MG ONCE ONE 05/21 1045 DC 05/21 IV 05/21 1046 1047 Oxycodone HCl 10 MG Q4P PRN 05/16 0945 AC 05/21 PO 0206 Pantoprazole Sodium 40 MG BID 05/17 1232 AC 05/21 IV 0756 Polyethylene Glycol 17 GM DAILY 05/18 1158 PO Sertraline HCl 200 MG AT BEDTIME 05/10 2100 AC 05/20 PO 2218 Simethicone 80 MG Q6P PRN 05/20 1745 AC 05/20 PO 1758 Thiamine HCl 100 MG DAILY 05/18 0900 AC 05/21 PO 0918 Trazodone HCl 50 MG AT BEDTIME 05/11 2100 AC 05/20 PO 221 Last 24 Hrs of Lab/Ramón Results Last 24 Hrs of Labs/Mics: Laboratory Tests 05/21/18 0550: Anion Gap 7, Estimated GFR > 60, BUN/Creatinine Ratio 20.0, CBC w Diff NO MAN DIFF REQ, RBC 2.94 L, MCV 81.0, MCH 26.9 L, MCHC 33.2, RDW 17.5 H, MPV 7.6, Gran % 76.6 H, Lymphocytes % 12.3 L, Monocytes % 9.4 H, Eosinophils % 1.0, Basophils % 0.7, Absolute Granulocytes 4.7, Absolute Lymphocytes 0.8 L, Absolute Monocytes 0.6, Absolute Eosinophils 0.1, Absolute Basophils 0 Assessment/Plan Assessment: Ms. Alcocer is a 62 year old female with past medical history significant for morbid obesity, DM, STERLING, s/p laparoscopic Bindu-en-Y gastric bypass (2015), HTN, CAD/UT s/p PCI and CABG who presented with sepsis secondary to left chest wall cellulitis complicated by MSSA and clostridium perfringens bacteremia and infective endocarditis status post surgical incision and drainage, a single episode of atrial fibrillation with RVR status post conversion to normal sinus rhythm, a left upper extremity DVT, and guaiac positive stool, guaiac negative as of 05/21, now day 12 of treatment with ampicillin/sulbactam. She is doing well now. Problem List: 1. Sepsis secondary to left chest wall cellulitis 2. MSSA and clostridium perfringens bacteremia 3. Infective endocarditis 4. LUE DVT 5. New onset rapid A. fib with RVR s/p conversion to SR 6. Herpes labalis 7. Guiaic postive stool 8. Mild hyponatremia #Sepsis secondary to left chest wall cellulitis -On IV Unasyn, day 12. Will need to complete a 4-6 week course -ID input on this case appreciated - will continue to follow recs -Surgery input on this case appreciated. Spoke with PA this morning who stated wen drain to be removed tomorrow, ABD pad placed under L axilla. (?) re compression on LUE DVT - will follow up -S/p I+D -CBC this am - 6.1 WBC, down from 7.4 yesterday. Will continue to trend. #MSSA and Clostridium perfringens bacteremia -Will require 4-6 weeks of IV ABX #Infective Endocarditis -Cardiology input in this case appreciated. On IV Unasyn, no leukocytosis/fevers at this time #LUE DVT -Will order compress for LUE -Continue Enoxaparin 80mg BID -Will transition to Eliquis 5mg BID or Xarelto 20mg upon discharge #Afib with RVR -No episodes of tachycardia overnight, pt denies palpitations -Appreciate cardio reccs -Continue Enoxaparin 80mg BID #Herpes labialis -Discontinue acyclovir per ID -Appreciate ID input #Guaic positive stool -CBC today shows hemoglobin of 7.9, down from 8.1 yesterday. Will trend CBCs -Outpatient GI follow-up for guaiac positive stool -Recent stool guaiac negative on 05/21. -On protonix 40mg IV #Hyponatremia -Fluid restriction 1200mL/day. -Current BEP 134, up from 133 yesterday. Stable, at baseline Pain control as appropriate Gastric bypass vitamins DVT prophylaxis with enoxaparin with eventual bridge to xarelto or eliquis for outpt Consistent carbohydrate two diet Full code Dispo-to rehab Problem List: 1. Deep vein thrombosis (DVT) of left upper extremity 2. Infective endocarditis of aortic valve Pain Ratin Pain Location: L chest wall Pain Goal: Pain 4 or less Pain Plan: pathway Tomorrow's Labs & Rationales: CBC BEP
--- NOTE | 2018-05-21 12:13 | PN- Infect Dx ---
Subjective Subjective: Afebrile. She feels improved though still has discomfort in the left chest wall. Objective Last 24 Hrs of Vital Signs/I&O Vital Signs Date Time Temp Pulse Resp B/P B/P Pulse O2 O2 Flow FiO2 Mean Ox Delivery Rate 05/21 0918 72 158/70 05/21 0628 98.4 72 20 165/72 93 05/20 2215 81 150/63 05/20 2052 81 18 150/63 94 Room Air 05/20 1502 98.4 73 20 152/78 96 Room Air Intake & Output 05/21 1600 05/21 0800 05/21 0000 Intake Total 200 100 Output Total Balance 200 100 Intake, IV 100 Intake, Oral 200 Patient 204 lb Weight Weight Bed scale Measurement Method Physical Exam Other Physical Findings: She appears more comfortable in no acute distress Chest decreased erythema and induration of the left breast, with persistent induration in the left axilla Lungs decreased breath sounds on the left Heart regular rhythm with no murmur Extremities left upper extremity edema, induration and tenderness persist; PICC in the right upper extremity with no inflammation at the site; trace edema both lower extremities Results Last 24 Hours of Lab Results: Laboratory Tests 05/21 0550 Chemistry Sodium (137 - 145 mmol/L) 134 L Potassium (3.5 - 5.1 mmol/L) 4.5 Chloride (98 - 107 mmol/L) 104 Carbon Dioxide (22 - 30 mmol/L) 23 Anion Gap (5 - 16) 7 BUN (7 - 17 mg/dL) 12 Creatinine (0.5 - 1.0 mg/dL) 0.6 Estimated GFR (>60 ml/min) > 60 BUN/Creatinine Ratio (7 - 25 %) 20.0 Hematology CBC w Diff NO MAN DIFF REQ WBC (4.8 - 10.8 /CUMM) 6.1 RBC (4.20 - 5.40 /CUMM) 2.94 L Hgb (12.0 - 16.0 G/DL) 7.9 L Hct (37 - 47 %) 23.8 L MCV (81.0 - 99.0 FL) 81.0 MCH (27.0 - 31.0 PG) 26.9 L MCHC (33.0 - 37.0 G/DL) 33.2 RDW (11.5 - 14.5 %) 17.5 H Plt Count (130 - 400 /CUMM) 393 MPV (7.4 - 10.4 FL) 7.6 Gran % (42.2 - 75.2 %) 76.6 H Lymphocytes % (20.5 - 51.1 %) 12.3 L Monocytes % (1.7 - 9.3 %) 9.4 H Eosinophils % (0 - 5 %) 1.0 Basophils % (0.0 - 2.0 %) 0.7 Absolute Granulocytes (1.4 - 6.5 /CUMM) 4.7 Absolute Lymphocytes (1.2 - 3.4 /CUMM) 0.8 L Absolute Monocytes (0.10 - 0.60 /CUMM) 0.6 Absolute Eosinophils (0.0 - 0.7 /CUMM) 0.1 Absolute Basophils (0.0 - 0.2 /CUMM) 0 Last 24 Hours of Ramón Results: No new cultures Assessment/Plan ID Impression: Continues to improve, with decreased induration in the left breast and chest wall, and with her temperatures and white blood cell count now both normal on Unasyn, Day 12 of treatment for MSSA and Clostridium perfringens sepsis/ endocarditis secondary to an infection of the left chest wall/axilla/breast, now 1 week status post drainage in the OR. She was apparently placed on Acyclovir for her perioral lesions, though, as they are crusted, the role of antiviral therapy is unclear. She is now on Lovenox for an extensive DVT of the left upper extremity, status post a transient episode of atrial fibrillation. Suggestion: 1. Discontinue Acyclovir 2. Continue Unasyn
--- NOTE | 2018-05-21 14:19 | PN- Pulmonary ---
Subjective HPI/Critical Care Issues: Doing well stable now doing od Objective Current Medications: Current Medications Sig/Bayron Start time Last Medication Dose Route Stop Time Status Admin Acetaminophen 1,000 MG ONCE ONE 05/21 0415 DC 05/21 N/A 1 UNIT IV 05/21 0429 0419 Acetaminophen 1,000 MG ONCE ONE 05/20 1930 DC 05/20 N/A 1 UNIT IV 05/20 1944 1930 Acetaminophen 650 MG Q6P PRN 05/09 2045 AC 05/18 PO 1611 Acyclovir 200 MG 5 TIMES A DAY 05/20 1030 AC 05/21 PO 05/24 2300 1214 Ampicillin Sodium/ 3,000 MG Q6H 05/13 0800 AC 05/21 Sulbactam Sodium IV 1326 Sodium Chloride 100 ML Atorvastatin Calcium 40 MG 1700 05/10 1700 AC 05/20 PO 1712 Bupropion HCl 150 MG DAILY 05/10 1403 AC 05/21 PO 0918 Calcium 600 MG BID 05/18 0900 AC 05/21 PO 0918 Carvedilol 3.125 MG BID 05/11 0900 AC 05/21 PO 0918 Chlorhexidine 15 ML BID 05/14 2100 AC 05/19 Gluconate PO 0947 Cyanocobalamin 1,000 MCG DAILY 05/18 0900 AC 05/21 PO 0918 Docusate Sodium 100 MG BID 05/18 1158 AC 05/21 PO 0918 Enoxaparin Sodium 80 MG BID 05/16 1400 AC 05/21 SC 0917 Ferrous Sulfate 325 MG TID 05/18 1400 AC 05/21 PO 1326 Folic Acid 1 MG DAILY 05/18 0900 05/21 PO 0918 Insulin Aspart 0 TIDAC 05/15 1700 05/19 MA 1247 Insulin Detemir 5 UNITS BID 05/14 2100 05/21 SC 0927 Memantine 10 MG DAILY 05/16 0900 05/21 PO 0918 Ondansetron HCl 4 MG ONCE ONE 05/21 1045 DC 05/21 IV 05/21 1046 1047 Oxycodone HCl 10 MG Q4P PRN 05/16 0945 05/21 PO 0206 Pantoprazole Sodium 40 MG BID 05/17 1232 AC 05/21 IV 0756 Polyethylene Glycol 17 GM DAILY 05/18 1158 PO Sertraline HCl 200 MG AT BEDTIME 05/10 2100 05/20 PO 2218 Simethicone 80 MG Q6P PRN 05/20 1745 AC 05/20 PO 1758 Thiamine HCl 100 MG DAILY 05/18 0900 AC 05/21 PO 0918 Trazodone HCl 50 MG AT BEDTIME 05/11 2100 AC 05/20 PO 2216 Vital Signs & I&O Last 24 Hrs of Vitals and I&O: Vital Signs Date Time Temp Pulse Resp B/P B/P Pulse O2 O2 Flow FiO2 Mean Ox Delivery Rate 05/21 0918 72 158/70 05/21 0628 98.4 72 20 165/72 93 05/20 2215 81 150/63 05/20 2052 81 18 150/63 94 Room Air 05/20 1502 98.4 73 20 152/78 96 Room Air Intake & Output 05/21 1600 05/21 0800 05/21 0000 Intake Total 200 100 Output Total Balance 200 100 Intake, IV 100 Intake, Oral 200 Patient 204 lb Weight Weight Bed scale Measurement Method Impression/Plan Impression/Plan Impression/Plan: GenL; elevated BMI Skin: pale; Cchest persistent induration, erythema and tenderness of the left breast and chest wall HEENT: AT, no thrush; crusted perioral herpetic lesions Neck: No JVD Lungs BS diminished bases, no rales or rhonchi Heart regular rhythm with no murmur Abdomen is soft, nontender with positive bowel sounds Extremities trace edema both lower extremities; PICC in the right upper extremity with no inflammation at the site Neuro: A&O x3, answering questions appropriately Pt with Diabetes, recent memory loss, on and off evaluation, previous history of ischemic heart disease CABG, previous hepatitis C infection per chart seen in the emergency room few days prior to admission with vomiting, diarrhea and diffuse hives, found to be afebrile with a bandemia, and discharged home on prednisone with the diagnosis of food poisoning, admitted on May 09 with a 2 day history of increasing lethargy, confusion, decreased p.o. intake, persistent diarrhea and decreased urine output, with the additional history of a painful "cyst" in her left axilla over the past 1-2 weeks prior to admission, and upon admission was found to be febrile, tachycardic and in atrial fibrillation then converted to sinus, with bandemia, elevated lactic acid and with a CT of the chest revealing extensive soft tissue infiltration and edema involving the left anterior lateral chest wall, with positive blood cultures upon admission Current issues * Resolving Sepsis due to skin and soft tissue infection of the left chest wall ,s/p I and d, with aortic valve endocarditis * MSSA and clostriduium perfrin bacteremia upon admission, now with AV endocarditis * Sig DVT left upper ext on systemic anticoag * Small effusion and dense consolidation of left lower lobe due to atx vs pna ( less likely) * Herpes oralis * Pafib * History of IHD with prior CABG with ischemic cardiomyopathy, with pafib now in sinus * History of Hep c ( seems to have cleared the virus) prior gastric bypass with post op bleeding complication few yrs ago * Elevated sugar with dm * Electrolyte abnormality * Guaiac positive stool with iron def anemia, s/p IV iron ( pt with previous gastric bypass surg) GI has seen REC COnt abx per ID PPI and follow crit to eval gi bleed Rpt cxr ORal care with periodex Strict sugar control Fluid restriction COnt anticoag and watch hemoglobin When stable pt can be transitioned to xeralto 20 mg or eloquis 5 bid (depending on insurance coverage) Touch base with gi prior to dc regarding heme positive stool and anticoag etc OOB to chair Will follow will sign off
[2018-05-21 14:44] VITALS: BP 128/82
--- NOTE | 2018-05-21 14:56 | PN- Student ---
Subjective Subjective: HPI: 62 y/o female with PMH of Diabetes, CHF, Hepatitis C, and CAD/[place] s/p PCI and CABG was brought to the ED for evaluation of increased lethargy, dehydration and confusion. Patient is being treated for sepsis secondary to left -sided chest wall cellulitis complicated by MSSA and clostridium perfringens bacteremia and infective endocarditis s/p surgical I&D, new onset atrial fibrillation s/p conversion to normal sinus rhythm, herpes labialis, LUE DVT, and guaiac positive stool. Patient was evaluated at bedside by both myself and Dr. Mayes. Patient complains that she is "exhausted and cold" and that "the fluid restriction makes my mouth bleed everytime I eat". Patient stated that "i will only have the sapna melody" while she had her lunch tray bedside and stated "eating makes my mouth bleed". Advised patient to drink the glucerna for nutrition and attempt eating her food the best she could, but she refused at the time. Denies fevers, chills, nightsweats, and fatigue. Denies chest pain, palpitation, difficulty breathing, abdominal pain, and urinary symptoms. Objective Objective: Vitals: Temp: 98.4F; Oral BP: 165/72mmHg HR: 72bpm RR: 20 br/min O2: 93% on Room air General: Patient was alert, cooperative, and in no acute distress throughout the examination. Upon general inspection, herpetic lesions present periorally on lower left side of the mouth. No central or peripheral edema noted. HEENT: Normocephalic. PERRLA. No tracheal deviation noted Lungs: Clear to ausculatation by anterior and lateral approaches, bilaterally. Heart: Normal heart sounds heard with the diaphragm in the Aortic, Pulmonic, Erbs, Tricuspid, and Mitral areas. No murmurs, rubs, or gallops noted. No edema noted. Chest: Upper left, anterior chest tender to palpation Abdomen: Upon visual inspection, no signs of distention or trauma. Normoactive bowel sounds heard in all four quadrants with the diaphragm with sounds occuring every 7 seconds. Abdomen non-tender upon palpation. Results Results: Laboratory Tests 05/21/18 0550: Anion Gap 7, Estimated GFR > 60, BUN/Creatinine Ratio 20.0, CBC w Diff NO MAN DIFF REQ, RBC 2.94 L, MCV 81.0, MCH 26.9 L, MCHC 33.2, RDW 17.5 H, MPV 7.6, Gran % 76.6 H, Lymphocytes % 12.3 L, Monocytes % 9.4 H, Eosinophils % 1.0, Basophils % 0.7, Absolute Granulocytes 4.7, Absolute Lymphocytes 0.8 L, Absolute Monocytes 0.6, Absolute Eosinophils 0.1, Absolute Basophils 0 05/20/18 0525: Anion Gap 7, Estimated GFR > 60, BUN/Creatinine Ratio 25.0, CBC w Diff NO MAN DIFF REQ, RBC 3.05 L, MCV 80.7 L, MCH 26.7 L, MCHC 33.1, RDW 17.2 H, MPV 7.8 , Gran % 82.5 H, Lymphocytes % 8.4 L, Monocytes % 7.5, Eosinophils % 0.7, Basophils % 0.9, Absolute Granulocytes 6.1, Absolute Lymphocytes 0.6 L, Absolute Monocytes 0.6, Absolute Eosinophils 0, Absolute Basophils 0.1 05/19/18 0620: Anion Gap 6, Estimated GFR > 60, BUN/Creatinine Ratio 31.7 H, Magnesium 1.9, CBC w Diff NO MAN DIFF REQ, RBC 2.96 L, MCV 80.1 L, MCH 27.2, MCHC 33.9, RDW 16.8 H, MPV 8.7, Gran % 89.4 H, Lymphocytes % 7.3 L, Monocytes % 2.9, Eosinophils % 0.4, Basophils % 0, Absolute Granulocytes 8.5 H, Absolute Lymphocytes 0.7 L, Absolute Monocytes 0.3, Absolute Eosinophils 0, Absolute Basophils 0 Assessment/Plan Assessment: 62 y/o female with PMH of Diabetes, CHF, Hepatitis C, and CAD/[place] s/p PCI and CABG was brought to the ED for evaluation of increased lethargy, dehydration and confusion. Patient is being treated for sepsis secondary to left -sided chest wall cellulitis complicated by MSSA and clostridium perfringens bacteremia and infective endocarditis s/p surgical I&D, new onset atrial fibrillation s/p conversion to normal sinus rhythm, herpes labialis, LUE DVT, and guaiac positive stool. Plan: Sepsis secondary to left chest wall cellulitis Currently on day 12 of IV Unasyn with goal of 4-6 week course Per Surgical note, Inez drain to be removed today MSSA and clostridium perfringens bacteremia Continue IV Unasyn for a total of a 4-6 week course Infective endocarditis Continue IV Unasyn for a total of a 4-6 week course Herpes labalis Discontinue Acyclovir per Infectious Disease Continue IV Unasyn for a total of a 4-6 week course LUE DVT Order: LUE compress Continue Enoxaparin 80mg PO BID SC New onset rapid Atrial Fibrillation with RVR s/p conversion to SR Continue Enoxaparin 80mg BID SC Guiaic postive stool Continue monitoring CBC Hyponatremia Fluid restriction to 1200mL/day Continue monitoring BEP
[2018-05-21 22:30] VITALS: BP 130/0
[2018-05-22 06:53] VITALS: BP 132/52
[2018-05-22 07:42] LABS: ABSOLUTE BASOPHIL COUNT 0 /CUMM (0.0-0.2); ABSOLUTE EOSINOPHIL COUNT 0 /CUMM (0.0-0.7); ABSOLUTE GRANULOCYTE CT 4.1 /CUMM (1.4-6.5); ABSOLUTE LYMPH COUNT 0.9 /CUMM (1.2-3.4); ABSOLUTE MONOCYTE COUNT 0.7 /CUMM (0.10-0.60); BASOPHIL % 0.8 % (0.0-2.0); EOSINOPHIL % 0.6 % (0-5); GRANULOCYTE % 71.4 % (42.2-75.2); HEMATOCRIT 23.6 % (37-47); MEAN CORPUSCULAR HGB 26.7 PG (27.0-31.0); MEAN CORPUSCULAR HGB CONC 32.7 G/DL (33.0-37.0); MEAN CORPUSCULAR VOLUME 81.8 FL (81.0-99.0); MEAN PLATELET VOLUME 7.9 FL (7.4-10.4); RBC DISTRIBUTION WIDTH 17.4 % (11.5-14.5); RED BLOOD CELL CT 2.89 /CUMM (4.20-5.40); WHITE BLOOD CELL COUNT 5.7 /CUMM (4.8-10.8)
--- NOTE | 2018-05-22 08:20 | PN- Housestaff ---
See Addendum Subjective Follow-up For: Sepsis secondary to left chest wall cellulitis complicated by bacteremia and infective endocarditis, new onset atrial fibrillation status post conversion to normal sinus rhythm, left upper extremity DVT, herpes labialis Subjective: Patient seen and examined at bedside. Pt states that she did not sleep very well last night, states that she continues get woken up. Patient also states that she is not eating as much as she did like to secondary to pain and the food sitting in her stomach. Patient was counseled on eating more liquids, and yogurt, patient stated that she would eat some oatmeal. Patient also asks if she will be discharged tomorrow, states that she like to spend a couple more days here she does not feel safe. Patient was counseled that she needs to stand up and move more often as she will get weak if she lays in bed all day. Patient denies fevers/chills/night sweats/chest pain/abdominal pain/urinary symptoms/ lower extremity edema Review of Systems Constitutional: Reports: see HPI. Objective Last 24 Hrs of Vital Signs/I&O Vital Signs Date Time Temp Pulse Resp B/P B/P Pulse O2 O2 Flow FiO2 Mean Ox Delivery Rate 05/22 0815 80 132/52 05/22 0653 98.7 81 18 132/52 92 05/21 2230 130/0 05/21 2225 98.8 82 18 99 Room Air 05/21 1500 Room Air 05/21 1444 98.0 83 18 128/82 95 Room Air 05/21 1408 Room Air 2.0L Intake & Output 05/22 1600 05/22 0800 05/22 0000 Intake Total 120 390 Output Total 300 Balance 120 90 Intake, Oral 120 390 Number 1 Bowel Movements Output, Urine 300 Physical Exam General Appearance: Alert, Oriented X3, Cooperative, No Acute Distress Skin: L chest wall cellulitis, erythema improved, vat tender ; Perioral herpes ; PICC in R arm Skin Temp/Moisture Exam: Warm/Dry Cardiovascular: Regular Rate, Normal S1, Normal S2 Lungs: Clear to Auscultation, Normal Air Movement Abdomen: Soft, No Tenderness Neurological: Normal Speech, Sensation Intact Extremities: No Edema, PICC IN PLACE R arm, LUE SWELLING 2/2 DVT Current Medications: Current Medications Sig/Bayron Start time Last Medication Dose Route Stop Time Status Admin Acetaminophen 650 MG Q6P PRN 05/095 AC 05/18 PO 1611 Acyclovir 200 MG 5 TIMES A DAY 05/20 1030 DC 05/22 PO 05/24 2300 0815 Ampicillin Sodium/ 3,000 MG Q6H 05/13 0800 AC 05/22 Sulbactam Sodium IV 0733 Sodium Chloride 100 ML Atorvastatin Calcium 40 MG 1700 05/10 1700 AC 05/21 PO 1720 Bupropion HCl 150 MG DAILY 05/10 1403 AC 05/22 PO 0815 Calcium 600 MG BID 05/18 0900 AC 05/22 PO 0815 Carvedilol 3.125 MG BID 05/11 0900 AC 05/22 PO 0815 Chlorhexidine 15 ML BID 05/14 2100 AC 05/19 Gluconate PO 0947 Cyanocobalamin 1,000 MCG DAILY 05/18 09 AC 05/22 PO 0815 Docusate Sodium 100 MG BID 05/18 1158 AC 05/21 PO 2059 Enoxaparin Sodium 80 MG BID 05/16 1400 AC 05/22 SC 0815 Ferrous Sulfate 325 MG TID 05/18 1400 AC 05/22 PO 0815 Folic Acid 1 MG DAILY 05/18 09 AC 05/22 PO 0815 Insulin Aspart 0 TIDAC 05/15 1700 AC 05/19 SC 1247 Insulin Detemir 5 UNITS BID 05/14 2100 AC 05/22 SC 0811 Memantine 10 MG DAILY 05/16 0900 AC 05/22 PO 0815 Ondansetron HCl 4 MG ONCE ONE 05/21 1045 DC 05/21 IV 05/21 1046 1047 Oxycodone HCl 10 MG Q4P PRN 05/16 0945 AC 05/21 PO 175 Pantoprazole Sodium 40 MG BID 05/17 1232 AC 05/22 IV 0810 Polyethylene Glycol 17 GM DAILY 05/18 1158 PO Sertraline HCl 200 MG AT BEDTIME 05/10 2100 AC 05/21 PO 205 Simethicone 80 MG Q6P PRN 05/20 1745 AC 05/20 PO 175 Thiamine HCl 100 MG DAILY 05/18 0900 AC 05/22 PO 08 Trazodone HCl 50 MG AT BEDTIME 05/11 2100 AC 05/21 PO 2058 Last 24 Hrs of Lab/Ramón Results Last 24 Hrs of Labs/Mics: Laboratory Tests 05/22/18 0515: CBC w Diff NO MAN DIFF REQ, RBC 2.89 L, MCV 81.8, MCH 26.7 L, MCHC 32.7 L, RDW 17.4 H, MPV 7.9, Gran % 71.4, Lymphocytes % 15.0 L, Monocytes % 12.2 H, Eosinophils % 0.6, Basophils % 0.8, Absolute Granulocytes 4.1, Absolute Lymphocytes 0.9 L, Absolute Monocytes 0.7 H, Absolute Eosinophils 0, Absolute Basophils 0 Assessment/Plan Assessment: Ms. Alcocer is a 62 year old female with past medical history significant for morbid obesity, DM, STERLING, s/p laparoscopic Bindu-en-Y gastric bypass (2015), HTN, CAD/[place] s/p PCI and CABG who presented with sepsis secondary to left chest wall cellulitis complicated by MSSA and clostridium perfringens bacteremia and infective endocarditis status post surgical incision and drainage, a single episode of atrial fibrillation with RVR status post conversion to normal sinus rhythm, a left upper extremity DVT, and guaiac positive stool, guaiac negative as of 05/21, now day 13 of treatment with ampicillin/sulbactam. She is doing well now. Problem List: 1. Sepsis secondary to left chest wall cellulitis 2. MSSA and clostridium perfringens bacteremia 3. Infective endocarditis 4. LUE DVT 5. New onset rapid A. fib with RVR s/p conversion to SR 6. Herpes labalis 7. Guiaic postive stool 8. Mild hyponatremia #Sepsis secondary to left chest wall cellulitis -On IV Unasyn, day 13. Will need to complete a 4-6 week course -ID input on this case appreciated - will continue to follow recs -Surgery input on this case appreciated. Surgery removed [place] drain today, states to put a clean dry dressing on it daily and as needed. Compression on left upper extremity DVT was refused by patient secondary to pain -S/p I+D -CBC this am - 5.7 WBC, down from 6.1 yesterday. Will continue to trend. #MSSA and Clostridium perfringens bacteremia -Will require 4-6 weeks of IV ABX #Infective Endocarditis -Cardiology input in this case appreciated. On IV Unasyn, no leukocytosis/fevers at this time #LUE DVT -Will order compress for LUEpatient has refused -Continue Enoxaparin 80mg BID -Will transition to Eliquis 5mg BID or Xarelto 20mg upon discharge #Afib with RVR -No episodes of tachycardia overnight, pt denies palpitations -Appreciate cardio reccs -Continue Enoxaparin 80mg BID #Herpes labialisstable -Discontinue acyclovir per ID -Appreciate ID input #Guaic positive stoolcurrently negative -CBC today shows hemoglobin of 7.7, down from 7.9 yesterday. Will trend CBCs -Outpatient GI follow-up for guaiac positive stool -Recent stool guaiac negative on 05/21. -On protonix 40mg IV, will switch to Prilosec p.o. #Hyponatremia -Fluid restriction 1200mL/day. -Stable Pain control as appropriate Gastric bypass vitamins DVT prophylaxis with enoxaparin with eventual bridge to xarelto or eliquis for outpt Consistent carbohydrate two diet Full code Dispo-to rehab Problem List: 1. Infective endocarditis of aortic valve 2. Deep vein thrombosis (DVT) of left upper extremity 3. Cellulitis Pain Ratin Pain Location: LUE/L Chest wall Pain Goal: Pain 4 or less Pain Plan: pathway Tomorrow's Labs & Rationales: CBC
--- NOTE | 2018-05-22 08:27 | PN- Student ---
Franko Trammell 05/22/18 0826: Subjective Subjective: HPI: 62 y/o female with PMH of Diabetes, CHF, Hepatitis C, and CAD/[place] s/p PCI and CABG was brought to the ED for evaluation of increased lethargy, dehydration and confusion. Patient is being treated for sepsis secondary to left -sided chest wall cellulitis complicated by MSSA and clostridium perfringens bacteremia and infective endocarditis s/p surgical I&D, new onset atrial fibrillation s/p conversion to normal sinus rhythm, herpes labialis, LUE DVT, and guaiac positive stool. Patient was evaluated at bedside by both myself and Dr. Mayes. Patient states that she will not eat because "eating makes me sick and I am not going to do that to myself" Advised patient to attempt to eat the best she can and drink the glucerna for nutrition, but she refused at the time. Patient states that she is no ready to leave yet for rehab and wants "a few more days here". Denies fevers, chills, nightsweats, and fatigue. Denies chest pain, palpitation, difficulty breathing, abdominal pain, and urinary symptoms. Objective Objective: Vitals: Temp: 98.7F; Oral BP: 132/52mmHg HR: 80bpm RR: 18 br/min O2: 92% on Room air General: Patient was alert, cooperative, and in no acute distress throughout the examination. Upon general inspection, herpetic lesions present periorally on lower left side of the mouth. No central or peripheral edema noted. HEENT: Normocephalic. PERRLA. No tracheal deviation noted Lungs: Slight wheezing noted throughout lungs with diaphram by anterior and lateral approaches, bilaterally. Heart: Normal heart sounds heard with the diaphragm in the Aortic, Pulmonic, Erbs, Tricuspid, and Mitral areas. No murmurs, rubs, or gallops noted. No edema noted. Chest: Upper left, anterior chest tender to palpation Abdomen: Upon visual inspection, no signs of distention or trauma. Normoactive bowel sounds heard in all four quadrants with the diaphragm with sounds occuring every 5 seconds. Abdomen non-tender upon palpation. Results Results: Laboratory Tests 05/22/18 0515: CBC w Diff NO MAN DIFF REQ, RBC 2.89 L, MCV 81.8, MCH 26.7 L, MCHC 32.7 L, RDW 17.4 H, MPV 7.9, Gran % 71.4, Lymphocytes % 15.0 L, Monocytes % 12.2 H, Eosinophils % 0.6, Basophils % 0.8, Absolute Granulocytes 4.1, Absolute Lymphocytes 0.9 L, Absolute Monocytes 0.7 H, Absolute Eosinophils 0, Absolute Basophils 0 05/21/18 0550: Anion Gap 7, Estimated GFR > 60, BUN/Creatinine Ratio 20.0, CBC w Diff NO MAN DIFF REQ, RBC 2.94 L, MCV 81.0, MCH 26.9 L, MCHC 33.2, RDW 17.5 H, MPV 7.6, Gran % 76.6 H, Lymphocytes % 12.3 L, Monocytes % 9.4 H, Eosinophils % 1.0, Basophils % 0.7, Absolute Granulocytes 4.7, Absolute Lymphocytes 0.8 L, Absolute Monocytes 0.6, Absolute Eosinophils 0.1, Absolute Basophils 0 05/20/18 0525: Anion Gap 7, Estimated GFR > 60, BUN/Creatinine Ratio 25.0, CBC w Diff NO MAN DIFF REQ, RBC 3.05 L, MCV 80.7 L, MCH 26.7 L, MCHC 33.1, RDW 17.2 H, MPV 7.8 , Gran % 82.5 H, Lymphocytes % 8.4 L, Monocytes % 7.5, Eosinophils % 0.7, Basophils % 0.9, Absolute Granulocytes 6.1, Absolute Lymphocytes 0.6 L, Absolute Monocytes 0.6, Absolute Eosinophils 0, Absolute Basophils 0.1 Assessment/Plan Assessment: 62 y/o female with PMH of Diabetes, CHF, Hepatitis C, and CAD/[place] s/p PCI and CABG was brought to the ED for evaluation of increased lethargy, dehydration and confusion. Patient is being treated for sepsis secondary to left -sided chest wall cellulitis complicated by MSSA and clostridium perfringens bacteremia and infective endocarditis s/p surgical I&D, new onset atrial fibrillation s/p conversion to normal sinus rhythm, herpes labialis, LUE DVT, and guaiac positive stool. Plan: Sepsis secondary to left chest wall cellulitis Currently on day 12 of IV Unasyn with goal of 4-6 week course Per Surgical note, Inez drain to be removed today MSSA and clostridium perfringens bacteremia Continue IV Unasyn for a total of a 4-6 week course Infective endocarditis Continue IV Unasyn for a total of a 4-6 week course Herpes labalis Continue IV Unasyn for a total of a 4-6 week course LUE DVT Patient refused an order for a LUE compress Continue Enoxaparin 80mg PO BID SC New onset rapid Atrial Fibrillation with RVR s/p conversion to SR Continue Enoxaparin 80mg BID SC Guiaic postive stool Continue monitoring CBC Hyponatremia Fluid restriction to 1200mL/day Continue monitoring BEP
--- NOTE | 2018-05-22 08:57 | PN- General Surgery ---
Surgical Brief Attending Note Brief Attending Note: DRAINS REMOVED. INFECTION NEARLY RESOLVED. COVER DAILY WITH GUAZE. WILL SIGN OFF.
[2018-05-22 09:14] LABS: PLATELET COUNT 406 /CUMM (130-400)
--- NOTE | 2018-05-22 09:14 | Discharge Summary ---
Visit Information Visit Dates Admission Date: 05/09/18 Discharge Date: 05/25/2018 Hospital Course Course Attending Physician: Don Youssef MD Primary Care Physician: Buddy MORGAN,John Holguin Hospital Course: Ms. Alcocer is a 62-year-old woman with a history of diabetes, coronary artery disease, status post CABG, CHF and Hepatitis C, gastric bypass, presented in a fulminant sepsis picture in the setting of a left chest wall cellulitis/soft tissue infection. On presentation to the ED the patient was found to have AMS and lethargic. Her heart rate was in 200 and in rapid atrial fibrilliation with RVR. She was hydrated with 5L of NS and started on IV Cardizem drip. Patient was then admitted to ICU for following managements #Sepsis 2/2 skin/soft tissue infection of left chest wall, s/p I&D #Aortic Valve endocarditis w/ MSSA & Clostridium Perfringen #LUE DVT on systemic Anticoagulation #LLL lung effusion/consolidation likely 2/2 atelectasis #Herpes Oralis, resolving #Paroxysmal A-fib, resolved to NSR #Hyponatremia on Fluid restriction #Iron def anemia, s/p IV iron supplements #PMH of IHD w/ CABG, Hep C, hx of Gastric Bypass, T2DM, She was intially empirically covered with Ceftriaxone/Vanc/ Unasyn. BCx2(05/09) grew MSSA, and one bottle grew clostridium perfrigens(significance unclear?), her abx regimen was then narrowed to Unasyn on 05/13. TERESA performed was remarkable for aortic valve endocarditis. Pt underwent IR drainage of left chest wall cellulitic area and was followed up by I&D at OR by surgery on 05/14 which led to improvement of the previously persistent WBC, she however remained afebrile throughout her ICU stay. Both her IR and OR cultures grew MSSA. Pt was also found to have an extensive Left upper extremity DVT after a doppler was ordered to assess for arm swelling (see Doppler results), her anticoagulation tx for afib adequately addressed this issue. On day 10 05/19, pt was downgraded to General medicine after her clinical status had improved. On general medicine floor, patient was continued care on daily surgical dressing change and eventually drain was removed on 05/22. Patient remained on Lovenox injection for DVT treatment. Continued on Unasyn through PICC line and remained afebrile on GM floor without acute distress. Her LUE swelling and redness gradually resolved over the course prior to discharge. Patient's resp status remained stable although her O2 sat would drop to 92% mostly in the AM, with signs of increasing congestion on CXR. Repeated CXR showed Worsening interstitial and airspace disease indicating the likelihood of edema, and a dose of lasix was given. Patient was encouraged to increase activity with the help of physical therapy. IR guided Aspiration of her left breast finding of fluid collection was done prior discharge, demonstrating no ultrasound evidence of true abscess, growing light amount of Staph Aureus. Cytology was sent. As this organism should be covered by Unasyn at this point, and patient has been afebrile w/o leukocytosis >48 hrs, patient was discharged and advised to followup for cytology results with PCP. Patient was discharged on Lovenox INJ and PICC line for unasyn for a total of 4- 6 weeks. DVT PPX Lovenox Inj + ALPS Diabetic Diet CC2 Full Code Allergies: Coded Allergies: No Known Allergies (05/25/18) Pertinent Lab Results: SERVICE DATE: 05/09/18 EXAM TYPE: RAD - XRY-PORTABLE CHEST XRAY IMPRESSION: Subtle blunting of the left lateral costophrenic sulcus, likely due to pleural parenchymal scarring. Trace left pleural effusion is less likely. Otherwise, no acute pulmonary findings. SERVICE DATE: 05/09/18 EXAM TYPE: CAT - CT CHEST W IV CONTRAST IMPRESSION: 1. Extensive soft tissue infiltration and edema is seen involving the left anterior lateral chest wall, consistent with clinical history of the patient space infection. No evidence of necrotizing fasciitis or focal drainable abscess collection is seen. 2. Trace left-sided pleural effusion and dependent atelectasis in the lungs bilaterally. No focal pneumonia. 3. Incidental finding of a 4 mm solid noncalcified nodule in the lingula. If the patient has no underlying risk factors, no routine follow-up is recommended as per the Fleischner criteria. If the patient is at high risk, optional CT scan follow-up at 12 months can be performed. 4. Enlarged pulmonary artery, suspicious for pulmonary arterial hypertension. Left heart chambers are also enlarged. 5. Indeterminate left adrenal mass. Further evaluation with dedicated adrenal CT scan is recommended. Right adrenal gland appears hypertrophied. 6. Incompletely characterized mass in the upper pole of the left kidney. This can also be reassessed at the time of the above suggested follow-up CT scan. 7. Multiple degenerative changes in the spine. SERVICE DATE: 05/09/18 EXAM TYPE: CAT - CT HEAD WO IV CONTRAST IMPRESSION: No acute intracranial pathology. SERVICE DATE: 05/10/18- EXAM TYPE: US - US-BREAST LEFT, COMPLETE IMPRESSION: 4.7 x 1.3 x 2.4 cm fairly localized fluid collection within the superior lateral left breast approximately 12 cm from the nipple. There is no ultrasound evidence to suggest a true abscess, however, this fluid appears more localized than the surrounding diffuse edema. SERVICE DATE: 05/11/18- EXAM TYPE: US - US-GUIDANCE IMPRESSION: Successful ultrasound-guided aspiration of small localized fluid collection within the superior lateral aspect of the left breast. SERVICE DATE: 05/11/18- EXAM TYPE: US - US-UNILATERAL VENOUS DOPPLER IMPRESSION: 1. There is extensive left upper extremity deep vein thrombosis. SERVICE DATE: 05/11/18 EXAM TYPE: RAD - XRY-PORTABLE CHEST XRAY IMPRESSION: 1. The lung gale are hypoexpanded bilaterally. There is no focal consolidation. 2. The cardiac silhouette is at the upper limits of normal in size. There is a small left-sided pleural effusion. SERVICE DATE: 05/11/18 EXAM TYPE: CARD - ECHOCARDIOGRAM CONCLUSIONS Normal size left ventricle. Borderline concentric left ventricular hypertrophy. Normal left ventricular ejection fraction visually estimated at 60%. "pseudonormal" filling pattern of the left ventricle for age (stage 2 diastolic dysfunction). Normal right ventricular size and function. Normal atrial size. Trace mitral regurgitation. Mild aortic stenosis. Trace tricuspid regurgitation. Unable to estimate the right ventricular systolic pressure. Dilated inferior vena cava. Arash Truong M.D. (Electronically Signed) Final Date: 13 May 2018 SERVICE DATE: 05/13/18 EXAM TYPE: CAT - CT CHEST W IV CONTRAST IMPRESSION: 1. Interval slight progression in the extent of soft tissue edema and stranding seen involving the left chest wall and the left breast. However, no distinct peripherally rim-enhancing abscess collection or drainable collection is seen. No subcutaneous/soft tissue emphysema is seen. 2. Interval development of a small left-sided pleural effusion and dense consolidation in the basal segments of the left lower lobe. 3. Mild scattered atelectatic changes are also seen, primarily in the lingula and right lower lobe. 4. Enlargement of left heart chambers and moderate coronary artery calcifications noted. Central pulmonary arteries are mildly enlarged. 5. Status post cholecystectomy and gastric bypass surgery. 6. Enlargement of the right adrenal gland and masslike density in the left adrenal gland, unchanged. SERVICE DATE: 05/15/18 EXAM TYPE: RAD - XRY-PORTABLE CHEST XRAY IMPRESSION: 1. PICC line tip in right atrium. 2. Findings in the left lung are likely related to atelectasis or pneumonia with layering pleural effusion. 3. Central vascular congestion SERVICE DATE: 05/15/18 EXAM TYPE: RAD - XRY-PORTABLE CHEST XRAY IMPRESSION: Right-sided PICC line in place. Retrocardiac infiltrate. SERVICE DATE: 05/22/18- EXAM TYPE: RAD - XRY-PORTABLE CHEST XRAY IMPRESSION: Worsening interstitial and airspace disease indicating the likelihood of edema. The possibility of superimposed infection cannot be definitively excluded on the basis of this examination. SERVICE DATE: 05/23/18- EXAM TYPE: US - US-BREAST LEFT, COMPLETE IMPRESSION: Again demonstrated is an approximately 3.5 x 2.4 x 2.4 cm fairly localized fluid collection within the superior lateral left breast approximately 12 cm from the nipple. There is no ultrasound evidence to suggest a true abscess, however, this fluid once again appears more localized than the surrounding diffuse edema. Disposition Summary Disposition Principal Diagnosis: #Sepsis 2/2 skin/soft tissue infection of left chest wall, s/p I&D #Aortic Valve endocarditis w/ MSSA & Clostridium Perfringen #LUE DVT on systemic Anticoagulation #LLL lung effusion/consolidation likely 2/2 atelectasis #Herpes Oralis, resolving #Paroxysmal A-fib, resolved to NSR #Hyponatremia on Fluid restriction #Iron def anemia, s/p IV iron supplements #PMH of IHD w/ CABG, Hep C, hx of Gastric Bypass, T2DM, Additional Diagnosis: as above Discharge Disposition: SNF Discharge Instructions General Discharge Information Code Status: Full Code Patient's Diet: Diabetic CC2 Patient's Activity: as tolerated Follow-Up Instructions/Appts: - Please continue your unasyn IV through PICC for 4-6 weeks per further follow up of your doctors. - Please follow up with your primary care physician within 1-2 weeks of discharge. Inform your primary care physician of this admission to [facility]. - Continue your current medications per discharge instructions. - Please watch for these problems: Fever, Chills, Nausea, Vomiting, Shortness of Breath, Productive Cough, Chest Pain/Discomfort, Abdominal Pain, Active Bleeding or Bloody urine/stool. Medications at Discharge Discharge Medications: Continue taking these medications: Memantine HCl (Namenda XR) 28 MG CAP.SPR.24 1 Capsule ORAL DAILY Qty = 30 Comments: Last Taken:05/25/18 Time:0800AM Pregabalin (Lyrica) 150 MG CAPSULE 1 Capsule ORAL TWICE DAILY Qty = 60 Comments: NOT GIVEN IN HOSPITAL Sertraline HCl (Zoloft) 100 MG TABLET 2 Tablet ORAL DAILY Qty = 180 Comments: Last Taken:05/24/18 Time:830PM Trazodone HCl (Trazodone HCl) 100 MG TABLET 2 Tablet ORAL TAKE AT BEDTIME Qty = 180 Comments: Last Taken:05/24/18 Time:830PM Carvedilol (Carvedilol) 3.125 MG TABLET 1 Tablet ORAL TWICE DAILY Qty = 90 Comments: Last Taken:05/25/18 Time:0800AM Oxycodone HCl (Oxycodone HCl) 15 MG TABLET 1 Tablet ORAL Q8H Qty = 90 Comments: 10MG GIVEN Last Taken:05/25/18 Time:230PM Ketoconazole (Ketoconazole) 2 % CREAM..G. 1 Application On the skin DAILY Qty = 30 Instructions: apply to affected area(s) Comments: NOT GIVEN IN HOSPITAL Bupropion HCl (Wellbutrin XL) 150 MG TAB.ER.24H 1 Tablet ORAL DAILY Qty = 90 Comments: Last Taken:05/25/18 Time:0800AM Metformin HCl (Metformin HCl ER) 500 MG TAB.ER.24H 1 Tablet ORAL DAILY Qty = 90 Comments: NOT GIVEN IN HOSPITAL Start taking the following new medications: Ampicillin Sodium/Sulbactam Na (Unasyn 3 Gm Vial) 3 GRAM VIAL 3,000 Milligram IV EVERY SIX HOURS Qty = 104 No Refills Comments: Last Taken:05/25/18 Time: 1:15PM Furosemide (Furosemide) 20 MG TABLET 20 Milligram ORAL DAILY Qty = 30 No Refills Comments: Last Taken:05/25/18 Time:0800AM Atorvastatin Calcium (Atorvastatin Calcium) 40 MG TABLET 40 Milligram ORAL 5 PM Qty = 30 No Refills Comments: Last Taken:05/24/18 Time:415PM Simethicone (Simethicone) 80 MG TAB.CHEW 80 Milligram ORAL EVERY SIX HOURS NEEDED as needed for GAS Qty = 30 No Refills Comments: Last Taken:05/24/18 Time:445PM Docusate Sodium (Docusate Sodium) 100 MG CAPSULE 100 Milligram ORAL TWICE DAILY as needed for Constipation Qty = 30 No Refills Comments: Last Taken:05/23/18 Time:830PM Polyethylene Glycol 3350 (Miralax) 17 GRAM/DOSE POWDER 17 Gram ORAL DAILY Qty = 10 No Refills Comments: NOT GIVEN IN HOSPITAL Omeprazole (Omeprazole) 20 MG CAPSULE.DR 40 Milligram ORAL DAILY BEFORE BREAKFAST Qty = 30 No Refills Comments: Last Taken:05/25/18 Time:0500AM Enoxaparin Sodium (Lovenox) 40 MG/0.4 ML SYRINGE 80 Milligram SC TWICE DAILY Qty = 10 No Refills Comments: Last Taken: 05/25/18 Time: 8:30 AM Copies To: Buddy MORGAN,John Holguin Attending MD Review Statement Documenting Attending: Mikael MORGAN,Don
--- NOTE | 2018-05-22 13:51 | RADIOLOGY REPORT ---
EXAMINATION: XR PORTABLE CHEST CLINICAL INFORMATION: Recent desaturation. Evaluate for infiltrative disease. COMPARISON: Chest radiograph 05/15/2018. TECHNIQUE: Portable frontal view of the chest was obtained. FINDINGS: The position of the right upper extremity PICC is unchanged. Chronic changes of a median sternotomy are noted. There is hilar vascular engorgement and ill-defined opacities involving both lungs with a perihilar and lower lobe predominant distribution that appear to have increased when compared to most recent prior examination from 05/15/2018. No pneumothorax. The cardiac silhouette is prominent but unchanged. Upper mediastinal contours are normal. No acute osseous finding. IMPRESSION: Worsening interstitial and airspace disease indicating the likelihood of edema. The possibility of superimposed infection cannot be definitively excluded on the basis of this examination.
--- NOTE | 2018-05-22 14:11 | PN- Infect Dx ---
Subjective Subjective: Afebrile without new complaints. Objective Last 24 Hrs of Vital Signs/I&O Vital Signs Date Time Temp Pulse Resp B/P B/P Pulse O2 O2 Flow FiO2 Mean Ox Delivery Rate 05/22 0815 80 132/52 05/22 0653 98.7 81 18 132/52 92 05/21 2230 130/0 05/21 2225 98.8 82 18 99 Room Air 05/21 1500 Room Air 05/21 1444 98.0 83 18 128/82 95 Room Air 05/21 1408 Room Air 2.0L Intake & Output 05/22 1600 05/22 0800 05/22 0000 Intake Total 120 390 Output Total 300 Balance 120 90 Intake, Oral 120 390 Number 1 Bowel Movements Output, Urine 300 Physical Exam Other Physical Findings: She appears comfortable in no acute distress Chest induration over the left axilla and chest wall persists, with decreased erythema Lungs are clear Heart regular rhythm with no murmur Extremities left upper extremity edema and tenderness persist; PICC in the right upper extremity with no inflammation at the site Results Last 24 Hours of Lab Results: Laboratory Tests 05/22 515 Hematology CBC w Diff NO MAN DIFF REQ WBC (4.8 - 10.8 /CUMM) 5.7 RBC (4.20 - 5.40 /CUMM) 2.89 L Hgb (12.0 - 16.0 G/DL) 7.7 L Hct (37 - 47 %) 23.6 L MCV (81.0 - 99.0 FL) 81.8 MCH (27.0 - 31.0 PG) 26.7 L MCHC (33.0 - 37.0 G/DL) 32.7 L RDW (11.5 - 14.5 %) 17.4 H Plt Count (130 - 400 /CUMM) 406 H MPV (7.4 - 10.4 FL) 7.9 Gran % (42.2 - 75.2 %) 71.4 Lymphocytes % (20.5 - 51.1 %) 15.0 L Monocytes % (1.7 - 9.3 %) 12.2 H Eosinophils % (0 - 5 %) 0.6 Basophils % (0.0 - 2.0 %) 0.8 Absolute Granulocytes (1.4 - 6.5 /CUMM) 4.1 Absolute Lymphocytes (1.2 - 3.4 /CUMM) 0.9 L Absolute Monocytes (0.10 - 0.60 /CUMM) 0.7 H Absolute Eosinophils (0.0 - 0.7 /CUMM) 0 Absolute Basophils (0.0 - 0.2 /CUMM) 0 Last 24 Hours of Ramón Results: No new cultures Recent Imaging Studies: Chest x-ray May 22 worsening interstitial and airspace disease, indicating likelihood of edema Assessment/Plan ID Impression: Overall improved, with decreased induration in the left breast and chest wall, and with her temperatures and white blood cell count remaining normal on Unasyn, Day 13 of treatment for MSSA and Clostridium perfringens sepsis/aortic valve endocarditis secondary to an infection of the left chest wall/axilla/breast, now 8 days status post drainage in the OR. Her chest x-ray reveals increased markings, suggesting fluid overload, though her respiratory status appears stable. She remains on Lovenox for an extensive DVT of the left upper extremity , status post a transient episode of atrial fibrillation. Suggestion: 1. Reevaluation of her fluid status, with consideration of diuresis (would discuss with Cardiology) 2. Continue Unasyn
[2018-05-22 14:52] VITALS: BP 180/70
[2018-05-22 17:00] VITALS: BP 158/78
[2018-05-22 21:43] VITALS: BP 142/72
[2018-05-23 06:59] VITALS: BP 165/70
--- NOTE | 2018-05-23 07:55 | PN- Housestaff ---
See Addendum Subjective Follow-up For: Sepsis secondary to left chest wall cellulitis complicated by bacteremia and infective endocarditis, new onset atrial fibrillation status post conversion to normal sinus rhythm, left upper extremity DVT, herpes labialis Subjective: Pt seen and examined at bedside. Pt states that she is feeling weak, is frustrated with her hospital stay. States that she feels that she is tired all the time and that she is trying to rehab but is too weak for it. States that she cant put pressure on her LUE 2/2 the DVT and that is a limit to her walking with a walker. States that she doesn't know what to do as she needs to get stronger to go to rehab but she can't go to rehab if she can't walk with a walker. States frustration that she is only OOBTC, would like to be independent. Pt talked about her home life and how she was the one who looked after everyone and now she is dependent on everyone else and how that frustrates her. Pt was reassured, and reminded of her progress since admission. Pt and I set realistic goals today involving how much breakfast she'd be willing to eat and how she will ask for pain medication when she is in pain so that she can stand up and walk. Pt and I agreed on what was an acceptable level of pain and what would require pain medication. Pt denied any other complaints. Review of Systems Constitutional: Reports: see HPI. Objective Last 24 Hrs of Vital Signs/I&O Vital Signs Date Time Temp Pulse Resp B/P B/P Pulse O2 O2 Flow FiO2 Mean Ox Delivery Rate 05/23 0745 77 165/70 05/23 0659 98.2 77 18 165/70 93 05/22 2143 98.3 80 18 142/72 92 Room Air 05/22 2028 140/72 05/22 1700 158/78 05/22 1452 98.1 78 22 180/70 94 Room Air 05/22 0815 80 132/52 Intake & Output 05/23 1600 05/23 0800 05/23 0000 Intake Total 240 680 Output Total 300 Balance 240 380 Intake, IV 200 Intake, Oral 240 480 Output, Urine 300 Patient 198 lb Weight Physical Exam General Appearance: Alert, Oriented X3, Cooperative, No Acute Distress Skin: L chest wall cellulitis, erythema improved, tender ; Perioral herpes crusted over ; PICC in R arm Skin Temp/Moisture Exam: Warm/Dry HEENT: perioral herpes labialis Cardiovascular: Regular Rate, Normal S1, Normal S2 Lungs: Clear to Auscultation, Normal Air Movement Abdomen: Soft, No Tenderness Neurological: Normal Speech, Sensation Intact Extremities: LUE edema Current Medications: Current Medications Sig/Bayron Start time Last Medication Dose Route Stop Time Status Admin Acetaminophen 650 MG Q6P PRN 05/09 2045 AC 05/18 PO 1611 Acyclovir 200 MG 5 TIMES A DAY 05/20 1030 DC 05/22 PO 05/24 2300 0815 Ampicillin Sodium/ 3,000 MG Q6H 05/13 08 AC 05/23 Sulbactam Sodium IV 0750 Sodium Chloride 100 ML Atorvastatin Calcium 40 MG 1700 05/10 1700 AC 05/22 PO 1647 Bupropion HCl 150 MG DAILY 05/10 1403 AC 05/22 PO 0815 Calcium 600 MG BID 05/18 09 AC 05/22 PO 202 Carvedilol 3.125 MG BID 05/11 0900 AC 05/23 PO 0745 Chlorhexidine 15 ML BID 05/14 2100 AC 05/19 Gluconate PO 0947 Cyanocobalamin 1,000 MCG DAILY 05/18 0900 AC 05/22 PO 0815 Docusate Sodium 100 MG BID 05/18 1158 AC 05/21 PO 2058 Enoxaparin Sodium 80 MG BID 05/16 1400 AC 05/22 SC 202 Ferrous Sulfate 325 MG TID 05/18 1400 AC 05/23 PO 0745 Folic Acid 1 MG DAILY 05/18 0900 AC 05/22 PO 0815 Furosemide 20 MG ONCE ONE 05/22 1700 DC 05/22 PO 05/22 1701 1647 Insulin Aspart 0 TIDAC 05/15 1700 AC 05/19 SC 1247 Insulin Detemir 5 UNITS BID 05/14 2100 AC 05/22 SC 202 Memantine 10 MG DAILY 05/16 0900 AC 05/23 PO 0745 Omeprazole 40 MG DAILY AC 05/23 0700 AC 05/23 PO 0539 Ondansetron HCl 4 MG ONCE ONE 05/22 2100 DC 05/22 PO 05/22 2101 204 Oxycodone HCl 10 MG Q4P PRN 05/16 0945 AC 05/23 PO 0746 Pantoprazole Sodium 40 MG BID 05/17 1232 DC 05/22 IV 0810 Petrolatum 1 EDWARD DAILY 05/22 1052 AC 05/22 TOP 1126 Polyethylene Glycol 17 GM DAILY 05/18 1158 AC PO Sertraline HCl 200 MG AT BEDTIME 05/10 2100 AC 05/22 PO 2024 Simethicone 80 MG Q6P PRN 05/20 1745 AC 05/22 PO 1721 Thiamine HCl 100 MG DAILY 05/18 0900 AC 05/22 PO 08 Trazodone HCl 50 MG AT BEDTIME 05/11 2100 AC 05/22 PO 2023 Assessment/Plan Assessment: Ms. Alcocer is a 62 year old female with past medical history significant for morbid obesity, DM, STERLING, s/p laparoscopic Bindu-en-Y gastric bypass (2015), HTN, CAD/HI s/p PCI and CABG who presented with sepsis secondary to left chest wall cellulitis complicated by MSSA and clostridium perfringens bacteremia and infective endocarditis status post surgical incision and drainage, a single episode of atrial fibrillation with RVR status post conversion to normal sinus rhythm, a left upper extremity DVT, and guaiac positive stool, guaiac negative as of 05/21, now day 14 of treatment with ampicillin/sulbactam. She is doing well now. Problem List: 1. Sepsis secondary to left chest wall cellulitis 2. MSSA and clostridium perfringens bacteremia 3. Infective endocarditis 4. LUE DVT 5. New onset rapid A. fib with RVR s/p conversion to SR 6. Herpes labalis 7. Guiaic postive stool 8. Mild hyponatremia 9. General Deconditioning #Sepsis secondary to left chest wall cellulitis -On IV Unasyn, day 14. Will need to complete a 4-6 week course -ID input on this case appreciated - will continue to follow recs -Surgery input on this case appreciated. Surgery removed [place] drain yesterday, states to put a clean dry dressing on it daily and as needed. Compression on left upper extremity DVT was refused by patient secondary to pain -S/p I+D -CBC yesterday - 5.7 WBC, down from 6.1 two days ago. Stable without leukocytosis #MSSA and Clostridium perfringens bacteremia -Will require 4-6 weeks of IV ABX #Infective Endocarditis -Cardiology input in this case appreciated. On IV Unasyn, no leukocytosis/fevers at this time #LUE DVT -Will order compress for LUEpatient has refused -Continue Enoxaparin 80mg BID -Will transition to Eliquis 5mg BID or Xarelto 20mg upon discharge -Given swelling, OT consult was ordered. Per OT, patient refused all due to pain. Will attempt to control pain better to improve cooperation with PT/OT #Afib with RVR -No episodes of tachycardia overnight, pt denies palpitations -Appreciate cardio reccs -Continue Enoxaparin 80mg BID #Herpes labialisstable -Discontinue acyclovir per ID -Appreciate ID input #Guaic positive stoolcurrently negative -CBC yesterday shows hemoglobin of 7.7, down from 7.9 on 05/21. -Outpatient GI follow-up for guaiac positive stool -Recent stool guaiac negative on 05/21. -On Prilosec PO. #Hyponatremia -Fluid restriction 1200mL/day. -Stable #Deconditioning -Pt currently a 2 assist per PT. Has not ambulated well since admission. Initially independent at home. 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 Will have to investigate alternative method of ambulation -Enouraged PO intake, as patient has been eating approx 25-50% of her meals. -PT/OT to continue working with patient. Currently refuses treatment due to pain. Will adjust pain control regimen. Pain control as appropriate Gastric bypass vitamins DVT prophylaxis with enoxaparin with eventual bridge to xarelto or eliquis for outpt Consistent carbohydrate two diet Full code Dispo-to rehab Problem List: 1. Deep vein thrombosis (DVT) of left upper extremity 2. Infective endocarditis of aortic valve 3. Cellulitis Pain Ratin Pain Location: L chest wall; LUE Pain Goal: Pain 4 or less Pain Plan: pathway Tomorrow's Labs & Rationales: na
--- NOTE | 2018-05-23 08:05 | PN- Student ---
Subjective Subjective: HPI: 62 y/o female with PMH of Diabetes, CHF, Hepatitis C, and CAD/OK s/p PCI and CABG was brought to the ED for evaluation of increased lethargy, dehydration and confusion. Patient is being treated for sepsis secondary to left -sided chest wall cellulitis complicated by MSSA and clostridium perfringens bacteremia and infective endocarditis s/p surgical I&D, new onset atrial fibrillation s/p conversion to normal sinus rhythm, herpes labialis, LUE DVT, and guaiac positive stool. Patient was evaluated at bedside by both myself and Dr. Mayes. Patient appears upset and states that she "scared of what comes next" due to issues with insurance and getting into a rehab facility. Patient is also upset about her current condition as she stated that she used to be the one that took care of everyone in the family and also that "she will not be a burden to anyone. Patient states "I am trying to walk and get moving but everyone thinks I'm not". Patient continues to complain of pain in her upper left chest and left arm and states that she is "too weak to hold onto a walker". Patient continues to state that "eating makes me sick". Advised patient to attempt to eat most of her breakfast and she replied, "I will try". Denies fevers, chills, nightsweats, but complains of being tired and not able to sleep. Denies chest pain, palpitation, difficulty breathing, abdominal pain, and urinary symptoms. Objective Objective: Vitals: Temp: 98.2F; Oral BP: 165/70mmHg HR: 77bpm RR: 18 br/min O2: 93% on Room air Patient was alert, cooperative, and anxious throughout the examination. Upon general inspection, herpetic lesions present periorally on lower left side of the mouth. Most appear to be dry while there are open and weeping lesions on the lower left side periorally. Upper left chest and left arm is indurated and tender to palpation. CXR ordered yesterday shows worsening interstitial and airspace disease indicating the likelihood of edema to which Lasix was ordered. Patient stated that her chest and breathing feels better today. Results Results: Laboratory Tests 05/22 05/21 0515 0550 Chemistry Sodium (137 - 145 mmol/L) 134 L Potassium (3.5 - 5.1 mmol/L) 4.5 Chloride (98 - 107 mmol/L) 104 Carbon Dioxide (22 - 30 mmol/L) 23 Anion Gap (5 - 16) 7 BUN (7 - 17 mg/dL) 12 Creatinine (0.5 - 1.0 mg/dL) 0.6 Estimated GFR (>60 ml/min) > 60 BUN/Creatinine Ratio (7 - 25 %) 20.0 Hematology CBC w Diff NO MAN DIFF REQ NO MAN DIFF REQ WBC (4.8 - 10.8 /CUMM) 5.7 6.1 RBC (4.20 - 5.40 /CUMM) 2.89 L 2.94 L Hgb (12.0 - 16.0 G/DL) 7.7 L 7.9 L Hct (37 - 47 %) 23.6 L 23.8 L MCV (81.0 - 99.0 FL) 81.8 81.0 MCH (27.0 - 31.0 PG) 26.7 L 26.9 L MCHC (33.0 - 37.0 G/DL) 32.7 L 33.2 RDW (11.5 - 14.5 %) 17.4 H 17.5 H Plt Count (130 - 400 /CUMM) 406 H 393 MPV (7.4 - 10.4 FL) 7.9 7.6 Gran % (42.2 - 75.2 %) 71.4 76.6 H Lymphocytes % (20.5 - 51.1 %) 15.0 L 12.3 L Monocytes % (1.7 - 9.3 %) 12.2 H 9.4 H Eosinophils % (0 - 5 %) 0.6 1.0 Basophils % (0.0 - 2.0 %) 0.8 0.7 Absolute Granulocytes (1.4 - 6.5 /CUMM) 4.1 4.7 Absolute Lymphocytes (1.2 - 3.4 /CUMM) 0.9 L 0.8 L Absolute Monocytes (0.10 - 0.60 /CUMM) 0.7 H 0.6 Absolute Eosinophils (0.0 - 0.7 /CUMM) 0 0.1 Absolute Basophils (0.0 - 0.2 /CUMM) 0 0 Vital Signs Result Date Time Pulse Ox 94 05/23 0800 O2 Delivery Room Air 05/23 0800 O2 Flow Rate Room Air 05/23 0800 B/P 165/70 05/23 0745 Pulse 77 05/23 0745 Temp 98.2 05/23 0659 Resp 18 05/23 0659 Intake & Output 05/23 0000 05/22 1600 05/22 0800 Intake Total 680 820 120 Output Total 300 450 Balance 380 370 120 Intake, IV 200 220 Intake, Oral 480 600 120 Number 1 1 Bowel Movements Output, Urine 300 450 Assessment/Plan Assessment: 62 y/o female with PMH of Diabetes, CHF, Hepatitis C, and CAD/OK s/p PCI and CABG was brought to the ED for evaluation of increased lethargy, dehydration and confusion. Patient is being treated for sepsis secondary to left -sided chest wall cellulitis complicated by MSSA and clostridium perfringens bacteremia and infective endocarditis s/p surgical I&D, new onset atrial fibrillation s/p conversion to normal sinus rhythm, herpes labialis, LUE DVT, and guaiac positive stool. Plan: Sepsis secondary to left chest wall cellulitis Currently on day 14 of IV Unasyn with goal of 4-6 week course MSSA and clostridium perfringens bacteremia Currently on day 14 of IV Unasyn with goal of 4-6 week course Infective endocarditis Currently on day 14 of IV Unasyn with goal of 4-6 week course Herpes labalis Currently on day 14 of IV Unasyn with goal of 4-6 week course Order: Vaseline to prevent dryness LUE DVT Patient refused an order for a LUE compress Continue Enoxaparin 80mg PO BID SC New onset rapid Atrial Fibrillation with RVR s/p conversion to SR Continue Enoxaparin 80mg BID SC Guiaic postive stool Continue monitoring CBC
[2018-05-23] MEDS ORDERED: UNASYN 3 GM VIAL3 GM IV (08:55)
--- NOTE | 2018-05-23 08:57 | Patient Discharge Instructions ---
Discharge Instructions General Discharge Information Special Instructions: - Please continue your unasyn IV through PICC for 4-6 weeks per further follow up of your doctors. - Please follow up with your primary care physician within 1-2 weeks of discharge. Inform your primary care physician of this admission to [facility]. - Continue your current medications per discharge instructions. - Please watch for these problems: Fever, Chills, Nausea, Vomiting, Shortness of Breath, Productive Cough, Chest Pain/Discomfort, Abdominal Pain, Active Bleeding or Bloody urine/stool. Diet Continue normal diet: Yes Recommended Diet: Diabetic Activity Full Activity/No Limits: Yes Acute Coronary Syndrome Inclusion Criteria At DC or during hospital stay patient has or had the following: ACS DIAGNOSIS No Discharge Core Measures Meds if any: Prescribed or Continued at Discharge Meds if any: NOT Prescribed or Continued at Discharge Congestive Heart Failure Inclusion Criteria At DC or during hospital stay patient has or had the following: CHF DIAGNOSIS No Discharge Core Measures Meds if any: Prescribed or Continued at Discharge Meds if any: NOT Prescribed or Continued at Discharge Cerebrovascular accident Inclusion Criteria At DC or during hospital stay patient has or had the following: CVA/TIA Diagnosis No Discharge Core Measures Meds if any: Prescribed or Continued at Discharge Meds if any: NOT Prescribed or Continued at Discharge Venous thromboembolism Inclusion Criteria VTE Diagnosis Yes VTE Type Deep Venous Thrombosis VTE Confirmed by (Test) UNILATERAL VENOUS DOPPLER Discharge Core Measures - Per Current guidelines, there needs to be overlap - treatment for the first 5 days of Warfarin therapy. - If discharged on Warfarin prior to 5 days of - overlap therapy, the patient will need to be - assessed for post discharge needs including - *Post discharge parental anticoagulation - *Warfarin and/or parental anticoagulation education - *Follow up date to check INR post discharge At least 5 days overlap therapy as Inpatient Yes Meds if any: Prescribed or Continued at Discharge Warfarin No Overlap Therapy Yes Note: Overlap Therapy is Warfarin and Anticoagulant Meds if any: NOT Prescribed or Continued at Discharge No Warfarin d/t Prescribed other Anticoag No Overlap Therapy d/t Prescribed other Anticoag
--- NOTE | 2018-05-23 11:15 | PN- Infect Dx ---
Subjective Subjective: Afebrile. She continues to complain of pain in the left chest wall and breast Objective Last 24 Hrs of Vital Signs/I&O Vital Signs Date Time Temp Pulse Resp B/P B/P Pulse O2 O2 Flow FiO2 Mean Ox Delivery Rate 05/23 0800 94 Room Air Room Air 05/23 0745 77 165/70 05/23 0659 98.2 77 18 165/70 93 05/22 2143 98.3 80 18 142/72 92 Room Air 05/22 2028 140/72 05/22 1700 158/78 05/22 1452 98.1 78 22 180/70 94 Room Air Intake & Output 05/23 1600 05/23 0800 05/23 0000 Intake Total 240 680 Output Total 300 Balance 240 380 Intake, IV 200 Intake, Oral 240 480 Output, Urine 300 Patient 198 lb Weight Physical Exam Other Physical Findings: She appears comfortable at rest, in no acute distress Chest marked induration and tenderness over the left axillary area and left breast, with decreased erythema Lungs are clear anteriorly Heart regular rhythm with no murmur Extremities trace edema both lower extremities; PICC in the right upper extremity with no inflammation at the site Results Last 24 Hours of Lab Results: No labs from today Last 24 Hours of Ramón Results: No recent cultures Assessment/Plan ID Impression: Stable, with her temperatures and white blood cell count remaining normal, on Unasyn, Day 14 of treatment for MSSA and Clostridium perfringens sepsis/ endocarditis secondary to an infection of the left chest wall/axilla/breast with persistent induration of the left chest wall and breast, raising concern for a residual collection in this area. She is now 9 days status post drainage in the OR of turbid fluid, with no discrete collection identified. She remains on Lovenox for an extensive DVT of the left upper extremity, status post a transient episode of atrial fibrillation. Suggestion: 1. Would repeat ultrasound of the left axilla/breast 2. Continue Unasyn
[2018-05-23 13:48] VITALS: BP 144/62
--- NOTE | 2018-05-23 17:13 | ULTRASOUND REPORT ---
EXAMINATION: ULTRASOUND SOFT TISSUE LEFT BREAST/AXILLA CLINICAL INFORMATION: 62-year-old female with erythema and induration of the left anterior lateral chest wall. The patient has undergone aspiration and surgical I\T\D of this region. The patient is currently afebrile and has a normal white blood cell count. COMPARISON: CT chest 05/13/2018 and breast ultrasound 05/10/2018 and breast aspiration 05/11/2018 TECHNIQUE: Grayscale and color Doppler imaging was obtained of the left breast and left axilla. FINDINGS: Diffuse edema is present throughout the subcutaneous tissues of the left breast and left axilla, most prominent superior and lateral to the left breast. Again demonstrated at approximately 12 cm from the nipple at the 12/1:00 position of the left breast is a fairly localized fluid collection which measures approximately 3.5 x 2.2 x 2.4 (previously 4.7 x 1.3 x 2.4 cm). There are no well-defined borders or enhancing rim to suggest a true abscess, however, this fluid once again appears more localized than surrounding diffuse edema. IMPRESSION: Again demonstrated is an approximately 3.5 x 2.4 x 2.4 cm fairly localized fluid collection within the superior lateral left breast approximately 12 cm from the nipple. There is no ultrasound evidence to suggest a true abscess, however, this fluid once again appears more localized than the surrounding diffuse edema.
[2018-05-23 21:58] VITALS: BP 133/62
[2018-05-24 06:08] VITALS: BP 150/74
--- NOTE | 2018-05-24 07:12 | PN- Housestaff ---
See Addendum Subjective Follow-up For: Sepsis secondary to left chest wall cellulitis complicated by bacteremia and infective endocarditis, new onset atrial fibrillation status post conversion to normal sinus rhythm, left upper extremity DVT, herpes labialis Subjective: Patient seen and examined at bedside. Patient states that yesterday was really tough in terms of pain control. Patient states that today, she is feeling much better. Patient states that the swelling in her hand has gone down significantly, which gives her hope. Patient states that is finally awakened. Patient states that she will try to participate more in physical therapy today. Patient also states that she will try to eat more today. Patient states that she was somewhat nauseous yesterday, and so skipped lunch, and only dinner at midnight. Patient states that her herpes labialis is also improving. Patient denied fever/chills/night sweats/chest pain/abdominal pain/urinary symptoms/ lower extremity edema. Review of Systems Constitutional: Reports: see HPI. Objective Last 24 Hrs of Vital Signs/I&O Vital Signs Date Time Temp Pulse Resp B/P B/P Pulse O2 O2 Flow FiO2 Mean Ox Delivery Rate 05/24 0608 99.3 83 20 150/74 95 Nasal 1.5L Cannula 05/24 0000 94 Nasal 2.0L Cannula 05/23 2158 98.1 70 18 133/62 05/23 2031 70 133/62 05/23 1600 Room Air 05/23 1348 98.0 84 18 144/62 91 Room Air 05/23 0800 94 Room Air Room Air 05/23 0745 77 165/70 Intake & Output 05/24 0800 05/24 0000 05/23 1600 Intake Total 380 320 820 Output Total 200 450 Balance 180 320 370 Intake, IV 100 100 220 Intake, Oral 280 220 600 Output, Urine 200 450 Patient 212 lb Weight Weight Bed scale Measurement Method Physical Exam General Appearance: Alert, Oriented X3, Cooperative, No Acute Distress Skin: L chest wall cellulitis, erythema improved, tender ; Perioral herpes crusted over ; PICC in R arm Skin Temp/Moisture Exam: Warm/Dry HEENT: crusted over perioral herpes lesions Cardiovascular: Regular Rate, Normal S1, Normal S2 Lungs: Clear to Auscultation, Normal Air Movement Abdomen: Soft, No Tenderness Neurological: Normal Speech, Sensation Intact Extremities: LUE edema improved since yesterday Assessment/Plan Assessment: Ms. Alcocer is a 62 year old female with past medical history significant for morbid obesity, DM, STERLING, s/p laparoscopic Bindu-en-Y gastric bypass (2016), HTN, CAD/PR s/p PCI and CABG who presented with sepsis secondary to left chest wall cellulitis complicated by MSSA and clostridium perfringens bacteremia and infective endocarditis status post surgical incision and drainage, a single episode of atrial fibrillation with RVR status post conversion to normal sinus rhythm, a left upper extremity DVT, and guaiac positive stool, guaiac negative as of 05/21, now day 15 of treatment with ampicillin/sulbactam. She is doing well now. Problem List: 1. Sepsis secondary to left chest wall cellulitis 2. MSSA and clostridium perfringens bacteremia 3. Infective endocarditis 4. LUE DVT 5. New onset rapid A. fib with RVR s/p conversion to SR 6. Herpes labalis 7. Guiaic postive stool 8. Mild hyponatremia 9. General Deconditioning #Sepsis secondary to left chest wall cellulitis -On IV Unasyn, day 15. Will need to complete a 4-6 week course -ID input on this case appreciated - will continue to follow recs -Surgery input on this case appreciated. Surgery removed [place] drain two days ago, states to put a clean dry dressing on it daily and as needed. Compression on left upper extremity DVT was refused by patient secondary to pain -S/p I+D -Went for LUE/Breast U/S yesterday. Per read: "Again demonstrated is an approximately 3.5 x 2.4 x 2.4 cm fairly localized fluid collection within the superior lateral left breast approximately 12 cm from the nipple. There is no ultrasound evidence to suggest a true abscess, however, this fluid once again appears more localized than the surrounding diffuse edema." -In light of above findings, talked with surgical PA to see if there would be any changes in management from a surgical standpoint. -Stable without leukocytosis #MSSA and Clostridium perfringens bacteremia -Will require 4-6 weeks of IV ABX #Infective Endocarditis -Cardiology input in this case appreciated. On IV Unasyn, no leukocytosis/fevers at this time #LUE DVT -Will order compress for LUEpatient has refused -Continue Enoxaparin 80mg BID -Will transition to Eliquis 5mg BID or Xarelto 20mg upon discharge -Given swelling, OT consult was ordered. Per OT, patient refused all due to pain. 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 #Afib with RVR -No episodes of tachycardia overnight, pt denies palpitations -Appreciate cardio recs -Continue Enoxaparin 80mg BID #Herpes labialisstable -Discontinue acyclovir per ID -Appreciate ID input #Guaic positive stoolcurrently negative -CBC yesterday shows hemoglobin of 7.7, down from 7.9 on 05/21. -Outpatient GI follow-up for guaiac positive stool -Recent stool guaiac negative on 05/21. -On Prilosec PO. #Hyponatremia -Fluid restriction 1200mL/day. -Stable #Deconditioning -Pt currently a 2 assist per PT. Has not ambulated well since admission. Initially independent at home. 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 Will have to investigate alternative method of ambulation -Enouraged PO intake, as patient has been eating approx 25-50% of her meals. -On Tigan for nausea control -PT/OT to continue working with patient. Currently refuses treatment due to pain. Will adjust pain control regimen. Pain control as appropriate Gastric bypass vitamins DVT prophylaxis with enoxaparin with eventual bridge to xarelto or eliquis for outpt Consistent carbohydrate two diet Full code Dispo-to rehab when insurance clears and patient tolerates therapy Problem List: 1. Infective endocarditis of aortic valve 2. Deep vein thrombosis (DVT) of left upper extremity Pain Ratin Pain Location: chest wall Pain Goal: Pain 7 or less Pain Plan: pathway Tomorrow's Labs & Rationales: na
--- NOTE | 2018-05-24 10:09 | PN- Student ---
Subjective Subjective: HPI: 62 y/o female with PMH of Diabetes, CHF, Hepatitis C, and CAD/DC s/p PCI and CABG was brought to the ED for evaluation of increased lethargy, dehydration and confusion. Patient is being treated for sepsis secondary to left -sided chest wall cellulitis complicated by MSSA and clostridium perfringens bacteremia and infective endocarditis s/p surgical I&D, new onset atrial fibrillation s/p conversion to normal sinus rhythm, herpes labialis, and LUE DVT. Patient was evaluated at bedside by both myself and Dr. Mayes. Patient appears in a better mood this morning when compared to yesterday and credits that to the decrease in swelling of her right hand. During morning rounds, patient stated that she ate some fruit, but it made her feel sick so she stopped and refused her meds until she is better. Advised patient to work with both OT and PT so that her insurance will authorize her to go to a rehab facility for further improvement. Patient requested that PT come in the afternoon so that "i can get over feeling like this and do what they want me to do". Patient also stated that she got 3.5 hours of sleep, which is an improvement for her. Denies fevers, chills, nightsweats. Denies chest pain, palpitations, difficulty breathing, abdominal pain, and urinary symptoms Objective Objective: Physical Exam General Appearance: Alert, Oriented X3, Cooperative, No Acute Distress Skin: L chest wall cellulitis, erythema improved, tender ; Perioral herpes appears better with Carmex ; PICC in R arm Skin Temp/Moisture Exam: Warm/Dry HEENT: Normocephalic. PERRLA. Perioral herpes lesions appear better with carmex Cardiovascular: Regular Rate, Normal S1, Normal S2 Lungs: Crackles and Wheezes to Auscultation, bilaterally Abdomen: Soft, No distension and non-tender to palpation Neurological: Normal Speech, Sensation Intact Extremities: LUE edema improved since yesterday Patient was alert, cooperative, and anxious throughout the examination. Upon general inspection, herpetic lesions present periorally on lower left side of the mouth appear to be healing after consistent application of Carmex. Upper left chest and left arm is indurated and tender to palpation. Swelling has decreased in both the left hand and arm. 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 Breast US ordered yesterday showed an approximately 3.5 x 2.4 x 2.4cm fairly localized fluid collection within the superior lateral left breast approximately 12cm from the nipple. There is no ultrasound evidence to suggest a true abscess, however, this fluid once again appears more localized than the surrounding diffuse edema. Results Results: Vital Signs Date Time Temp Pulse Resp B/P B/P Pulse O2 O2 Flow FiO2 Mean Ox Delivery Rate 05/24 0608 99.3 83 20 150/74 95 Nasal 1.5L Cannula 05/24 0000 94 Nasal 2.0L Cannula 05/23 2158 98.1 70 18 133/62 05/23 2031 70 133/62 05/23 1600 Room Air 05/23 1348 98.0 84 18 144/62 91 Room Air Intake & Output 05/24 1600 05/24 0400 05/23 1600 05/23 0400 05/22 1600 05/22 0400 Intake Total 517 093 4760 680 940 390 Output Total 200 450 300 450 300 Balance 380 120 610 380 490 90 Intake, IV 100 100 220 200 220 Intake, Oral 280 220 840 480 720 390 Number 2 Bowel Movements Output, Urine 200 450 300 450 300 Patient 212 lb 198 lb Weight Weight Bed scale Measurement Method Laboratory Tests 05/22/18 0515: CBC w Diff NO MAN DIFF REQ, RBC 2.89 L, MCV 81.8, MCH 26.7 L, MCHC 32.7 L, RDW 17.4 H, MPV 7.9, Gran % 71.4, Lymphocytes % 15.0 L, Monocytes % 12.2 H, Eosinophils % 0.6, Basophils % 0.8, Absolute Granulocytes 4.1, Absolute Lymphocytes 0.9 L, Absolute Monocytes 0.7 H, Absolute Eosinophils 0, Absolute BasopLaboratory Tests Assessment/Plan Assessment: 62 y/o female with PMH of Diabetes, CHF, Hepatitis C, and CAD/DC s/p PCI and CABG was brought to the ED for evaluation of increased lethargy, dehydration and confusion. Patient is being treated for sepsis secondary to left -sided chest wall cellulitis complicated by MSSA and clostridium perfringens bacteremia and infective endocarditis s/p surgical I&D, new onset atrial fibrillation s/p conversion to normal sinus rhythm, herpes labialis, LUE DVT, and a guaiac positive stool. This is day 15 of treatment with ampicillin/ sulbactam. Plan: Sepsis secondary to left chest wall cellulitis Currently on day 15 of IV Unasyn with goal of 4-6 week course Scheudled today for IR aspiration and will send fluid for culture MSSA and clostridium perfringens bacteremia Currently on day 15 of IV Unasyn with goal of 4-6 week course Infective endocarditis Currently on day 15 of IV Unasyn with goal of 4-6 week course Herpes labalis Currently on day 15 of IV Unasyn with goal of 4-6 week course Carmex to prevent dryness LUE DVT Patient refused an order for a LUE compress Continue Enoxaparin 80mg PO BID SC OT consult was ordered. Per OT, patient refused all due to pain. Will attempt to control pain better to improve cooperation with PT/OT New onset rapid Atrial Fibrillation with RVR s/p conversion to SR Continue Enoxaparin 80mg BID SC Guaic positive stool --> Currently negative Hgb decreased from 7.9 to 7.7 from 05/21 to 05/22 Hyponatremia Fluid restriction at 1200mL/day Deconditioning Enouraged PO intake, as patient has been eating approx 25-50% of her meals. PT/OT to work with patient. Currently refuses treatment due to pain. Need to adjust pain control regimen so she takes her med prior to working with PT/OT Nausea Tigan 200mg IM QID PRN Weight gain of 14lbs from 05/23/18 Furosemide 20mg PO QD
--- NOTE | 2018-05-24 11:54 | PN- Infect Dx ---
Subjective Subjective: Afebrile. She feels somewhat improved today though still reports nausea and discomfort in the left axillary area. She also notes mild shortness of breath. Objective Last 24 Hrs of Vital Signs/I&O Vital Signs Date Time Temp Pulse Resp B/P B/P Pulse O2 O2 Flow FiO2 Mean Ox Delivery Rate 05/24 1013 96 182/84 05/24 0608 99.3 83 20 150/74 95 Nasal 1.5L Cannula 05/24 0000 94 Nasal 2.0L Cannula 05/23 2158 98.1 70 18 133/62 05/23 2031 70 133/62 05/23 1600 Room Air 05/23 1348 98.0 84 18 144/62 91 Room Air Intake & Output 05/24 1600 05/24 0800 05/24 0000 Intake Total 380 320 Output Total 200 Balance 180 320 Intake, IV 100 100 Intake, Oral 280 220 Output, Urine 200 Patient 212 lb Weight Weight Bed scale Measurement Method Physical Exam Other Physical Findings: She appears somewhat more comfortable in no acute distress Chest induration in the left axilla persists, perhaps slightly softer, though still exquisitely tender Lungs scattered crackles Heart regular rhythm with no murmur Extremities decreased left upper extremity edema, induration and tenderness; PICC in the right upper extremity with no inflammation at the site; 1+ edema both lower extremities Results Last 24 Hours of Lab Results: No labs from today Last 24 Hours of Ramón Results: No new cultures Recent Imaging Studies: Ultrasound of the left breast/axilla May 23 reveals diffuse edema throughout the subcutaneous tissues of the left breast and axilla, most prominently superior and lateral to the left breast; a fairly localized fluid collection, measuring 3.5 x 2.2 x 2.4 cm, is again seen, with no well-defined borders or enhancing rim to suggest a true abscess Assessment/Plan ID Impression: Stable, with her temperatures and white blood cell count remaining normal, on Unasyn, Day 15 of treatment for MSSA and Clostridium perfringens sepsis/ endocarditis secondary to an infection of the left chest wall/axilla/breast with persistent induration of the left chest wall and breast and with the recent ultrasound revealing a more localized fluid collection in the left breast, which may benefit from drainage, now 10 days status post drainage in the OR of turbid fluid. She remains on Lovenox for an extensive DVT of the left upper extremity, status post a transient episode of atrial fibrillation. Suspect that she remains quite fluid overloaded, given crackles on exam and her recent chest x- ray findings of worsening interstitial and airspace disease, with her weight up 52 pounds from admission. Suggestion: 1. Would pursue aspiration of the localized collection in the left breast by IR 2. Would consider need for more aggressive diuresis 3. Continue Unasyn
--- NOTE | 2018-05-24 16:25 | ULTRASOUND REPORT ---
EXAMINATION: 1. Superficial ultrasound of left breast 2. Ultrasound-guided aspiration of small localized fluid collection within the superior lateral left breast. CLINICAL INFORMATION: 62-year-old female with erythema and induration of the left anterior lateral chest wall. The patient also has a history of left upper extremity DVT. The patient has an approximately 3.5 x 2.2 x 2.4 cm (previously 4.7 x 1.3 x 2.4 cm) fairly localized fluid collection present within the superior lateral left breast. Request was made for re-aspiration of this fluid collection. COMPARISON: Breast ultrasound 05/23/2018 and 05/10/2018 INTERVENTIONAL RADIOLOGIST: Lawrence Gardner M.D. TECHNIQUE: Informed consent was obtained from the patient prior to the procedure. During this process, the procedure and potential alternatives were explained along with the intended outcome and benefits. The risks of the procedure including the possibility of an unsuccessful procedure, as well as the risk of not doing the procedure were discussed. The patient was given the opportunity to ask questions regarding the procedure and competent to make decisions. A signed consent form which documents this discussion was placed in the medical record. Following informed consent, the patient was placed supine on the procedure table. Diagnostic imaging was performed of the left breast which redemonstrated a small but fairly localized fluid collection within the superior lateral aspect of the left breast. The skin was marked and then prepped and draped in usual sterile fashion. Under direct sonographic guidance, a 20-gauge spinal needle was advanced into the collection. Approximately 2 mL of thin, mildly serosanguineous, nonclotting fluid was aspirated. There appear to be some residual fluid therefore a 5 Maori Yueh catheter was advanced into this collection under direct ultrasound guidance. An additional 3 mL of fluid was aspirated. There was near complete collapse of this localized fluid region. The needle was removed and pressure held for approximately 5 minutes until hemostasis was achieved. A sterile dressing was placed. The specimen was sent for requested analysis. IMPRESSION: Successful ultrasound-guided aspiration of small localized fluid collection within the superior lateral aspect of the left breast.
--- NOTE | 2018-05-24 16:40 | PN- General Surgery ---
Surgical Brief Attending Note Brief Attending Note: infomed after the fact of patient being sent down to IR for drainage of fluid collection. I am unclear of the clinical significanc of a 5ml serosanguinous "fluid collection". 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 she can f/u with me as an outpatient.
[2018-05-24 21:41] VITALS: BP 164/74
[2018-05-25 06:27] VITALS: BP 198/88
--- NOTE | 2018-05-25 08:32 | PN- Housestaff ---
See Addendum Subjective Follow-up For: Sepsis secondary to left chest wall cellulitis complicated by bacteremia and infective endocarditis, new onset atrial fibrillation status post conversion to normal sinus rhythm, left upper extremity DVT, herpes labialis Subjective: Patient seen and examined at bedside. Patient states that she feels somewhat better than yesterday. Patient still complains of some pain to the left extremity. Patient states that the swelling has resolved a little bit in the left arm. Patient also states that she is ready to try and walk again today. Patient states that she did not eat as much breakfast, because it makes her nauseous. Patient states that the Tigan has helped somewhat. Patient states that her pain is somewhat well controlled. Patient overall feels mildly better than yesterday. Patient denies fever/chills/night sweats/chest pain/abdominal pain/urinary symptoms/lower extremity edema. Review of Systems Constitutional: Reports: see HPI. Objective Last 24 Hrs of Vital Signs/I&O Vital Signs Date Time Temp Pulse Resp B/P B/P Pulse O2 O2 Flow FiO2 Mean Ox Delivery Rate 05/25 0806 74 180/86 05/25 0627 98.4 77 20 198/88 98 Room Air 05/25 0000 Nasal 1.0L Cannula 05/24 2141 98.3 82 20 164/74 94 Room Air 05/24 1811 Room Air 05/24 1600 Nasal 1.0L Cannula Intake & Output 05/25 1600 05/25 0800 05/25 0000 Intake Total 120 480 Output Total 400 Balance -280 480 Intake, Oral 120 480 Output, Urine 400 Patient 201 lb Weight Physical Exam General Appearance: Alert, Oriented X3, Cooperative, No Acute Distress Skin: L chest wall cellulitis, erythema improved, tender ; Perioral herpes crusted over ; PICC in R arm HEENT: crusted over perioral herpes lesions Cardiovascular: Regular Rate, Normal S1, Normal S2 Lungs: Clear to Auscultation, Normal Air Movement Abdomen: Soft, No Tenderness Neurological: Strength at 5/5 X4 Ext, Sensation Intact Extremities: LUE edema, swelling 2/2 DVT Current Medications: Current Medications Sig/Bayron Start time Last Medication Dose Route Stop Time Status Admin Acetaminophen 650 MG Q6P PRN 05/09 2045 AC 05/18 PO 1611 Ampicillin Sodium/ 3,000 MG Q6H 05/13 08 AC 07/27 Sulbactam Sodium IV 0804 Sodium Chloride 100 ML Atorvastatin Calcium 40 MG 1700 05/10 1700 AC 05/24 PO 1615 Bupropion HCl 150 MG DAILY 05/10 1403 AC 05/25 PO 0807 Calcium 600 MG BID 05/18 0900 AC 05/23 PO 2031 Carvedilol 3.125 MG BID 05/11 0900 AC 05/25 PO 0806 Chlorhexidine 15 ML BID 05/14 2100 AC 05/19 Gluconate PO 0947 Cyanocobalamin 1,000 MCG DAILY 05/18 0900 AC 05/23 PO 0911 Docusate Sodium 100 MG BID 05/18 1158 AC 05/23 PO 2031 Enoxaparin Sodium 80 MG BID 05/16 1400 AC 05/25 SC 0849 Ferrous Sulfate 325 MG TID 05/18 1400 AC 05/25 PO 0806 Folic Acid 1 MG DAILY 05/18 0900 AC 05/23 PO 0911 Furosemide 20 MG DAILY 05/24 1330 AC 05/25 PO 0807 Insulin Aspart 0 TIDAC 05/15 1700 AC 05/23 SC 1310 Insulin Detemir 5 UNITS BID 05/14 2100 AC 05/25 SC 0849 Memantine 10 MG DAILY 05/16 0900 AC 05/25 PO 0807 Omeprazole 40 MG DAILY AC 05/23 0700 AC 05/25 PO 0506 Oxycodone HCl 10 MG Q4P PRN 05/16 0945 AC 05/25 PO 1000 Petrolatum 1 EDWARD DAILY 05/22 1052 AC 05/23 TOP 0912 Polyethylene Glycol 17 GM DAILY 05/18 1158 AC PO Sertraline HCl 200 MG AT BEDTIME 05/10 2100 AC 05/24 PO 203 Simethicone 80 MG ONCE ONE 05/24 1615 DC 05/24 PO 05/24 1616 1643 Simethicone 80 MG Q6P PRN 05/20 1745 AC 05/24 PO 1157 Thiamine HCl 100 MG DAILY 05/18 0900 AC 05/23 PO 0911 Trazodone HCl 50 MG AT BEDTIME 05/11 2100 AC 05/24 PO 2027 Trimethobenzamide HCl 200 MG 4 TIMES/DAY PRN 05/23 1845 AC 05/25 IM 0849 Last 24 Hrs of Lab/Ramón Results Last 24 Hrs of Labs/Mics: Microbiology 05/24 142 BODY FLUID: Body Fluid Culture - RES STAPH AUREUS 05/24 1425 BODY FLUID: Gram Stain - RES Assessment/Plan Assessment: Ms. Alcocer is a 62 year old female with past medical history significant for morbid obesity, DM, STERLING, s/p laparoscopic Bindu-en-Y gastric bypass (2015), HTN, CAD/[place] s/p PCI and CABG who presented with sepsis secondary to left chest wall cellulitis complicated by MSSA and clostridium perfringens bacteremia and infective endocarditis status post surgical incision and drainage, a single episode of atrial fibrillation with RVR status post conversion to normal sinus rhythm, a left upper extremity DVT, and guaiac positive stool, guaiac negative as of 05/21, now day 16 of treatment with ampicillin/sulbactam. She is doing well now. Problem List: 1. Sepsis secondary to left chest wall cellulitis 2. MSSA and clostridium perfringens bacteremia 3. Infective endocarditis 4. LUE DVT 5. New onset rapid A. fib with RVR s/p conversion to SR 6. Herpes labalis 7. Guiaic postive stool 8. Mild hyponatremia 9. General Deconditioning #Sepsis secondary to left chest wall cellulitis -On IV Unasyn, day 16. Will need to complete a 4-6 week course -ID input on this case appreciated - will continue to follow recs -Surgery input on this case appreciated. Surgery removed Inez drain two days ago, states to put a clean dry dressing on it daily and as needed. Compression on left upper extremity DVT was refused by patient secondary to pain -S/p I+D -Went for LUE/Breast U/S yesterday. Per read: "Again demonstrated is an approximately 3.5 x 2.4 x 2.4 cm fairly localized fluid collection within the superior lateral left breast approximately 12 cm from the nipple. There is no ultrasound evidence to suggest a true abscess, however, this fluid once again appears more localized than the surrounding diffuse edema." -Went for IR guided drainage of fluid, drained 5mL serosanguinous fluid. Culture grew S. aureus; fluid also sent for cytology. -Stable without leukocytosis #MSSA and Clostridium perfringens bacteremia -Will require 4-6 weeks of IV ABX #Infective Endocarditis -Cardiology input in this case appreciated. On IV Unasyn, no leukocytosis/fevers at this time #LUE DVT -Will order compress for LUEpatient has refused -Continue Enoxaparin 80mg BID -Will transition to Eliquis 5mg BID or Xarelto 20mg upon discharge -Given swelling, OT consult was ordered. Per OT, patient refused all due to pain. Will attempt to control pain better to improve cooperation with PT/OT -Pt has been performing exchange mechanic exercises using foam and elevation of the LUE, which has improved hand/wrist swelling. -Was able to walk yesterday to stretcher, roughly 7-8 steps 1 person assist #Afib with RVR -No episodes of tachycardia overnight, pt denies palpitations -Appreciate cardio recs -Continue Enoxaparin 80mg BID #Herpes labialisstable -Discontinue acyclovir per ID -Appreciate ID input #Guaic positive stoolcurrently negative -CBC two days ago shows hemoglobin of 7.7, down from 7.9 on 05/21. -Outpatient GI follow-up for guaiac positive stool -Recent stool guaiac negative on 05/21. -On Prilosec PO. #Hyponatremia -Fluid restriction 1200mL/day. -Stable #Deconditioning -PT walked with patient yesterday -States that she can't exchange mechanic walker due to hand swelling and pain. Will have to investigate alternative method of ambulation -Enouraged PO intake, as patient has been eating approx 25-50% of her meals. -On Tigan for nausea control -PT/OT to continue working with patient. Currently tolerating treatment , but in pain. Will adjust pain control regimen. Pain control as appropriate Gastric bypass vitamins DVT prophylaxis with enoxaparin with eventual bridge to xarelto or eliquis for outpt Consistent carbohydrate two diet Full code Dispo-to rehab when insurance clears and patient tolerates therapy Problem List: 1. Nausea 2. Infective endocarditis of aortic valve 3. Deep vein thrombosis (DVT) of left upper extremity Pain Ratin Pain Location: L chest wall Pain Goal: Pain 7 or less Pain Plan: per pathway Tomorrow's Labs & Rationales: na
[2018-05-25 10:30] VITALS: BP 160/82
--- NOTE | 2018-05-25 10:57 | PN- Infect Dx ---
Subjective Subjective: Afebrile. She feels somewhat improved though still has discomfort in the left axilla Objective Last 24 Hrs of Vital Signs/I&O Vital Signs Date Time Temp Pulse Resp B/P B/P Pulse O2 O2 Flow FiO2 Mean Ox Delivery Rate 05/25 0806 74 180/86 05/25 0627 98.4 77 20 198/88 98 Room Air 05/25 0000 Nasal 1.0L Cannula 05/24 2141 98.3 82 20 164/74 94 Room Air 05/24 1811 Room Air 05/24 1600 Nasal 1.0L Cannula Intake & Output 05/25 1600 05/25 0800 05/25 0000 Intake Total 120 480 Output Total 400 Balance -280 480 Intake, Oral 120 480 Output, Urine 400 Patient 201 lb Weight Physical Exam Other Physical Findings: She is awake and alert in no acute distress Chest induration persists over the left axilla, with decreased induration over the left breast Lungs scattered wheezes Heart regular rhythm with no murmur Extremities PICC in the right upper extremity with no inflammation at the site; decreased swelling and tenderness in the left upper extremity, with increased range of motion; 1+ edema both lower extremities Results Last 24 Hours of Lab Results: No labs from today Last 24 Hours of Ramón Results: Aspiration left chest wall May 24 positive for Staph aureus Assessment/Plan ID Impression: Stable, with her temperatures and white blood cell count remaining normal, on Unasyn, Day 16 of treatment for MSSA and Clostridium perfringens sepsis/ endocarditis secondary to an infection of the left chest wall/axilla/breast with persistent induration of the left chest wall/axilla, status post aspiration of several cc of fluid yesterday under ultrasound by IR, with the culture again positive for Staph aureus. Am concerned about the residual infection in her chest wall and feel that reexploration in the OR may be necessary to ultimately resolve this infection. She remains on Lovenox for an extensive DVT of the left upper extremity, status post a transient episode of atrial fibrillation. Suspect that she remains quite fluid overloaded, with her weight up 52 pounds from admission. Suggestion: 1. Surgical follow-up regarding possible need for reexploration 2. Would ensure adequate diuresis 3. Continue Unasyn
--- NOTE | 2018-05-25 11:01 | PN- Student ---
Subjective Subjective: HPI: 62 y/o female with PMH of Diabetes, CHF, Hepatitis C, and CAD/[place] s/p PCI and CABG was brought to the ED for evaluation of increased lethargy, dehydration and confusion. Patient is being treated for sepsis secondary to left -sided chest wall cellulitis complicated by MSSA and clostridium perfringens bacteremia and infective endocarditis s/p surgical I&D, new onset atrial fibrillation s/p conversion to normal sinus rhythm, herpes labialis, and LUE DVT. Patient was evaluated at bedside by both myself and Dr. Mayes. Patient appears in a better mood this morning when compared to yesterday and continues to see a decrease in the swelling of her right hand. During morning rounds, patient stated that she is trying to eat. Continued to advise patient to work with both OT and PT while we await her insurance to authorize her to go to a rehab facility for further improvement. Patient stated that she feels better and the pain in her arm and upper left chest has decreased since yesterday. Denies fevers, chills, nightsweats. Denies chest pain, palpitations, difficulty breathing, abdominal pain, and urinary symptoms Objective Objective: Physical Exam General Appearance: Alert, Oriented X3, Cooperative, No Acute Distress Skin: L chest wall cellulitis, erythema improved, tender ; Perioral herpes appears better with Carmex ; PICC in R arm Skin Temp/Moisture Exam: Warm/Dry HEENT: Normocephalic. PERRLA. Perioral herpes lesions appear better with carmex Cardiovascular: Regular Rate, Normal S1, Normal S2 Lungs: Crackles and Wheezes to Auscultation, bilaterally Abdomen: Soft, No distension and non-tender to palpation Neurological: Normal Speech, Sensation Intact Extremities: LUE edema improved since yesterday Patient was alert, cooperative, and anxious throughout the examination. Upon general inspection, herpetic lesions present periorally on lower left side of the mouth appear to be healing after consistent application of Carmex. Upper left chest and left arm is indurated and tender to palpation. Swelling has decreased in both the left hand and arm. Patient has been performing sorter/assay tech exercises using foam and elevation of the LUE, which has improved hand/wrist swelling. Breast US ordered 05/23/18 showed an approximately 3.5 x 2.4 x 2.4cm fairly localized fluid collection within the superior lateral left breast approximately 12cm from the nipple. There is no ultrasound evidence to suggest a true abscess, however, this fluid once again appears more localized than the surrounding diffuse edema. Guided Breast US ordered 05/24/18 to collect fluid. Per the report, Successful ultrasound-guided aspiration of small localized fluid collection within the superior lateral aspect of the left breast. Cultures show growth of Staph Aureus Results Results: Vital Signs Date Time Temp Pulse Resp B/P B/P Pulse O2 O2 Flow FiO2 Mean Ox Delivery Rate 05/25 0806 74 180/86 05/25 0627 98.4 77 20 198/88 98 Room Air 05/25 0000 Nasal 1.0L Cannula 05/24 2141 98.3 82 20 164/74 94 Room Air 05/24 1811 Room Air 05/24 1600 Nasal 1.0L Cannula Intake & Output 05/25 1600 05/25 0800 05/25 0000 Intake Total 120 480 Output Total 400 Balance -280 480 Intake, Oral 120 480 Output, Urine 400 Patient 201 lb Weight Microbiology 05/24 1425 BODY FLUID: Body Fluid Culture - RES STAPH AUREUS 05/24 1425 BODY FLUID: Gram Stain - RES Assessment/Plan Assessment: 62 y/o female with PMH of Diabetes, CHF, Hepatitis C, and CAD/[place] s/p PCI and CABG was brought to the ED for evaluation of increased lethargy, dehydration and confusion. Patient is being treated for sepsis secondary to left -sided chest wall cellulitis complicated by MSSA and clostridium perfringens bacteremia and infective endocarditis s/p surgical I&D, new onset atrial fibrillation s/p conversion to normal sinus rhythm, herpes labialis, LUE DVT, and a guaiac positive stool. This is day 16 of treatment with ampicillin/ sulbactam. Currently stable. Plan: Sepsis secondary to left chest wall cellulitis Currently on day 16 of IV Unasyn with goal of 4-6 week course MSSA and clostridium perfringens bacteremia Currently on day 16 of IV Unasyn with goal of 4-6 week course Infective endocarditis Currently on day 16 of IV Unasyn with goal of 4-6 week course Herpes labalis Currently on day 16 of IV Unasyn with goal of 4-6 week course Carmex to prevent dryness LUE DVT Patient refused an order for a LUE compress Continue Enoxaparin 80mg PO BID SC Continue to work with PT/OT New onset rapid Atrial Fibrillation with RVR s/p conversion to SR Continue Enoxaparin 80mg BID SC Guaic positive stool --> Currently negative Hgb decreased from 7.9 to 7.7 from 05/21 to 05/22 Hyponatremia Fluid restriction at 1200mL/day Deconditioning Enouraged PO intake, as patient has been eating approx 25-50% of her meals. PT/OT to work with patient. Currently refuses treatment due to pain. Need to adjust pain control regimen so she takes her med prior to working with PT/OT Nausea Tigan 200mg IM QID PRN Weight gain of 14lbs from 05/23/18 Furosemide 20mg PO QD
[2018-05-25] MEDS ORDERED: FUROSEMIDE20 M1 PO (14:05)
[2018-05-25] MEDS ORDERED: SIMETHICONE80 M1 PO (14:09)
[2018-05-25] MEDS ORDERED: MIRALAX119 GM PO (14:09)
[2018-05-25] MEDS ORDERED: OMEPRAZOLE20 M2 PO (14:09)
[2018-05-25] MEDS ORDERED: DOCUSATE SODIU100 M3 PO (14:09)
[2018-05-25] MEDS ORDERED: ATORVASTATIN CA40 M1 PO (14:09)
[2018-05-25] MEDS ORDERED: UNASYN 3 GM VIAL3 GM IV (14:10)
[2018-05-25 15:28] VITALS: BP 148/60; BP 160/82
[2018-05-25 15:41] VITALS: BP 142/86
[2018-05-25] MEDS ORDERED: LOVENOX40 MG/0.1 SC (15:47)
== END 2018-05-25 17:00 | DRG 871 ==
LOC: ERH 16:31 → ERHI 19:18 → CRI 19:18 → 2NB 19:18 → ENRESERV 21:41 → ENTRNSPT 22:20 → EDTRNSPTSTS 22:21 → EDTRNSPT 22:21 → CMPTRNSPT 22:31 → CRI 22:47 → ENTRNSPT 05-14 18:36 → EDTRNSPTSTS 05-14 18:39 → EDTRNSPT 05-14 18:39 → CMPTRNSPT 05-14 18:56 → ENTRNSPT 05-18 21:09 → EDTRNSPTSTS 05-18 21:32 → CMPTRNSPT 05-18 21:50 → DELTRNSPT 05-18 22:01 → 2NB 05-18 22:10 → ENPENDDIS 05-25 16:38 → 2NB 05-25 17:00
PROVIDERS: Emergency Medicine; Internal Medicine; Internal Medicine Endocrinology, Diabetes & Metabolism; Internal Medicine Pulmonary Disease; Physical Medicine & Rehabilitation; Preventive Medicine Public Health & General Preventive Medicine; Student in an Organized Health Care Education/Training Program
PROC: 0H9U3ZX Drainage of Left Breast, Percutaneous Approach, Diagnostic (ICD-10-PCS; 2018-05-11)
PROC: 0J960ZX Drainage of Chest Subcutaneous Tissue and Fascia, Open Approach, Diagnostic (ICD-10-PCS; principal; 2018-05-14)
PROC: 02H633Z Insertion of Infusion Device into Right Atrium, Percutaneous Approach (ICD-10-PCS; 2018-05-14)
PROC: 30233N1 Transfusion of Nonautologous Red Blood Cells into Peripheral Vein, Percutaneous Approach (ICD-10-PCS; 2018-05-15)
PROC: 0H9U3ZX Drainage of Left Breast, Percutaneous Approach, Diagnostic (ICD-10-PCS; 2018-05-24)
DX: A41.01 Sepsis due to Methicillin susceptible Staphylococcus aureus (principal); G93.40 Encephalopathy, unspecified; L03.313 Cellulitis of chest wall; E87.2 Acidosis; E87.1 Hypo-osmolality and hyponatremia; I82.622 Acute embolism and thrombosis of deep veins of left upper extremity; E46 Unspecified protein-calorie malnutrition; I48.0 Paroxysmal atrial fibrillation; E11.42 Type 2 diabetes mellitus with diabetic polyneuropathy; Z79.84 Long term (current) use of oral hypoglycemic drugs; E80.6 Other disorders of bilirubin metabolism; E88.89 Other specified metabolic disorders; E86.0 Dehydration; W19.XXXA Unspecified fall, initial encounter; Z98.84 Bariatric surgery status; J44.9 Chronic obstructive pulmonary disease, unspecified; R65.20 Severe sepsis without septic shock; E87.6 Hypokalemia; I25.5 Ischemic cardiomyopathy; Z95.1 Presence of aortocoronary bypass graft; D50.9 Iron deficiency anemia, unspecified; Z68.26 Body mass index [BMI] 26.0-26.9, adult; E11.65 Type 2 diabetes mellitus with hyperglycemia; I25.10 Atherosclerotic heart disease of native coronary artery without angina pectoris; G47.33 Obstructive sleep apnea (adult) (pediatric); I35.8 Other nonrheumatic aortic valve disorders; B96.7 Clostridium perfringens [C. perfringens] as the cause of diseases classified elsewhere; I11.0 Hypertensive heart disease with heart failure; I50.9 Heart failure, unspecified; R19.5 Other fecal abnormalities; B00.1 Herpesviral vesicular dermatitis; Z86.19 Personal history of other infectious and parasitic diseases
CPT/HCPCS: 2NBP; 84133; 84300; 87070; 87075; 87184; CCU; 36415; 36592; 71045; 76641-LT; 81001; 82436; 82570; 86920; 87040; 87086; 87147; 87389; 88305; 93005; 93010; 93306; 93325; 97110-GO; 97116-GO; 97161-GP; 97530-GO; 99291; C1769; G0480; J0131; J0153; J0696; J1644; J1650; J1815; J2001; J2270; J2405; J2997; J3101; J3250; J3370; J3490; J7040; J7042; J7060; P9016; P9047

== ENCOUNTER 2018-07-18 00:40 | Inpatient (IN) | payer OTHER ==
[~2018-07-18] VITALS: Ht 154.9 cm; Wt 68.0 kg
[~2018-07-18 00:40] MED LIST changes: +ATORVASTATIN CA40 M1 PO; +CARVEDILOL3.125 M1 PO; +DOCUSATE SODIU100 M3 PO; +FUROSEMIDE20 M1 PO; +KETOCONAZOLE15 GM TOP; +LOVENOX40 MG/0.1 SC; +LYRICA150 M1 PO; +METFORMIN HCL500 M4 PO; +MIRALAX119 GM PO; +NAMENDA XR28 M1 PO; +OMEPRAZOLE20 M2 PO; +OXYCODONE HCL15 M1 PO; +SIMETHICONE80 M1 PO; +TRAZODONE HCL100 M1 PO; +UNASYN 3 GM VIAL3 GM IV; +WELLBUTRIN XL150 M2 PO; +ZOLOFT100 M1 PO
[2018-07-18 10:19] LABS: ABSOLUTE BASOPHIL COUNT 0 /CUMM (0.0-0.2); ABSOLUTE EOSINOPHIL COUNT 0.2 /CUMM (0.0-0.7); ABSOLUTE GRANULOCYTE CT 7.9 /CUMM (1.4-6.5); ABSOLUTE LYMPH COUNT 2.7 /CUMM (1.2-3.4); ABSOLUTE MONOCYTE COUNT 0.5 /CUMM (0.10-0.60); BASOPHIL % 0.3 % (0.0-2.0); EOSINOPHIL % 1.5 % (0-5); GRANULOCYTE % 70.3 % (42.2-75.2); HEMATOCRIT 31.1 % (37-47); MEAN CORPUSCULAR HGB 27.8 PG (27.0-31.0); MEAN CORPUSCULAR HGB CONC 32.9 G/DL (33.0-37.0); MEAN CORPUSCULAR VOLUME 84.7 FL (81.0-99.0); MEAN PLATELET VOLUME 7.2 FL (7.4-10.4); PLATELET COUNT 349 /CUMM (130-400); RBC DISTRIBUTION WIDTH 18.3 % (11.5-14.5); RED BLOOD CELL CT 3.67 /CUMM (4.20-5.40); WHITE BLOOD CELL COUNT 11.3 /CUMM (4.8-10.8)
--- NOTE | 2018-07-18 16:42 | Operative Report ---
Operative/Inv Procedure Report Surgery Date: 07/18/18 Name of Procedure: 1. 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 fib, endocarditis and edema and cellulitis of left breast and axilla. She was treated medically for her problems as well as surgical drainage of her axilla. At that time there was no evidence of abscess. She was treated for cellulitis and discharged to short-term rehab for IV antibiotics through a PICC line. She represented back to my office twice with recurrent multiloculated abscesses throughout the left axilla and breast. Incision and drainage of these areas failed to resolve the infectious process. Most recently the antibiotics were discontinued and decision was made to bring her back to the operating room for further exploration. Operative/Procedure Note Note: After consent patient brought to the operating room laid supine. General anesthesia was obtained in her left axilla and breast were prepped and draped. There are multiple sinus tracts with purulent material emanating from them. There are multiple areas of fluctuance. The entire area was indurated, erythematous and very firm. We attempted to incise and drain these abscesses. There was copious bleeding from acute inflammatory reaction. This was controlled with direct pressure. Further exploration revealed significant subcutaneous necrosis extending to the deeper tissues. We made multiple incisions and the chest wall and each site we found significant necrotic tissue that was bluntly debrided and passed off the field. On the lateral aspect of the breast I excised a portion of the skin for pathologic evaluation. More in the axilla proper made a larger incision and dissected down to deeper tissues. There was a 15 x 20 cm area of necrosis involving the subcutaneous tissues, extending from the lower axilla to the upper axilla down to the muscular chest wall. There are further sinus tracts up along the anterior border of the pectoralis major as well as the lateral aspect of the breast. The necrotic tissue had the consistency of fibrous peanut butter, somewhat reminiscent of the consistency of pancreatic necrosis. There was no foul smell. This area was bluntly debrided with ring forceps. There was a lot of bleeding throughout the case due to the multiple raw areas we encountered. Hemostasis was achieved with direct pressure and cautery. Eventually able to evacuate all the necrosis, abeit with great difficulty. The deeper wounds were then pulse lavaged with normal saline. Wounds were then packed with saline soaked gauze.
--- NOTE | 2018-07-18 17:16 | RADIOLOGY REPORT ---
EXAMINATION:\H\ \N\XR CHEST CLINICAL INFORMATION: PICC line previously placed in right arm. COMPARISON: Chest x-ray 05/22/2018. TECHNIQUE: Frontal view of the chest was obtained. FINDINGS: Right PICC line tip terminates over the SVC in unchanged position. Median sternotomy wires are intact. Surgical clips project over the left upper lung. Linear opacity within the left lung favored to reflect atelectasis or scar. Lungs are otherwise clear. There is no pneumothorax. No pleural effusion. Cardiac silhouette is enlarged and unchanged. IMPRESSION: Right PICC line tip projects over the SVC in unchanged position. Linear opacity at the left lung base favored to reflect atelectasis versus scar.
--- NOTE | 2018-07-18 17:33 | History & Physical ---
Ji MORGAN,[facility] 07/18/18 1733: General Information and HPI MD Statement: I have seen and personally examined RUSSELL ZHAO and documented this H&P. The patient is a 62 year old F who presented with a patient stated chief complaint of status post chest wall debridement. Source of Information: patient Exam Limitations: no limitations History of Present Illness: 62-year-old lady with a history of diabetes, coronary artery disease, status post CABG, CHF and Hepatitis C, gastric bypass, atrial fibrillation, recently discharged after [facility] stay (05/09-05/25) for infected left chest wall abscess which underwent OR drainage and treated with Unasyn for MSSA isolated from OR drainage of the chest area (c.perfringens was also isolated- but was of unknown significance), also found to have Endocarditis and New onset afib, sent to [facility] with PICC line to complete a 4 week unasyn course for endocarditis, is now being admitted after debridement of left chest wall/axilla and breast which was performed today. Pt was being followed by Dr Martinez who has seen her twice since discharge. According to Dr Martinez patient was found to have recurrent multiloculated abscesses throughout the left axilla and breast. Given prior Incisions and drainage of the affected areas failed to resolve the infectious process, a decision was made to bring her back to the operating room for further exploration today. She is now at the PACU. When seen by the medical team, she was alert and oriented. She reports finishing her ABX last week on Monday. She denies any fever/chills, palpiatation/cp, or shortness of breath. Allergies/Medications Allergies: Coded Allergies: No Known Allergies (05/25/18) Home Med list Atorvastatin Calcium 40 MG TABLET 40 MG PO 1700 Heart Bupropion HCl (Wellbutrin XL) 150 MG TAB.ER.24H 1 TAB PO DAILY UNKNOWN ( Reported) Carvedilol 3.125 MG TABLET 1 TAB PO BID HEART (Reported) Docusate Sodium 100 MG CAPSULE 100 MG PO BID PRN Constipation Enoxaparin Sodium (Lovenox) 40 MG/0.4 ML SYRINGE 80 MG SC BID DVT Furosemide 20 MG TABLET 20 MG PO DAILY Diuresis Ketoconazole 2 % CREAM..G. 1 EDWARD TOP DAILY AFFECTED AREA(S) (Reported) apply to affected area(s) Memantine HCl (Namenda XR) 28 MG CAP.SPR.24 1 CAP PO DAILY MEMORY (Reported) Metformin HCl (Metformin HCl ER) 500 MG TAB.ER.24H 1 TAB PO DAILY DM ( Reported) Omeprazole 20 MG CAPSULE.DR 40 MG PO DAILY AC PPI Oxycodone HCl 15 MG TABLET 1 TAB PO Q8H PAIN (Reported) Polyethylene Glycol 3350 (Miralax) 17 GRAM/DOSE POWDER 17 GM PO DAILY COnstipation Pregabalin (Lyrica) 150 MG CAPSULE 1 CAP PO BID UNKNOWN (Reported) Sertraline HCl (Zoloft) 100 MG TABLET 2 TAB PO DAILY MENTAL HEALTH (Reported) Simethicone 80 MG TAB.CHEW 80 MG PO Q6P PRN GAS Trazodone HCl 100 MG TABLET 2 TAB PO QHS SLEEP/MENTAL HEALTH (Reported) Past History Medical History Neurological: peripheral neuropathy EENT: NONE Cardiovascular: AFIB, CAD, CHF, hypertension, myocardial infarction Respiratory: COPD Gastrointestinal: NONE Hepatic: hepatitis C Renal: NONE Musculoskeletal: osteoarthritis Psychiatric: NONE Endocrine: diabetes Blood Disorders: NONE Cancer(s): NONE ANODE REBUILDER/Reproductive: NONE History of MRSA: No History of VRE: No History of CDIFF: No Surgical History Surgical History: CABG, cholecystectomy, 2015: GJ Bindu-en-Y bypass by Dr. Tommie Weber at [facility] Past Family/Social History Family History Relations & Conditions if any MOTHER, , Age 70; Cause: Diabetes. FATHER (Pt didn't know her father). ; Cause: Unknown cause of morbidity or mortality. Psychosocial History Who Do You Live With? self Services at Home: None Primary Language: Albanian Living Will? no Power of Branch Director/HCP? no Functional Ability ADLs Independent: dressing, eating, toileting, bathing. Ambulation: independent IADLs Independent: shopping, housework, finances, food prep, telephone, transportation , medication admin. Review of Systems Review of Systems Constitutional: Reports: no symptoms. EENTM: Reports: no symptoms. Cardiovascular: Reports: no symptoms. Respiratory: Reports: no symptoms. GI: Reports: no symptoms. Genitourinary: Reports: no symptoms. Musculoskeletal: Reports: no symptoms. Skin: Reports: no symptoms. Neurological/Psychological: Reports: no symptoms. Hematologic/Endocrine: Reports: no symptoms. Immunologic/Allergic: Reports: no symptoms. All Other Systems: Reviewed and Negative Exam & Diagnostic Data Last 24 Hrs of Vital Signs/I&O Vital Signs Date Time Temp Pulse Resp B/P B/P Pulse O2 O2 Flow FiO2 Mean Ox Delivery Rate 07/19 0700 98.3 82 20 130/68 93 07/18 2259 143/67 07/18 2219 97.8 82 20 110/62 98 Room Air 07/18 1957 97.6 84 20 134/72 99 Room Air Intake & Output 07/19 0800 07/19 0000 07/18 1600 Intake Total 240 480 Output Total Balance 240 480 Intake, Oral 240 480 Patient 58.967 kg Weight Weight Bed scale Measurement Method Physical Exam General Appearance Alert, Oriented X3, Cooperative Skin left chest area has intact dressing , blood stained on the side. that area is tender to touch. No obvious active bleeding noted Skin Temp/Moisture Exam: Warm/Dry Sepsis Skin Exam (color): Normal for Ethnicity HEENT Atraumatic Neck Supple, No JVD Lymphatic Cervical nl Cardiovascular Normal S1, Normal S2, irregular rate Lungs Clear to Auscultation, Normal Air Movement Abdomen Normal Bowel Sounds, Soft, No Tenderness, No Hepatospenomegaly Neurological Normal Speech, Strength at 5/5 X4 Ext, Normal Tone, Sensation Intact Extremities No Cyanosis, No Edema, Normal Pulses Vascular Normal Pulses, Pulses Symmetrical Assessment/Plan Assessment: 62-year-old lady with significant medical comorbidities including diabetes, CAD status post CABG, CHF, hepatitis C, atrial fibrillation, upper extremity DVT, left chest wall abscess requiring drainage with MSSA isolated, 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 She was afebrile on presentation. 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 * Leukocytosis. * History of chronic diseases: Diabetes, A. fib, CAD, CHF, hepatitis C, A. fib, upper extremity DVT. Plan Admit to general medicine floor Watch off antibiotics for now (clinically she does not look septic, she is afebrile and her leukocytosis is not very significant. She has also finished a 4-week Unasyn course). Follow-up OR cultures ID consult tomorrow morning Hold of Lovenox given the significant perioperative blood loss of 450 mls 1 unit PRBC per surgery recommendation Diabetic diet Accu-Chek and bedtime NovoLog sliding scale Continue home meds DVT prophylaxis: Alps CODE STATUS: FC As Ranked By This Provider Problem List: 1. Chest wall abscess Core Measures/Misc (07/16) Acute Coronary Syndrome ACS Diagnosis: No Congestive Heart Failure Congestive Heart Failure Diagnosis No Cerebrovascular Accident CVA/TIA Diagnosis: No VTE (View Protocol) VTE Risk Factors Acute Medical Illness No Mechanical VTE Prophylaxis d/t N/A MechProphylax Ordered No VTE Pharm Prophylaxis d/t Medical Contraindication (vicki-operative bleed) Sepsis (View protocol) Sepsis Present: Yes If YES complete Sepsis Event Note If YES complete Sepsis Event Note Varun MORGAN,[facility] 07/19/18 1539: Core Measures/Misc (07/16) Sepsis (View protocol) If YES complete Sepsis Event Note If YES complete Sepsis Event Note Attending MD Review Statement Attending Statement Attending MD Statement: examined this patient, discuss w/resident/PA/HAZMAT CDL DRIVER, agreed w/resident/PA/HAZMAT CDL DRIVER, reviewed EMR data (avail), discussed with nursing, amended to note Attending Assessment/Plan: See my Separate addendum.
--- NOTE | 2018-07-18 18:14 | PN- Att Addend ---
Attending Addendum Attending Brief Note 62 y/o F with pmh sig for diabetes, coronary artery disease, status post CABG, ch diastolic CHF and Hepatitis C, gastric bypass, atrial fibrillation, was admitted [facility] in with sepsis, left upper chest/axilla/upper extremity cellulitis, aortic valve endocarditis with MSSA and treated with Unasyn, left chest/breast abscess status post drainage by surgery, extensive left upper extremity DVT on Lovenox who is status post Debridement of left chest wall, axilla and breast today for Recurrent breast abscess. During the surgery as reported the estimated blood loss for 450 cc. It was a pretty extensive surgery according Dr. Jefferson. Patient will be admitted to medicine service secondary to having many comorbid conditions with complicated surgery and significant blood loss. Patient herself complains of pain at the surgical site. She has a pretty extensive dressing. She was brought in from [facility] and the medication record mentions that she still on Lovenox. She currently denies shortness of breath, any chest pain. Her vital signs are stable. On exam; aox3, nad. cv; s1,s2, rrr resp; clear abd; soft, nt, bs+ ext; no edema skin: + dressing on left chest wall upto Axilla. Laboratory Tests 07/18 1007 Chemistry Sodium (137 - 145 mmol/L) 136 L Potassium (3.5 - 5.1 mmol/L) 4.7 Chloride (98 - 107 mmol/L) 99 Carbon Dioxide (22 - 30 mmol/L) 29 Anion Gap (5 - 16) 7 BUN (7 - 17 mg/dL) 11 Creatinine (0.5 - 1.0 mg/dL) 0.5 Estimated GFR (>60 ml/min) > 60 BUN/Creatinine Ratio (7 - 25 %) 22.0 Glucose (65 - 99 mg/dL) 113 H Calcium (8.4 - 10.2 mg/dL) 8.7 Hematology CBC w Diff NO MAN DIFF REQ WBC (4.8 - 10.8 /CUMM) 11.3 H RBC (4.20 - 5.40 /CUMM) 3.67 L Hgb (12.0 - 16.0 G/DL) 10.2 L Hct (37 - 47 %) 31.1 L MCV (81.0 - 99.0 FL) 84.7 MCH (27.0 - 31.0 PG) 27.8 MCHC (33.0 - 37.0 G/DL) 32.9 L RDW (11.5 - 14.5 %) 18.3 H Plt Count (130 - 400 /CUMM) 349 MPV (7.4 - 10.4 FL) 7.2 L Gran % (42.2 - 75.2 %) 70.3 Lymphocytes % (20.5 - 51.1 %) 23.7 Monocytes % (1.7 - 9.3 %) 4.2 Eosinophils % (0 - 5 %) 1.5 Basophils % (0.0 - 2.0 %) 0.3 Absolute Granulocytes (1.4 - 6.5 /CUMM) 7.9 H Absolute Lymphocytes (1.2 - 3.4 /CUMM) 2.7 Absolute Monocytes (0.10 - 0.60 /CUMM) 0.5 Absolute Eosinophils (0.0 - 0.7 /CUMM) 0.2 Absolute Basophils (0.0 - 0.2 /CUMM) 0 A/P: 62 y/o F with pmh sig for diabetes, coronary artery disease, status post CABG, ch diastolic CHF and Hepatitis C, gastric bypass, atrial fibrillation, was admitted [facility] in with sepsis, left upper chest/axilla/upper extremity cellulitis, aortic valve endocarditis with MSSA and treated with Unasyn, left chest/breast abscess status post drainage by surgery, extensive left upper extremity DVT on Lovenox who is status post Debridement of left chest wall, axilla and breast today for Recurrent breast abscess. Patient will be admitted to medicine service secondary to having many comorbid conditions with complicated surgery and significant blood loss. Patient will be admitted to medicine floor. She will be typed and crossed. I spoke with Dr. Jefferson and he is recommending transfusing her 1 unit. She is a cardiac patient. Her H&H will be monitored. For now we will hold her anticoagulation. Will confirm and continue the rest of her home medications with a close eye on her blood pressure. We will also consult infectious disease Dr. Gold. Currently she is not on any antibiotics. Will follow up on the cultures from the OR. Mechanical DVT prophylaxis. Full code.
[2018-07-18 19:57] VITALS: BP 134/72
[2018-07-18 22:19] VITALS: BP 110/62
[2018-07-19 07:00] VITALS: BP 130/68
--- NOTE | 2018-07-19 07:15 | PN- Student ---
See Addendum May Morton 07/19/18 0707: Subjective Subjective: Pt reports 7/10 pain to her left breast that is radiating around her chest wall and to her left upper abdomen. Pain is worse with movement. Oxycodone is providing some pain relief. Also complaining of fatigue. Tolerated regular diet with no nausea/ vomiting. Voiding and ambulating without difficulty. No OLMOS or dizziness. Denies CP, SOB, or difficulty breathing. Objective Objective: Vitals: T 983. Pulse: 82 RR: 20 BP: 130/68 O2: 93% on RA General: Middle aged woman, appears older than stated age, pale appearing, mild discomfort but NAD. Cardio: Regular rate and rhythm, S1 and S2. No murmurs rubs or gallops. Chest: Dressing in tact over the left breast/axilla. OR dressing reinforced with no further saturation noted. Tenderness to palpation around the left breast and axilla. Pulm: Clear breath sounds with no wheezes, rhonchi or rales. Abdomen: Soft and non-distended. Normoactive bowel sounds. Tender to palpation over the lateral aspect of the LUQ and the left flank. Extremities: ALPs in place. Calves are soft and non-tender bilaterally. Results Results: Laboratory Tests 07/19/18 0610: CBC w Diff Pending, WBC Pending, RBC Pending, Hgb Pending, Hct Pending, MCV Pending, MCH Pending, MCHC Pending, RDW Pending, Plt Count Pending, MPV Pending 07/18/18 1007: Anion Gap 7, Estimated GFR > 60, BUN/Creatinine Ratio 22.0, Glucose 113 H, Calcium 8.7, CBC w Diff NO MAN DIFF REQ, RBC 3.67 L, MCV 84.7, MCH 27.8, MCHC 32.9 L, RDW 18.3 H, MPV 7.2 L, Gran % 70.3, Lymphocytes % 23.7, Monocytes % 4.2, Eosinophils % 1.5, Basophils % 0.3, Absolute Granulocytes 7.9 H, Absolute Lymphocytes 2.7, Absolute Monocytes 0.5, Absolute Eosinophils 0.2, Absolute Basophils 0 Microbiology 07/19 0000 BLOOD: Blood Culture - RECD 07/19 0000 BLOOD: Blood Culture - RECD 07/18 1530 TRUNK/O.R.: Culture & Sensitivity - RECD 07/18 1530 TRUNK/O.R.: Gram Stain - RECD Assessment/Plan Assessment: 62 year old F POD#1 s/p left chest wall, breast and axilla debridement. Pt is also s/p transufusion of 1 unit of blood d/t blood loss of about 450 cc in the OR. Vital signs are stable and pt is afebrile. OR cultures are pending. Plan: Pt on medicine service. Pain control as needed. Anticoagulation being held d/t blood loss during surgery. Dressing change and re-pack wound tomorrow. Follow up with OR cultures and pathology. Follow up with labs and monitor H and H. DVT ppx with ALPs. Regular diet. Encourage ambulation and incentive spirometry. Discuss with Dr Jefferson and surgical PAs. Zeus Nathan 07/19/18 0728: Assessment/Plan Plan: Agree with above. Patient reports postop pain and dizziness when she woke up this morning, however states she is alway dizzy when she wakes up. On exam, afebrile, vss, dressing saturated posteriorly, 5 openings with gauze packing in place, slightly erythmatous and firm with serosang drainage from middle incision , redressed with gauze, abd, tape. POD 1 s/p left chest wall/breast/axilla debridement due to chronic necrotizing soft tissue infection s/p 1 unit for ebl 400 intraop, recovering well. Add oxycodone 10 with IV Dilaudid for breakthough. Dressing change tomorrow. Reinforce prn. May need wound vac. Restart anticoag pending am labs. F/u OR cx. Will continue to follow and dw Dr. Jefferson
--- NOTE | 2018-07-19 09:42 | PN- Housestaff ---
Karl Gonzalez 07/19/18 0941: Subjective Follow-up For: chest wall abcess Subjective: Patient was seen and examined this morning. SHe continues to feel the same, she had just changed the dressing and says it soaks very fast. Review of Systems Constitutional: Reports: see HPI. Objective Last 24 Hrs of Vital Signs/I&O Vital Signs Date Time Temp Pulse Resp B/P B/P Pulse O2 O2 Flow FiO2 Mean Ox Delivery Rate 07/19 2104 123/64 07/19 1417 98.0 88 20 118/70 97 Room Air 07/19 0700 98.3 82 20 130/68 93 07/18 2259 143/67 07/18 2219 97.8 82 20 110/62 98 Room Air Intake & Output 07/19 1600 07/19 0800 07/19 0000 Intake Total 240 480 Output Total Balance 240 480 Intake, Oral 240 480 Patient 130 lb 130 lb Weight Weight Bed scale Measurement Method Physical Exam General Appearance: Alert, Oriented X3, Cooperative, No Acute Distress Cardiovascular: Regular Rate, No Murmurs Lungs: Clear to Auscultation, Normal Air Movement Abdomen: Normal Bowel Sounds, Soft, No Tenderness, No Hepatospenomegaly, No Masses Neurological: Normal Speech, Strength at 5/5 X4 Ext, Normal Tone, Sensation Intact Extremities: No Clubbing, No Cyanosis, No Edema, Normal Pulses, No Tenderness/ Swelling Assessment/Plan Assessment: 62-year-old lady with significant medical comorbidities including diabetes, CAD status post CABG, CHF, hepatitis C, atrial fibrillation, upper extremity DVT, left chest wall abscess requiring drainage with MSSA isolated, 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 She was afebrile on presentation. 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 Plan started on Meropenem Follow-up OR cultures- G -ve rods ID consult appreciated Hold of Lovenox given the significant perioperative blood loss of 450 mls 1 unit PRBC per surgery given 2) Diabetes Diabetic diet Accu-Chek and bedtime NovoLog sliding scale Continue home meds 2) Deconditioning- PT for deconditioning 3) A fib- cardiology consult will be called tomorrow to discuss anticoagulation 4) DVT prophylaxis: Alps CODE STATUS: FC Problem List: 1. Chest wall abscess Pain Ratin Pain Location: none Pain Goal: Remain pain free Pain Plan: none Tomorrow's Labs & Rationales: eliza Cortez MD,V[facility] 07/19/18 1104: Attending MD Review Statement Attending Statement Attending MD Statement: examined this patient, discuss w/resident/PA/TRACK LAYER, agreed w/resident/PA/TRACK LAYER, reviewed EMR data (avail), discussed with nursing, discussed with case mgmt, amended to note Attending Assessment/Plan: Patient seen and examined. Extensive medical history reviewed. She is currently resting comfortably and not in any acute distress. Denies pain at the surgical site. Dressing was gingerly on today. It was reported to have been soaked with serosanguineous fluid. There is no surrounding erythema at the surgical site. She remains afebrile. She remains hemodynamically stable. Problems: 1. 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 2. Endocarditis with MSSA bacteremia status post prolonged antibiotic therapy with Unasyn. 3. Paroxysmal atrial fibrillation; developed A. fib during the last admission converted back to sinus rhythm during the hospitalization. 4. Provoked upper extremity DVT during last admission; discharged on Lovenox which she is still on. 5. Significant operative blood loss. 6. Diabetes mellitus 7. Hepatitis C 8. Coronary artery disease. 9. Chronic diastolic heart failure 10. Severe deconditioning Plan: -Recommend follow-up with the ID service regarding need to reinstitute antibiotic therapy. She is currently afebrile and hemodynamically stable. However she does have persistent leukocytosis on labs this morning. -Patient has chronic anemia. Hemoglobin level currently stable. Continue to monitor. -Follow-up with the cardiology service regarding whether patient should be on lifelong anticoagulant therapy given her history of transient atrial fibrillation as well as elevated CHADS2 VASC score. -She at the very least requires 3 months of anticoagulation therapy for her upper extremity deep vein thrombosis. She should complete 3 months of anticoagulant therapy for upper extremity deep vein thrombosis around August 11. However cardiology service has to determine whether she should continue on anticoagulation therapy beyond this given her atrial fibrillation. -Hold off anticoagulation therapy for now and resume once cleared by the surgical service given the fact that she is still having significant serosanguineous drainage. -Patient reports that she was ambulatory prior to last hospitalization. She became significantly deconditioned and currently requires a wheelchair assistance. She still able to ambulate and this was observed by nursing staff. I recommend that patient should be mobilized at the very least twice a day and she should be evaluated by the physical therapy service.
[2018-07-19 09:59] LABS: ABSOLUTE BASOPHIL COUNT 0 /CUMM (0.0-0.2); ABSOLUTE EOSINOPHIL COUNT 0.1 /CUMM (0.0-0.7); ABSOLUTE GRANULOCYTE CT 8.6 /CUMM (1.4-6.5); ABSOLUTE MONOCYTE COUNT 0.6 /CUMM (0.10-0.60); BASOPHIL % 0.3 % (0.0-2.0); EOSINOPHIL % 0.7 % (0-5); GRANULOCYTE % 70.2 % (42.2-75.2); HEMATOCRIT 28.6 % (37-47); MEAN CORPUSCULAR HGB 28.3 PG (27.0-31.0); MEAN CORPUSCULAR HGB CONC 33.1 G/DL (33.0-37.0); MEAN CORPUSCULAR VOLUME 85.4 FL (81.0-99.0); MEAN PLATELET VOLUME 8.2 FL (7.4-10.4); PLATELET COUNT 320 /CUMM (130-400); RBC DISTRIBUTION WIDTH 17.1 % (11.5-14.5); RED BLOOD CELL CT 3.35 /CUMM (4.20-5.40); WHITE BLOOD CELL COUNT 12.3 /CUMM (4.8-10.8)
[2018-07-19 14:17] VITALS: BP 118/70
--- NOTE | 2018-07-19 15:19 | Cons- Infect Disease ---
General Information and HPI Consulting Request Date of Consult: 07/19/18 Requested By: Vibha Cortez MD Reason for Consult: Left axillary infection Source of Information: patient, old records History of Present Illness: This is a 62-year-old woman with a history of diabetes, coronary artery disease, status post CABG, CHF, hypertension, COPD, osteoarthritis and Hepatitis C, hospitalized 3 months prior to admission with MSSA/Clostridium perfringens sepsis secondary to a soft tissue infection in the left axilla/breast, status post several IR aspirations and one drainage in the OR, with her hospital course notable for a small mobile vegetation on the left coronary cusp of the aortic valve and a left upper extremity DVT, for which she was anticoagulated, discharged with persistent induration of the left chest wall and axilla, with an aspiration by IR on the day prior to discharge yielding several cc of fluid, which grew MSSA, discharged with a PICC, 16 days after admission, with the plan to complete a six week course of Unasyn, but which was apparently continued for an additional 3 weeks, admitted on July 18, because of the development of drainage and persistent pain in the left axilla for the past several weeks, for debridement of the left chest wall, axilla and breast, which was performed on the day of admission. In the OR multiple sinus tracts with purulent material and multiple areas of fluctuance were noted, along with significant subcutaneous necrosis extending to the deeper tissues. On admission she was afebrile and she has remained afebrile since surgery. Presently she does report pain in the left axilla and chest wall. She also notes subcutaneous nodules over her abdominal wall. She reports diarrhea over the past several weeks, with slight nausea, but with no vomiting or abdominal pain. Allergies/Medications Allergies: Coded Allergies: No Known Allergies (05/25/18) Home Med List: Atorvastatin Calcium 40 MG TABLET 40 MG PO 1700 Heart Bupropion HCl (Wellbutrin XL) 150 MG TAB.ER.24H 1 TAB PO DAILY UNKNOWN ( Reported) Carvedilol 3.125 MG TABLET 1 TAB PO BID HEART (Reported) Docusate Sodium 100 MG CAPSULE 100 MG PO BID PRN Constipation Enoxaparin Sodium (Lovenox) 40 MG/0.4 ML SYRINGE 80 MG SC BID DVT Furosemide 20 MG TABLET 20 MG PO DAILY Diuresis Ketoconazole 2 % CREAM..G. 1 EDWARD TOP DAILY AFFECTED AREA(S) (Reported) apply to affected area(s) Memantine HCl (Namenda XR) 28 MG CAP.SPR.24 1 CAP PO DAILY MEMORY (Reported) Metformin HCl (Metformin HCl ER) 500 MG TAB.ER.24H 1 TAB PO DAILY DM ( Reported) Omeprazole 20 MG CAPSULE.DR 40 MG PO DAILY AC PPI Oxycodone HCl 15 MG TABLET 1 TAB PO Q8H PAIN (Reported) Polyethylene Glycol 3350 (Miralax) 17 GRAM/DOSE POWDER 17 GM PO DAILY COnstipation Pregabalin (Lyrica) 150 MG CAPSULE 1 CAP PO BID UNKNOWN (Reported) Sertraline HCl (Zoloft) 100 MG TABLET 2 TAB PO DAILY MENTAL HEALTH (Reported) Simethicone 80 MG TAB.CHEW 80 MG PO Q6P PRN GAS Trazodone HCl 100 MG TABLET 2 TAB PO QHS SLEEP/MENTAL HEALTH (Reported) Past History Medical History Blood Transfusion Hx: No Neurological: peripheral neuropathy EENT: NONE Cardiovascular: AFIB, CAD, CHF, hypertension, myocardial infarction Respiratory: COPD Gastrointestinal: NONE Hepatic: hepatitis C Renal: NONE Musculoskeletal: osteoarthritis Psychiatric: NONE Endocrine: diabetes Blood Disorders: NONE Cancer(s): NONE 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 Tommie Weber at [facility] Family History Relations & Conditions If Any: MOTHER, , Age 70; Cause: Diabetes. FATHER (Pt didn't know her father). ; Cause: Unknown cause of morbidity or mortality. Psychosocial History Where Do You Live? [facility] Who Do You Live With? self Services at Home: None Primary Language: Serbian Smoking Status: Former Smoker Living Will? no Power of Draw Off Worker/HCP? no Functional Ability ADLs Independent: dressing, eating, toileting, bathing. Ambulation: independent IADLs Independent: shopping, housework, finances, food prep, telephone, transportation , medication admin. Review of Systems Review of Systems All Other Systems: Reviewed and Negative Exam & Diagnostic Data Last 24 Hrs of Vital Signs/I&O Vital Signs Date Time Temp Pulse Resp B/P B/P Pulse O2 O2 Flow FiO2 Mean Ox Delivery Rate 07/19 1417 98.0 88 20 118/70 97 Room Air 07/19 0700 98.3 82 20 130/68 93 07/18 2259 143/67 07/18 2219 97.8 82 20 110/62 98 Room Air 07/18 1957 97.6 84 20 134/72 99 Room Air Intake & Output 07/19 1600 07/19 0800 07/19 0000 Intake Total 240 480 Output Total Balance 240 480 Intake, Oral 240 480 Patient 130 lb Weight Weight Bed scale Measurement Method Physical Exam Other Physical Findings: She is awake and alert in no acute distress. She is afebrile. Skin reveals multiple subcutaneous, nontender nodules on the abdominal wall, with evidence of ecchymoses on the skin. HEENT exam is negative. Neck is supple with no adenopathy. Chest induration over the left axilla, extending inferiorly, moderately tender to palpation, with packing in place in 2 lesions; no erythema or purulent drainage. Breasts left breast swelling, with mild induration. Lungs are clear. Heart regular rhythm with a 1/6 systolic ejection murmur. Abdomen is soft, nontender with positive bowel sounds; multiple subcutaneous nodules noted as above. Back no CVA tenderness. Extremities no cyanosis, clubbing or edema; PICC in the right upper extremity with no inflammation at the site. Neuro is without focality. Last 24 Hours of Lab Results: Laboratory Tests 07/19 07/19 0915 0735 Chemistry Sodium (137 - 145 mmol/L) 134 L Potassium (3.5 - 5.1 mmol/L) 4.4 Chloride (98 - 107 mmol/L) 101 Carbon Dioxide (22 - 30 mmol/L) 28 Anion Gap (5 - 16) 4 L BUN (7 - 17 mg/dL) 12 Creatinine (0.5 - 1.0 mg/dL) 0.5 Estimated GFR (>60 ml/min) > 60 BUN/Creatinine Ratio (7 - 25 %) 24.0 Hematology CBC w Diff NO MAN DIFF REQ WBC (4.8 - 10.8 /CUMM) 12.3 H RBC (4.20 - 5.40 /CUMM) 3.35 L Hgb (12.0 - 16.0 G/DL) 9.5 L Hct (37 - 47 %) 28.6 L MCV (81.0 - 99.0 FL) 85.4 MCH (27.0 - 31.0 PG) 28.3 MCHC (33.0 - 37.0 G/DL) 33.1 RDW (11.5 - 14.5 %) 17.1 H Plt Count (130 - 400 /CUMM) 320 MPV (7.4 - 10.4 FL) 8.2 Gran % (42.2 - 75.2 %) 70.2 Lymphocytes % (20.5 - 51.1 %) 24.2 Monocytes % (1.7 - 9.3 %) 4.6 Eosinophils % (0 - 5 %) 0.7 Basophils % (0.0 - 2.0 %) 0.3 Absolute Granulocytes (1.4 - 6.5 /CUMM) 8.6 H Absolute Lymphocytes (1.2 - 3.4 /CUMM) 3.0 Absolute Monocytes (0.10 - 0.60 /CUMM) 0.6 Absolute Eosinophils (0.0 - 0.7 /CUMM) 0.1 Absolute Basophils (0.0 - 0.2 /CUMM) 0 Last 24 Hours of Ramón Results: Blood cultures 2 July 19 negative OR culture July 18 labeled left upper chest/breast positive for scant growth of gram-negative rods Diagnostic Data Recent Imaging Findings: Chest x-ray July 18 linear opacity at the left lung base Assessment/Plan Assessment/Plan Impression: This is a 62-year-old woman with a history of diabetes, hospitalized 3 months prior to admission with MSSA/Clostridium perfringens sepsis secondary to a soft tissue infection in the left axilla/breast, status post several IR aspirations and one drainage in the OR, with her hospital course notable for a small mobile vegetation on the left coronary cusp of the aortic valve and a left upper extremity DVT, for which she was anticoagulated, discharged, with persistent induration of the left chest wall and axilla, on Unasyn, which was apparently continued until approximately 1 week prior to admission, admitted on July 18 for further debridement of the left chest wall/axilla because of drainage and persistent pain for the past several weeks, found to be afebrile with a mild leukocytosis and with the OR culture positive for gram-negative rods. 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 Of interest the OR culture is now growing gram-negative rods, which is felt most likely to be Pseudomonas, as opposed to the MSSA and Clostridium, which were isolated from her initial blood and wound cultures, and will need to await the final OR cultures. She will need to be started on antibiotics and will likely require a prolonged course for this infection, along with further debridement, which is apparently planned for next week. She has been adequately treated for endocarditis, which was also diagnosed on her last admission. The significance of the subcutaneous nodules is unclear but suspect it may be secondary to her subcutaneous Lovenox. Her anticoagulation is currently on hold and the duration of this will need to be discussed with Cardiology. With regard to her diarrhea C. difficile will need to be ruled out if it persists given her prolonged course of antibiotics. Suggestion: 1. Follow-up final OR culture 2. Stool for C. difficile if diarrhea 3. Await further debridement of the left axilla/chest wall, planned for next week 4. Begin Meropenem 1 g IV every 8 hours pending above Consult Acknowledgment - Thank you for your consult request.
[2018-07-19 21:47] VITALS: BP 123/64
[2018-07-20 07:00] VITALS: BP 135/64
[2018-07-20 08:09] LABS: ABSOLUTE BASOPHIL COUNT 0 /CUMM (0.0-0.2); ABSOLUTE EOSINOPHIL COUNT 0.2 /CUMM (0.0-0.7); ABSOLUTE GRANULOCYTE CT 5.6 /CUMM (1.4-6.5); ABSOLUTE LYMPH COUNT 2.5 /CUMM (1.2-3.4); ABSOLUTE MONOCYTE COUNT 0.5 /CUMM (0.10-0.60); GRANULOCYTE % 63.1 % (42.2-75.2); MEAN CORPUSCULAR HGB CONC 32.9 G/DL (33.0-37.0); MEAN PLATELET VOLUME 8.1 FL (7.4-10.4); PLATELET COUNT 280 /CUMM (130-400); RBC DISTRIBUTION WIDTH 17.2 % (11.5-14.5); RED BLOOD CELL CT 3.17 /CUMM (4.20-5.40); WHITE BLOOD CELL COUNT 8.8 /CUMM (4.8-10.8)
--- NOTE | 2018-07-20 08:34 | PN- Student ---
See Addendum May Morton 07/20/18 0823: Subjective Subjective: Pt still in pain this morning in her left breast and left flank. Pain medication is giving her some relief but not significant relief. Also complaining of a headache. She is tolerating a regular diet without nausea or vomiting. Voiding and ambulating without difficulty. Denies any CP, SOB, fever, or difficulty breathing. Objective Objective: Vitals: See EMR General: Middle aged, older appearng, female, appears uncomfortable, but NAD. Cardio: Regular rate and rhythm. No murmurs rubs or gallops. S1 and S2. Pulm: Clear breath sounds with no wheezes, rhonchi or rales. Chest: Dressing saturated on left breast/axilla. New dressing applied and wounds re-packed. Some serosanguinous drainage noted around the wounds. No denis blood or pus. Mild erythema around the sites and severe tenderness. Abdomen: Normoactive bowel sounds. Soft, mildly tender in LUQ and left flank. Ext: Calves soft and non-tender bilaterally. Results Results: Laboratory Tests 07/20/18 0630: CBC w Diff Pending, WBC Pending, RBC Pending, Hgb Pending, Hct Pending, MCV Pending, MCH Pending, MCHC Pending, RDW Pending, Plt Count Pending, MPV Pending 07/19/18 0915: Hemoglobin A1c 5.0, CBC w Diff NO MAN DIFF REQ, RBC 3.35 L, MCV 85.4, MCH 28.3, MCHC 33.1, RDW 17.1 H, MPV 8.2, Gran % 70.2, Lymphocytes % 24.2, Monocytes % 4.6, Eosinophils % 0.7, Basophils % 0.3, Absolute Granulocytes 8.6 H, Absolute Lymphocytes 3.0, Absolute Monocytes 0.6, Absolute Eosinophils 0.1, Absolute Basophils 0 07/19/18 0735: Anion Gap 4 L, Estimated GFR > 60, BUN/Creatinine Ratio 24.0 07/18/18 1007: Anion Gap 7, Estimated GFR > 60, BUN/Creatinine Ratio 22.0, Glucose 113 H, Calcium 8.7, CBC w Diff NO MAN DIFF REQ, RBC 3.67 L, MCV 84.7, MCH 27.8, MCHC 32.9 L, RDW 18.3 H, MPV 7.2 L, Gran % 70.3, Lymphocytes % 23.7, Monocytes % 4.2, Eosinophils % 1.5, Basophils % 0.3, Absolute Granulocytes 7.9 H, Absolute Lymphocytes 2.7, Absolute Monocytes 0.5, Absolute Eosinophils 0.2, Absolute Basophils 0 Microbiology 07/19 1549 STOOL: Clostridium difficile Toxin A & B - COLB 07/19 0000 BLOOD: Blood Culture - RECD 07/19 0000 BLOOD: Blood Culture - RECD 07/18 1530 TRUNK/O.R.: Culture & Sensitivity - RES GRAM NEGATIVE RODS 07/18 153 TRUNK/O.R.: Gram Stain - RES Assessment/Plan Assessment: 62 year old female POD#2 s/p left breast/axilla/chest wall debridement. OR cultures growing GNR and sensitivities are still pending. Wounds were repacked and redressed. Vital signs are stable and pt remains afebrile. Plan: Pt on medicine service. Pain control as needed. Anticoagulation being held d/t blood loss during surgery. Started on Meropenem. Wound re-packed, will continue with daily dressing changes. Pt most likely to go back to OR on Monday for further debridement and possible wound vac placement. OR culture growing GNR, awaiting further results. DVT ppx with ALPs and ambulation. Regular diet. Encourage ambulation and incentive spirometry. Discuss with Dr Jefferson and surgical PAs. Zeus Nathan 07/20/18 1027: Assessment/Plan Plan: Seen and evaluated with PA-S. Agree with above, patient was premedicated with IV Dilaudid and IV Ativan prior to dressing change this morning, five openings with healthy granulation tissue, deep axilla incision, lateral inframammary incisions significantly tender with surrounding mild erythema and firmness, incisions without active or purulent drainage, repacked with wet-dry kerlix. OR culture growing pseudomonas aeruginosa, pansensitive, currently on IV meropenem per ID. Will likely return to OR monday for further debridement, wound vac. Labs reviewed, ? restarting anticoagulation. Will d/w Dr. Jefferson.
[2018-07-20 09:12] LABS: BASOPHIL % 0.3 % (0.0-2.0); HEMATOCRIT 27.2 % (37-47); MEAN CORPUSCULAR HGB 28.3 PG (27.0-31.0)
--- NOTE | 2018-07-20 09:39 | PN- Housestaff ---
Karl Gonzalez 07/20/18 0939: Subjective Follow-up For: Chest wall abscess, necrosis Subjective: It was seen and examined this morning. She complains of severe chest pain and could not allow for changing the dressing. No other complaints. No fever. Review of Systems Constitutional: Reports: see HPI. Objective Last 24 Hrs of Vital Signs/I&O Vital Signs Date Time Temp Pulse Resp B/P B/P Pulse O2 O2 Flow FiO2 Mean Ox Delivery Rate 07/20 0854 84 135/64 07/20 0700 98.2 84 16 135/64 94 07/19 2147 99.0 88 16 123/64 92 Room Air 07/19 2104 123/64 07/19 1417 98.0 88 20 118/70 97 Room Air Intake & Output 07/20 1600 07/20 0800 07/20 0000 Intake Total 480 480 Output Total Balance 480 480 Intake, Oral 480 480 Patient 135 lb Weight Physical Exam General Appearance: Alert, Oriented X3, Cooperative, No Acute Distress Cardiovascular: Regular Rate, No Murmurs Lungs: Clear to Auscultation, Normal Air Movement Abdomen: Normal Bowel Sounds, Soft, No Tenderness, No Hepatospenomegaly, No Masses, small nodes noticed on the abdominal wall? lovenox injections Current Medications: Current Medications Sig/Bayron Start time Last Medication Dose Route Stop Time Status Admin Acetaminophen 650 MG Q6P PRN 07/18 2000 AC PO Atorvastatin Calcium 40 MG 1700 07/19 1700 AC 07/19 PO 1726 Bupropion HCl 150 MG DAILY 07/19 09 AC 07/20 PO 0854 Calcium Carbonate 500 MG DAILY 07/19 1818 DC PO Carvedilol 3.125 MG BID 07/18 2100 AC 07/20 PO 0854 Docusate Sodium 100 MG BID PRN 07/18 2015 AC PO Furosemide 20 MG DAILY 07/19 09 AC 07/20 PO 0854 Hydromorphone HCl 1 MG Q6P PRN 07/18 2000 AC 07/20 IV 0746 Insulin Aspart 0 TIDAC 07/19 08 AC 07/19 SC 1357 Lorazepam 0 .STK-MED ONE 07/20 0746 DC .ROUTE Lorazepam 0.5 MG ONCE ONE 07/20 0745 DC 07/20 IV 07/20 0746 0747 Meropenem 1 GM IQ8 07/19 1600 AC 07/20 IV 0909 Omeprazole 40 MG DAILY AC 07/19 0700 AC 07/20 PO 0605 Ondansetron HCl 0 .STK-MED ONE 07/20 0625 DC .ROUTE Ondansetron HCl 4 MG ONCE ONE 07/19 183 CAN IV 07/19 183 Oxycodone HCl 10 MG Q4-6 PRN PRN 07/19 0730 AC 07/20 PO 0907 Oxycodone HCl 5 MG Q6H PRN 07/18 2000 AC 07/19 PO 001 Polyethylene Glycol 17 GM DAILY 07/19 09 AC PO Pregabalin 150 MG BID 07/18 2100 AC 07/20 PO 09 Sertraline HCl 200 MG DAILY 07/19 09 AC 07/20 PO 0854 Trazodone HCl 200 MG AT BEDTIME 07/18 2100 AC 07/19 PO 210 Last 24 Hrs of Lab/Ramón Results Last 24 Hrs of Labs/Mics: Laboratory Tests 07/20/18 0630: CBC w Diff NO MAN DIFF REQ, RBC 3.17 L, MCV 86.0, MCH 28.3, MCHC 32.9 L, RDW 17.2 H, MPV 8.1, Gran % 63.1, Lymphocytes % 28.9, Monocytes % 5.7, Eosinophils % 2.0, Basophils % 0.3, Absolute Granulocytes 5.6, Absolute Lymphocytes 2.5, Absolute Monocytes 0.5, Absolute Eosinophils 0.2, Absolute Basophils 0 Microbiology 07/19 1549 STOOL: Clostridium difficile Toxin A & B - COLB Assessment/Plan Assessment: 62-year-old lady with significant medical comorbidities including diabetes, CAD status post CABG, CHF, hepatitis C, atrial fibrillation, upper extremity DVT, left chest wall abscess requiring drainage with MSSA isolated, 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 She was afebrile on presentation. 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 Plan started on Meropenem Follow-up OR cultures- G -ve rods, pansensitive ID consult appreciated Hold of Lovenox given the significant perioperative blood loss of 450 mls 1 unit PRBC given 2) Diabetes Diabetic diet Accu-Chek and bedtime NovoLog sliding scale Continue home meds 2) Deconditioning- PT for deconditioning 3) A fib- cardiology consult appreciated to plan for anticoagulation DVT prophylaxis: Alps CODE STATUS: FC Problem List: 1. Chest wall abscess Pain Ratin Pain Location: none Pain Goal: Remain pain free Pain Plan: as discussed Tomorrow's Labs & Rationales: eliza Cortez MD,Vibha 07/20/18 1011: Attending MD Review Statement Attending Statement Attending MD Statement: examined this patient, discuss w/resident/PA/WINDING OPERATOR, agreed w/resident/PA/WINDING OPERATOR, reviewed EMR data (avail), discussed with nursing, discussed with case mgmt, amended to note Attending Assessment/Plan: Patient seen and examined. Resting comfortably not in any acute distress. Issues overnight. He remains afebrile hemodynamically stable. This morning she complained of significant chest wall change and initially did not want dressings changed. After medication with analgesia the dressing was changed uneventfully. After about an hour it is now soaked with serosanguineous fluid. She has no significant erythema around the site. Also noted on examination and numerous subcutaneous firm nodules all over the abdomen. They are nontender. There is no erythema of the skin. Etiology is not certain at present but probably due to subcutaneous Lovenox injections have been receiving for the past several weeks. Recommendations: -Antibiotic therapy has been changed to meropenem to cover Pseudomonas she is growing now from oral cultures. She is also noted to have grown MSSA in the past. -She scheduled to return to the OR Monday for another incision and drainage. -Hemoglobin level is relatively stable. Resume anticoagulant therapy with Lovenox given her history of DVT and paroxysmal atrial fibrillation. -Follow-up with cardiology service regarding need for long-term escalation therapy for her transient atrial fibrillation.
--- NOTE | 2018-07-20 12:10 | PN- Infect Dx ---
Subjective Subjective: Afebrile. She still notes significant discomfort in the left axilla/chest wall. She has had no further diarrhea reported. Objective Last 24 Hrs of Vital Signs/I&O Vital Signs Date Time Temp Pulse Resp B/P B/P Pulse O2 O2 Flow FiO2 Mean Ox Delivery Rate 07/20 0854 84 135/64 07/20 0700 98.2 84 16 135/64 94 07/19 2147 99.0 88 16 123/64 92 Room Air 07/19 2104 123/64 07/19 1417 98.0 88 20 118/70 97 Room Air Intake & Output 07/20 1600 07/20 0800 07/20 0000 Intake Total 480 480 Output Total Balance 480 480 Intake, Oral 480 480 Patient 135 lb Weight Physical Exam Other Physical Findings: She appears comfortable in no acute distress Chest induration in the left axilla/chest wall persists, with packing in place; no erythema or purulent drainage noted Extremities PICC in the right upper extremity with no inflammation at the site Results Last 24 Hours of Lab Results: Laboratory Tests 07/20 0630 Hematology CBC w Diff NO MAN DIFF REQ WBC (4.8 - 10.8 /CUMM) 8.8 RBC (4.20 - 5.40 /CUMM) 3.17 L Hgb (12.0 - 16.0 G/DL) 9.0 L Hct (37 - 47 %) 27.2 L MCV (81.0 - 99.0 FL) 86.0 MCH (27.0 - 31.0 PG) 28.3 MCHC (33.0 - 37.0 G/DL) 32.9 L RDW (11.5 - 14.5 %) 17.2 H Plt Count (130 - 400 /CUMM) 280 MPV (7.4 - 10.4 FL) 8.1 Gran % (42.2 - 75.2 %) 63.1 Lymphocytes % (20.5 - 51.1 %) 28.9 Monocytes % (1.7 - 9.3 %) 5.7 Eosinophils % (0 - 5 %) 2.0 Basophils % (0.0 - 2.0 %) 0.3 Absolute Granulocytes (1.4 - 6.5 /CUMM) 5.6 Absolute Lymphocytes (1.2 - 3.4 /CUMM) 2.5 Absolute Monocytes (0.10 - 0.60 /CUMM) 0.5 Absolute Eosinophils (0.0 - 0.7 /CUMM) 0.2 Absolute Basophils (0.0 - 0.2 /CUMM) 0 Last 24 Hours of Ramón Results: OR culture July 18 labeled left breast abscess/tissue positive for Pseudomonas sensitive to all antibiotics tested and possible gram positive cocci Blood cultures x 2 July 19 negative Assessment/Plan ID Impression: Stable, with her temperatures and white blood cell count now normal, on Meropenem for a residual necrotizing soft tissue infection in her left axilla/ chest wall/breast, status post debridement 2 days ago, with her OR culture positive for Pseudomonas and, possibly, gram-positive cocci. She is scheduled for further debridement on July 23 and can be continued on broad-spectrum antibotics pending final OR cultures. She did report diarrhea prior to admission and on admission and, given her prolonged course of antibiotics prior to admission, C. difficile must be considered. Suggestion: 1. Follow-up final OR culture 2. Await further debridement of the left axilla/chest wall on July 23 3. Stool for C. difficile if she has diarrhea 4. Continue Meropenem pending above Dr. Sheridan is covering over the weekend
--- NOTE | 2018-07-20 12:53 | PN- General Surgery ---
Surgical Brief Attending Note Brief Attending Note: Patient scheduled for washout with VAC placment Monday. She can be restarted on therapeautic lovenox in interim. Stop Monday.
[2018-07-20 20:43] VITALS: BP 148/82
[2018-07-21 06:51] VITALS: BP 131/70
--- NOTE | 2018-07-21 07:26 | PN- Student ---
See Addendum May Morotn 07/21/18 0714: Subjective Subjective: Pt still complaining of 7/10 pain to her left breast and axilla. Pain worsens at times with movement but has consistently been at this level. Voiding and ambulating without difficulty. Wishing to walk around more. Tolerating a regular diet without nausea or vomiting. Refusing wound re-packing this morning. Says her dressing was saturated again yesterday and needed to be re-inforced. Denying any CP, SOB, difficulty breathing ,OLMOS, or dizziness. Objective Objective: Vitals: See EMR General: Elderly female, sitting up in bed, appears comfortable, NAD. Cardio: reg rate and rhythm. S1 and S2. No murmurs, rubs or gallops. Chest: Dressing in place over left breast and axilla. Dressing is clean, dry and intact. Pt refusing dressing removal or repacking. Pulm: Clear breath sounds with no wheezes, rhonchi or rales. Abdomen: Normoactive bowel sounds. Soft, non-distended, non-tender. Extremities: Calves are soft and non-tender bilaterally. ALPs in place. Results Results: Laboratory Tests 07/21/18 0705: CBC w Diff Pending, WBC Pending, RBC Pending, Hgb Pending, Hct Pending, MCV Pending, MCH Pending, MCHC Pending, RDW Pending, Plt Count Pending, MPV Pending 07/20/18 0630: CBC w Diff NO MAN DIFF REQ, RBC 3.17 L, MCV 86.0, MCH 28.3, MCHC 32.9 L, RDW 17.2 H, MPV 8.1, Gran % 63.1, Lymphocytes % 28.9, Monocytes % 5.7, Eosinophils % 2.0, Basophils % 0.3, Absolute Granulocytes 5.6, Absolute Lymphocytes 2.5, Absolute Monocytes 0.5, Absolute Eosinophils 0.2, Absolute Basophils 0 07/19/18 0915: Hemoglobin A1c 5.0, CBC w Diff NO MAN DIFF REQ, RBC 3.35 L, MCV 85.4, MCH 28.3, MCHC 33.1, RDW 17.1 H, MPV 8.2, Gran % 70.2, Lymphocytes % 24.2, Monocytes % 4.6, Eosinophils % 0.7, Basophils % 0.3, Absolute Granulocytes 8.6 H, Absolute Lymphocytes 3.0, Absolute Monocytes 0.6, Absolute Eosinophils 0.1, Absolute Basophils 0 07/19/18 0735: Anion Gap 4 L, Estimated GFR > 60, BUN/Creatinine Ratio 24.0 07/18/18 1007: Anion Gap 7, Estimated GFR > 60, BUN/Creatinine Ratio 22.0, Glucose 113 H, Calcium 8.7, CBC w Diff NO MAN DIFF REQ, RBC 3.67 L, MCV 84.7, MCH 27.8, MCHC 32.9 L, RDW 18.3 H, MPV 7.2 L, Gran % 70.3, Lymphocytes % 23.7, Monocytes % 4.2, Eosinophils % 1.5, Basophils % 0.3, Absolute Granulocytes 7.9 H, Absolute Lymphocytes 2.7, Absolute Monocytes 0.5, Absolute Eosinophils 0.2, Absolute Basophils 0 Microbiology 07/21 0510 STOOL: Clostridium difficile Toxin A & B - COLB 07/19 1549 STOOL: Clostridium difficile Toxin A & B - CAN Cancelled: SPECIMEN NOT RECEIVED IN LABORATORY 07/19 0000 BLOOD: Blood Culture - RES 07/19 0000 BLOOD: Blood Culture - RES 07/18 1530 TRUNK/O.R.: Culture & Sensitivity - RES PSEUDOMONAS AERUGINOSA 07/18 1530 TRUNK/O.R.: Gram Stain - RES Assessment/Plan Assessment: 62 y/o F POD #3 s/p left breast/axilla/chest wall debridement. OR cultures growing pseudomonas and pathology still pending. Vital signs stable and pain moderately controlled at this time. Plan: Continue with pain control as needed. Wound to be re-packed by miguel ángel, pt refusing at this time, will discuss with the pt again later today the importance of packing change. OR culture growing pseudomonas. Continue on Meropenem. Last dose of Lovenox to be given Monday night. Plan for OR Monday for further debridement and wound vac placement. Cosnider Pyhsical therapy consult for deconditioning. Regular diet as tolerated. Encourage ambulation and incentive spirometry use. Discuss with Dr Jefferson. John Gonzalez 07/21/18 4931: Resident Review Statement Resident Statement: examined this patient, amended to note Other Findings: Agree with above, will discuss with patient again later today packing change, will require premedication.
[2018-07-21 08:43] LABS: ABSOLUTE BASOPHIL COUNT 0.1 /CUMM (0.0-0.2); ABSOLUTE EOSINOPHIL COUNT 0.2 /CUMM (0.0-0.7); ABSOLUTE GRANULOCYTE CT 5.4 /CUMM (1.4-6.5); ABSOLUTE LYMPH COUNT 2.3 /CUMM (1.2-3.4); ABSOLUTE MONOCYTE COUNT 0.4 /CUMM (0.10-0.60); BASOPHIL % 0.6 % (0.0-2.0); EOSINOPHIL % 2.2 % (0-5); GRANULOCYTE % 64.8 % (42.2-75.2); MEAN CORPUSCULAR HGB 28.2 PG (27.0-31.0); MEAN CORPUSCULAR VOLUME 85.6 FL (81.0-99.0); MEAN PLATELET VOLUME 8.2 FL (7.4-10.4); PLATELET COUNT 269 /CUMM (130-400); RBC DISTRIBUTION WIDTH 16.8 % (11.5-14.5); RED BLOOD CELL CT 3.04 /CUMM (4.20-5.40); WHITE BLOOD CELL COUNT 8.4 /CUMM (4.8-10.8)
--- NOTE | 2018-07-21 09:14 | PN- Att Addend ---
Attending Addendum Attending Brief Note Patient seen and examined. Resting comfortably and not in acute distress this morning. No issues overnight. Dressing had to be reinforced overnight due to significant drainage. Apparently this morning she did not allow the surgical team to change the packing. She reports significant discomfort when the packing was changed. She offers no other complaints. She is afebrile. She is hemodynamically stable. Vital Signs Date Time Temp Pulse Resp B/P B/P Pulse O2 O2 Flow FiO2 Mean Ox Delivery Rate 07/21 0651 98.2 80 20 131/70 95 Room Air 07/20 2143 87 148/82 07/20 204 98.3 87 20 148/82 94 Room Air On examination she is not in any acute distress. She has a large dressing over the left upper chest wall. No erythema extending into the armpit. Lungs are clear bilaterally. Heart sounds are regular. No peripheral edema. Problems: 1. 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 2. Endocarditis with MSSA bacteremia status post prolonged antibiotic therapy with Unasyn. 3. Paroxysmal atrial fibrillation; developed A. fib during the last admission converted back to sinus rhythm during the hospitalization. 4. Provoked upper extremity DVT during last admission; discharged on Lovenox which she is still on. 5. Significant operative blood loss. 6. Diabetes mellitus 7. Hepatitis C 8. Coronary artery disease. 9. Chronic diastolic heart failure 10. Severe deconditioning Plan: -Continue current antibiotic course. -Patient is scheduled to return to the OR Monday for wound VAC placement. -Continue therapeutic dosing of Lovenox. Stop dosing tomorrow. -Awaiting evaluation by the surgical service regarding long-term anticoagulant therapy at the time of discharge given the history of transient atrial fibrillation. -Patient encouraged to allow for dressing changes as recommended by the surgical service.
--- NOTE | 2018-07-21 14:23 | PN- Infect Dx ---
Subjective Subjective: This is a 62-year-old woman with a history of diabetes hospitalized 3 months prior to admission with MSSA/Clostridium perfringens sepsis secondary to a soft tissue infection in the left axilla/breast, status post several IR aspirations and one drainage in the OR, with her hospital course notable for a small mobile vegetation on the left coronary cusp of the aortic valve and a left upper extremity DVT, for which she was anticoagulated, discharged with persistent induration of the left chest wall and axilla, with an aspiration by IR on the day prior to discharge yielding several cc of fluid, which grew MSSA, discharged with a PICC, 16 days after admission, with the plan to complete a six week course of Unasyn, but which was apparently continued for an additional 3 weeks, admitted on July 18, because of the development of drainage and persistent pain in the left axilla for the past several weeks, for debridement of the left chest wall, axilla and breast, which was performed on the day of admission. In the OR multiple sinus tracts with purulent material and multiple areas of fluctuance were noted, along with significant subcutaneous necrosis extending to the deeper tissues. She has had significant improvement in the infection after drainage and antibiotics. Currently she is afebrile with a normal white blood cell count. Review of Systems Comments: 12 point review of systems without significant findings Objective Last 24 Hrs of Vital Signs/I&O Vital Signs Date Time Temp Pulse Resp B/P B/P Pulse O2 O2 Flow FiO2 Mean Ox Delivery Rate 07/21 0952 130/70 07/21 0800 92 Room Air 07/21 0651 98.2 80 20 131/70 95 Room Air 07/20 2143 87 148/82 07/20 2043 98.3 87 20 148/82 94 Room Air Intake & Output 07/21 1600 07/21 0800 07/21 0000 Intake Total 120 431 Output Total Balance 120 431 Intake, IV 31 Intake, Oral 120 400 Number 1 Bowel Movements Patient 130 lb Weight Physical Exam Other Physical Findings: Awake alert oriented 3 Pupils equal and reactive to light and accommodation Neck supple no JVD no lymphadenopathy Lungs clear to auscultation bilaterally Chest induration in the left axilla/chest wall persists but appears to be improving packing in place. Heart regular rate and rhythm S1-S2 Abdomen soft nontender nondistended Moving extremities Results Last 24 Hours of Lab Results: Laboratory Tests 07/21 07 Hematology CBC w Diff NO MAN DIFF REQ WBC (4.8 - 10.8 /CUMM) 8.4 RBC (4.20 - 5.40 /CUMM) 3.04 L Hgb (12.0 - 16.0 G/DL) 8.6 L Hct (37 - 47 %) 26.0 L MCV (81.0 - 99.0 FL) 85.6 MCH (27.0 - 31.0 PG) 28.2 MCHC (33.0 - 37.0 G/DL) 33.0 RDW (11.5 - 14.5 %) 16.8 H Plt Count (130 - 400 /CUMM) 269 MPV (7.4 - 10.4 FL) 8.2 Gran % (42.2 - 75.2 %) 64.8 Lymphocytes % (20.5 - 51.1 %) 28.0 Monocytes % (1.7 - 9.3 %) 4.4 Eosinophils % (0 - 5 %) 2.2 Basophils % (0.0 - 2.0 %) 0.6 Absolute Granulocytes (1.4 - 6.5 /CUMM) 5.4 Absolute Lymphocytes (1.2 - 3.4 /CUMM) 2.3 Absolute Monocytes (0.10 - 0.60 /CUMM) 0.4 Absolute Eosinophils (0.0 - 0.7 /CUMM) 0.2 Absolute Basophils (0.0 - 0.2 /CUMM) 0.1 Last 24 Hours of Ramón Results: Microbiology Date/Time Procedure - Status Source Growth 07/21 0510 Clostridium difficile Toxin A & B - COLB STOOL 07/19 1549 Clostridium difficile Toxin A & B - CAN STOOL Cancelled: SPECIMEN NOT RECEIVED IN LABORATORY 07/19 0000 Blood Culture - RES BLOOD 07/19 0000 Blood Culture - RES BLOOD 07/18 1530 Culture & Sensitivity - RES TRUNK/O.R. PSEUDOMONAS AERUGINOSA DIPHTHEROIDS 07/18 1530 Gram Stain - RES TRUNK/O.R. Assessment/Plan ID Impression: This patient is a 62-year-old white female with her temperatures and white blood cell count now normal, on Meropenem for a residual necrotizing soft tissue infection in her left axilla/chest wall/breast, status post debridement 3 days ago, with her OR culture positive for Pseudomonas and, diphtheroids. She is scheduled for further debridement on July 23 and can be continued on broad- spectrum antibotics pending final OR cultures. She did report diarrhea prior to admission and on admission and, given her prolonged course of antibiotics prior to admission, C. difficile must be considered. Suggestion: 1. Await further debridement of the left axilla/chest wall on July 23 2. Stool for C. difficile if she has diarrhea 3. Continue Meropenem
--- NOTE | 2018-07-21 18:52 | Discharge Summary ---
Visit Information Visit Dates Admission Date: 07/18/18 Discharge Date: 07/28/18 Hospital Course Course Attending Physician: Sahara MORGAN,Gloria Rodney Primary Care Physician: Joseph Villeda MD Consulting Request: 1 Consulting Specialty: Infectious Disease Consulting Physician: Consulting Request: 2 Consulting Specialty: General Surgery Consulting Physician: Reason for Consult: Left axilla necrotizing abscess Hospital Course: Patient is a 62 year old female with PMH DM, CAD s/p CABG, CHF, Hep C, A-fib ( previously anticoagulated with lovenox sub cu), upper extremity DVT presented with left chest wall abscess. 3 months [employer] she was hospitalized for Clostridium perfringens sepsis secondary to soft tissue infection in the left axilla status post several IR aspirations and one time in the OR, found to have endocarditis at that time and got treated with Unasyn for 4 weeks. A week after her course of antibiotic she presented with left chest wall axilla abscess. Admitted to general medicine floor Plan Recurrent left axillary/chest wall abscess She was incisioned and drained on the day of admission and repeat debridement on 07/23/2018 in the OR. She had sinus tracts along pectoralis major and lateral aspect of breast. Cultures grew pansensitive Pseudomonas (and diphtheroids) on July 18. She was initially placed on meropenem IV and transitioned to Zosyn on 07/24/18. ID has been actively following the patient throughout the admission. Wound care Pain was adequately controlled by IV dilaudid and transitioned to MS contin 15mg BID along with as needed Dilaudid. Patient needs wound care with wound VAC change- monday/monday/monday She needs the IV antibiotics for another week to 08/02/2018 Paroxysmal A.fib On 07/23/18 patient went into A.fib intraoperatively. Her anticoagulation was held prior to the day of drainage. She was transferred to telemetry floor and restarted on SC lovenox BID. She was continued on coreg 3.125mg BID once rate controlled. She was back to sinus rhythm. She had another episode of brief paroxysmal episode on 07/25/18. She was maintained on her home regimen. She prefers to take the Lovenox for now. While she has the wound VAC and the PICC line and the possibility of further debridement keep her on Lovenox 1 mg/kg subcu twice daily. 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 Acute blood loss anemia Transfused 2 units during her hospital course. She had a unit at admission and her H&H dropped to 7.4/22 on 07/25/18 for which she got another unit. Given significant cardiac history a goal of Hb>8 maintained. Other chronic conditions DM: ISS Multiple psychiatric medications - continued on bupropion 150mg daily, sertraline, trazodone 200mg daily. CAD s/p CABG: continue furosemide 20mg daily, atorvastatin 40mg daily. DVT prophylaxis SC lovenox Code status Full code Allergies: Coded Allergies: No Known Allergies (05/25/18) Disposition Summary Disposition Principal Diagnosis: chest wall abscess - left axillary, polymicrobial Additional Diagnosis: DM CAD s/p CABG CHF Hep C A-fib (previously anticoagulated with lovenox sub cu) upper extremity DVT Discharge Disposition: SNF Discharge Instructions General Discharge Information Code Status: Full Code Patient's Diet: Carbconsistent diet Patient's Activity: as tolerated Follow-Up Instructions/Appts: Please follow up with your PCP in a week Please follow up with wound care and wound VAC change Monday/monday/monday Please continue IV antibiotics till 08/02/18 Please follow up with your tire fixer in a week Medications at Discharge Discharge Medications: Stop taking the following medications: Enoxaparin Sodium (Lovenox) 40 MG/0.4 ML SYRINGE SC TWICE DAILY Qty = 10 Ampicillin Sodium/Sulbactam Na (Unasyn 3 Gm Vial) 3 GRAM VIAL IV EVERY SIX HOURS Qty = 104 Continue taking these medications: Memantine HCl (Namenda XR) 28 MG CAP.SPR.24 1 Capsule ORAL DAILY Qty = 30 Comments: Last Taken:05/25/18 Time:0800AM Pregabalin (Lyrica) 150 MG CAPSULE 1 Capsule ORAL TWICE DAILY Qty = 60 Comments: NOT GIVEN IN HOSPITAL Sertraline HCl (Zoloft) 100 MG TABLET 2 Tablet ORAL DAILY Qty = 180 Comments: Last Taken:05/24/18 Time:830PM Trazodone HCl (Trazodone HCl) 100 MG TABLET 2 Tablet ORAL TAKE AT BEDTIME Qty = 180 Comments: Last Taken:05/24/18 Time:830PM Carvedilol (Carvedilol) 3.125 MG TABLET 1 Tablet ORAL TWICE DAILY Qty = 90 Comments: Last Taken:05/25/18 Time:0800AM Oxycodone HCl (Oxycodone HCl) 15 MG TABLET 1 Tablet ORAL Q8H Qty = 90 Comments: 10MG GIVEN Last Taken:05/25/18 Time:230PM Ketoconazole (Ketoconazole) 2 % CREAM..G. 1 Application On the skin DAILY Qty = 30 Instructions: apply to affected area(s) Comments: NOT GIVEN IN HOSPITAL Bupropion HCl (Wellbutrin XL) 150 MG TAB.ER.24H 1 Tablet ORAL DAILY Qty = 90 Comments: Last Taken:05/25/18 Time:0800AM Metformin HCl (Metformin HCl ER) 500 MG TAB.ER.24H 1 Tablet ORAL DAILY Qty = 90 Comments: NOT GIVEN IN HOSPITAL Furosemide (Furosemide) 20 MG TABLET 20 Milligram ORAL DAILY Qty = 30 Comments: Last Taken:05/25/18 Time:0800AM Atorvastatin Calcium (Atorvastatin Calcium) 40 MG TABLET 40 Milligram ORAL 5 PM Qty = 30 Comments: Last Taken:05/24/18 Time:415PM Simethicone (Simethicone) 80 MG TAB.CHEW 80 Milligram ORAL EVERY SIX HOURS NEEDED as needed for GAS Qty = 30 Comments: Last Taken:05/24/18 Time:445PM Docusate Sodium (Docusate Sodium) 100 MG CAPSULE 100 Milligram ORAL TWICE DAILY as needed for Constipation Qty = 30 Comments: Last Taken:05/23/18 Time:830PM Polyethylene Glycol 3350 (Miralax) 17 GRAM/DOSE POWDER 17 Gram ORAL DAILY Qty = 10 Comments: NOT GIVEN IN HOSPITAL Omeprazole (Omeprazole) 20 MG CAPSULE.DR 40 Milligram ORAL DAILY BEFORE BREAKFAST Qty = 30 Comments: Last Taken:05/25/18 Time:0500AM Start taking the following new medications: Enoxaparin Sodium (Lovenox) 80 MG/0.8 ML SYRINGE 70 Milligram SC TWICE DAILY Qty = 30 No Refills Morphine Sulfate (Morphine Sulfate ER) 15 MG TABLET.ER 15 Milligram ORAL TWICE DAILY Qty = 60 No Refills Nolktrqjvxfa-Wvdz-Cffftrty,Iso (Zosyn 4.5 Gm/100 Ml Galaxy Bag) 4.5 GRAM/100 ML FROZ.PIGGY 4.5 Gram IV EVERY SIX HOURS Qty = 24 No Refills Copies To: Ronal MORGAN,Maame Jefferson MD,Jose Curry Attending MD Review Statement Documenting Attending: Sahara MORGAN,Gloria Rodney
[2018-07-21 22:00] VITALS: BP 151/71
[2018-07-22 06:48] VITALS: BP 128/67
--- NOTE | 2018-07-22 07:46 | PN- Housestaff ---
Karl Gonzalez 07/22/18 0743: Subjective Follow-up For: Chest wall necrosis, abcess Subjective: Patient was seen and examined this morning. She was lying in her bed comfortabley and had no acute overnioght events. Denies fever, chest pain , cough, nause, vomitting Review of Systems Constitutional: Reports: see HPI. Objective Last 24 Hrs of Vital Signs/I&O Vital Signs Date Time Temp Pulse Resp B/P B/P Pulse O2 O2 Flow FiO2 Mean Ox Delivery Rate 07/22 0648 97.7 81 20 128/67 93 Room Air 07/21 2200 98.1 83 20 151/71 97 Room Air 07/21 0952 130/70 07/21 0800 92 Room Air Intake & Output 07/22 0800 07/22 0000 07/21 1600 Intake Total 100 650 Output Total 150 Balance -50 650 Intake, IV 0 Intake, Oral 100 650 Number 1 Bowel Movements Output, Urine 150 Physical Exam General Appearance: Alert, Oriented X3, Cooperative, No Acute Distress Cardiovascular: Regular Rate, No Murmurs Lungs: Clear to Auscultation, Normal Air Movement Abdomen: Normal Bowel Sounds, Soft, No Tenderness, No Hepatospenomegaly, No Masses Neurological: Normal Speech, Strength at 5/5 X4 Ext, Normal Tone, Sensation Intact Extremities: No Clubbing, No Cyanosis, No Edema, Normal Pulses, No Tenderness/ Swelling Current Medications: Current Medications Sig/Bayron Start time Last Medication Dose Route Stop Time Status Admin Acetaminophen 650 MG Q6P PRN 07/18 2000 AC 07/21 PO 1004 Atorvastatin Calcium 40 MG 1700 07/19 1700 AC 07/22 PO 1650 Bupropion HCl 150 MG DAILY 07/19 09 AC 07/22 PO 0850 Carvedilol 3.125 MG BID 07/18 2100 AC 07/22 PO 0850 Dextrose/Sodium 1,000 ML Q20H 07/22 2200 CAN Chloride IV 07/23 1759 Docusate Sodium 100 MG BID PRN 07/18 2015 AC PO Enoxaparin Sodium 60 MG ONCE ONE 07/22 1500 CAN SC 07/22 1501 Enoxaparin Sodium 60 MG BID 07/22 1456 AC 07/22 SC 07/22 2101 1648 Furosemide 20 MG DAILY 07/19 09 AC 07/22 PO 0850 Hydromorphone HCl 0.5 MG ONCE ONE 07/22 0815 DC 07/22 IV PUSH 07/22 0816 0850 Hydromorphone HCl 1 MG Q6P PRN 07/18 2000 AC 07/22 IV 1444 Insulin Aspart 0 TIDAC 07/19 0800 AC 07/22 SC 07/22 2200 1338 Insulin Human Regular 0 Q6 07/22 2359 AC SC Lorazepam 1 MG ONCE ONE 07/22 0815 DC 07/22 IV 07/22 0816 0850 Meropenem 1 GM IQ8 07/19 1600 AC 07/22 IV 1648 Omeprazole 40 MG DAILY AC 07/19 0700 AC 07/22 PO 0622 Oxycodone HCl 10 MG Q4-6 PRN PRN 07/19 0730 AC 07/22 PO 1832 Oxycodone HCl 5 MG Q6H PRN 07/18 2000 AC 07/19 PO 0019 Polyethylene Glycol 17 GM DAILY 07/19 09 AC PO Pregabalin 150 MG BID 07/18 2100 AC 07/22 PO 0850 Sertraline HCl 200 MG DAILY 07/19 09 AC 07/22 PO 0849 Trazodone HCl 200 MG AT BEDTIME 07/18 2100 AC 07/21 PO 2119 Last 24 Hrs of Lab/Ramón Results Last 24 Hrs of Labs/Mics: Laboratory Tests 07/22/18 0710: CBC w Diff NO MAN DIFF REQ, RBC 3.09 L, MCV 86.1, MCH 28.0, MCHC 32.6 L, RDW 16.5 H, MPV 8.0, Gran % 67.3, Lymphocytes % 25.1, Monocytes % 4.7, Eosinophils % 2.3, Basophils % 0.6, Absolute Granulocytes 6.0, Absolute Lymphocytes 2.3, Absolute Monocytes 0.4, Absolute Eosinophils 0.2, Absolute Basophils 0.1 Assessment/Plan Assessment: 62-year-old lady with significant medical comorbidities including diabetes, CAD status post CABG, CHF, hepatitis C, atrial fibrillation, upper extremity DVT, left chest wall abscess requiring drainage with MSSA isolated, 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 She was afebrile on presentation. 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 Plan 1)Chest wall abcess- started on Meropenem Follow-up OR cultures- G -ve rods, pansensitive Hold of Lovenox given the significant perioperative blood loss of 450 mls 1 unit PRBC given 2) Diabetes Diabetic diet Accu-Chek and bedtime NovoLog sliding scale Continue home meds 2) Deconditioning- PT for deconditioning 3) A fib- cardiology consult appreciated to plan for anticoagulation DVT prophylaxis: Alps CODE STATUS: FC Problem List: 1. Chest wall abscess Pain Ratin Pain Location: none Pain Goal: Remain pain free Pain Plan: none Tomorrow's Labs & Rationales: cc, kary Cortez MD,Vibha 07/22/18 1006: Attending MD Review Statement Attending Statement Attending MD Statement: examined this patient, discuss w/resident/PA/GROUNDHAND, agreed w/resident/PA/GROUNDHAND, reviewed EMR data (avail), discussed with nursing, discussed with case mgmt, amended to note Attending Assessment/Plan: Patient seen and examined. Resting comfortably not in acute distress. No issues overnight. She did allow for the surgical service to change the packing yesterday. She offers no complaints today. She remains afebrile and hemodynamically stable. She is scheduled to return to the OR tomorrow for wound VAC placement. Lovenox which should be held past midnight today as she should be kept n.p.o. after midnight as well. Please contact her cardiology service during the week to determine duration of antibiotic therapy for her transient atrial fibrillation.
[2018-07-22 08:17] LABS: ABSOLUTE BASOPHIL COUNT 0.1 /CUMM (0.0-0.2); ABSOLUTE EOSINOPHIL COUNT 0.2 /CUMM (0.0-0.7); ABSOLUTE LYMPH COUNT 2.3 /CUMM (1.2-3.4); ABSOLUTE MONOCYTE COUNT 0.4 /CUMM (0.10-0.60); BASOPHIL % 0.6 % (0.0-2.0); EOSINOPHIL % 2.3 % (0-5); GRANULOCYTE % 67.3 % (42.2-75.2); HEMATOCRIT 26.6 % (37-47); MEAN CORPUSCULAR HGB CONC 32.6 G/DL (33.0-37.0); MEAN CORPUSCULAR VOLUME 86.1 FL (81.0-99.0); PLATELET COUNT 299 /CUMM (130-400); RBC DISTRIBUTION WIDTH 16.5 % (11.5-14.5); RED BLOOD CELL CT 3.09 /CUMM (4.20-5.40)
--- NOTE | 2018-07-22 10:47 | PN- General Surgery ---
Subjective Subjective: Patient seen and evaluated. No acute events overnight. Dressing change performed this morning without any issues. Patient was pre medicated with 0.5mg Dilaudid IV and 1 mg Ativan IV. The left breast area packing was removed and Kerliz wet to dry with normal saline was re-packed into the wounds. Surrounding skin is indurated, but no significant erythema. Patient tolerated procedure well. Otherwise, no acute events overnight. May be re-inforced by RN PRN. Denying any CP, SOB, difficulty breathing ,OLMOS, or dizziness. Objective Vital Signs and I&Os Vital Signs Date Time Temp Pulse Resp B/P B/P Pulse O2 O2 Flow FiO2 Mean Ox Delivery Rate 07/22 0648 97.7 81 20 128/67 93 Room Air 07/21 2200 98.1 83 20 151/71 97 Room Air Intake & Output 07/22 1600 07/22 0800 07/22 0000 07/21 1600 07/21 0800 07/21 0000 Intake Total 120 100 650 120 431 Output Total 400 150 Balance -280 -50 650 120 431 Intake, IV 0 31 Intake, Oral 120 100 650 120 400 Number 1 1 1 Bowel Movements Output, Urine 400 150 Patient 131 lb 130 lb Weight Weight Bed scale Measurement Method Physical Exam: General: Elderly female, sitting up in bed, appears comfortable, NAD. Cardio: RRR, S1 and S2 Chest: left breast packing removed, multiple Incisions with kerlix packing, yellow discharge on abd, left breast is indurated, minimal surround erythema, no active hematoma Pulm: Clear breath sounds with no wheezes, rhonchi or rales. Abdomen: Soft Extremities: Calves are soft and non-tender bilaterally Current Medications: Current Medications Sig/Bayron Start time Last Medication Dose Route Stop Time Status Admin Acetaminophen 650 MG Q6P PRN 07/18 2000 AC 07/21 PO 1004 Atorvastatin Calcium 40 MG 1700 07/19 1700 AC 07/21 PO 1635 Bupropion HCl 150 MG DAILY 07/19 900 AC 07/22 PO 0850 Carvedilol 3.125 MG BID 07/18 2100 AC 07/22 PO 0850 Docusate Sodium 100 MG BID PRN 07/18 2015 AC PO Furosemide 20 MG DAILY 07/19 900 AC 07/22 PO 0850 Hydromorphone HCl 0.5 MG ONCE ONE 07/22 815 DC 07/22 IV PUSH 07/22 0816 0850 Hydromorphone HCl 1 MG Q6P PRN 07/18 2000 AC 07/21 IV 2119 Insulin Aspart 0 TIDAC 07/19 0800 AC 07/22 SC 0851 Lorazepam 1 MG ONCE ONE 07/22 0815 DC 07/22 IV 07/22 0816 0850 Lorazepam 0 .STK-MED ONE 07/21 1230 DC .ROUTE Lorazepam 1 MG ONCE ONE 07/21 1215 DC 07/21 IV 07/21 1216 1240 Meropenem 1 GM IQ8 07/19 1600 AC 07/22 IV 0849 Omeprazole 40 MG DAILY AC 07/19 07 AC 07/22 PO 0622 Oxycodone HCl 10 MG Q4-6 PRN PRN 07/19 0730 AC 07/22 PO 0849 Oxycodone HCl 5 MG Q6H PRN 07/18 2000 AC 07/19 PO 0019 Polyethylene Glycol 17 GM DAILY 07/19 09 AC PO Pregabalin 150 MG BID 07/18 2100 AC 07/22 PO 0850 Sertraline HCl 200 MG DAILY 07/19 09 AC 07/22 PO 0849 Trazodone HCl 200 MG AT BEDTIME 07/18 2100 AC 07/21 PO 2119 Results Last 48 Hours of Labs: Laboratory Tests 07/22 07/21 0710 0705 Hematology CBC w Diff NO MAN DIFF REQ NO MAN DIFF REQ WBC (4.8 - 10.8 /CUMM) 9.0 8.4 RBC (4.20 - 5.40 /CUMM) 3.09 L 3.04 L Hgb (12.0 - 16.0 G/DL) 8.6 L 8.6 L Hct (37 - 47 %) 26.6 L 26.0 L MCV (81.0 - 99.0 FL) 86.1 85.6 MCH (27.0 - 31.0 PG) 28.0 28.2 MCHC (33.0 - 37.0 G/DL) 32.6 L 33.0 RDW (11.5 - 14.5 %) 16.5 H 16.8 H Plt Count (130 - 400 /CUMM) 299 269 MPV (7.4 - 10.4 FL) 8.0 8.2 Gran % (42.2 - 75.2 %) 67.3 64.8 Lymphocytes % (20.5 - 51.1 %) 25.1 28.0 Monocytes % (1.7 - 9.3 %) 4.7 4.4 Eosinophils % (0 - 5 %) 2.3 2.2 Basophils % (0.0 - 2.0 %) 0.6 0.6 Absolute Granulocytes (1.4 - 6.5 /CUMM) 6.0 5.4 Absolute Lymphocytes (1.2 - 3.4 /CUMM) 2.3 2.3 Absolute Monocytes (0.10 - 0.60 /CUMM) 0.4 0.4 Absolute Eosinophils (0.0 - 0.7 /CUMM) 0.2 0.2 Absolute Basophils (0.0 - 0.2 /CUMM) 0.1 0.1 Assessment/Plan Assessment/Plan 62 y/o F POD #4 s/p left breast/axilla/chest wall debridement. OR cultures growing pseudomonas. Planning on OR tomorrow for wound vac placement. Plan: Continue with pain control as needed. OR culture growing pseudomonas. Continue on Meropenem. Hold Lovenox Plan for OR Monday for further debridement and wound vac placement. Regular diet as tolerated, NPO aftermidnight Encourage ambulation and incentive spirometry use. Discuss with Dr Jefferson. Other medical managment per primary team Core Measures Venous Thromboembolism VTE Risk Factors Acute Medical Illness No Mechanical VTE Prophylaxis d/t N/A MechProphylax Ordered No VTE Pharm Prophylaxis d/t Medical Contraindication (vicki-operative bleed)
[2018-07-22 14:19] VITALS: BP 130/65
[2018-07-22 22:08] VITALS: BP 120/80
[2018-07-23 06:39] VITALS: BP 111/65
--- NOTE | 2018-07-23 06:53 | PN- Student ---
See Addendum May Morton 07/23/18 0640: Subjective Subjective: Pt reports being in pain yesterday and this morning. Last night her pain was 9/ 10 in her left breast, axilla and chest wall. She reports the pain is somewhat less this morning. She is still ambulating and voiding without difficulty and tolerating a regular diet. She is currently NPO due to plan to return to the OR later today. Pt is anxious about returning to the OR. She denies any CP, SOB, difficulty breathing, headache, or dizziness. Objective Objective: Vitals: T: 98.4 Pulse 85 bpm RR: 20 BP: 111/65 O2: 94% on room air General: Elderly woman, lying in bed, appears tired and uncomfortable but in NAD. Cardio: Regular rate and rhythm. S1 and S2 auscultated. No murmurs, rubs or gallops. Chest: Dressing clean, dry and intact over the lest breast and axilla. Tender around the dressing to light palpation. Pt did not want dressing removed due to pain. Unable to assess wound. Pulm: Clear breath sounds with no wheezes,rhonchi or rales. Abdomen: Soft, non-distended. Normoactive bowel sounds. Non-tender. Extremities: Calves soft and non-tender to palpation. Results Results: Laboratory Tests 07/22/18 0710: CBC w Diff NO MAN DIFF REQ, RBC 3.09 L, MCV 86.1, MCH 28.0, MCHC 32.6 L, RDW 16.5 H, MPV 8.0, Gran % 67.3, Lymphocytes % 25.1, Monocytes % 4.7, Eosinophils % 2.3, Basophils % 0.6, Absolute Granulocytes 6.0, Absolute Lymphocytes 2.3, Absolute Monocytes 0.4, Absolute Eosinophils 0.2, Absolute Basophils 0.1 07/21/18 0705: CBC w Diff NO MAN DIFF REQ, RBC 3.04 L, MCV 85.6, MCH 28.2, MCHC 33.0, RDW 16.8 H, MPV 8.2, Gran % 64.8, Lymphocytes % 28.0, Monocytes % 4.4, Eosinophils % 2.2 , Basophils % 0.6, Absolute Granulocytes 5.4, Absolute Lymphocytes 2.3, Absolute Monocytes 0.4, Absolute Eosinophils 0.2, Absolute Basophils 0.1 Microbiology 07/21 510 STOOL: Clostridium difficile Toxin A & B - CAN Cancelled: SPECIMEN NOT RECEIVED IN LABORATORY Assessment/Plan Assessment: 62 y/o F POD#5 s/p debridement of left breast/axilla/chest wall. Wound cultures are growing pseudomonas. Pt remains afebrile with stable vital signs and will return to the OR later today. Plan: Continue with pain control as needed. OR culture growing pseduomonas, continue with Meropenem. Lovenox being held d/t plan for OR later today. OR later today likely with wound vac placement. NPO until after surgery. Daily dressing changes. Ambulation encouraged. Would consider PT consult due to deconditioning. Continue with home medications. Incentive spirometry use encouraged. Will discuss with Nely Marsh 07/23/18 0832: Subjective Subjective: Some pain at incision, no other complaints. aware of or later today Objective Objective: l axillary dressing- intact, serous drainage noted. not taken down as pt going to or this pm Results Results: Laboratory Tests 07/22/18 0710: CBC w Diff NO MAN DIFF REQ, RBC 3.09 L, MCV 86.1, MCH 28.0, MCHC 32.6 L, RDW 16.5 H, MPV 8.0, Gran % 67.3, Lymphocytes % 25.1, Monocytes % 4.7, Eosinophils % 2.3, Basophils % 0.6, Absolute Granulocytes 6.0, Absolute Lymphocytes 2.3, Absolute Monocytes 0.4, Absolute Eosinophils 0.2, Absolute Basophils 0.1 07/21/18 0705: CBC w Diff NO MAN DIFF REQ, RBC 3.04 L, MCV 85.6, MCH 28.2, MCHC 33.0, RDW 16.8 H, MPV 8.2, Gran % 64.8, Lymphocytes % 28.0, Monocytes % 4.4, Eosinophils % 2.2 , Basophils % 0.6, Absolute Granulocytes 5.4, Absolute Lymphocytes 2.3, Absolute Monocytes 0.4, Absolute Eosinophils 0.2, Absolute Basophils 0.1 Microbiology 07/21 05 STOOL: Clostridium difficile Toxin A & B - CAN Cancelled: SPECIMEN NOT RECEIVED IN LABORATORY labs pending Assessment/Plan Plan: prn pain meds, npo, ivf, iv abx. to or this pm for wound exploration +/- wv placement
[2018-07-23 11:28] VITALS: BP 158/101
--- NOTE | 2018-07-23 11:41 | PN- Housestaff ---
Karl Gonzalez 07/23/18 1141: Subjective Follow-up For: Chest wall necrosis Subjective: Patient was seern and examined this morning. She was very tirwed and denied any blood work up. SHe has been NPO sicne morning and ready to undergo surgical procedure. Review of Systems Constitutional: Reports: see HPI. Objective Last 24 Hrs of Vital Signs/I&O Vital Signs Date Time Temp Pulse Resp B/P B/P Pulse O2 O2 Flow FiO2 Mean Ox Delivery Rate 07/23 1420 78 158/86 07/23 1128 98.7 86 17 158/101 94 Room Air 07/23 0639 98.4 85 20 111/65 94 Room Air 07/22 2208 98.1 90 20 120/80 93 Room Air 07/22 2113 90 120/80 Intake & Output 07/23 1600 07/23 0800 07/23 0000 Intake Total 700 Output Total 350 800 Balance 350 -800 Intake, IV 700 Number 0 1 Bowel Movements Output, Urine 350 800 Patient 130 lb Weight Physical Exam General Appearance: Alert, Oriented X3, Cooperative, No Acute Distress Cardiovascular: Regular Rate, No Murmurs Lungs: Clear to Auscultation, Normal Air Movement Abdomen: Normal Bowel Sounds, Soft, No Tenderness, No Hepatospenomegaly, No Masses Neurological: Normal Speech, Strength at 5/5 X4 Ext, Normal Tone, Sensation Intact Extremities: No Clubbing, No Cyanosis, No Edema, Normal Pulses, No Tenderness/ Swelling Current Medications: Current Medications Sig/Bayron Start time Last Medication Dose Route Stop Time Status Admin Acetaminophen 650 MG Q6P PRN 07/18 2000 AC 07/21 PO 1004 Atorvastatin Calcium 40 MG 1700 07/19 1700 AC 07/22 PO 1650 Bupropion HCl 150 MG DAILY 07/19 09 AC 07/22 PO 0850 Carvedilol 3.125 MG BID 07/18 2100 AC 07/23 PO 1420 Dextrose/Sodium 1,000 ML Q8H 07/22 2300 DC 07/23 Chloride IV 0637 Docusate Sodium 100 MG BID PRN 07/18 2015 AC PO Enoxaparin Sodium 60 MG BID 07/22 1456 DC 07/22 SC 07/22 2101 2114 Fentanyl Citrate 0 .STK-MED ONE 07/23 1536 DC .ROUTE Furosemide 20 MG DAILY 07/19 09 AC 07/22 PO 0850 Hydromorphone HCl 0.5 MG ONCE ONE 07/23 1415 DC 07/23 IV PUSH 07/23 1416 1420 Hydromorphone HCl 1 MG Q6P PRN 07/18 2000 AC 07/22 IV 2109 Insulin Aspart 0 TIDAC 07/19 0800 DC 07/22 SC 07/22 2200 1338 Insulin Human Regular 0 Q6 07/22 2359 AC 07/23 SC 1232 Insulin Human Regular 0 Q6 07/22 2359 CAN SC Meropenem 1 GM IQ8 07/19 1600 DC 07/23 IV 0949 Metoprolol Tartrate 0 .STK-MED ONE 07/23 1731 DC IV Metoprolol Tartrate 0 .STK-MED ONE 07/23 1649 DC IV Midazolam HCl 0 .STK-MED ONE 07/23 1536 DC .ROUTE Non-Formulary 0 SEE ADMIN CRITERIA 07/23 1645 CAN Medication ANY Omeprazole 40 MG DAILY AC 07/19 0700 AC 07/22 PO 0622 Oxycodone HCl 10 MG Q4-6 PRN PRN 07/19 0730 AC 07/22 PO 1832 Oxycodone HCl 5 MG Q6H PRN 07/18 2000 07/19 PO 0019 Patient Medication 1 ED ONE ONE 07/23 1045 DC 07/23 Teaching ED 07/23 1046 1421 Piperacillin Sod/ 4.5 GM Q6 07/23 1800 AC Tazobactam Sod IV Sodium Chloride 100 ML Polyethylene Glycol 17 GM DAILY 07/19 09 AC PO Pregabalin 150 MG BID 07/18 2100 AC 07/22 PO 211 Sertraline HCl 200 MG DAILY 07/19 09 AC 07/22 PO 0849 Trazodone HCl 200 MG AT BEDTIME 07/18 2100 07/22 PO 2112 Last 24 Hrs of Lab/Ramón Results Last 24 Hrs of Labs/Mics: Laboratory Tests 07/23/18 1020: Anion Gap 4 L, Estimated GFR > 60, BUN/Creatinine Ratio 25.0, CBC w Diff NO MAN DIFF REQ, RBC 3.32 L, MCV 85.4, MCH 28.2, MCHC 33.0, RDW 16.3 H, MPV 8.2, Gran % 67.4, Lymphocytes % 25.4, Monocytes % 3.9, Eosinophils % 2.8, Basophils % 0.5, Absolute Granulocytes 7.0 H, Absolute Lymphocytes 2.6, Absolute Monocytes 0.4, Absolute Eosinophils 0.3, Absolute Basophils 0.1 Assessment/Plan Assessment: 62-year-old lady with significant medical comorbidities including diabetes, CAD status post CABG, CHF, hepatitis C, atrial fibrillation, upper extremity DVT, left chest wall abscess requiring drainage with MSSA isolated, 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 She was afebrile on presentation. 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 -started on Meropenem on 07/19 - 07/23 -Follow-up cultures shows - G -ve rods, pansensitive -Hold of Lovenox given the significant perioperative blood loss of 450 mls -1 unit PRBC given -Patient had debridement today and was NPO , -WIll advance the diet post surgery 2) HYpertension- -Pt is on carviudilol and lasix -Today she spiked a BP of 160/80 and was given an additional dose of Carvidilol. 2) Diabetes -Diabetic diet -Accu-Chek and bedtime -NovoLog sliding scale Continue home meds 2) Deconditioning- -PT for deconditioning 3) A fib- -cardiology consult appreciated to plan for anticoagulation DVT prophylaxis: Alps CODE STATUS: FC Problem List: 1. Chest wall abscess Pain Ratin Pain Location: chest Pain Goal: Remain pain free Pain Plan: as discussed Tomorrow's Labs & Rationales: cbc, bep Osiel Cavazos MD 07/23/181901: Attending MD Review Statement Attending Statement Attending MD Statement: examined this patient, discuss w/resident/PA/PSYCHIATRIC TECHNICIAN, agreed w/resident/PA/PSYCHIATRIC TECHNICIAN, reviewed EMR data (avail), discussed with nursing, discussed with case mgmt, amended to note Attending Assessment/Plan: The patient was seen and discussed with house staff in the morning. Did receive her morning Coreg later (noon) as surgery was postponed due to OR emergency. Post operatively the patient was noted to go into rapid afib. She received IV Metoprolol in PACU. Cardiology consult had been called previously regarding determination of need for assisted anticoagulation (was on Lovenox post upper extremity DVT). Cardiology being called to evaluate and will give IV Cardizem. Transfer to Telemetry post operatively for closer monitoring.
--- NOTE | 2018-07-23 12:00 | PN- Infect Dx ---
Subjective Subjective: Afebrile. She still notes some discomfort in the left axilla and continues to drain fluid from the wounds Objective Last 24 Hrs of Vital Signs/I&O Vital Signs Date Time Temp Pulse Resp B/P B/P Pulse O2 O2 Flow FiO2 Mean Ox Delivery Rate 07/23 1128 98.7 86 17 158/101 94 Room Air 07/23 0639 98.4 85 20 111/65 94 Room Air 07/22 2208 98.1 90 20 120/80 93 Room Air 07/22 2113 90 120/80 07/22 1419 97.6 88 20 130/65 96 Room Air Intake & Output 07/23 1600 07/23 0800 07/23 0000 Intake Total Output Total 800 Balance -800 Number 1 Bowel Movements Output, Urine 800 Patient 130 lb Weight Physical Exam Other Physical Findings: She appears comfortable in no acute distress Axilla induration and mild tenderness persist, with continued drainage, with no erythema; packing remains in place Extremities left upper extremity induration and mild tenderness persist, with decreased range of motion of the left shoulder Results Last 24 Hours of Lab Results: Laboratory Tests 07/23 1020 Chemistry Sodium Pending Potassium Pending Chloride Pending Carbon Dioxide Pending Anion Gap Pending BUN Pending Creatinine Pending BUN/Creatinine Ratio Pending Hematology CBC w Diff Pending WBC Pending RBC Pending Hgb Pending Hct Pending MCV Pending MCH Pending MCHC Pending RDW Pending Plt Count Pending MPV Pending Last 24 Hours of Ramón Results: OR culture July 18 positive for Pseudomonas sensitive to all antibiotics tested and diphtheroids Blood cultures x2 July 19 negative Assessment/Plan ID Impression: Stable, with her temperatures and white blood cell count remaining normal, on Meropenem for a residual necrotizing soft tissue infection in her left axilla/ chest wall/breast, status post debridement 5 days ago, with plans for repeat debridement and placement of a wound VAC in the OR later today. Her OR culture is positive for Pseudomonas and diphtheroids, with the latter organism likely representing contamination. She was on Unasyn until approximately 1 week prior to admission and the possibility that this was suppressing some of the bacteria, particularly those that were isolated on her previous cultures (MSSA and Clostridium) must be considered, particularly as the gram stain from her OR specimen revealed moderate gram-positive cocci. Suggestion: 1. Await further debridement and placement of a wound VAC in the OR later today 2. Discontinue Meropenem 3. Begin Zosyn 4.5 g IV every 6 hours
[2018-07-23 12:17] LABS: ABSOLUTE BASOPHIL COUNT 0.1 /CUMM (0.0-0.2); ABSOLUTE EOSINOPHIL COUNT 0.3 /CUMM (0.0-0.7); ABSOLUTE LYMPH COUNT 2.6 /CUMM (1.2-3.4); ABSOLUTE MONOCYTE COUNT 0.4 /CUMM (0.10-0.60); BASOPHIL % 0.5 % (0.0-2.0); EOSINOPHIL % 2.8 % (0-5); GRANULOCYTE % 67.4 % (42.2-75.2); HEMATOCRIT 28.4 % (37-47); MEAN CORPUSCULAR HGB 28.2 PG (27.0-31.0); MEAN CORPUSCULAR VOLUME 85.4 FL (81.0-99.0); MEAN PLATELET VOLUME 8.2 FL (7.4-10.4); PLATELET COUNT 335 /CUMM (130-400); RBC DISTRIBUTION WIDTH 16.3 % (11.5-14.5); RED BLOOD CELL CT 3.32 /CUMM (4.20-5.40); WHITE BLOOD CELL COUNT 10.4 /CUMM (4.8-10.8)
--- NOTE | 2018-07-23 16:34 | Operative Report ---
Operative/Inv Procedure Report Surgery Date: 07/23/18 Name of Procedure: 1. Debridement left axilla, 40 cm subcutaneous tissue 2. Placement of VAC dressing Pre-Operative Diagnosis: Axillary necrosis Post-Operative Diagnosis: Same Estimated Blood Loss: less than 50ml Surgeon/Back Filler Operator: Jose Jefferson M.D. Anesthesia: laryngeal mask airway Operative/Procedure Note Note: After consent she is brought to the operating room laid supine. Gen. anesthesia was obtained and her left axilla was prepped and draped. Wound was explored. There was moderate amount of retained purulence exudate. There was small areas of persistent necrotic tissue which was bluntly debrided (excised) with ring forceps. All tracts were explored and debrided. Wound was then pulse lavaged with normal saline. To facilitate placement of a VAC dressing, the skin incision was lengthened superiorly to better expose the depths of the wound. This was performed with cautery. Wound VAC was then placed using black granular foam. Seal was placed and suction applied without leakage. 3 smaller areas on the lateral aspect of the breasts were packed open with half-inch Nu Gauze
[2018-07-23 19:17] VITALS: BP 152/63
--- NOTE | 2018-07-23 21:13 | PN- General Surgery ---
Subjective Subjective: poc discomfort at surgical site. no other complaints. Objective Vital Signs and I&Os Vital Signs Date Time Temp Pulse Resp B/P B/P Pulse O2 O2 Flow FiO2 Mean Ox Delivery Rate 07/23 2212 98.3 75 18 121/54 92 07/23 2114 78 120/54 07/23 1917 99.0 84 16 152/63 91 07/23 1420 78 158/86 07/23 1128 98.7 86 17 158/101 94 Room Air 07/23 0639 98.4 85 20 111/65 94 Room Air Intake & Output 07/23 1600 07/23 0800 07/23 0000 07/22 1600 07/22 0800 07/22 0000 Intake Total 700 800 120 100 Output Total 350 800 400 150 Balance 350 -800 800 -280 -50 Intake, IV 700 Intake, Oral 800 120 100 Number 0 1 1 1 Bowel Movements Output, Urine 350 800 400 150 Patient 130 lb 131 lb Weight Weight Bed scale Measurement Method Physical Exam: gen-nad left axilla/breast- breast indurated, ttp, warm, wv in place to good suction, ingris x3 though teagderm dressing w serosang drainage- redressed with overlying dry gauze. Assessment/Plan Assessment/Plan A- POD0 sp further debridement of L axillary/breast abscesses and placement of [place], stable. P- cont abx prn pain meds wv to be changed m/w/f. ingris to be changes daily medical mgmt per medical team
[2018-07-23 22:12] VITALS: BP 121/54
[2018-07-24 05:24] LABS: ABSOLUTE BASOPHIL COUNT 0 /CUMM (0.0-0.2); ABSOLUTE EOSINOPHIL COUNT 0.2 /CUMM (0.0-0.7); ABSOLUTE GRANULOCYTE CT 7.7 /CUMM (1.4-6.5); ABSOLUTE LYMPH COUNT 2.6 /CUMM (1.2-3.4); ABSOLUTE MONOCYTE COUNT 0.4 /CUMM (0.10-0.60); BASOPHIL % 0.2 % (0.0-2.0); EOSINOPHIL % 2.1 % (0-5); GRANULOCYTE % 70.2 % (42.2-75.2); HEMATOCRIT 24.9 % (37-47); MEAN CORPUSCULAR HGB 28.1 PG (27.0-31.0); MEAN CORPUSCULAR HGB CONC 32.6 G/DL (33.0-37.0); MEAN CORPUSCULAR VOLUME 86.2 FL (81.0-99.0); MEAN PLATELET VOLUME 7.8 FL (7.4-10.4); PLATELET COUNT 302 /CUMM (130-400); RBC DISTRIBUTION WIDTH 16.2 % (11.5-14.5); RED BLOOD CELL CT 2.89 /CUMM (4.20-5.40)
--- NOTE | 2018-07-24 07:55 | PN- Student ---
See Addendum May Morton 07/24/18 0743: Subjective Subjective: Pt complaining of pain in her left breast/axilla/chest wall this morning. Pain has been present throughout the night and pain medications are not providing relief. She is continuing to ambulate, void and eat without difficulty. Denies any N/V. Denies CP, SOB, difficulty breathing, headache, or dizziness. Objective Objective: Vitals: See EMR General: Elderly woman, lying in bed, appears to be in pain, NAD. Cardio: Irregular rhythm, regular rate. S1 and S2. No murmurs, rubs or gallops. Chest: Wound vac in place over left breast/axilla. Moderate amount of serosanguinous discharge noted in the wound vac. Bairon in place in the inferior aspect of the left breast. Erythema and induration noted on the left breast. Warm to the touch. Tender to palpation. Pulm: Clear breath sounds with no wheezes, rhonchi or rales. Abdomen: Soft, non-tender, non-distended. Normoactive bowel sounds. Extremities: ALPs in place. Calves are soft and non-tender bilaterally. Results Results: Laboratory Tests 07/24/18 0500: Anion Gap 3 L, Estimated GFR > 60, BUN/Creatinine Ratio 20.0, CBC w Diff NO MAN DIFF REQ, RBC 2.89 L, MCV 86.2, MCH 28.1, MCHC 32.6 L, RDW 16.2 H, MPV 7.8, Gran % 70.2, Lymphocytes % 23.7, Monocytes % 3.8, Eosinophils % 2.1, Basophils % 0.2, Absolute Granulocytes 7.7 H, Absolute Lymphocytes 2.6, Absolute Monocytes 0.4, Absolute Eosinophils 0.2, Absolute Basophils 0 07/23/18 1950: Troponin I < 0.01 07/23/18 1020: Anion Gap 4 L, Estimated GFR > 60, BUN/Creatinine Ratio 25.0, CBC w Diff NO MAN DIFF REQ, RBC 3.32 L, MCV 85.4, MCH 28.2, MCHC 33.0, RDW 16.3 H, MPV 8.2, Gran % 67.4, Lymphocytes % 25.4, Monocytes % 3.9, Eosinophils % 2.8, Basophils % 0.5, Absolute Granulocytes 7.0 H, Absolute Lymphocytes 2.6, Absolute Monocytes 0.4, Absolute Eosinophils 0.3, Absolute Basophils 0.1 07/22/18 0710: CBC w Diff NO MAN DIFF REQ, RBC 3.09 L, MCV 86.1, MCH 28.0, MCHC 32.6 L, RDW 16.5 H, MPV 8.0, Gran % 67.3, Lymphocytes % 25.1, Monocytes % 4.7, Eosinophils % 2.3, Basophils % 0.6, Absolute Granulocytes 6.0, Absolute Lymphocytes 2.3, Absolute Monocytes 0.4, Absolute Eosinophils 0.2, Absolute Basophils 0.1 Assessment/Plan Assessment: 62 year old F POD#1 s/p wound debridement of left breast/axilla/chest wall with wound vac placement. Pt continues to have uncontrolled post-operative pain. Her vital signs are stable and she remains afebrile. Post-operative rapid a-fib was noted and addressed by medical team. Plan: Continue with pain control. Lovenox restarted. Antibiotics switched to Zosyn. Medical management by medical team. Wound vac in place, monitor output. Bairon to be changed tomorrow. Reinforce the dressing as needed. Encourage ambulation and incentive spirometry use. Continue home medications. Discuss w Dr Jefferson and surgical PAs. Zakiya Salinas 07/24/18 1013: Assessment/Plan Assessment: Patient seen and examined by myself. Agree with student assessment and plan. Wound vac holding strong suction, serosanguinous ouptut moderate. Painful induration persists to inferior aspect although appears to be improving from prior evaluations. Will anticipate wick change and possibly wound vac change tomorrow or . Will discuss wound management with Dr. Jefferson.
--- NOTE | 2018-07-24 09:07 | PN- Gen Med ---
Jamee Narayan 07/24/18 0907: Assessment/Plan Medical Problem List: 1. Rapid atrial fibrillation 2. Chest wall abscess Plan: 62 year old female with PMH DM, CAD s/p CABG, CHF, Hep C, A-fib (previously anticoagulated with lovenox sub cu, upper extremity DVT presented with left chest wall abscess requiring OR drainage x 2. She is post op day 1 from OR take back. Patient had moderate blood loss 450cc intraop and went into rapid Afib. She was transfered to Tele post op for further management. Problem List: 1. Rapid Afib while off antiocoagulation for surgery 2. Left anterior chest wall abscess 3. H/o HTN 4. H/O DM #Rapid Afib while off anticoagulation for surgery -Currently in sinus rhythm -Will monitor overnight and consider transferring off tele in AM if remains in NSR -Coreg 3.125mg bid -Spoke with surgery (Dr. Jefferson) reguarding timing to restart anticoagulation with lovenox 1mg/kg bid. He states patient is clear to begin. -Cardiology consult: Dr. Breaux saw her. She meets criteria for anticoagulation with CHADsVASC 3. Patient previously anticoagulated with sub cu lovenox. Recommends contacting surgery prior to starting anticoagulation. #Left anterior chest wall abscess -s/p OR debridement x2: cultures grew pansensitive pseudomonas and diptheroids ( presumed contaminant) -Wound vac in place; functional; 125mmHg; change MWF -Surgical dressing c/d/i; w[place] changes daily -Surgery managing wound care -Zosyn 4.5g IV q6hr -ID following -Leukocytosis today appropriate for post op reactive response -Hbg drop appropriate s/p blood loss intraop -Pain control: patient is not opiate naive; will increase to Dilaudid 2mg q 6hours -Bowel regimen in setting of opiods: Miralax/Colace #H/O HTN -Lasix 20mg PO daily #HLD -atorvastatin 40mg daily DVT prophylaxis: alps/ambulation/lovenox Code status: full code Consider transfer to [facility] in AM if NSR overnight Subjective Follow-up For: Post op chest wall necrotizing infection Rapid Afib Complaints: pain medication not enough Tele-Events Since Last Visit: sinus rhythm overnight rate 70-75 Subjective: Patient states she is doing well except for inadequate pain control. She denies any chest pain, SOB, palpitations. No other complaints or events overnight. Review of Systems Constitutional: Reports: no symptoms. EENTM: Reports: no symptoms. Cardiovascular: Reports: no symptoms. Respiratory: Reports: no symptoms. Gastrointestinal: Reports: no symptoms. Genitourinary: Reports: no symptoms. Musculoskeletal: Reports: muscle pain (anterior chest wall/surg site). Skin: Reports: lesions (left chest wall), rash. Objective Last 24 Hrs of Vital Signs/I&O Vital Signs Date Time Temp Pulse Resp B/P B/P Pulse O2 O2 Flow FiO2 Mean Ox Delivery Rate 07/24 0854 74 132/50 07/23 2212 98.3 75 18 121/54 92 07/23 2114 78 120/54 07/23 1917 99.0 84 16 152/63 91 07/23 1420 78 158/86 Intake & Output 07/24 1600 07/24 0800 07/24 0000 Intake Total 240 240 Output Total 300 Balance -60 240 Intake, Oral 240 240 Output, 300 Drainage Patient 145 lb Weight Physical Exam General Appearance: Alert, Oriented X3, Cooperative, No Acute Distress Skin: left anterior chest s/p surgical changes with wound vac in place and functional @ 125mmHg; serosanguinous 300cc output overnight. Dressing c/d/i Skin Temp/Moisture Exam: Warm/Dry HEENT: Atraumatic, PERRLA Neck: Supple Cardiovascular: Regular Rate, Normal S1, Normal S2, No Murmurs Lungs: Clear to Auscultation Abdomen: Normal Bowel Sounds, Soft Extremities: No Cyanosis, No Edema Sahara MORGAN,Gloria 07/24/18 0956: Assessment/Plan Medical Assessment: Patient seen and examined. Agree with interns note. This is a 62-year-old female with multiple medical problems who had a I&D done of a left chest wall abscess on IV Zosyn per ID. Postoperatively she went into rapid atrial fibrillation and was transferred to telemetry. We have her on p.o. Coreg and we need to talk to cardiology about anticoagulation. Her pain is uncontrolled and we are increasing her Dilaudid to 2 mg every 6 and will follow.
--- NOTE | 2018-07-24 13:19 | Cons- Cardiology ---
General Information and HPI Consulting Request Date of Consult: 07/24/18 Requested By: Gloria Shoemaker MD Reason for Consult: Endocarditis and paroxysmal atrial fibrillation in a patient recently postoperative from debridement of left chest abscess Source of Information: patient, old records Exam Limitations: poor historian History of Present Illness: The patient is a 62-year-old female with coronary artery disease, status post CABG, recent endocarditis and paroxysmal atrial fibrillation. She has been in the hospital or rehab since April. She has been treated for endocarditis. She also has paroxysmal atrial fibrillation. She recently had debridement of her left chest wall and breast abscess about 1 week ago and repeated yesterday. Yesterday she was noted to be in atrial fibrillation for a short period of time but then went back to sinus rhythm. Currently she is in sinus rhythm. It appears as if she was on therapeutic doses of Lovenox prior to her surgery yesterday. This has not yet been restarted. Allergies/Medications Allergies: Coded Allergies: No Known Allergies (05/25/18) Home Med List: Atorvastatin Calcium 40 MG TABLET 40 MG PO 1700 Heart Bupropion HCl (Wellbutrin XL) 150 MG TAB.ER.24H 1 TAB PO DAILY UNKNOWN ( Reported) Carvedilol 3.125 MG TABLET 1 TAB PO BID HEART (Reported) Docusate Sodium 100 MG CAPSULE 100 MG PO BID PRN Constipation Enoxaparin Sodium (Lovenox) 40 MG/0.4 ML SYRINGE 80 MG SC BID DVT Furosemide 20 MG TABLET 20 MG PO DAILY Diuresis Ketoconazole 2 % CREAM..G. 1 EDWARD TOP DAILY AFFECTED AREA(S) (Reported) apply to affected area(s) Memantine HCl (Namenda XR) 28 MG CAP.SPR.24 1 CAP PO DAILY MEMORY (Reported) Metformin HCl (Metformin HCl ER) 500 MG TAB.ER.24H 1 TAB PO DAILY DM ( Reported) Omeprazole 20 MG CAPSULE.DR 40 MG PO DAILY AC PPI Oxycodone HCl 15 MG TABLET 1 TAB PO Q8H PAIN (Reported) Polyethylene Glycol 3350 (Miralax) 17 GRAM/DOSE POWDER 17 GM PO DAILY COnstipation Pregabalin (Lyrica) 150 MG CAPSULE 1 CAP PO BID UNKNOWN (Reported) Sertraline HCl (Zoloft) 100 MG TABLET 2 TAB PO DAILY MENTAL HEALTH (Reported) Simethicone 80 MG TAB.CHEW 80 MG PO Q6P PRN GAS Trazodone HCl 100 MG TABLET 2 TAB PO QHS SLEEP/MENTAL HEALTH (Reported) Current Medications: Current Medications Sig/Bayron Start time Last Medication Dose Route Stop Time Status Admin Acetaminophen 650 MG Q6P PRN 07/18 2000 AC 07/21 PO 1004 Atorvastatin Calcium 40 MG 1700 07/19 1700 AC 07/23 PO 2113 Bupropion HCl 150 MG DAILY 07/19 0900 AC 07/24 PO 0853 Carvedilol 3.125 MG BID 07/18 2100 AC 07/24 PO 0854 Dextrose/Sodium 1,000 ML Q8H 07/22 2300 DC 07/23 Chloride IV 0637 Diphenhydramine HCl 0 .STK-MED ONE 07/23 1827 DC .ROUTE Docusate Sodium 100 MG BID PRN 07/18 2015 AC PO Enoxaparin Sodium 60 MG BID 07/23 2100 DC 07/24 SC 07/24 0901 0855 Fentanyl Citrate 0 .STK-MED ONE 07/23 1536 DC .ROUTE Furosemide 20 MG DAILY 07/19 09 AC 07/24 PO 0854 Hydromorphone HCl 2 MG Q6P PRN 07/24 0930 AC 07/24 IV 0943 Hydromorphone HCl 0 .STK-MED ONE 07/23 1836 DC .ROUTE Hydromorphone HCl 0 .STK-MED ONE 07/23 1823 DC .ROUTE Hydromorphone HCl 0 .STK-MED ONE 07/23 1814 DC .ROUTE Hydromorphone HCl 0.5 MG ONCE ONE 07/23 1415 DC 07/23 IV PUSH 07/23 1416 1420 Hydromorphone HCl 1 MG Q6P PRN 07/18 2000 DC 07/24 IV 0743 Insulin Aspart 0 AT BEDTIME 07/24 2100 AC SC Insulin Aspart 0 TIDAC 07/24 0800 AC SC Insulin Human Regular 0 Q6 07/22 2359 DC 07/23 SC 1232 Meropenem 1 GM IQ8 07/19 1600 DC 07/23 IV 0949 Metoprolol Tartrate 0 .STK-MED ONE 07/23 1731 DC IV Metoprolol Tartrate 0 .STK-MED ONE 07/23 1649 DC IV Midazolam HCl 0 .STK-MED ONE 07/23 1536 DC .ROUTE Non-Formulary 0 SEE ADMIN CRITERIA 07/23 1645 CAN Medication ANY Omeprazole 40 MG DAILY AC 07/19 0700 AC 07/24 PO 0502 Oxycodone HCl 10 MG Q4-6 PRN PRN 07/19 0730 AC 07/24 PO 0215 Oxycodone HCl 5 MG Q6H PRN 07/18 2000 AC 07/19 PO 0019 Piperacillin Sod/ 4.5 GM Q6H 07/24 0200 AC 07/24 Tazobactam Sod IV 08 Sodium Chloride 100 ML Piperacillin Sod/ 4.5 GM Q6 07/23 1800 DC 07/23 Tazobactam Sod IV 2015 Sodium Chloride 100 ML Polyethylene Glycol 17 GM DAILY 07/19 09 AC 07/24 PO 0855 Pregabalin 150 MG BID 07/18 2100 AC 07/24 PO 0853 Sertraline HCl 200 MG DAILY 07/19 09 AC 07/24 PO 0854 Trazodone HCl 200 MG AT BEDTIME 07/18 2100 AC 07/23 PO 211 Review of Systems Review of Systems: No other complaints Past History Medical History Blood Transfusion Hx: No Neurological: peripheral neuropathy EENT: NONE Cardiovascular: AFIB, CAD, CHF, hypertension, myocardial infarction Respiratory: COPD Gastrointestinal: NONE Hepatic: hepatitis C Renal: NONE Musculoskeletal: osteoarthritis Psychiatric: NONE Endocrine: diabetes Blood Disorders: NONE Cancer(s): NONE 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 Tommie Weber at [facility] Family History Relations & Conditions If Any: MOTHER, , Age 70; Cause: Diabetes. FATHER (Pt didn't know her father). ; Cause: Unknown cause of morbidity or mortality. Psychosocial History Where Do You Live? [facility] Who Do You Live With? self Services at Home: None Primary Language: French Smoking Status: Former Smoker Living Will? no Power of Head Miller/HCP? no Functional Ability ADLs Independent: dressing, eating, toileting, bathing. Ambulation: independent IADLs Independent: shopping, housework, finances, food prep, telephone, transportation , medication admin. Exam & Diagnostic Data Vital Signs and I&O Vital Signs Date Time Temp Pulse Resp B/P B/P Pulse O2 O2 Flow FiO2 Mean Ox Delivery Rate 07/24 0854 74 132/50 07/23 2212 98.3 75 18 121/54 92 07/234 78 120/54 07/23 1917 99.0 84 16 152/63 91 07/23 1420 78 158/86 Intake & Output 07/24 0000 07/23 0000 Intake Total 240 240 700 Output Total 300 350 800 Balance -60 240 350 -800 Intake, IV 700 Intake, Oral 240 240 Number 0 1 Bowel Movements Output, 300 Drainage Output, Urine 350 800 Patient 145 lb 130 lb Weight Physical Exam: Older appearing middle-aged female in no acute distress HEENT exam normal Chest clear, recent surgery left chest wall and breast Heart regular rhythm no murmurs Extremities no edema good pulses Labs/Ramón Results: Laboratory Tests 07/25 0500 Chemistry Sodium (137 - 145 mmol/L) Pending 136 L Potassium (3.5 - 5.1 mmol/L) Pending 3.9 Chloride (98 - 107 mmol/L) Pending 103 Carbon Dioxide (22 - 30 mmol/L) Pending 30 Anion Gap (5 - 16) Pending 3 L BUN (7 - 17 mg/dL) Pending 10 Creatinine (0.5 - 1.0 mg/dL) Pending 0.5 Estimated GFR (>60 ml/min) > 60 BUN/Creatinine Ratio (7 - 25 %) Pending 20.0 Magnesium Pending Troponin I Pending Hematology CBC w Diff Pending NO MAN DIFF REQ WBC (4.8 - 10.8 /CUMM) Pending 11.0 H RBC (4.20 - 5.40 /CUMM) Pending 2.89 L Hgb (12.0 - 16.0 G/DL) Pending 8.1 L Hct (37 - 47 %) Pending 24.9 L MCV (81.0 - 99.0 FL) Pending 86.2 MCH (27.0 - 31.0 PG) Pending 28.1 MCHC (33.0 - 37.0 G/DL) Pending 32.6 L RDW (11.5 - 14.5 %) Pending 16.2 H Plt Count (130 - 400 /CUMM) Pending 302 MPV (7.4 - 10.4 FL) Pending 7.8 Gran % (42.2 - 75.2 %) 70.2 Lymphocytes % (20.5 - 51.1 %) 23.7 Monocytes % (1.7 - 9.3 %) 3.8 Eosinophils % (0 - 5 %) 2.1 Basophils % (0.0 - 2.0 %) 0.2 Absolute Granulocytes (1.4 - 6.5 /CUMM) 7.7 H Absolute Lymphocytes (1.2 - 3.4 /CUMM) 2.6 Absolute Monocytes (0.10 - 0.60 /CUMM) 0.4 Absolute Eosinophils (0.0 - 0.7 /CUMM) 0.2 Absolute Basophils (0.0 - 0.2 /CUMM) 0 07/23 07/23 1950 1020 Chemistry Sodium (137 - 145 mmol/L) 135 L Potassium (3.5 - 5.1 mmol/L) 4.3 Chloride (98 - 107 mmol/L) 102 Carbon Dioxide (22 - 30 mmol/L) 29 Anion Gap (5 - 16) 4 L BUN (7 - 17 mg/dL) 10 Creatinine (0.5 - 1.0 mg/dL) 0.4 L Estimated GFR (>60 ml/min) > 60 BUN/Creatinine Ratio (7 - 25 %) 25.0 Troponin I (< 0.11 ng/ml) < 0.01 Hematology CBC w Diff NO MAN DIFF REQ WBC (4.8 - 10.8 /CUMM) 10.4 RBC (4.20 - 5.40 /CUMM) 3.32 L Hgb (12.0 - 16.0 G/DL) 9.4 L Hct (37 - 47 %) 28.4 L MCV (81.0 - 99.0 FL) 85.4 MCH (27.0 - 31.0 PG) 28.2 MCHC (33.0 - 37.0 G/DL) 33.0 RDW (11.5 - 14.5 %) 16.3 H Plt Count (130 - 400 /CUMM) 335 MPV (7.4 - 10.4 FL) 8.2 Gran % (42.2 - 75.2 %) 67.4 Lymphocytes % (20.5 - 51.1 %) 25.4 Monocytes % (1.7 - 9.3 %) 3.9 Eosinophils % (0 - 5 %) 2.8 Basophils % (0.0 - 2.0 %) 0.5 Absolute Granulocytes (1.4 - 6.5 /CUMM) 7.0 H Absolute Lymphocytes (1.2 - 3.4 /CUMM) 2.6 Absolute Monocytes (0.10 - 0.60 /CUMM) 0.4 Absolute Eosinophils (0.0 - 0.7 /CUMM) 0.3 Absolute Basophils (0.0 - 0.2 /CUMM) 0.1 Diagnostic Data EKG Results EKG on 07/23 16:00 shows atrial fibrillation rate 122, nonspecific T changes. Repeat on 07/23 at 19:15 shows SR at 78. CXR Results PATIENT: RUSSELL ZHAO PRESENT AGE: 62 PATIENT ACCOUNT NO: [id number] : 53 LOCATION: [facility] ORDERING PHYSICIAN: Abeba PATE SERVICE DATE: 07/18/18- EXAM TYPE: RAD - XRY-CHEST XRAY, SINGLE VIEW EXAMINATION:\H\ \N\XR CHEST CLINICAL INFORMATION: PICC line previously placed in right arm. COMPARISON: Chest x-ray 05/22/2018. TECHNIQUE: Frontal view of the chest was obtained. FINDINGS: Right PICC line tip terminates over the SVC in unchanged position. Median sternotomy wires are intact. Surgical clips project over the left upper lung. Linear opacity within the left lung favored to reflect atelectasis or scar. Lungs are otherwise clear. There is no pneumothorax. No pleural effusion. Cardiac silhouette is enlarged and unchanged. IMPRESSION: Right PICC line tip projects over the SVC in unchanged position. Linear opacity at the left lung base favored to reflect atelectasis versus scar. DICTATED BY: Valeriano Priest MD DATE/TIME DICTATED:07/18/181710 PLANT MAINTENANCE TECHNICIAN:PATRICIA DATE/TIME TRANSCRIBED:07/18/181710 CONFIDENTIAL, DO NOT COPY WITHOUT APPROPRIATE AUTHORIZATION. <Electronically signed in Other Vendor System> SIGNED BY: Valeriano Priest MD 07/18/181715 Assessment/Plan Assessment/Plan The patient is a 62-year-old female with multiple medical problems. Currently from a cardiac standpoint her major issue is paroxysmal atrial fibrillation. It appears as if she has been on chronic Lovenox therapy for anticoagulation just up until her surgery yesterday. I would recommend consulting the surgery team as to when the Lovenox can be safely restarted and just start this in therapeutic dose of 1 mg/kg twice daily subcutaneously. This would probably be the best option for now and later she can be transitioned to oral anticoagulation. Otherwise her medical regimen from a cardiac standpoint seems stable and no other changes are indicated. Consult Acknowledgment - Thank you for your consult request.
[2018-07-24 14:28] VITALS: BP 128/62
[2018-07-24 22:28] VITALS: BP 120/62
[2018-07-25 06:44] VITALS: BP 124/61
--- NOTE | 2018-07-25 07:16 | PN- Student ---
See Addendum May Morton 07/25/18 0707: Subjective Subjective: Pt reports feeling ok this morning. Her pain continued to persist throughout the day yesterday and into this am. She is continuing to ambulate without difficulty. Tolerating regular diet. No complaints at this time other than pain. No CP, SOB, difficulty breathing, headache, dizziness, or fever. Objective Objective: Vitals: see emr General: Elderly female, lying in bed, appears tired and uncomfortable but in NAD. Cardio: Regular rate and rhythm. S1 and S2. No murmurs, rubs or gallops. Chest: Wound vac in place on suction. 150 cc of serosanguinous drainage in the vac. Erythema and induration noted around the left breast/axilla. Bairon still in place and reinforced with gauze. Tender to palpation. Pulm Clear breath sounds with no wheezes, rhonchi or rales. Abdomen: Normoactive bowel sounds. Soft, non-distended. Non-distended. Extremities: Calves soft and non-tender. ALPs in place. Results Results: Laboratory Tests 07/24/18 0500: Anion Gap 3 L, Estimated GFR > 60, BUN/Creatinine Ratio 20.0, CBC w Diff NO MAN DIFF REQ, RBC 2.89 L, MCV 86.2, MCH 28.1, MCHC 32.6 L, RDW 16.2 H, MPV 7.8, Gran % 70.2, Lymphocytes % 23.7, Monocytes % 3.8, Eosinophils % 2.1, Basophils % 0.2, Absolute Granulocytes 7.7 H, Absolute Lymphocytes 2.6, Absolute Monocytes 0.4, Absolute Eosinophils 0.2, Absolute Basophils 0 07/23/18 1950: Troponin I < 0.01 07/23/18 1020: Anion Gap 4 L, Estimated GFR > 60, BUN/Creatinine Ratio 25.0, CBC w Diff NO MAN DIFF REQ, RBC 3.32 L, MCV 85.4, MCH 28.2, MCHC 33.0, RDW 16.3 H, MPV 8.2, Gran % 67.4, Lymphocytes % 25.4, Monocytes % 3.9, Eosinophils % 2.8, Basophils % 0.5, Absolute Granulocytes 7.0 H, Absolute Lymphocytes 2.6, Absolute Monocytes 0.4, Absolute Eosinophils 0.3, Absolute Basophils 0.1 Assessment/Plan Assessment: 62 y/o F POD#2 s/p wound debridement and wound vac placement in left/axilla/ chest wall. Vital signs remain stable pt is afebrile. Wound continues to produce moderate amount of drainage. Erythema and induration around the breast appear to be improving. Plan: Continue with pain control. Can most likely re-start Lovenox. Continue with Zosyn. Medical management by medical team. Wound vac in place, monitor output. Will discuss w. Dr Jefferson about changing the wound vac and bairon. Encourage ambulation and incentive spirometry use. Continue home medications. Discuss w Dr Jefferson and surgical PAs. John Gonzalez 07/25/18 1304: Resident Review Statement Resident Statement: amended to note Other Findings: see my note from same day Papito
--- NOTE | 2018-07-25 07:39 | PN- General Surgery ---
See Addendum Subjective Subjective: still w pain to the L axillary region. no fever or illness. wound vac slightly leaking last night and was sealed w more tegaderm by myself w good relief. Objective Vital Signs and I&Os Vital Signs Date Time Temp Pulse Resp B/P B/P Pulse O2 O2 Flow FiO2 Mean Ox Delivery Rate 07/25 0644 98.6 77 21 124/61 90 07/24 2228 98.5 84 16 120/62 90 Room Air 07/24 2044 84 120/62 07/24 1428 98.7 78 18 128/62 92 Room Air 07/24 0854 74 132/50 Intake & Output 07/25 0807/25 0000 07/24 1600 07/24 0807/24 0000 07/23 1600 Intake Total 100 370 830 240 240 700 Output Total 150 650 550 300 350 Balance -50 -280 280 -60 240 350 Intake, IV 100 130 230 700 Intake, Oral 240 600 240 240 Number 1 0 Bowel Movements Output, 150 650 100 300 Drainage Output, Urine 450 350 Patient 0 lb 145 lb Weight Physical Exam: Well-developed well-nourished no apparent distress. HEENT: Atraumatic, extraocular motion intact Neck: Supple, no lymphadenopathy Respiratory: No respiratory distress Extremities: No edema, no calf pain Left axillary region, wound VAC in place, holding suction. 3 areas of iodoform gauze packing were changed, small amount of serosanguineous drainage was noted and packing was replaced with half-inch iodoform gauze. Dry sterile dressing over top. Some skin irritation around the wound edges and small amount of posterior inferior blistering secondary to taping. Paper tape applied. Neuro: Alert and oriented x3 Psych: Mood affect normal, normal memory normal judgment. Skin: Warm and dry, no rash on exposed skin Assessment/Plan Assessment/Plan Left axillary and breast abscess status post I&D x2 with wound VAC placement Wound VAC to be changed by wound care Monday (today) 3 areas of packing changed today by myself at the bedside with iodoform gauze. Patient tolerated well Antibiotics per ID ok for anticoagulation discharge planning
--- NOTE | 2018-07-25 08:06 | PN- Housestaff ---
Jamee Narayan 07/25/18 0805: Subjective Follow-up For: Afib with RVR Left chest wall necrotizing infection Complaints: pain scale (0-10) (05/08) Tele-Events Since Last Visit: sinus rhythm overnight; Afib during exam this morning Subjective: Patient reports episode of anxiety last night because she thought she pulled out her wound vac. She felt tightness in her chest and epigastrium. Sx resolved when she realized she did not pull on the wound vac. She states her pain is well controlled with IV medication, but understands she needs to transition to oral pain meds in anticipation of discharge. Review of Systems Constitutional: Reports: no symptoms. EENTM: Reports: no symptoms. Cardiovascular: Reports: chest pain. Denies: palpitations, peripheral edema. Respiratory: Reports: no symptoms. Gastrointestinal: Reports: no symptoms. Genitourinary: Reports: no symptoms. Musculoskeletal: Reports: see HPI. Skin: Reports: rash (surgical wound left chest). Objective Last 24 Hrs of Vital Signs/I&O Vital Signs Date Time Temp Pulse Resp B/P B/P Pulse O2 O2 Flow FiO2 Mean Ox Delivery Rate 07/25 0746 130 122/68 07/25 0644 98.6 77 21 124/61 90 07/24 2228 98.5 84 16 120/62 90 Room Air 07/24 2044 84 120/62 07/24 1428 98.7 78 18 128/62 92 Room Air Intake & Output 07/25 1600 07/25 0800 07/25 0000 Intake Total 100 370 Output Total 150 650 Balance -50 -280 Intake, IV 100 130 Intake, Oral 240 Number 1 Bowel Movements Output, 150 650 Drainage Patient 0 lb Weight Physical Exam General Appearance: Alert, Oriented X3, Cooperative, No Acute Distress Skin: left anterior chest wall/axilla with wound vac in place and wicking. Site with some reactive erythema. Wound vac functional with serosanguinous output Skin Temp/Moisture Exam: Warm/Dry HEENT: Atraumatic, PERRLA Neck: Supple Cardiovascular: irregularly irregular Lungs: Clear to Auscultation, Normal Air Movement Abdomen: Normal Bowel Sounds, Soft, No Tenderness Extremities: No Cyanosis, No Edema Assessment/Plan Assessment: 62 year old female with PMH DM, CAD s/p CABG, CHF, Hep C, A-fib (previously anticoagulated with lovenox sub cu, upper extremity DVT presented with left chest wall abscess requiring OR drainage x 2. She is post op day 1 from OR take back. Patient had moderate blood loss 450cc intraop and went into rapid Afib. She was transfered to [facility] post op for further management. Problem List: 1. Rapid Afib while off antiocoagulation for surgery 2. Left anterior chest wall abscess 3. H/o HTN 4. H/O DM 5. Hypomagnesemia 6. Acute blood loss anemia #Rapid Afib while off anticoagulation for surgery -Currently in Afib this morning: trop, ekg, cbc, cmp, mag (trop negative, mag low) -Coreg 3.125mg bid: Discuss with Cardiology increasing dose? -Spoke with surgery (Dr. Jefferson) reguarding timing to restart anticoagulation with lovenox 1mg/kg bid. He states patient is clear to begin. Discussing clearance to begin oral anticoagulation -Cardiology consult: Dr. Breaux saw her. She meets criteria for anticoagulation with CHADsVASC 3. Patient previously anticoagulated with sub cu lovenox. Will clear with surgery to start oral anticoagulation. Need to make sure they have no plans to take back to OR or need abrupt discontinuation of anticoagulation. #Left anterior chest wall abscess -s/p OR debridement x2: cultures grew pansensitive pseudomonas and diptheroids ( presumed contaminant) -Wound vac in place; functional; 125mmHg; change MWF; Patient will be discharged with [place] -Surgical dressing c/d/i; wicking changes daily -Surgery managing wound care -Zosyn 4.5g IV q6hr -ID following: discuss transition to PO abx for discharge to [facility] -Pain control: transition to PO pain control with MS contin 15mg bid; IV dilaudid for severe pain -Bowel regimen in setting of opiods: Miralax/Colace #H/O HTN -Lasix 20mg PO daily #HLD -atorvastatin 40mg daily #Hypomagnesemia -1.7 this morning; replete with SloMag -repeat in AM #acute blood loss anemia -patient with Hgb 7.4 from 8.1 previous day -WV with serosanguinous output -Surgery notified -Will transfuse 1 unit pRBC DVT prophylaxis: alps/ambulation/lovenox Code status: full code Dispo: Patient will need transition to oral pain control today; monitor today due to Afib this morning; [facility]. Problem List: 1. Rapid atrial fibrillation 2. Chest wall abscess Pain Ratin Pain Location: left chest wall/axilla Pain Goal: Pain 4 or less Pain Plan: transition to long acting oral pain meds and IV for severe pain only Tomorrow's Labs & Rationales: cbc, bep, mag Sahara MORGAN,Gloria 07/25/18 1054: Attending MD Review Statement Attending Statement Attending MD Statement: examined this patient, discuss w/resident/PA/REGISTER REPAIRER, agreed w/resident/PA/REGISTER REPAIRER, reviewed EMR data (avail), discussed with nursing, discussed with case mgmt Attending Assessment/Plan: Patient does not need more debridement per surgery and the plan is that she will leave with the wound VAC. We are going to start her on long-acting morphine MS Contin 15 twice daily for her ongoing pain to try and decrease the IV pain meds. We will keep her on Lovenox to confirm with surgery before we start her on oral anticoagulation.
[2018-07-25 09:22] LABS: ABSOLUTE BASOPHIL COUNT 0 /CUMM (0.0-0.2); ABSOLUTE EOSINOPHIL COUNT 0.2 /CUMM (0.0-0.7); ABSOLUTE GRANULOCYTE CT 8.8 /CUMM (1.4-6.5); ABSOLUTE MONOCYTE COUNT 0.4 /CUMM (0.10-0.60); BASOPHIL % 0.3 % (0.0-2.0); EOSINOPHIL % 1.8 % (0-5); GRANULOCYTE % 77.1 % (42.2-75.2); MEAN CORPUSCULAR HGB 28.3 PG (27.0-31.0); MEAN CORPUSCULAR HGB CONC 33.1 G/DL (33.0-37.0); MEAN CORPUSCULAR VOLUME 85.3 FL (81.0-99.0); MEAN PLATELET VOLUME 7.8 FL (7.4-10.4); PLATELET COUNT 283 /CUMM (130-400); RBC DISTRIBUTION WIDTH 15.5 % (11.5-14.5); RED BLOOD CELL CT 2.62 /CUMM (4.20-5.40); WHITE BLOOD CELL COUNT 11.4 /CUMM (4.8-10.8)
[2018-07-25 10:07] LABS: HEMATOCRIT 22.4 % (37-47)
--- NOTE | 2018-07-25 12:17 | PN- Infect Dx ---
Subjective Subjective: Afebrile. She continues to complain of discomfort in the left axilla. She has had problems with the wound VAC as well. Objective Last 24 Hrs of Vital Signs/I&O Vital Signs Date Time Temp Pulse Resp B/P B/P Pulse O2 O2 Flow FiO2 Mean Ox Delivery Rate 07/25 1011 Room Air 07/25 0746 130 122/68 07/25 0644 98.6 77 21 124/61 90 07/24 2228 98.5 84 16 120/62 90 Room Air 07/24 2044 84 120/62 07/24 1428 98.7 78 18 128/62 92 Room Air Intake & Output 07/25 1600 07/25 0800 07/25 0000 Intake Total 100 370 Output Total 150 650 Balance -50 -280 Intake, IV 100 130 Intake, Oral 240 Number 1 Bowel Movements Output, 150 650 Drainage Patient 0 lb Weight Physical Exam Other Physical Findings: She appears comfortable in no acute distress Axilla persistent induration and tenderness, with no erythema; wound VAC appears to be leaking Extremities left upper extremity induration and tenderness persist, with decreased range of motion of the left upper extremity; PICC remains in place in the right upper extremity with no inflammation at the site Results Last 24 Hours of Lab Results: Laboratory Tests 07/25 07/25 0900 0900 Chemistry Sodium (137 - 145 mmol/L) 135 L Potassium (3.5 - 5.1 mmol/L) 3.8 Chloride (98 - 107 mmol/L) 100 Carbon Dioxide (22 - 30 mmol/L) 28 Anion Gap (5 - 16) 7 BUN (7 - 17 mg/dL) 10 Creatinine (0.5 - 1.0 mg/dL) 0.5 Estimated GFR (>60 ml/min) > 60 BUN/Creatinine Ratio (7 - 25 %) 20.0 Magnesium (1.6 - 2.3 mg/dL) 1.7 Troponin I (< 0.11 ng/ml) < 0.01 Hematology CBC w Diff NO MAN DIFF REQ WBC (4.8 - 10.8 /CUMM) 11.4 H RBC (4.20 - 5.40 /CUMM) 2.62 L Hgb (12.0 - 16.0 G/DL) 7.4 *L Hct (37 - 47 %) 22.4 L MCV (81.0 - 99.0 FL) 85.3 MCH (27.0 - 31.0 PG) 28.3 MCHC (33.0 - 37.0 G/DL) 33.1 RDW (11.5 - 14.5 %) 15.5 H Plt Count (130 - 400 /CUMM) 283 MPV (7.4 - 10.4 FL) 7.8 Gran % (42.2 - 75.2 %) 77.1 H Lymphocytes % (20.5 - 51.1 %) 17.1 L Monocytes % (1.7 - 9.3 %) 3.7 Eosinophils % (0 - 5 %) 1.8 Basophils % (0.0 - 2.0 %) 0.3 Absolute Granulocytes (1.4 - 6.5 /CUMM) 8.8 H Absolute Lymphocytes (1.2 - 3.4 /CUMM) 2.0 Absolute Monocytes (0.10 - 0.60 /CUMM) 0.4 Absolute Eosinophils (0.0 - 0.7 /CUMM) 0.2 Absolute Basophils (0.0 - 0.2 /CUMM) 0 Last 24 Hours of Ramón Results: No recent cultures Assessment/Plan ID Impression: Stable, with her temperatures remaining normal and her white blood cell count only minimally elevated, now 2 days status post further debridement of the left axillary wound, with moderate amount of retained purulent exudate and a small amount of persistent necrotic tissue noted. She is now on Zosyn, which will cover the Pseudomonas isolated from the OR culture 1 week ago as well as the organisms (MSSA and Clostridium) isolated from her initial infection. Suggestion: 1. Further management of her wound VAC per Surgery 2. Continue Zosyn
--- NOTE | 2018-07-25 12:23 | PN- Cardiology ---
Subjective Subjective: The patient is having some pain at the surgical site, otherwise she seems okay. She remains in sinus rhythm. Her EKG does not show any significant changes. She is on Lovenox for anticoagulation for paroxysmal atrial fibrillation. Objective Vital Signs and I&Os Vital Signs Date Time Temp Pulse Resp B/P B/P Pulse O2 O2 Flow FiO2 Mean Ox Delivery Rate 07/25 1011 Room Air 07/25 0746 130 122/68 07/25 0644 98.6 77 21 124/61 90 07/24 2228 98.5 84 16 120/62 90 Room Air 07/24 2044 84 120/62 07/24 1428 98.7 78 18 128/62 92 Room Air Intake & Output 07/25 1600 07/25 0807/25 0000 07/24 1600 07/24 0000 Intake Total 100 370 830 240 240 Output Total 150 650 550 300 Balance -50 -280 280 -60 240 Intake, IV 100 130 230 Intake, Oral 240 600 240 240 Number 1 Bowel Movements Output, 150 650 100 300 Drainage Output, Urine 450 Patient 0 lb 145 lb Weight Physical Exam: No distress HEENT exam normal Chest clear, bandage to left axillary region Heart regular rhythm no murmurs Extremities no edema Current Medications: Current Medications Sig/Bayron Start time Last Medication Dose Route Stop Time Status Admin Acetaminophen 650 MG Q6P PRN 07/18 2000 AC 07/21 PO 1004 Atorvastatin Calcium 40 MG 1700 07/19 1700 AC 07/24 PO 1655 Bupropion HCl 150 MG DAILY 07/19 09 AC 07/25 PO 0941 Carvedilol 3.125 MG BID 07/18 2100 AC 07/25 PO 0746 Docusate Sodium 100 MG BID PRN 07/18 2015 AC PO Enoxaparin Sodium 70 MG BID 07/24 2100 AC 07/25 SC 0943 Furosemide 20 MG DAILY 07/19 900 AC 07/25 PO 0941 Hydromorphone HCl 2 MG Q6P PRN 07/24 0930 AC 07/25 IV 0819 Influenza Virus 0.5 ML ONCE ONE 07/25 1000 DC Vaccine IM 07/25 1001 Insulin Aspart 0 AT BEDTIME 07/24 2100 AC SC Insulin Aspart 0 TIDAC 07/24 0800 AC SC Magnesium Chloride 64 MG ONCE ONE 07/25 1015 DC PO 07/25 1016 Magnesium Chloride 64 MG ONCE ONE 07/25 1000 DC PO 07/25 1001 Morphine Sulfate 0 .STK-MED ONE 07/25 0944 DC PO Morphine Sulfate 15 MG BID 07/25 0912 AC 07/25 PO 0944 Omeprazole 40 MG DAILY AC 07/19 07 AC 07/25 PO 0631 Oxycodone HCl 10 MG Q4-6 PRN PRN 07/19 0730 AC 07/24 PO 1950 Oxycodone HCl 5 MG Q6H PRN 07/18 2000 AC 07/19 PO 0019 Piperacillin Sod/ 4.5 GM Q6H 07/24 020 AC 07/25 Tazobactam Sod IV 0933 Sodium Chloride 100 ML Polyethylene Glycol 17 GM DAILY 07/19 09 AC 07/24 PO 0855 Potassium Chloride 40 MEQ ONCE ONE 07/25 1015 DC PO 07/25 1016 Pregabalin 150 MG BID 07/18 2100 AC 07/25 PO 0942 Sertraline HCl 200 MG DAILY 07/19 900 AC 07/25 PO 0941 Trazodone HCl 200 MG AT BEDTIME 07/18 2100 AC 07/24 PO 204 Results Last 48 Hrs of Labs/Mics: Laboratory Tests 07/25/18 09: Troponin I < 0.01 07/25/18899: Anion Gap 7, Estimated GFR > 60, BUN/Creatinine Ratio 20.0, Magnesium 1.7, CBC w Diff NO MAN DIFF REQ, RBC 2.62 L, MCV 85.3, MCH 28.3, MCHC 33.1, RDW 15.5 H, MPV 7.8, Gran % 77.1 H, Lymphocytes % 17.1 L, Monocytes % 3.7, Eosinophils % 1.8, Basophils % 0.3, Absolute Granulocytes 8.8 H, Absolute Lymphocytes 2.0, Absolute Monocytes 0.4, Absolute Eosinophils 0.2, Absolute Basophils 0 07/24/18 0500: Anion Gap 3 L, Estimated GFR > 60, BUN/Creatinine Ratio 20.0, CBC w Diff NO MAN DIFF REQ, RBC 2.89 L, MCV 86.2, MCH 28.1, MCHC 32.6 L, RDW 16.2 H, MPV 7.8, Gran % 70.2, Lymphocytes % 23.7, Monocytes % 3.8, Eosinophils % 2.1, Basophils % 0.2, Absolute Granulocytes 7.7 H, Absolute Lymphocytes 2.6, Absolute Monocytes 0.4, Absolute Eosinophils 0.2, Absolute Basophils 0 07/23/18 1950: Troponin I < 0.01 Assessment/Plan Assessment/Plan The patient is stable from a cardiac standpoint. She has maintained sinus rhythm. She is anticoagulated for paroxysmal atrial fibrillation. If the patient is to be transferred back to rehab we can send her out on an oral anticoagulant such as Eliquis. I would keep her on Lovenox while she is in the hospital just in case she might need additional surgery or other procedures. Continue telemetry? Yes
[2018-07-25 14:30] VITALS: BP 154/67
[2018-07-25 23:55] VITALS: BP 127/79
[2018-07-26 06:42] VITALS: BP 145/75
--- NOTE | 2018-07-26 07:17 | PN- Housestaff ---
Jamee Narayan 07/26/18 0717: Subjective Follow-up For: Afib left chest wall abscess Complaints: no complaints Tele-Events Since Last Visit: NSR rate 62-72 Subjective: No acute events overnight. Patient was sleeping when I entered the room. She states she slept well overnight. She states her pain is controlled with PO and IV pain meds. Denies palpitations, chest pain, SOB, n/v/d, abdominal pain. Review of Systems Constitutional: Reports: no symptoms. EENTM: Reports: no symptoms. Cardiovascular: Reports: no symptoms. Respiratory: Reports: no symptoms. Gastrointestinal: Reports: no symptoms. Genitourinary: Reports: no symptoms. Musculoskeletal: Reports: see HPI. Skin: Reports: lesions (left chest wall s/p abscess). Objective Last 24 Hrs of Vital Signs/I&O Vital Signs Date Time Temp Pulse Resp B/P B/P Pulse O2 O2 Flow FiO2 Mean Ox Delivery Rate 07/26 0642 98.2 103 18 145/75 95 Room Air 07/25 2355 98.4 99 20 127/79 94 Room Air 07/25 2144 Room Air 07/25 2110 76 127/79 07/25 1430 98.5 80 18 154/67 95 07/25 1011 Room Air Intake & Output 07/26 0800 07/26 0000 07/25 1600 Intake Total 905 212 3123 Output Total 1900 50 1400 Balance -1800 50 250 Intake, IV 100 100 800 Intake, Oral 850 Number 1 1 Bowel Movements Output, 50 50 350 Drainage Output, Urine 1850 1050 Physical Exam General Appearance: Alert, Oriented X3, Cooperative, No Acute Distress Skin: left chest wall/axilla with wound vac in place-functional, serosanguinous output; ; ingris in place; reactive erythema improving. , bilateral buttocks with pressure ulcers present prior to admission Skin Temp/Moisture Exam: Warm/Dry HEENT: Atraumatic, PERRLA Neck: Supple Cardiovascular: Regular Rate, Normal S1, Normal S2 Lungs: Clear to Auscultation Abdomen: Normal Bowel Sounds, Soft, No Tenderness Extremities: No Cyanosis, No Edema, Normal Pulses, RUE PICC line intact and functional without surrounding erythema Assessment/Plan Assessment: 62 year old female with PMH DM, CAD s/p CABG, CHF, Hep C, A-fib (previously anticoagulated with lovenox sub cu, upper extremity DVT presented with left chest wall abscess requiring OR drainage x 2. She is post op day 1 from OR take back. Patient had moderate blood loss 450cc intraop and went into rapid Afib. She was transfered to [facility] post op for further management. Problem List: 1. Rapid Afib while off antiocoagulation for surgery 2. Left anterior chest wall abscess 3. H/o HTN 4. H/O DM 5. Hypomagnesemia 6. Acute blood loss anemia #Rapid Afib while off anticoagulation for surgery -Went back into Afib morning of 07/25; work up negative and spontaneously returned to [facility] -Coreg 3.125mg bid -Therapeutic lovenox 1mg/kg for anticoagulation while inpatient -Cardiology consult: Dr. Breaux saw her. She meets criteria for anticoagulation with CHADsVASC 3. Patient previously anticoagulated with sub cu lovenox. Will start on Eliquis 5mg bid upon discharge. #Left anterior chest wall abscess -s/p OR debridement x2: cultures grew pansensitive pseudomonas and diptheroids ( presumed contaminant) -Wound vac in place; functional; 125mmHg; change MWF; Patient will be discharged with [place] -Surgical dressing c/d/i; wicking changes daily -Surgery managing wound care -Zosyn 4.5g IV q6hr: started 07/24 -ID following: discuss transition to PO abx for discharge to [facility] -Pain control: transition to PO pain control with MS contin 15mg bid and roxicodone for short acting; IV dilaudid for severe pain. Patient prefers to continue IV pain medication right up until discharge to rehab. She states she understands the possibility that her pain may not be adequately controlled if she does not trial PO pain medications prior to discharge. -Bowel regimen in setting of opiods: Miralax/Colace #H/O HTN -Lasix 20mg PO daily #HLD -atorvastatin 40mg daily #Hypomagnesemia -1.7 this morning; replete with SloMag -repeat in AM #acute blood loss anemia -s/p 1unit pRBC on 07/25 for Hgb drop 7.4 from 8.1 -WV with serosanguinous output -Surgery managing wound care DVT prophylaxis: alps/ambulation/lovenox Code status: full code Dispo: Patient will need transition to oral pain control; possible dc to [facility] tomorrow. Problem List: 1. Chest wall abscess 2. Rapid atrial fibrillation Pain Ratin Pain Location: none; sleeping Pain Goal: Pain 4 or less Pain Plan: oral pain meds; long acting and short acting Tomorrow's Labs & Rationales: cbc; bep;mag Sahara MORGAN,Gloria 07/26/18 0948: Attending MD Review Statement Attending Statement Attending MD Statement: examined this patient, discuss w/resident/PA/VERSE WRITER, agreed w/resident/PA/VERSE WRITER, reviewed EMR data (avail), discussed with nursing, discussed with case mgmt, reviewed images Attending Assessment/Plan: Patient is doing better. With the MS Contin her pain is slightly better but she wants the IV Dilaudid right until she goes to rehab tomorrow. She understands that the plan is to discharge her tomorrow. We have to clarify with ID the antibiotic, and duration with PICC line. She will leave the wound VAC. She is also requesting to be on the Lovenox rather than an oral blood thinner. While she has the wound VAC and the PICC line I think that is a reasonable request should she have any problems with bleeding.
[2018-07-26 07:55] LABS: ABSOLUTE BASOPHIL COUNT 0.1 /CUMM (0.0-0.2); ABSOLUTE EOSINOPHIL COUNT 0.3 /CUMM (0.0-0.7); ABSOLUTE GRANULOCYTE CT 5.4 /CUMM (1.4-6.5); ABSOLUTE LYMPH COUNT 2.2 /CUMM (1.2-3.4); ABSOLUTE MONOCYTE COUNT 0.4 /CUMM (0.10-0.60); BASOPHIL % 0.7 % (0.0-2.0); EOSINOPHIL % 3.3 % (0-5); GRANULOCYTE % 64.6 % (42.2-75.2); MEAN CORPUSCULAR HGB 28.6 PG (27.0-31.0); MEAN CORPUSCULAR HGB CONC 33.4 G/DL (33.0-37.0); MEAN CORPUSCULAR VOLUME 85.7 FL (81.0-99.0); MEAN PLATELET VOLUME 8.3 FL (7.4-10.4); PLATELET COUNT 293 /CUMM (130-400); RBC DISTRIBUTION WIDTH 15.8 % (11.5-14.5); RED BLOOD CELL CT 3.03 /CUMM (4.20-5.40); WHITE BLOOD CELL COUNT 8.4 /CUMM (4.8-10.8)
--- NOTE | 2018-07-26 09:01 | Cons- Wound Care ---
General Information and HPI Consulting Request Date of Consult: 07/26/18 Requested By: Gloria Shoemaker MD Reason for Consult: Right buttock ulcer present on admission History of Present Illness: Patient is 62-year-old diabetic multiple medical problems admitted with recurrent left breast axillary abscess requiring I and D and continued antibiotics. She was noted to have bilateral buttock ulcers present on admission. Allergies/Medications Allergies: Coded Allergies: No Known Allergies (05/25/18) Home Med List: Atorvastatin Calcium 40 MG TABLET 40 MG PO 1700 Heart Bupropion HCl (Wellbutrin XL) 150 MG TAB.ER.24H 1 TAB PO DAILY UNKNOWN ( Reported) Carvedilol 3.125 MG TABLET 1 TAB PO BID HEART (Reported) Docusate Sodium 100 MG CAPSULE 100 MG PO BID PRN Constipation Enoxaparin Sodium (Lovenox) 40 MG/0.4 ML SYRINGE 80 MG SC BID DVT Furosemide 20 MG TABLET 20 MG PO DAILY Diuresis Ketoconazole 2 % CREAM..G. 1 EDWARD TOP DAILY AFFECTED AREA(S) (Reported) apply to affected area(s) Memantine HCl (Namenda XR) 28 MG CAP.SPR.24 1 CAP PO DAILY MEMORY (Reported) Metformin HCl (Metformin HCl ER) 500 MG TAB.ER.24H 1 TAB PO DAILY DM ( Reported) Omeprazole 20 MG CAPSULE.DR 40 MG PO DAILY AC PPI Oxycodone HCl 15 MG TABLET 1 TAB PO Q8H PAIN (Reported) Polyethylene Glycol 3350 (Miralax) 17 GRAM/DOSE POWDER 17 GM PO DAILY COnstipation Pregabalin (Lyrica) 150 MG CAPSULE 1 CAP PO BID UNKNOWN (Reported) Sertraline HCl (Zoloft) 100 MG TABLET 2 TAB PO DAILY MENTAL HEALTH (Reported) Simethicone 80 MG TAB.CHEW 80 MG PO Q6P PRN GAS Trazodone HCl 100 MG TABLET 2 TAB PO QHS SLEEP/MENTAL HEALTH (Reported) Review of Systems Review of Systems: Patient has been in a fdc and reports chronic buttock ulcer Past History Medical History Blood Transfusion Hx: No Neurological: peripheral neuropathy EENT: NONE Cardiovascular: AFIB, CAD, CHF, hypertension, myocardial infarction Respiratory: COPD Gastrointestinal: NONE Hepatic: hepatitis C Renal: NONE Musculoskeletal: osteoarthritis Psychiatric: NONE Endocrine: diabetes Blood Disorders: NONE Cancer(s): NONE SIEBEL SOLUTION ARCHITECT/Reproductive: NONE Surgical History Surgical History: CABG, cholecystectomy, 2015: GJ [id number]-[id number] bypass by Dr. Tommie Weber at [facility] Family History Relations & Conditions If Any: MOTHER, , Age 70; Cause: Diabetes. FATHER (Pt didn't know her father). ; Cause: Unknown cause of morbidity or mortality. Psychosocial History Where Do You Live? Senior Living Facility Who Do You Live With? self Services at Home: None Primary Language: Upper Sorbian Smoking Status: Former Smoker Living Will? no Power of Water And Fire Technician/HCP? no Functional Ability ADLs Independent: dressing, eating, toileting, bathing. Ambulation: independent IADLs Independent: shopping, housework, finances, food prep, telephone, transportation , medication admin. Exam & Diagnostic Data Vital Signs and I&O Vital Signs Result Date Time Pulse Ox 95 07/26 642 B/P 145/75 07/26 0642 O2 Delivery Room Air 07/26 642 Temp 98.2 07/26 0642 Pulse 103 07/26 0642 Resp 18 07/26 0642 Intake & Output 07/26 0000 07/25 1600 07/25 0800 Intake Total 100 1650 100 Output Total 50 1400 150 Balance 50 250 -50 Intake, IV 100 800 100 Intake, Oral 850 Number 1 Bowel Movements Output, 50 350 150 Drainage Output, Urine 1050 Physical Exam: Exam of the right buttock shows an approximate 1.2 x 0.8 cm stage II pressure ulcer without undermining sinus tracking or supposed bone there is 2-3 cm of surrounding erythema reflective of stage I pressure changes there appears to have been a ulcer over the left buttock which appears to have healed. Note the patient is hypoalbuminemic Assessment/Plan Impression/Plan: 62-year-old woman with recurrent left axillary infection admitted for incision and drainage and IV antibiotics was found to have a right buttock ulcer present on admission. Recommend use of thin do a term changed every 2-3 days and aggressive offloading. Formal dietary evaluation for what appears to be protein malnutrition. If necessary patient can be followed in the wound care center for future VAC changes if necessary Consult Acknowledgment - Thank you for your consult request.
--- NOTE | 2018-07-26 09:37 | PN- Student ---
May Morton 07/26/18 0928: Subjective Subjective: Pt reports improved pain since yesterday although it still persists. She continues to ambulate and void without issue. She is toelrating a regular diet with no nausea or vomiting. She denies any CP, SOB, difficulty breathing, headache or dizziness. Objective Objective: Vitals: See EMR General: Elderly female, lying in bed, NAD. Cardio: Regular rate and rhythm. S1 and S2. No murmurs rubs or gallops. Pulm: Clear breath sounds, no wheezes, rhonchi or rales. Chest: Wound vac in place holding suction. Decreasing erythema noted around the wound. Tender to palpation. Abdomen: Soft, non-tender, non-distended. Normoactive bowel sounds. Extremities: Calves soft and non-tender bilaterally. Results Results: Laboratory Tests 07/26/18 0539: Anion Gap 3 L, Estimated GFR > 60, BUN/Creatinine Ratio 14.0, Magnesium 1.8, CBC w Diff NO MAN DIFF REQ, RBC 3.03 L, MCV 85.7, MCH 28.6, MCHC 33.4, RDW 15.8 H, MPV 8.3, Gran % 64.6, Lymphocytes % 26.5, Monocytes % 4.9, Eosinophils % 3.3 , Basophils % 0.7, Absolute Granulocytes 5.4, Absolute Lymphocytes 2.2, Absolute Monocytes 0.4, Absolute Eosinophils 0.3, Absolute Basophils 0.1 07/25/18 0900: Troponin I < 0.01 07/25/18 09: Anion Gap 7, Estimated GFR > 60, BUN/Creatinine Ratio 20.0, Magnesium 1.7, CBC w Diff NO MAN DIFF REQ, RBC 2.62 L, MCV 85.3, MCH 28.3, MCHC 33.1, RDW 15.5 H, MPV 7.8, Gran % 77.1 H, Lymphocytes % 17.1 L, Monocytes % 3.7, Eosinophils % 1.8, Basophils % 0.3, Absolute Granulocytes 8.8 H, Absolute Lymphocytes 2.0, Absolute Monocytes 0.4, Absolute Eosinophils 0.2, Absolute Basophils 0 07/24/18 0500: Anion Gap 3 L, Estimated GFR > 60, BUN/Creatinine Ratio 20.0, CBC w Diff NO MAN DIFF REQ, RBC 2.89 L, MCV 86.2, MCH 28.1, MCHC 32.6 L, RDW 16.2 H, MPV 7.8, Gran % 70.2, Lymphocytes % 23.7, Monocytes % 3.8, Eosinophils % 2.1, Basophils % 0.2, Absolute Granulocytes 7.7 H, Absolute Lymphocytes 2.6, Absolute Monocytes 0.4, Absolute Eosinophils 0.2, Absolute Basophils 0 07/23/18 1950: Troponin I < 0.01 07/23/18 1020: Anion Gap 4 L, Estimated GFR > 60, BUN/Creatinine Ratio 25.0, CBC w Diff NO MAN DIFF REQ, RBC 3.32 L, MCV 85.4, MCH 28.2, MCHC 33.0, RDW 16.3 H, MPV 8.2, Gran % 67.4, Lymphocytes % 25.4, Monocytes % 3.9, Eosinophils % 2.8, Basophils % 0.5, Absolute Granulocytes 7.0 H, Absolute Lymphocytes 2.6, Absolute Monocytes 0.4, Absolute Eosinophils 0.3, Absolute Basophils 0.1 Assessment/Plan Assessment: 62 y/o F POD#3 s/p wound debridement of left breast/axilla/chest wall with wound vac placement. Pt continues to have moderate amount of serosanguinous discharge from her wound. Post-operative pain is being better controlled and the vital signs remain stable. Plan: Continue with pain control. Lovenox 70 mg BID. Continue with Zosyn. Medical management by medical team. Wound vac in place, monitor output. Encourage ambulation and incentive spirometry use. Continue home medications. As per medical team, patient may be discharged to rehab tomorrow. Wound vac to remain in place at rehab and pt will be instructed to follow up w Dr Jefferson. Discuss w Dr Jefferson and surgical PAs. Zakiya Salinas 07/26/18 1033: Assessment/Plan Assessment: Agree with student assessment. Output from woundvac continues to appear serosanguinous. Vac remaining in place, holding suction well and as noted by student assessment, erythema continues to decrease around vac site and wick sites. Dr. Gold at bedside during my evaluation and plan of care discussed. Patient is to remain on IV zosyn for a total of 10 days iv abx treatment. Wound vac will be changed tomorrow. Plan is to discharge patient to [facility] tomorrow, arrangements made to continue woundvac treatment at rehab facility. This plan of care has been discussed with Dr. Jefferson who is in agreement.
[2018-07-26 12:24] VITALS: BP 160/94
--- NOTE | 2018-07-26 13:15 | PN- Infect Dx ---
Subjective Subjective: Afebrile without complaints Objective Last 24 Hrs of Vital Signs/I&O Vital Signs Date Time Temp Pulse Resp B/P B/P Pulse O2 O2 Flow FiO2 Mean Ox Delivery Rate 07/26 1224 84 160/94 07/26 0900 78 170/81 07/26 0642 98.2 103 18 145/75 95 Room Air 07/25 2355 98.4 99 20 127/79 94 Room Air 07/25 2144 Room Air 07/25 2110 76 127/79 07/25 1430 98.5 80 18 154/67 95 Intake & Output 07/26 1600 07/26 0800 07/26 0000 Intake Total 100 100 Output Total 1900 50 Balance -1800 50 Intake, IV 100 100 Number 1 Bowel Movements Output, 50 50 Drainage Output, Urine 1850 Physical Exam Other Physical Findings: She appears comfortable in no acute distress Axilla decreased induration of the left axilla and chest wall, with no erythema but with persistent drainage; wound VAC in place Extremities left upper extremity induration persists; PICC in the right upper extremity with no inflammation at the site Results Last 24 Hours of Lab Results: Laboratory Tests 07/26 0539 Chemistry Sodium (137 - 145 mmol/L) 138 Potassium (3.5 - 5.1 mmol/L) 4.0 Chloride (98 - 107 mmol/L) 106 Carbon Dioxide (22 - 30 mmol/L) 29 Anion Gap (5 - 16) 3 L BUN (7 - 17 mg/dL) 7 Creatinine (0.5 - 1.0 mg/dL) 0.5 Estimated GFR (>60 ml/min) > 60 BUN/Creatinine Ratio (7 - 25 %) 14.0 Magnesium (1.6 - 2.3 mg/dL) 1.8 Hematology CBC w Diff NO MAN DIFF REQ WBC (4.8 - 10.8 /CUMM) 8.4 RBC (4.20 - 5.40 /CUMM) 3.03 L Hgb (12.0 - 16.0 G/DL) 8.7 L Hct (37 - 47 %) 26.0 L MCV (81.0 - 99.0 FL) 85.7 MCH (27.0 - 31.0 PG) 28.6 MCHC (33.0 - 37.0 G/DL) 33.4 RDW (11.5 - 14.5 %) 15.8 H Plt Count (130 - 400 /CUMM) 293 MPV (7.4 - 10.4 FL) 8.3 Gran % (42.2 - 75.2 %) 64.6 Lymphocytes % (20.5 - 51.1 %) 26.5 Monocytes % (1.7 - 9.3 %) 4.9 Eosinophils % (0 - 5 %) 3.3 Basophils % (0.0 - 2.0 %) 0.7 Absolute Granulocytes (1.4 - 6.5 /CUMM) 5.4 Absolute Lymphocytes (1.2 - 3.4 /CUMM) 2.2 Absolute Monocytes (0.10 - 0.60 /CUMM) 0.4 Absolute Eosinophils (0.0 - 0.7 /CUMM) 0.3 Absolute Basophils (0.0 - 0.2 /CUMM) 0.1 Last 24 Hours of Ramón Results: No recent cultures Assessment/Plan ID Impression: Stable, with her temperatures and white blood cell count normal, now 3 days status post further debridement of the left axillary wound, with moderate amount of retained purulent exudate and a small amount of persistent necrotic tissue noted. She is now on Zosyn, which will cover the Pseudomonas isolated from the OR culture 1 week ago as well as the organisms (MSSA and Clostridium) isolated from her initial infection, and this can be continued to complete a 7 to 10 day course of treatment from her most recent debridement. Suggestion: 1. Continue Zosyn for 1 more week
[2018-07-26 14:44] VITALS: BP 120/78
[2018-07-26] MEDS ORDERED: LOVENOX80 MG/0.1 SC (15:08)
[2018-07-26] MEDS ORDERED: MORPHINE SULFAT15 M3 PO (15:08)
[2018-07-26] MEDS ORDERED: ZOSYN 4.54.5 GM/100 IV (15:11)
--- NOTE | 2018-07-26 16:04 | PN- General Surgery ---
Surgical Brief Attending Note Brief Attending Note: VAC change tomorrow. OK for transfer to rehab. She should f/u with me in two weeks. VAC change necessary 3x/week.
--- NOTE | 2018-07-26 21:41 | PN- Cardiology ---
Subjective Subjective: No acute events. Remains in SR. Denies chest pains other than surgical site. Denies SOB at rest. Objective Vital Signs and I&Os Vital Signs Date Time Temp Pulse Resp B/P B/P Pulse O2 O2 Flow FiO2 Mean Ox Delivery Rate 07/26 1938 74 154/71 07/26 1444 98.4 58 18 120/78 96 Room Air 07/26 1224 84 160/94 07/26 0900 78 170/81 07/26 0642 98.2 103 18 145/75 95 Room Air 07/25 2355 98.4 99 20 127/79 94 Room Air 07/25 2144 Room Air Intake & Output 07/26 1600 07/26 0800 07/26 0000 07/25 1600 07/25 0800 07/25 0000 Intake Total 1150 396 416 6946 100 370 Output Total 750 1900 50 1400 150 650 Balance 400 -1800 50 250 -50 -280 Intake, IV 300 100 100 800 100 130 Intake, Oral 850 850 240 Number 2 1 1 1 Bowel Movements Output, 50 50 50 350 150 650 Drainage Output, Urine 700 1850 1050 Patient 0 lb Weight Physical Exam: General Appearance: Alert, Oriented X3, Cooperative, No Acute Distress left chest wall/axilla with wound vac in place-functional Neck: Supple, trachea midline, no JVD Cardiovascular: Regular Rate, Normal S1, Normal S2, no audible murmur or rub Lungs: Clear to Auscultation, good air entry bilaterally Abdomen: Normal Bowel Sounds, Soft, No Tenderness Extremities: No Edema, Normal Pulses, good capillary refill. Current Medications: Current Medications Sig/Bayron Start time Last Medication Dose Route Stop Time Status Admin Acetaminophen 650 MG Q6P PRN 07/18 2000 AC 07/21 PO 1004 Atorvastatin Calcium 40 MG 1700 07/19 170 AC 07/26 PO 1603 Bupropion HCl 150 MG DAILY 07/19 900 AC 07/26 PO 0902 Carvedilol 3.125 MG BID 07/18 PO 193 Docusate Sodium 100 MG BID PRN 07/18 2015 AC PO Enoxaparin Sodium 70 MG BID 07/24 SC 1938 Furosemide 20 MG DAILY 07/19 900 AC 07/26 PO 09 Hydromorphone HCl 2 MG Q6P PRN 07/24 930 AC 07/26 IV 1749 Insulin Aspart 0 AT BEDTIME 07/24 2100 AC SC Insulin Aspart 0 TIDAC 07/24 08 AC 07/25 SC 1343 Morphine Sulfate 15 MG BID 07/25 09 AC 07/26 PO 1940 Omeprazole 40 MG DAILY AC 07/19 07 AC 07/26 PO 0529 Oxycodone HCl 5 MG Q4-6 PRN 07/25 2100 AC 07/26 PO 1555 Oxycodone HCl 10 MG Q4-6 PRN PRN 07/19 0730 DC 07/24 PO 1950 Piperacillin Sod/ 4.5 GM Q6H 07/24 020 AC 07/26 Tazobactam Sod IV 194 Sodium Chloride 100 ML Polyethylene Glycol 17 GM DAILY 07/19 900 AC 07/26 PO 09 Pregabalin 150 MG BID 07/18 2100 AC 07/26 PO 194 Sertraline HCl 200 MG DAILY 07/19 09 AC 07/26 PO 09 Trazodone HCl 200 MG AT BEDTIME 07/18 2100 AC 07/26 PO 193 Results Last 48 Hrs of Labs/Mics: Laboratory Tests 07/26/18 0539: Anion Gap 3 L, Estimated GFR > 60, BUN/Creatinine Ratio 14.0, Magnesium 1.8, CBC w Diff NO MAN DIFF REQ, RBC 3.03 L, MCV 85.7, MCH 28.6, MCHC 33.4, RDW 15.8 H, MPV 8.3, Gran % 64.6, Lymphocytes % 26.5, Monocytes % 4.9, Eosinophils % 3.3 , Basophils % 0.7, Absolute Granulocytes 5.4, Absolute Lymphocytes 2.2, Absolute Monocytes 0.4, Absolute Eosinophils 0.3, Absolute Basophils 0.1 07/25/18899: Troponin I < 0.01 07/25/18899: Anion Gap 7, Estimated GFR > 60, BUN/Creatinine Ratio 20.0, Magnesium 1.7, CBC w Diff NO MAN DIFF REQ, RBC 2.62 L, MCV 85.3, MCH 28.3, MCHC 33.1, RDW 15.5 H, MPV 7.8, Gran % 77.1 H, Lymphocytes % 17.1 L, Monocytes % 3.7, Eosinophils % 1.8, Basophils % 0.3, Absolute Granulocytes 8.8 H, Absolute Lymphocytes 2.0, Absolute Monocytes 0.4, Absolute Eosinophils 0.2, Absolute Basophils 0 Assessment/Plan Assessment/Plan Atrial fibrillation immediately post operatively with spontaneous conversion to SR since. CAD without evidence of unstable angina/active ichemia. Some elevated BP values, likely related to pain at surgical site, if more values >150/90 tomorrow, i would consider adding another antihypertensive agent (such as losartan 25, or norvasc 5). Change s/q lovenox to eliquis 5 bid upon discharge. Continue telemetry? Yes
[2018-07-26 22:33] VITALS: BP 122/70
[2018-07-27 06:44] VITALS: BP 114/68
--- NOTE | 2018-07-27 06:49 | PN- Student ---
May Morton 07/27/18 0637: Subjective Subjective: Pt reports continuing pain to the left breast/axilla. Pain continues to improved. Pt feels well otherwise. Only other complaint is anxiety related to discharge back to rehab. Says that last night she felt air leaking from her wound vac at the skin but the dressing was reinforced by nursing staff and she did not notice any leak afterwards. She continues to void and ambulate without difficulty. She is tolerating a regular diet without any nausea or vomiting. Pt denies any CP, SOB, difficulty breathing, nausea, vomiting, headache or dizziness. Objective Objective: Vitals: See EMR General: Elderly female, lying comfortably in bed, appears sad but in NAD. Cardio: Regular rate and rhythm. S1 and s2 appreciated. No murmurs, rubs or gallops. Pulm: Clear breath sounds auscultated in anterior and lateral lung gale with no wheezes, rhonchi or rales appreciated. Chest: Wound vac in place and holding suction. 250 cc of serosanguinous discharge in the wound vac. Erythema noted around the breast and axilla. Tenderness to the axillary region and nipple. Slight warmth noted at the wound. Extremities: Calves are soft and non-tender to palpation. Gross motor and sensation intact and equal bilaterally. Results Results: Laboratory Tests 07/26/18 0539: Anion Gap 3 L, Estimated GFR > 60, BUN/Creatinine Ratio 14.0, Magnesium 1.8, CBC w Diff NO MAN DIFF REQ, RBC 3.03 L, MCV 85.7, MCH 28.6, MCHC 33.4, RDW 15.8 H, MPV 8.3, Gran % 64.6, Lymphocytes % 26.5, Monocytes % 4.9, Eosinophils % 3.3 , Basophils % 0.7, Absolute Granulocytes 5.4, Absolute Lymphocytes 2.2, Absolute Monocytes 0.4, Absolute Eosinophils 0.3, Absolute Basophils 0.1 07/25/18 0900: Troponin I < 0.01 07/25/18 09: Anion Gap 7, Estimated GFR > 60, BUN/Creatinine Ratio 20.0, Magnesium 1.7, CBC w Diff NO MAN DIFF REQ, RBC 2.62 L, MCV 85.3, MCH 28.3, MCHC 33.1, RDW 15.5 H, MPV 7.8, Gran % 77.1 H, Lymphocytes % 17.1 L, Monocytes % 3.7, Eosinophils % 1.8, Basophils % 0.3, Absolute Granulocytes 8.8 H, Absolute Lymphocytes 2.0, Absolute Monocytes 0.4, Absolute Eosinophils 0.2, Absolute Basophils 0 Assessment/Plan Assessment: 62 y/o F POD#4 s/p wound debridement of left breast/axilla/chest wall with wound vac placement. Pt continues to have moderate amount of serosanguinous discharge from her wound. Erythema around the breast and axilla continue to decrease. Post -operative pain is being better controlled and the vital signs remain stable. Plan: Pt to be d/c back to rehab. Wound vac treatments will continue at rehab and will need to be change 3x/week. As per ID recommendations, pt to continue IV Zosyn to complete a total of 10 days. Lovenox 70 mg BID to continue. Pt will follow up with Dr. Jefferson. Continued ambulation at rehab is encouraged with the patient. Zakiya Salinas 07/27/18 0954: Assessment/Plan Assessment: Agree with student assessment and plan. It was communicated to us that patient can not be transferrd to [facility] with wound vac in place. Recommend wet to dry dressing immediately prior to discharge with replacement of wound vac once at facility. Continue with lovenox and zosyn as recommended
--- NOTE | 2018-07-27 09:20 | PN- Housestaff ---
See Addendum Jamee Narayan 07/27/18 0920: Subjective Follow-up For: left chest wall/axilla infection afib Complaints: no complaints Tele-Events Since Last Visit: Sinus rhythm 59-90 Junctional rhythm with inverted p waves 04:00 Subjective: Patient states she slept well last night and pain is controlled. She denies any chest pain, SOB, palpitations, n/v, fever. Patient is aware she will return to [facility] today and is in agreement with this plan. Review of Systems Constitutional: Reports: no symptoms. EENTM: Reports: no symptoms. Cardiovascular: Reports: no symptoms. Respiratory: Reports: no symptoms. Gastrointestinal: Reports: no symptoms. Genitourinary: Reports: no symptoms. Musculoskeletal: Reports: no symptoms. Skin: Reports: erythema (left chest wall/axilla ), lesions. Objective Last 24 Hrs of Vital Signs/I&O Vital Signs Date Time Temp Pulse Resp B/P B/P Pulse O2 O2 Flow FiO2 Mean Ox Delivery Rate 07/27 1012 109 164/76 07/27 0644 97.8 64 18 114/68 95 Room Air 07/26 2233 98.1 64 18 122/70 94 Room Air 07/26 1938 74 154/71 07/26 1444 98.4 58 18 120/78 96 Room Air 07/26 1224 84 160/94 Intake & Output 07/27 1600 07/27 0800 07/27 0000 Intake Total 150 960 Output Total 300 700 Balance -150 260 Intake, Oral 150 960 Number 2 Bowel Movements Output, Urine 300 700 Patient 152 lb Weight Weight Bed scale Measurement Method Physical Exam General Appearance: Alert, Oriented X3, Cooperative, No Acute Distress Skin: left chest wall/axilla with wound vac in place; functional. Area less tender and red as compared to previous day Skin Temp/Moisture Exam: Warm/Dry HEENT: Atraumatic, PERRLA Neck: Supple Cardiovascular: Regular Rate, Normal S1, Normal S2, systolic murmur Lungs: Clear to Auscultation, Normal Air Movement Abdomen: Normal Bowel Sounds, Soft, No Tenderness Extremities: No Edema, Normal Pulses Assessment/Plan Assessment: 62 year old female with PMH DM, CAD s/p CABG, CHF, Hep C, A-fib (previously anticoagulated with lovenox sub cu, upper extremity DVT presented with left chest wall abscess requiring OR drainage x 2. She is post op day 1 from OR take back. Patient had moderate blood loss 450cc intraop and went into rapid Afib. She was transfered to [facility] post op for further management. Problem List: 1. Rapid Afib while off antiocoagulation for surgery 2. Left anterior chest wall abscess 3. H/o HTN 4. H/O DM 5. Hypomagnesemia 6. Acute blood loss anemia #Rapid Afib while off anticoagulation for surgery -Went back into Afib morning of 07/25; work up negative and spontaneously returned to [facility] -Coreg 3.125mg bid -Therapeutic lovenox 1mg/kg for anticoagulation -Cardiology consult: Dr. Breaux saw her. She meets criteria for anticoagulation with CHADsVASC 3. Patient prefers to be anticoagulated with sub cu lovenox as she does not like to swallow pills. She states 'they get stuck'. #Left anterior chest wall abscess -s/p OR debridement x2: cultures grew pansensitive pseudomonas and diptheroids ( presumed contaminant) -Wound vac in place; functional; 125mmHg; change MWF; Patient requires rehab for Wound Vac care three times a week. -Surgical dressing c/d/i; [place] changes daily -Surgery managing wound care -Zosyn 4.5g IV q6hr: started 07/24-stop date 08/02. Patient will need rehab to administer -Pain control: transition to PO pain control with MS contin 15mg bid and roxicodone for short acting; IV dilaudid for severe pain. Patient prefers to continue IV pain medication right up until discharge to rehab. She states she understands the possibility that her pain may not be adequately controlled if she does not trial PO pain medications prior to discharge. -Bowel regimen in setting of opiods: Miralax/Colace #H/O HTN -Lasix 20mg PO daily #HLD -atorvastatin 40mg daily #Hypomagnesemia -1.8 this morning; replete with SloMag #acute blood loss anemia -s/p 1unit pRBC on 07/25 for Hgb drop 7.4 from 8.1 -WV with serosanguinous output -Surgery managing wound care DVT prophylaxis: alps/ambulation/lovenox Code status: full code Dispo: return to [facility] for continued rehab and care for wound vac and IV antibiotics. Problem List: 1. Chest wall abscess 2. Rapid atrial fibrillation Pain Ratin Pain Location: left chest wall/axilla Pain Goal: Pain 4 or less Pain Plan: PO medications at rehab facility; d/c today Tomorrow's Labs & Rationales: none; being discharged Consulting Request: Consulting Specialty: General Surgery Consulting Physician: Reason for Consult: Left axilla necrotizing abscess Sahara MORGAN,Gloria 07/27/18 1031: Attending MD Review Statement Attending Statement Attending MD Statement: examined this patient, discuss w/resident/PA/SEED LABORATORY ASSISTANT, agreed w/resident/PA/SEED LABORATORY ASSISTANT, reviewed EMR data (avail), discussed with nursing, discussed with case mgmt, reviewed images Attending Assessment/Plan: Patient feels okay. She does still have a fair amount of pain but she feels like the long-acting morphine is taking the edge off it. She is stable to leave today to rehab. She will continue antibiotics for 1 more week through her PICC line. She will leave on the Lovenox as per her request and her wound issues are cleared up and then she will transition to oral Eliquis. She will have the wound VAC changed 3 times a week.
--- NOTE | 2018-07-27 10:12 | Patient Discharge Instructions ---
Discharge Instructions General Discharge Information You were seen/treated for: left axillary necrotizing abscess Special Instructions: Please follow up with your PCP in a week Please follow up with wound care Please continue IV antibiotics till 08/02/18 Please follow up with in a week Please follow up with your ballistic technician in a week Diet Recommended Diet: Diabetic Activity Activity Self Limited: Yes Acute Coronary Syndrome Inclusion Criteria At DC or during hospital stay patient has or had the following: ACS DIAGNOSIS No Discharge Core Measures Meds if any: Prescribed or Continued at Discharge Meds if any: NOT Prescribed or Continued at Discharge Congestive Heart Failure Inclusion Criteria At DC or during hospital stay patient has or had the following: CHF DIAGNOSIS No Discharge Core Measures Meds if any: Prescribed or Continued at Discharge Meds if any: NOT Prescribed or Continued at Discharge Cerebrovascular accident Inclusion Criteria At DC or during hospital stay patient has or had the following: CVA/TIA Diagnosis No Discharge Core Measures Meds if any: Prescribed or Continued at Discharge Meds if any: NOT Prescribed or Continued at Discharge Venous thromboembolism Inclusion Criteria VTE Diagnosis No VTE Type NONE VTE Confirmed by (Test) NONE Discharge Core Measures - Per Current guidelines, there needs to be overlap - treatment for the first 5 days of Warfarin therapy. - If discharged on Warfarin prior to 5 days of - overlap therapy, the patient will need to be - assessed for post discharge needs including - *Post discharge parental anticoagulation - *Warfarin and/or parental anticoagulation education - *Follow up date to check INR post discharge At least 5 days overlap therapy as Inpatient No Meds if any: Prescribed or Continued at Discharge Note: Overlap Therapy is Warfarin and Anticoagulant Meds if any: NOT Prescribed or Continued at Discharge
[2018-07-27 10:56] LABS: ABSOLUTE BASOPHIL COUNT 0 /CUMM (0.0-0.2); ABSOLUTE EOSINOPHIL COUNT 0.3 /CUMM (0.0-0.7); ABSOLUTE GRANULOCYTE CT 7.3 /CUMM (1.4-6.5); ABSOLUTE LYMPH COUNT 2.1 /CUMM (1.2-3.4); ABSOLUTE MONOCYTE COUNT 0.4 /CUMM (0.10-0.60); BASOPHIL % 0.4 % (0.0-2.0); EOSINOPHIL % 2.6 % (0-5); GRANULOCYTE % 72.3 % (42.2-75.2); HEMATOCRIT 28.5 % (37-47); MEAN CORPUSCULAR HGB 28.1 PG (27.0-31.0); MEAN CORPUSCULAR VOLUME 85.3 FL (81.0-99.0); MEAN PLATELET VOLUME 8.3 FL (7.4-10.4); PLATELET COUNT 327 /CUMM (130-400); RBC DISTRIBUTION WIDTH 15.5 % (11.5-14.5); RED BLOOD CELL CT 3.34 /CUMM (4.20-5.40); WHITE BLOOD CELL COUNT 10.1 /CUMM (4.8-10.8)
[2018-07-27 16:07] VITALS: BP 110/64
[2018-07-27 22:40] VITALS: BP 120/60
[2018-07-28 06:36] VITALS: BP 128/66
--- NOTE | 2018-07-28 08:31 | PN- Housestaff ---
See Addendum Subjective Follow-up For: left chest wall/axilla infection afib Subjective: No overnight events. No pain/complaints. Awaiting discharge Review of Systems Constitutional: Reports: see HPI. Objective Last 24 Hrs of Vital Signs/I&O Vital Signs Date Time Temp Pulse Resp B/P B/P Pulse O2 O2 Flow FiO2 Mean Ox Delivery Rate 07/28 0636 98.5 70 16 128/66 93 Room Air 07/27 2240 97.4 66 18 120/60 93 Room Air 07/27 2033 76 07/27 1607 98.1 68 18 110/64 97 Room Air 07/27 1012 109 164/76 Intake & Output 07/28 1600 07/28 0800 07/28 0000 Intake Total 170 480 Output Total 600 Balance 170 -120 Intake, IV 120 Intake, Oral 50 480 Number 1 Bowel Movements Output, Urine 600 Patient 68.039 kg Weight Physical Exam General Appearance: Alert, Oriented X3, Cooperative, No Acute Distress Other Physical Findings: Skin: left chest wall/axilla with wound vac in place; functional. Area tender Skin Temp/Moisture Exam: Warm/Dry HEENT: Atraumatic, PERRLA Neck: Supple Cardiovascular: Regular Rate, Normal S1, Normal S2, systolic murmur Lungs: Clear to Auscultation, Normal Air Movement Abdomen: Normal Bowel Sounds, Soft, No Tenderness Extremities: No Edema, Normal Pulses Current Medications: Current Medications Sig/Bayron Start time Last Medication Dose Route Stop Time Status Admin Acetaminophen 650 MG Q6P PRN 07/18 PO 1004 Atorvastatin Calcium 40 MG 1700 07/19 17007/27 PO 2033 Bupropion HCl 150 MG DAILY 07/19 900 AC 07/28 PO 1057 Carvedilol 3.125 MG BID 07/18 PO 1059 Docusate Sodium 100 MG BID PRN 07/18 2015 AC PO Enoxaparin Sodium 70 MG BID 07/24 SC 1059 Furosemide 20 MG DAILY 07/19 900 AC 07/28 PO 1058 Hydromorphone HCl 2 MG Q6P PRN 07/24 0930 07/28 IV 0935 Influenza Virus 0.5 ML ONCE ONE 07/27 1730 DC Vaccine IM 07/27 1731 Influenza Virus 0 .STK-MED ONE 07/27 1632 DC Vaccine IM Insulin Aspart 0 AT BEDTIME 07/24 2100 AC SC Insulin Aspart 0 TIDAC 07/24 0800 AC 07/27 SC 1358 Magnesium Chloride 64 MG DAILY 07/27 1107 AC 07/28 PO 1058 Morphine Sulfate 15 MG BID 07/25 0912 AC 07/28 PO 0935 Omeprazole 40 MG DAILY AC 07/19 0700 AC 07/27 PO 0654 Oxycodone HCl 5 MG Q4-6 PRN 07/25 2100 AC 07/27 PO 1853 Piperacillin Sod/ 4.5 GM Q6H 07/24 0200 AC 07/28 Tazobactam Sod IV 1057 Sodium Chloride 100 ML Polyethylene Glycol 17 GM DAILY 07/19 09 AC 07/26 PO 0902 Pregabalin 150 MG BID 07/18 2100 AC 07/27 PO 2033 Sertraline HCl 200 MG DAILY 07/19 09 AC 07/28 PO 1058 Trazodone HCl 200 MG AT BEDTIME 07/18 2100 AC 07/27 PO 2032 Assessment/Plan Assessment: 62 year old female with PMH DM, CAD s/p CABG, CHF, Hep C, A-fib (previously anticoagulated with lovenox sub cu, upper extremity DVT presented with left chest wall abscess requiring OR drainage x 2. She is post op day 1 from OR take back. Patient had moderate blood loss 450cc intraop and went into rapid Afib. She was transfered to [facility] post op for further management. Problem List: 1. Rapid Afib while off antiocoagulation for surgery 2. Left anterior chest wall abscess 3. H/o HTN 4. H/O DM 5. Hypomagnesemia 6. Acute blood loss anemia #Rapid Afib while off anticoagulation for surgery -Went back into Afib morning of 07/25; work up negative and spontaneously returned to NSR -Coreg 3.125mg bid -Therapeutic lovenox 1mg/kg for anticoagulation -Cardiology consult: Dr. Breaux saw her. She meets criteria for anticoagulation with CHADsVASC 3. Patient prefers to be anticoagulated with sub cu lovenox as she does not like to swallow pills. She states 'they get stuck'. #Left anterior chest wall abscess -s/p OR debridement x2: cultures grew pansensitive pseudomonas and diptheroids ( presumed contaminant) -Wound vac in place; functional; 125mmHg; change MWF; Patient requires rehab for Wound Vac care three times a week. -Surgical dressing c/d/i; [place] changes daily -Surgery managing wound care -Zosyn 4.5g IV q6hr: started 07/24-stop date 08/02. Patient will need rehab to administer -Pain control: transition to PO pain control with MS contin 15mg bid and roxicodone for short acting; IV dilaudid for severe pain. Patient prefers to continue IV pain medication right up until discharge to rehab. She states she understands the possibility that her pain may not be adequately controlled if she does not trial PO pain medications prior to discharge. -Bowel regimen in setting of opiods: Miralax/Colace #H/O HTN -Lasix 20mg PO daily #HLD -atorvastatin 40mg daily #acute blood loss anemia -s/p 1unit pRBC on 07/25 for Hgb drop 7.4 from 8.1 -WV with serosanguinous output -Surgery managing wound care DVT prophylaxis: alps/ambulation/lovenox Code status: full code Dispo: return to [facility] for continued rehab and care for wound vac and IV antibiotics. Discharging today. Supposed to discharge yesterday but could not due to late authorization. Problem List: 1. Chest wall abscess Pain Ratin Pain Location: chest wall Pain Goal: Pain 4 or less Pain Plan: tylenol morphine sulfate Tomorrow's Labs & Rationales: none Consulting Request: Consulting Specialty: General Surgery Consulting Physician: Reason for Consult: Left axilla necrotizing abscess
[2018-07-28 15:20] VITALS: BP 113/63
== END 2018-07-28 16:15 | DRG 264 ==
LOC: STS 00:40 → PACUH 16:39 → 2NB 17:23 → PACUH 17:23 → 1NO 17:23 → PACUH 17:25 → ENRESERV 17:56 → ENTRNSPT 18:29 → EDTRNSPTSTS 18:35 → 2NB 18:50 → CMPTRNSPT 19:08 → 2NB 20:10 → ENRESERV 07-23 18:23 → 1NO 07-23 18:48
PROVIDERS: Internal Medicine; Physician Assistant Surgical; Student in an Organized Health Care Education/Training Program; Surgery
PROC: 0JB60ZZ Excision of Chest Subcutaneous Tissue and Fascia, Open Approach (ICD-10-PCS; principal; 2018-07-18)
PROC: 30233N1 Transfusion of Nonautologous Red Blood Cells into Peripheral Vein, Percutaneous Approach (ICD-10-PCS; 2018-07-18)
PROC: 0JB60ZZ Excision of Chest Subcutaneous Tissue and Fascia, Open Approach (ICD-10-PCS; 2018-07-23)
DX: E11.52 Type 2 diabetes mellitus with diabetic peripheral angiopathy with gangrene (principal); L02.213 Cutaneous abscess of chest wall; L02.412 Cutaneous abscess of left axilla; I50.32 Chronic diastolic (congestive) heart failure; I96 Gangrene, not elsewhere classified; D62 Acute posthemorrhagic anemia; I11.0 Hypertensive heart disease with heart failure; B18.2 Chronic viral hepatitis C; E11.40 Type 2 diabetes mellitus with diabetic neuropathy, unspecified; B96.89 Other specified bacterial agents as the cause of diseases classified elsewhere; Z79.01 Long term (current) use of anticoagulants; Z86.718 Personal history of other venous thrombosis and embolism; Z95.1 Presence of aortocoronary bypass graft; Z98.84 Bariatric surgery status; Z79.84 Long term (current) use of oral hypoglycemic drugs; I25.10 Atherosclerotic heart disease of native coronary artery without angina pectoris; J44.9 Chronic obstructive pulmonary disease, unspecified; I25.2 Old myocardial infarction; Z90.49 Acquired absence of other specified parts of digestive tract; I48.0 Paroxysmal atrial fibrillation; L89.312 Pressure ulcer of right buttock, stage 2; L89.321 Pressure ulcer of left buttock, stage 1; B96.5 Pseudomonas (aeruginosa) (mallei) (pseudomallei) as the cause of diseases classified elsewhere; B95.61 Methicillin susceptible Staphylococcus aureus infection as the cause of diseases classified elsewhere; E83.42 Hypomagnesemia
CPT/HCPCS: 1NSP; 2NBSP; 87070; 87075; 36415; 36592; 71045; 82436; 86920; 87040; 87071; 88304; 88312; 93005; 93010; 97110-GO; 97116-GO; 97161-GP; 97530-GO; J0131; J1200; J1650; J1815; J2001; J2185; J2405; J2543; J2997; J7042; P9016; Q2036